=== PATIENT | male | born 1950 | race African-American/Black ===

== ENCOUNTER 2019-09-05 13:30 | Outpatient (RCR) | payer MEDICARE, SELFPAY ==
--- NOTE | 2019-08-09 13:46 | PTOPEVAL ---
Thank you for referring this patient to [facility]. Please review, sign, date and return this plan of care NIA. Pt referred to therapy for evaluation due to recent CVA. He demonstrates muscle weakness, decreased balance and decreased walking speed on objective test. He requires additional skilled therapy to address impairments and achieve therapy goals. Cont PT 2x/wk x 4wk. I agree with and certify that the following plan of care is medically necessary. Referring Physician Date Admitting Provider: Attending Provider: Melinda Gimenez, Referring Provider: Gabi Roger *PT Outpatient Evaluation Start: 08/09/19 12:49 Freq: Status: Active Protocol: Document 08/09/19 12:46 CAP (Rec: 08/09/19 13:36 CAP [id number]) Therapy Assessment Status Assessment Status Assessment Status Evaluation Outpatient Past Medical History Neurological History Hx Cerebrovascular Accident (CVA) Yes Cardiovascular History Hx Coronary Artery Disease Yes Hx Hypertension Yes Respiratory History Hx Chronic Obstructive Pulmonary Disease Yes (COPD) Genitourinary History Hx Genitourinary Disorders No Significant History Musculoskeletal History Hx Musculoskeletal Disorders No Significant History Hematological History Hx Anemia Yes Hx Human Immunodeficiency Virus (HIV) Yes Endocrine History Hx Diabetes Yes HEENT History Hx Other HEENT Disorders Yes: Pt legally blind Integumentary History Hx Skin Disorders No Significant History Reproductive History Hx Reproductive Disorders No Significant History Psychosocial History Hx Depression Yes Pain History History of Any Previous or Ongoing No Significant History Instance of Pain Anesthesia History Hx Anesthesia Reactions No Significant History Other History Hx Cancer Yes: Prostate ca Evaluation Information Problem Diagnosis CVA Onset 06/03/19 Subjective Information Pt was admitted to [facility] Query Text:As Reported By Patient/ Hosptial on 06/03/19 due to Family found on floor. He was sent to [facility] until 06/17/19 and then [facility] from 06/17/19-07/01/19. Pt continues to use a quad cane to assist with mobility. Denies any falls. Reports his left hand and leg are worse since the last stroke. He feels the leg is weak. He reports he does not perform a HEP or regular fitness or walking program. Previous Treatments Previous Treatments For This
--- NOTE | 2019-08-09 14:51 | OTOPEVAL ---
OCCUPATIONAL THERAPY INITIAL EVALUATION REPORT Thank you for referring this patient to [facility]. Patient will benefit from skilled OT 2x/week for 4 weeks for deficits outlined below. Please review, sign, date and return this evaluation report NIA. I agree with and certify that the following plan of care is medically necessary. Referring Physician Date Attending Provider: Melinda Gimenez MD Referring Provider: Gabi Roger NP *OT Outpatient Evaluation Start: 08/09/19 13:37 Therapy Assessment Status Assessment Status Assessment Status Evaluation Outpatient Past Medical History Neurological History Hx Cerebrovascular Accident (CVA) Yes Cardiovascular History Hx Coronary Artery Disease Yes Hx Hypertension Yes Respiratory History Hx Chronic Obstructive Pulmonary Disease Yes (COPD) Genitourinary History Hx Genitourinary Disorders No Significant History Musculoskeletal History Hx Musculoskeletal Disorders No Significant History Hematological History Hx Anemia Yes Hx Human Immunodeficiency Virus (HIV) Yes Endocrine History Hx Diabetes Yes HEENT History Hx Other HEENT Disorders Yes: Pt legally blind Integumentary History Hx Skin Disorders No Significant History Reproductive History Hx Reproductive Disorders No Significant History Psychosocial History Hx Depression Yes Pain History History of Any Previous or Ongoing No Significant History Instance of Pain Anesthesia History Hx Anesthesia Reactions No Significant History Other History Hx Cancer Yes: Prostate ca Evaluation Information Problem Diagnosis CVA Onset Jun 2019 Additional Evaluation Detail -Pt was admitted to [facility] on 06/03/19 due lethargy, encephalopathy, and possible thrombus in R internal carotid artery. He was transferred to [facility] until 06/17/19 with new infarcts noted on MRI as of 06/18/19. He then had inpatient rehab at [facility] from 08/18/18-07/01/19. -The patient also had a CVA in December of 2018. Subjective Information Slade and his daughter Query Text:As Reported By Patient/ report a decline in LUE Family strength since his previous rehab from the CVA in December. His daughter reports that she is unable to motivate him to do anything at home . Prior Level of Function Activity Level (Last 3 Months)
--- NOTE | 2019-09-05 13:29 | PTOPEVAL ---
Addendum entered by Coral Gilman, PT 09/05/19 17:05: Plan to have 1-2 weeks off due to planned surgery for carotid endarterectomy on 09/16/19. Original Note: Thank you for referring this patient to [facility]. Please review, sign, date and return this plan of care NIA. Pt has received 6 physical therapy visits to address functional impairments related to his recent CVA. He demonstrates progress towards his therapy goals with improve balance and walking speed and endurance. Cont PT 1-2x/wk x 4 wk I agree with and certify that the following plan of care is medically necessary. Referring Physician Date Admitting Provider: Attending Provider: Melinda Gimenez, Referring Provider: tolu joaquin *PT Outpatient Re-Evaluation Start: 08/09/19 12:49 Freq: Status: Active Protocol: Document 09/05/19 12:34 CAP (Rec: 09/05/19 13:28 CAP [id number]) Therapy Assessment Status Assessment Status Assessment Status Re-evaluation Evaluation Information Problem Diagnosis CVA Onset Jun 2019 Additional Evaluation Detail -Pt was admitted to [facility] on 06/03/19 due lethargy and encephalopathy and possible thrombus in R internal carotid artery. He was transferred to [facility] until 06/17/19 with new infarcts noted on MRI as of 06/18/19. He then had inpatient rehab at [facility] from 08/18/18-07/01/19. -The patient also had a CVA in December of 2018. Subjective Information Reports he is performing his Query Text:As Reported By Patient/ HEP multiple times a week. He Family states he is walking around the house but does not perform community mobility. He does think his left arm has improved,but his hand remains weak. Denies any changes in his left leg strength. Pain Assessment Timing of Pain Assessment Timing of Pain Assessment Re-assessment Self Report Self Report Pain Level 0 Pain Score Pain Score 0: Self Report Lower Extremity Muscle Strength Testing Hip Strength Right Hip Flexion Strength 4 Good Hip Extension Strength 3- Fair - Hip Abduction Strength 2+ Poor + Hip Adduction Strength 2+ Poor + Hip Strength Comments makes full bridge Left Hip Flexion Strength 3 Fair Hip Extension Strength 3- Fair - Hip Abduction Strength 2 Poor Hip Adduction Strength
--- NOTE | 2019-09-05 14:36 | OTOPEVAL ---
OCCUPATIONAL THERAPY RE-EVALUATION REPORT 09/05/2019 Thank you for referring this patient to [facility]. Patient will benefit from continued skilled OT 2x/week for 4 weeks. Plan to have 1-2 weeks off due to the patient having a carotid endarterectomy 09/16/19. Please review, sign, date and return this plan of care NIA. I agree with and certify that the following plan of care is medically necessary. Referring Physician Date Attending Provider: Melinda Gimenez MD Referring Provider: Gabi Roger NP *OT Outpatient Re-Evaluation Evaluation Information Problem Diagnosis s/p CVA Onset December and Jun 2019 Subjective Information Slade has been participating Query Text:As Reported By Patient/ in outpatient OT since 08/09/19 Family for left sided hemiparesis following CVA (x2). He reports that since SOC his whole arm can move better . He reports less pain and improved comfort in the left shoulder with exercises. He reports compliance with UE HEP (PROM and scapular ROM). Pain Assessment Timing of Pain Assessment Timing of Pain Assessment Re-assessment Self Report Self Report Pain Level 0 Pain Score Pain Score 0: Self Report Upper Extremity Range of Motion Scapular/ Shoulder Range of Motion Left Reason Not Measured WNL/Right Scapular: Retraction Hypomobile Scapular: Protraction Hypomobile Scapular Downward Rotation Hypomobile Scapular Upward Rotation Hypomobile Shoulder Flexion - Active 40 Shoulder Extension - Active 30 Shoulder Abduction - Active 55 Scapular/Shoulder Range of Motion Scapular elevation and Comments retraction is about 50% of (R) scapula. At rest the (L) scapula is in protraction with slight winging. 1 finger width subluxation. He has improved with attending to the (L) UE. Shoulder flexion remained at 50*. Shoulder abduction improved 5*. Shoulder extension improved 5*. Elbow/Forearm Range of Motion Left Elbow Flexion - Active 95 Elbow Flexion - Passive 130 Elbow Extension - Active -15 Elbow Extension - Passive 0 Forearm Supination - Passive 60 Forearm Pronation - Passive 90 Elbow/Forearm Range of Motion Comments Elbow flexion improved 10*.
--- NOTE | 2019-09-15 14:18 | PCPTNOTE ---
Patient called & cancelled scheduled appointment this date due to having procedure on 09/16/19. Pt will return in 2wks.
--- NOTE | 2019-09-15 16:20 | PCOTNOTE ---
Pt's daughter called and cancelled his appt today 2/2 having surgery tomorrow and didn't want to expose him to anyone that was sick.
--- NOTE | 2019-09-27 10:35 | PCPTNOTE ---
Patient called & cancelled all his scheduled appointment until 10/13/19 due to COVID-19. Will reassess pt at his next appt.
--- NOTE | 2019-10-13 13:28 | PCPTNOTE ---
Patient did not show up for scheduled appointment this date. Called pt, spoke with family member, who states she forgot to call and cancel his appt. Pt is receiving home health services. Will DC PT from outpt at this time.
--- NOTE | 2019-10-13 13:33 | PCPTNOTE ---
Admitting Provider: Attending Provider: Melinda Gimenez, Patient:Slade Aguilar Date of :1950 Patient has not returned for any further treatments since 09/05/2019, therefore he will be discharged at this time. Patient?s initial visit was on 08/09/2019 12:30 and he had a total of 6 visits. The goals have been partially met. Thank you for referring this patient to [facility]. Please review, sign, date and return this discharge summary NIA. I have been updated about the patient's current status and I agree with discharge from the above service at this time. Referring Physician Date
--- NOTE | 2019-10-13 14:50 | OTOPEVAL ---
OCCUPATIONAL THERAPY DISCHARGE NOTE 10/13/2019 Slade has not returned for treatment since 09/05/2019, therefore he will be discharged from therapy at this time. The goals have not been met. Thank you for referring Slade Aguilar to [facility]. Please review, sign, date and return this plan of care NIA. I agree with and certify that the following plan of care is medically necessary. Referring Physician Date Attending Provider: Melinda Gimenez MD Referring Provider: Gabi Roger NP
== END 2019-10-14 09:28 | disposition home or self-care (01) ==
LOC: ANHOT 13:30
PROVIDERS: PCP Internal Medicine Geriatric Medicine; Visit Provider Internal Medicine Geriatric Medicine
DX: Z86.73 Personal history of transient ischemic attack (TIA), and cerebral infarction without residual deficits (principal)
CPT/HCPCS: 97014; 97035; 97110; 97116; 97140; 97163; 97165; 97530; G0283

== ENCOUNTER 2019-10-12 17:06 | Inpatient (IN) | payer MEDICARE, SELFPAY ==
--- NOTE | ~2019-10-12 | XR_ITS ---
EXAMINATION: XR chest 1V portable 10/12/2019 18:52 INDICATION: Transient alteration of awareness. Cough. Hypertension. History of asthma. PROCEDURE: AP portable chest COMPARISON: 06/17/2019 FINDINGS: The lungs are clear. The cardiomediastinal silhouette is within normal limits. There are no pleural effusions. There is no pneumothorax suspected. IMPRESSION: 1: NO ACUTE CARDIOPULMONARY DISEASE. Reviewed, dictated and finalized at location A.
[2019-10-12 17:06] VITALS: BP 72/53; PULSE 105; RESP 21; TEMP 37.1; O2SAT 96
--- NOTE | 2019-10-12 17:33 | ED.GENADULT ---
HPI - General Adult General Chief complaint: Unspecified Stated complaint: blood in urine Time Seen by Provider: 10/12/19 17:09 Source: patient and EMS Mode of arrival: EMS History of Present Illness HPI narrative: 69 m generally a difficult hx and a p[oor report re why he has come pt states main issue is a martin was placed this am to get the blood out of my urine and it is burning now also that the indicators aren't always right claims not to have been cathed before that may have been done by home health but no notes in emr incidental note made of low bp pt denies fever, cough, sob, dizziness, gi sx Onset (ago): hour(s) Location: genitals Related Data Allergies Allergy/AdvReac Type Severity Reaction Status Date / Time No Known Allergies Allergy Verified 06/03/19 19:17 Review of Systems Constitutional: Constitutional: Denies chills, Denies fever(s) and Reports weakness ENT: Denies dizziness and Denies nasal congestion Cardiovascular: Cardiovascular: Reports no additional cardiovascular complaints and Denies chest pain Respiratory: Respiratory: Denies cough and Denies dyspnea Gastrointestinal: Gastrointestinal: Denies diarrhea and Denies vomiting Genitourinary: Genitourinary: Reports hematuria and Reports dysuria Neurologic: Reports confusion (maybe), Denies headache(s) and Reports weakness PMFSH Past Medical History Medical History Asthma Diabetes mellitus HIV positive HTN (hypertension) Left hemiparesis Nasal fracture Shingles Stroke Surgical History Surgical History H/O inguinal hernia repair History of tonsillectomy Family History Family History Father Cirrhosis of liver Social History Social History Smoking status: Former smoker Tobacco type: cigarettes Second hand tobacco smoke exposure: Yes Alcohol intake: former Substance use: never Gender identity (if verbalized by the patient): Male Spiritual care concerns: No Agree to blood products: Yes Exam Const: Other: frail, elderly, chronically ill appearing, mildly sleepy/lethargic HENMT: Mouth: No Normal oral and palatal mucosa present and Yes dry mucous membranes Resp: Effort & Inspection: normal respiratory effort Auscultation: clear to auscultation bilaterally Cardio: Rate: regular rate Rhythm: regular rhythm GI: Inspection: non-distended GI Palp: No Tenderness to palpation present (GI) : Other: martin in, dark urine Urinary Catheter: Urinary Catheter: patent and draining Back/Spine/Pelvis: Back: no CVA tenderness Neuro: General: moves all extremities Extrem: General: no pedal edema Psych: Attitude: cooperative Course Course Emergency Course: bp responded nicely to moderate fluids uti on f/u, nl lactic d/w gu in [place], [facility] doc who was unfamiliar Vital Signs Vital signs: Vital Signs Temperature 37.1 C 10/12/19 17:06 Pulse Rate 105 H 10/12/19 17:06 Respiratory Rate 21 H 10/12/19 17:06 Blood Pressure 72/53 L 10/12/19 17:06 Pulse Oximetry 96 10/12/19 17:06 Temperature 37.1 C 10/12/19 17:06 Pulse Rate 105 H 10/12/19 17:06 Respiratory Rate 21 H 10/12/19 17:06 Blood Pressure 72/53 L 10/12/19 17:06 Pulse Oximetry 96 10/12/19 17:06 Medical Decision Making Vital Signs Vital Signs: Vital Signs Temperature 37.1 C 10/12/19 17:06 Pulse Rate 105 H 10/12/19 17:06 Respiratory Rate 21 H 10/12/19 17:06 Blood Pressure 72/53 L 10/12/19 17:06 Pulse Oximetry 96 10/12/19 17:06 Temperature 37.1 C 10/12/19 17:06 Pulse Rate 105 H 10/12/19 17:06 Respiratory Rate 21 H 10/12/19 17:06 Blood Pressure 72/53 L 10/12/19 17:06 Pulse Oximetry 96 10/12/19 17:06 Lab Data Result diagrams: 10/12/19
[2019-10-12 17:44] VITALS: BP 87/53; PULSE 90; RESP 19; O2SAT 95
[2019-10-12 18:12] LABS: Basophils Absolute Auto 0.1 K/mm3 (0.0-0.1); Basophils Percent Auto 0.7 % (0.2-1.2); Eosinophils Absolute Auto 0.2 K/mm3 (0-0.3); Eosinophils Percent Auto 1.3 % (0-4.4); Hematocrit 38.1 % (42.0-52.0); Hemoglobin 12.2 g/dL (14.0-18.0); Immature Granulocyte Absolute 0.03 K/mm3 (0.00-0.031); Immature Granulocyte Percent A 0.3 % (0-0.5); Lymphocytes Absolute Auto 2.41 K/mm3 (0.9-3.2); Lymphocytes Percent Auto 20.7 % (18.3-44.2); Mean Corpuscular Hemoglobin 27.8 pg (26-34); Mean Corpuscular Volume 86.8 fl (80-100); Mean Platelet Volume 10.1 fl (7.4-10.4); Monocytes Percent Auto 8.1 % (2.6-8.5); Neutrophils Percent Auto 68.9 % (45.5-73.1); Platelet Count Result 362 k/mm3 (150-375); Red Blood Count 4.39 M/mm3 (4.6-6.20); Red Cell Distribution Width 12.9 % (11.5-14.5); White Blood Count 11.7 K/mm3 (4.5-10.0)
[2019-10-12 18:23] LABS: Lactic Acid Reflex 2.1 mmol/L (0.7-2.1)
[2019-10-12] MEDS: LACTATED RINGERS 1,000 ML 999 ML IV CONT (18:24)
[2019-10-12 18:53] VITALS: BP 94/69; PULSE 69; RESP 16; O2SAT 99
[2019-10-12 19:20] LABS: Alanine Aminotransferase 14 U/L (4-50); Albumin Level 3.9 g/dL (3.5-5.1); Alkaline Phosphatase 117 U/L (38-126); Aspartate Amino Transferase 20 U/L (17-59); Bilirubin,Total 0.3 mg/dL (0.2-1.3); Blood Urea Nitrogen 29 mg/dL (9-20); Calcium 9.5 mg/dL (8.4-10.2); Carbon Dioxide 29 mmol/L (22-30); Chloride 101 mmol/L (98-107); Estimated CRCL calculation 30 ml/min; Estimated Glomerular Filt Rate 38; Glucose 192 mg/dL (75-110); Lipase 76 U/L (23-300); Potassium 3.8 mmol/L (3.4-5.0); Sodium 138 mmol/L (137-145)
[2019-10-12 19:30] LABS: Add Urine Microscopic? YES; Appearance Urine Turbid (Clear); Bacteria Urine 1+ /hpf; Bilirubin Urine 1+ (Negative); Blood Urine 3+ (Negative); Glucose Urine UA 1+ mg/dL (Negative); Hyaline Casts Urine 50+ /lpf; Ketones Urine Negative (Negative); Leukocyte Esterase Ur 2+ LEU/UL (Negative); Mucus Urine Heavy /lpf; Nitrate Urine Negative (Negative); Protein Urine 2+ mg/dL (Negative); RBC Urine >75 /hpf (0-2); Specific Grav Ur 1.026 (1.001-1.035); WBC Clumps Urine Present /HPF; WBC Urine >75 /hpf
[2019-10-12 19:31] LABS: Color Urine Brown (Yellow)
[2019-10-12 19:45] VITALS: BP 114/88; PULSE 70; RESP 16; O2SAT 100
[2019-10-12 20:30] VITALS: BP 136/77; PULSE 71; RESP 16; O2SAT 99
[2019-10-12 21:10] LABS: Reflex Lactic Acid Yes or No Add Lactic
[2019-10-12 21:40] LABS: Lactic Acid 1.4 mmol/L (0.7-2.1)
--- NOTE | 2019-10-12 23:20 | PC.NURSE ---
This patient, Slade Aguilar, was admitted to Medical Room 245-. Patient/family oriented to hospital policies and general routines including ID bracelet, bed and alarms, visiting hours, pain management, procedures, bathroom and other care routines, personal items, smoking policy, room service/diet, and visiting hours. Valuables list has been completed. Information on how to activate the Rapid Response Team has been discussed. Patient/Family are encouraged to report perceived risks to care and to ask questions if they do not understand what they are told or what they should do.
[2019-10-12 23:36] VITALS: BMI 26.2
[2019-10-12 23:37] VITALS: BP 145/65; PULSE 69; RESP 20; TEMP 36.4; O2SAT 99
[2019-10-12] MEDS: LACTATED RINGERS 1,000 ML 125 ML IV CONT (23:39)
[2019-10-13 00:16] LABS: Glucose Point of Care 86 (65-105)
[2019-10-13 05:16] LABS: Basophils Absolute Auto 0.1 K/mm3 (0.0-0.1); Basophils Percent Auto 1.1 % (0.2-1.2); Eosinophils Absolute Auto 0.3 K/mm3 (0-0.3); Eosinophils Percent Auto 2.9 % (0-4.4); Hematocrit 33.6 % (42.0-52.0); Hemoglobin 10.9 g/dL (14.0-18.0); Immature Granulocyte Absolute 0.04 K/mm3 (0.00-0.031); Immature Granulocyte Percent A 0.4 % (0-0.5); Lymphocytes Absolute Auto 2.66 K/mm3 (0.9-3.2); Lymphocytes Percent Auto 29.4 % (18.3-44.2); Mean Corpuscular HGB Conc 32.4 g/dl (32-36); Mean Corpuscular Hemoglobin 28.3 pg (26-34); Mean Corpuscular Volume 87.3 fl (80-100); Monocytes Absolute Auto 0.8 K/mm3 (0.1-0.6); Monocytes Percent Auto 9.2 % (2.6-8.5); Neutrophils Absolute Auto 5.2 K/mm3 (1.3-6.7); Platelet Count Result 276 k/mm3 (150-375); Red Blood Count 3.85 M/mm3 (4.6-6.20); Red Cell Distribution Width 12.9 % (11.5-14.5); White Blood Count 9.1 K/mm3 (4.5-10.0)
[2019-10-13 05:27] LABS: Blood Urea Nitrogen 25 mg/dL (9-20); Calcium 8.9 mg/dL (8.4-10.2); Carbon Dioxide 30 mmol/L (22-30); Chloride 105 mmol/L (98-107); Estimated CRCL calculation 48 ml/min; Estimated Glomerular Filt Rate > 60; Glucose 110 mg/dL (75-110); Potassium 3.7 mmol/L (3.4-5.0); Sodium 139 mmol/L (137-145)
[2019-10-13 05:51] VITALS: BP 161/84; PULSE 65; RESP 20; TEMP 36.2; O2SAT 99
[2019-10-13 08:00] VITALS: PULSE 65; RESP 20; O2SAT 99
[2019-10-13] MEDS: SODIUM CHLORIDE 0.9% IV 1,000 ML 75 ML IV CONT ×2 (08:41→22:24)
[2019-10-13] MEDS: CITALOPRAM HYDROBROMIDE 10 MG TABLET PO (08:42)
[2019-10-13] MEDS: CEFDINIR 300 MG CAPSULE PO ×2 (08:42→20:27)
[2019-10-13] MEDS: lisinopriL 5 MG TABLET PO (08:43)
[2019-10-13] MEDS: ROSUVASTATIN 10 MG TABLET 40 MG PO (08:43)
[2019-10-13] MEDS: levETIRAcetam 250 MG TABLET PO (08:43)
--- NOTE | 2019-10-13 08:48 | PM.IMHP ---
H&P: HPI History of Present Illness Chief complaint: WINNIE, UTI, Sepsis Narrative: Slade Aguilar is a 69 year old male with known history of CVA with left hemiparesis, HTN, and DM (diet controlled) who presented to the ER on evening of 10/11 from home due to HH finding patient to be hypotensive. Patient is a not the best historian but is able to tell me some detail. Most of history is obtained from EMR and from daughter, Teresa (patient gave permission to talk to). Patient tells me that he was sent to the ER because he was experiencing burning pain from his Martin catheter after it was placed in his urologist, Dr. Palafox, from [place]; he also noted that there was dark, possibly bloody urine and that it may have clotted. He states that his burning has resolved and his urine appears to be improving. After speaking with his daughter, the true reason for presentation was his hypotension found by his HH nurse at home. Patient states that his symptoms have improved. He denies any burning around his martin, his bloody urine has improved, and he denies f/c/sweats. Upon further questioning, he denies myalgias/arthralgias, headaches, dizziness, lightheadedness, changes in v/h, cp/palpitations, sob/cough, n/v/d/c, abd pain, changes in BMs, melena, BRBPR, dysuria, calf pain/swelling. Review of Systems Review of Systems: All systems reviewed & are unremarkable except as noted in HPI and below PMFSH Past Medical History Medical History (Updated 10/13/19 @ 09:29 by Bakari Duggan PA-C) Asthma Diabetes mellitus HIV positive HTN (hypertension) Left hemiparesis Nasal fracture Shingles Stroke Surgical History Surgical History H/O hand surgery Right hand fracture H/O inguinal hernia repair History of tonsillectomy Family History Family History Father Cirrhosis of liver Social History Social History Social History: Patient states he lives at home with his daughter, Teresa, whom he states is his surrogate MDM. He wishes to be listed as a Full Code. His PCP is Dr. Gimenez. He currently has service Smoking packs per day: 0.5 Smoking cigarettes per day: 10.0 Smoking status: Former smoker Tobacco type: cigarettes Second hand tobacco smoke exposure: Yes Alcohol intake: current Drinks per week: 2 Alcohol use details: Occasional drinker Substance use: never Gender identity (if verbalized by the patient): Male Spiritual care concerns: No Agree to blood products: Yes Meds Home Medications and Allergies Home Medications Medication Instructions Recorded Confirmed Type Biktarvy 1 tablet PO DAILY #30 tablet 06/30/19 10/12/19 Rx aspirin 325 mg PO DAILY #30 tablet 06/30/19 10/12/19 Rx citalopram 10 mg PO DAILY #30 tablet 06/30/19 10/12/19 Rx lisinopril 5 mg PO DAILY #30 tablet 06/30/19 10/12/19 Rx montelukast 10 mg PO HS #30 tablet 06/30/19 10/12/19 Rx rosuvastatin 40 mg PO DAILY #30 tablet 06/30/19 10/12/19 Rx acetaminophen [Acetaminophen Extra 1,000 mg PO Q6H PRN 10/12/19 10/12/19 History Strength] ipratropium-albuterol 3 ml INHALATION BID 10/12/19 10/12/19 History levetiracetam 250 mg PO DAILY 10/12/19 10/12/19 History levetiracetam 500 mg PO HS 10/12/19 10/12/19 History Allergies Allergy/AdvReac Type Severity Reaction Status Date / Time No Known Allergies Allergy Verified 06/03/19 19:17 Vital Signs Vital Signs - 24 hr 10/12/19 17:06 10/12/19 17:44 10/12/19 18:53 Temperature 98.8 F Pulse Rate 105 H 90 69 Respiratory Rate 21 H 19 16 Blood Pressure 72/53 L 87/53 L 94/69 L Pulse Oximetry 96 95 99 10/12/19 19:45 10/12/19 20:30 10/12/19 23:37 Temperature 97.5 F L Pulse Rate 70 71 69 Respiratory Rate 16 16 20 Blood Pressure 114/88 136/77 145/65 H Pulse Oximetry 100 99 99 10/13/19 05:51 Temperature 97.1 F L Puls
[2019-10-13 08:53] LABS: Hemoglobin A1C 6.4 % (<5.7)
[2019-10-13] MEDS: ALBUTEROL SULFATE (*SP) AEROSOL 1 PUFF 2 PUFF INHALATION (09:20)
[2019-10-13 11:38] LABS: Glucose Point of Care 125 (65-105)
[2019-10-13 14:00] VITALS: BP 139/60; PULSE 76; RESP 22; TEMP 36.1; O2SAT 100
[2019-10-13 17:26] LABS: Glucose Point of Care 80 (65-105)
[2019-10-13] MEDS: HYOSCYAMINE SULFATE 0.125 MG TABLET PO (17:30)
--- NOTE | 2019-10-13 19:32 | PHAR ---
BIKTARVY 50/200/25MG TABLETS ONE DAILY HOME MED VERIFIED
[2019-10-13] MEDS: levETIRAcetam 500 MG TABLET PO (20:27)
[2019-10-13] MEDS: MONTELUKAST SODIUM 10 MG TABLET PO (20:27)
[2019-10-13 20:47] LABS: Glucose Point of Care 143 (65-105)
[2019-10-13 22:00] VITALS: BP 168/81; PULSE 81; RESP 20; TEMP 36.1; O2SAT 100
[2019-10-14 05:32] LABS: Basophils Absolute Auto 0.1 K/mm3 (0.0-0.1); Eosinophils Absolute Auto 0.4 K/mm3 (0-0.3); Eosinophils Percent Auto 4.7 % (0-4.4); Hematocrit 32.1 % (42.0-52.0); Hemoglobin 10.3 g/dL (14.0-18.0); Immature Granulocyte Absolute 0.03 K/mm3 (0.00-0.031); Immature Granulocyte Percent A 0.4 % (0-0.5); Lymphocytes Absolute Auto 2.33 K/mm3 (0.9-3.2); Lymphocytes Percent Auto 28.7 % (18.3-44.2); Mean Corpuscular HGB Conc 32.1 g/dl (32-36); Mean Corpuscular Hemoglobin 27.4 pg (26-34); Mean Corpuscular Volume 85.4 fl (80-100); Monocytes Absolute Auto 0.6 K/mm3 (0.1-0.6); Monocytes Percent Auto 7.6 % (2.6-8.5); Neutrophils Absolute Auto 4.7 K/mm3 (1.3-6.7); Neutrophils Percent Auto 57.6 % (45.5-73.1); Platelet Count Result 265 k/mm3 (150-375); Red Blood Count 3.76 M/mm3 (4.6-6.20); Red Cell Distribution Width 12.6 % (11.5-14.5); White Blood Count 8.1 K/mm3 (4.5-10.0)
[2019-10-14 05:48] LABS: Blood Urea Nitrogen 16 mg/dL (9-20); Calcium 8.7 mg/dL (8.4-10.2); Carbon Dioxide 30 mmol/L (22-30); Chloride 102 mmol/L (98-107); Estimated CRCL calculation 62 ml/min; Estimated Glomerular Filt Rate > 60; Glucose 94 mg/dL (75-110); Magnesium 1.3 mg/dL (1.6-2.3); Potassium 3.8 mmol/L (3.4-5.0); Sodium 137 mmol/L (137-145)
[2019-10-14 06:00] VITALS: BP 152/81; PULSE 59; RESP 18; TEMP 36.1; O2SAT 95
[2019-10-14 07:46] LABS: Glucose Point of Care 82 (65-105)
[2019-10-14] MEDS: ROSUVASTATIN 10 MG TABLET 40 MG PO (08:08)
[2019-10-14] MEDS: levETIRAcetam 250 MG TABLET PO (08:08)
[2019-10-14] MEDS: lisinopriL 5 MG TABLET PO (08:08)
[2019-10-14] MEDS: MAGNESIUM SULF 2 GM/WATER 50ML 2 GM/50 ML BAG IVPB (08:09)
[2019-10-14] MEDS: CITALOPRAM HYDROBROMIDE 10 MG TABLET PO (08:09)
--- NOTE | 2019-10-14 08:20 | PM.DS ---
DS: Diagnosis Admitting Diagnosis Admitting Diagnosis: Urinary tract infection, site not specified Discharge Diagnosis (1) Bacteriuria with pyuria: Code(s): R82.71 - Bacteriuria; R82.81 - Pyuria Status: Acute Assessment and Plan: Patient having symptoms yesterday with UA showing brown, turbid urine, >75 WBC, 1+ bacteria, 2+ leuk esterase, negative nitrates. WBC mildly elevated at 11.7k on arrival. WBC WNL today. Afebrile, VSS. Asymptomatic today. Urine cultures negative. BC negative to date Patient started on IV ceftriaxone on arrival and had 2 dose of cefdinir yesterday for suspected UTI. Antibiotics will be d/c due to negative urine cultures Follow up with Urology Will hold Aspirin for hematuria. No gross hematuria noted in martin today. Resume aspirin per urology. Discharge home today. (2) Hypotension: Code(s): I95.9 - Hypotension, unspecified Status: Resolved Assessment and Plan: After calculating SIRS/Sepsis score, patient did not meet SIRS criteria; hypotension noted while in the ER which responded well to IVF. Slightly tachycardic at 105 at presentation, but also improved with IVF; likely in response to hypotension which is likely due to acute dehydration. Since does not meet SIRS/Sepsis criteria; sepsis ruled out. No source of infection as well as UTI ruled out with negative UC. BP 150s sys today; much improved. Patient afebrile, VSS. As above WBC WNL. Discharge today (3) Stroke: Code(s): I63.9 - Cerebral infarction, unspecified Status: Acute Assessment and Plan: Known previous stroke with left hemiparesis Will hold home aspirin for now; will have patient follow up with Urology on when to resume F/u per Neurology recommendations Continue PT/OT with HH (4) Diabetes mellitus: Code(s): E11.9 - Type 2 diabetes mellitus without complications Status: Acute Assessment and Plan: No home medications; appears to be diet controlled. A1c 6.4. During stay, achs accuchecks, hypoglycemia protocol, correctional insulin f/u with pcp (5) HTN (hypertension): Code(s): I10 - Essential (primary) hypertension Status: Acute Assessment and Plan: Initially hypotensive, but responded well to IVF. BP 150 sys Will continue home antihypertensives F/u with PCP (6) Hematuria: Code(s): R31.9 - Hematuria, unspecified Status: Acute Assessment and Plan: Patient notes gross hematuria prior to arrival. This appears to have resolved with no gross hematuria today. Noted on UA as well Will hold aspirin for now Will have patient follow up with his urologist to see when to resume Follow up with Urology at scheduled appointment (7) Asthma: Code(s): J45.909 - Unspecified asthma, uncomplicated Status: Acute Assessment and Plan: No acute issues. Lung exam unremarkable Continue home regimen (8) WINNIE (acute kidney injury): Code(s): N17.9 - Acute kidney failure, unspecified Status: Acute Assessment and Plan: Cr 2.10 upon arrival; 1.00 by day of discharge. Improved with IVF resuscitation. Likely due to hypovolemia due to dehydration. F/u with PCP DS: Summary Hospital Course Reason for hospitalization: Hypotension; suspected dehydration, abnormal UA Hospital Course: Patient is a 69 yo M with history of CVA with left hemiparesis, HTN, and DM (diet controlled) who presented to the ER on evening of 10/11 from home due to HH nurse finding patient to be hypotensive while at home earlier that day. Patient also reported blood in Martin catheter that was placed earlier that day. Patient was found to be hypotensive on presentation to ER, but this improve
[2019-10-14 09:25] VITALS: PULSE 88; RESP 20
[2019-10-14] MEDS: IPRATROPIUM BR 0.02% INH SOLN 0.5 MG/2.5 ML VIAL INHALATION (09:27)
[2019-10-14] MEDS: ALBUTEROL SULFATE NEB 2.5 MG/0.5 ML INH INHALATION (09:27)
[2019-10-14 09:35] VITALS: PULSE 85; RESP 20
[2019-10-14 11:52] LABS: Glucose Point of Care 115 (65-105)
[2019-10-14 13:20] VITALS: BP 141/76; PULSE 69; RESP 18; TEMP 36.2; O2SAT 100
== END 2019-10-14 15:20 | disposition home health service (06) | DRG 641 ==
LOC: ANHED 21:14 → ANH2MED 22:17
PROVIDERS: Physician Assistant; Admitting Provider Internal Medicine; Emergency Provider Emergency Medicine; PCP Internal Medicine Geriatric Medicine; Visit Provider Internal Medicine
DX: E86.0 Dehydration (principal); I69.354 Hemiplegia and hemiparesis following cerebral infarction affecting left non-dominant side; I95.9 Hypotension, unspecified; I10 Essential (primary) hypertension; E11.9 Type 2 diabetes mellitus without complications; J45.909 Unspecified asthma, uncomplicated; Z21 Asymptomatic human immunodeficiency virus [HIV] infection status; Z87.891 Personal history of nicotine dependence; R31.0 Gross hematuria; R82.71 Bacteriuria; R82.81 Pyuria
CPT/HCPCS: 36415; 71045; 80048; 80053; 81001; 83036; 83605; 83690; 83735; 85025; 87040; 87086; 94640; 96361; 96365; 97110; 97161; 97165; 99285; A9270; J0696; J3475; J7030; J7120

== ENCOUNTER 2020-01-17 13:15 | Outpatient (RCR) | payer MEDICARE, SELFPAY ==
--- NOTE | 2019-11-23 13:58 | PTOPEVAL ---
Thank you for referring Slade Aguialr to [facility]. Please review, sign, date and return this plan of care NIA. I agree with and certify that the following plan of care is medically necessary. Referring Physician Date Admitting Provider: Attending Provider: Melinda Gimenez, Referring Provider: *PT Outpatient Evaluation Start: 11/23/19 12:39 Freq: Status: Active Protocol: Document 11/23/19 12:45 DIMA (Rec: 11/23/19 13:47 DIMA [id number]) Therapy Assessment Status Assessment Status Assessment Status Evaluation Outpatient Past Medical History Neurological History Hx Cerebrovascular Accident (CVA) Yes: x2 left sided affected Hx Epilepsy Yes Cardiovascular History Hx Coronary Artery Disease Yes: right carotid artery clean out Hx Hypertension Yes Respiratory History Hx Chronic Obstructive Pulmonary Disease Yes (COPD) Genitourinary History Hx Renal Disease Yes Hx Other Genitourinary Disorders Yes: prostate ca/martin Musculoskeletal History Hx Other Musculoskeletal Disorders Yes: lt side affected from stroke hemiplegia Hematological History Hx Anemia Yes Hx Human Immunodeficiency Virus (HIV) Yes Endocrine History Hx Diabetes Yes HEENT History Hx Other HEENT Disorders Yes: Pt legally blind Integumentary History Hx Skin Disorders No Significant History Reproductive History Hx Reproductive Disorders No Significant History Psychosocial History Hx Depression Yes Pain History History of Any Previous or Ongoing No Significant History Instance of Pain Anesthesia History Hx Anesthesia Reactions No Significant History Other History Hx Cancer Yes: Prostate ca Evaluation Information Problem Diagnosis CVA Onset 05/2019 Additional Evaluation Detail --active prostate cancer -scheduled Boomarang surgery (not sure of date) -- Teresa goldberg, is day time caregiver Subjective Information Jermaine is here for continuing CVA in 05/2019. He was in the hospital and then was on TRC at [facility] in June 2019. He then participated in outpatient physical therapy for a few months. He returned to the hospital and had a the right carotid artery cleaned out. He has now returned for outpatient therapy. States he feels weaker over all and like his body is falling apart. reports that he has a history of falling, last fall was a month ago and states that the left knee gave out. states he does not perform any exercises at home right now. Prior Level of Function Home Setting Home Type Single Level Environmental Barriers Railing, Bilateral,Stairs, 2-4 Pain Assessment Timing of Pain Assessment Timing of Pain Assessment Assessment
[2019-11-23 14:24] VITALS: BP_SYST 90
--- NOTE | 2019-11-23 14:38 | OTOPEVAL ---
OCCUPATIONAL THERAPY EVALUATION REPORT 11/23/2019 Thank you for referring Slade Aguilar to [facility] [place]. Skilled OT recommended 2x/week for 4 weeks. Please review, sign, date and return this plan of care NIA. I agree with and certify that the following plan of care is medically necessary. Referring Physician Date Referring Provider: Melinda Gimenez, MD *OT Outpatient Evaluation Therapy Assessment Status Assessment Status Assessment Status Evaluation Outpatient Past Medical History Neurological History Hx Cerebrovascular Accident (CVA) Yes: x2 left sided affected Hx Epilepsy Yes Cardiovascular History Hx Coronary Artery Disease Yes: right carotid artery clean out Hx Hypertension Yes Respiratory History Hx Chronic Obstructive Pulmonary Disease Yes (COPD) Genitourinary History Hx Renal Disease Yes Hx Other Genitourinary Disorders Yes: prostate ca/martin Musculoskeletal History Hx Other Musculoskeletal Disorders Yes: lt side affected from stroke hemiplegia Hematological History Hx Anemia Yes Hx Human Immunodeficiency Virus (HIV) Yes Endocrine History Hx Diabetes Yes HEENT History Hx Other HEENT Disorders Yes: Pt legally blind Integumentary History Hx Skin Disorders No Significant History Reproductive History Hx Reproductive Disorders No Significant History Psychosocial History Hx Depression Yes Pain History History of Any Previous or Ongoing No Significant History Instance of Pain Anesthesia History Hx Anesthesia Reactions No Significant History Other History Hx Cancer Yes: Prostate ca Evaluation Information Problem Diagnosis s/p CVA x2 Onset December and May 2019 Additional Evaluation Detail Left hemiparesis, tightness, and tone. He currently has active prostate cancer - scheduled for Boomarang surgery, unknown date. Subjective Information Jermaine presents today for Query Text:As Reported By Patient/ another round of OT/PT. He has Family had multiple therapy stents since his strokes. He reports being minimally active at home and sometimes performs his exercises. He lives with his daughter who assists him with bathing and dressing. Prior Level of Function Activity Level (Last 3 Months) Hand Dominance Right Activity of Daily Living Ability Needs Some Help Indoor/Home Mobility Independent Community Mobility
--- NOTE | 2019-12-12 13:04 | PCOTNOTE ---
Patient called & cancelled scheduled appointment this week, today and 's, due to not being able to make it .
--- NOTE | 2019-12-12 13:21 | PCPTNOTE ---
Patient's daughter called & cancelled scheduled appointment this date due to not being able to make it.
--- NOTE | 2019-12-16 08:48 | PCOTNOTE ---
Patient's daughter called & cancelled scheduled appointments this week due to not being able to make it .
--- NOTE | 2019-12-19 16:23 | PTOPEVAL ---
PHYSICAL THERAPY PROGRESS REPORT AND PLAN OF CARE UPDATE Thank you for referring Slade Aguilar to [facility]. I recommend Jermaine continue 2x/week for 2 weeks and 1x/week for 2 weeks. Please review, sign, date and return this plan of care NIA. I agree with and certify that the following plan of care is medically necessary. Referring Physician Date Attending Provider: Melinda Gimenez, MD Re-assess Other History Hx Cancer Yes: Prostate ca Evaluation Information Problem Diagnosis s/p CVA x2 Onset December and May 2019 Additional Evaluation Detail Left hemiparesis, tightness, and tone. He currently has active prostate cancer - scheduled for Boomarang surgery, unknown date. Subjective Information Jermaine has participated in Query Text:As Reported By Patient/ physical therapy for the last Family month. He does not report noticing a lot of changes over the last month. He reports having a lot of depression that gets him down; therefore, he does not do alot of exercises at home. He reports that he is exhausted all the time and does not want to get out of bed. Pain Assessment Timing of Pain Assessment Timing of Pain Assessment Assessment Self Report Self Report Pain Level 0 Pain Score Pain Score 0: Self Report Lower Extremity Muscle Strength Testing Hip Strength Left Hip Flexion Strength 3+ Fair + Hip Abduction Strength 3+ Fair + Knee Strength Left Knee Flexion Strength 4- Good - Knee Extension Strength 3+ Fair + Knee Strength Comments severe atrophy of left quadriceps Cunningham Balance Assessment C[place]AM Balance Evaluation Total Score 32/56 Comments 11/23/2019: 26/56 Timed Up and Go Test (TUG) (Seconds) 30 Assistive Devices None Comments 11/23/2019: 29seconds SBA 5 Time Sit to Stand Time in Seconds 37.41 5 Time Sit to Stand Comments 11/23/2019: 36.78 Query Text:Normative Data: If Greater used right UE to assist Than 15 Seconds, 74% Increase Risk for Recurrent Falls Gait Assessment 2 Minute Walk Total Distance Walked (feet) 113 2 Minute Walk Gait Speed Score (feet/ 0.94 second) 2 Minute Walk Test Comments 11/23/2019: 113seconds SBQC PT
[2019-12-22 13:40] VITALS: BP_SYST 90
--- NOTE | 2019-12-22 14:30 | OTOPEVAL ---
OCCUPATIONAL THERAPY DISCHARGE 12/22/2019 Thank you for referring Slade Aguilar to [facility]. At this time Slade demonstrates a progress plateau with therapy. D/C with ROM HEP to promote optimal flexibility for ADLs. Please review, sign, date and return this plan of care NIA. I agree with and certify that the following plan of care is medically necessary. Referring Physician Date Referring Provider: Melinda Gimenez, MD *OT Outpatient Re-Evaluation Evaluation Information Problem Diagnosis s/p CVA x2 Onset December and May 2019 Additional Evaluation Detail Slade has been working with therapy for 4 weeks for LUE weakness, tone, and contractures. Therapy has been focusing on encouraging the patient to be more active in his care, initiating his home program independently, improving flexibility and strength. Subjective Information Patient reports doing his UE Query Text:As Reported By Patient/ HEP once a week , reporting Family too much shoulder pain and having no motivation to get out bed to do anything. He reports feeling depressed and doesn't want to do the exercises because he believes that he won't get any better. Daughter reports that he had prostate surgery last week, which caused him to miss a week of therapy. Pain Assessment Timing of Pain Assessment Timing of Pain Assessment Re-assessment Pain Scale Pain Scale Used Numeric (1 - 10) Self Report Pain Assessment Left Shoulder(s) Reported Pain Level 0 Pain Score Pain Score 0: Self Report Additional Pain Score Comments No pain at rest, increase to 3 /10 with passive abduction stretch to 50* and sharp increase in pain from there. Upper Extremity Range of Motion Scapular/ Shoulder Range of Motion Left Scapular: Retraction Hypomobile Scapular: Protraction Hypomobile Scapular Downward Rotation Hypomobile Scapular Upward Rotation Hypomobile Shoulder Flexion - Active 20 Shoulder Flexion - Passive 90 Shoulder Extension - Active 30 Shoulder Abduction - Active 30 Shoulder Abduction - Passive 90 Shoulder Medial Rotation - Active Minimal IR. Query Text:Reach Behind the Back Shoulder L
--- NOTE | 2020-01-17 14:12 | PTOPEVAL ---
PHYSICAL THERAPY DISCHARGE NOTE Thank you for referring Slade Aguilar to [facility]. Please review, sign, date and return this plan of care NIA. I agree with and certify that the following plan of care is medically necessary. Referring Physician Date Attending Provider: Melinda Gimenez, MD Discharge Yes: Prostate ca Subjective: Jermaine is participating in physical therapy following CVA. He reports no changes at home or with is function. He continues to state he is a crippled old man. Jermaine also reports regularly that he is extremely fatigued constantly. States that a 60minute session of therapy will send him home to a several hour nap. Jermaine also has a wet cough that I have instructed him to have his physician look at. I instructed Jermaine and his daughter to discuss with physician the fatigue level. The amount of fatigue he experiences may be mildly related to the history of stroke; however, this level of fatigue leads me to be concerns for other co-morbidities. Pain Score 0: Self Report Lower Extremity Muscle Strength Testing Hip Strength Left Hip Flexion Strength 3+ Fair + Hip Abduction Strength 3 Fair Knee Strength Left Knee Flexion Strength 4- Good - Knee Extension Strength 3+ Fair + Knee Strength Comments severe atrophy of left quadriceps Balance Assessment Cunningham Balance Assessment Sitting to Standing Independent w/Hands Unsupported Stance Ability Supervision- 2 minutes Sitting Unsupported, Feet on Floor Safely- 2 minutes Standing to Sitting Assist, Control w/Hands Transfer Ability Safely, Hand Use Unsupported Stance- Eyes Closed Safely, 10 seconds Unsupported Stance- Feet Together Supervision to maintain Reaching Forward while Standing Safely, 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 Supervision Look Behind Shoulder - Standing Turns Sideways Only Turning 360 Degrees Requires Assistance Unsupported Stance, Alternating Feet on 2 Steps w/Minimum Assist Stair Unsupported Tandem Stance Small Step- 30 seconds Unilateral Leg Stance Lifts Leg/Unable to Hold [place]AM Balance Evaluation Total Score (/56 35 points) Comments 12/19/2019: 32/56 11/23/2019: 26 Timed Up and Go Test (TUG) (Seconds) 31 Assistive Devices None Comments 12/19/2019: 30 11/23/2019: 29seconds SBA 5 Time Sit to Stand Time in Seconds 33.12 5 Time Sit to Stand Comments 12/19/2019: 37.41 Query Text:Normative Data: If Greater 11/23/2019: 36.78 Than 15 Seconds, 74% Increase Risk for used right UE to assist Recurrent Falls Gait Assessment Total Distance Walked (feet) 108 2 Minute Walk Gait Speed Score (feet/ 0.90 second) 2 Minute Walk Test Comments 12/19/2019: 113ft.
== END 2020-01-19 14:11 | disposition home or self-care (01) ==
LOC: ANHPT 13:15
PROVIDERS: PCP Internal Medicine Geriatric Medicine; Visit Provider Internal Medicine Geriatric Medicine
DX: I63.9 Cerebral infarction, unspecified (principal)
CPT/HCPCS: 97014; 97110; 97112; 97116; 97162; 97165; G0283

== ENCOUNTER 2020-04-17 15:05 | Outpatient (CLI) | payer MEDICARE, SELFPAY ==
--- NOTE | ~2020-04-17 | DEXA_ITS ---
Bone Density Report Name: Slade Aguilar Age: 70 Sex: Male Ethnicity: White Date of : 1950 Indication: cancer; Referring Provider: Ammy, Pee Bruno Study: Bone densitometry was performed. Exam Date: April 17, 2020 Accession number: [id number] Bone Density: Region BMD T-score Z-score Classification AP Spine (L1-L4) 1.085 -0.1 0.9 Normal Femoral Neck (Left) 0.810 -0.9 0.4 Normal Total Hip (Left) 0.974 -0.4 0.3 Normal Total Hip Bilateral Avg 1.159 0.8 1.6 Normal Femoral Neck (Right) 1.099 1.2 2.5 Normal Total Hip (Right) 1.344 2.1 2.8 Normal World Health Organization criteria for BMD impression classify patients as: Normal (T-score at or above -1.0), Osteopenia (T-score between -1.0 and -2.5), or Osteoporosis (T-score at or below -2.5). 10-year Fracture Risk: FRAX not reported because: All T-scores for Spine Total, Hip Total, Femoral Neck at or above -1.0 Clinical Information Provided by Patient: Has the following medical conditions: Cancer Patient maximum height was 70 No regular weight bearing exercise Drinks caffeinated beverages Impression: The patient has normal bone mass. Discussion: BONE DENSITY IS ABOVE THE MINIMUM DESIRABLE LEVEL AT ALL SKELETAL SITES TESTED. This patient?s bone mineral density is above the minimum desirable level (T-score -1.0 or better) at all sites measured. The patient should follow a healthful lifestyle (good nutrition with adequate calcium and vitamin D, and appropriate weight-bearing exercise). Follow-Up: Consider repeating this study in 5 years or sooner if there is some new clinical indication. Reported by: JERAMY on 04/17/2020 3:23:00 PM. Reviewed, dictated and finalized at location [facility]
== END 2020-04-17 15:06 | disposition home or self-care (01) ==
LOC: ANHIMG 15:07
PROVIDERS: PCP Internal Medicine Infectious Disease; Visit Provider Internal Medicine Infectious Disease
DX: M85.861 Other specified disorders of bone density and structure, right lower leg (principal)
CPT/HCPCS: 77080

== ENCOUNTER 2021-02-12 15:34 | Emergency (ER) | payer MEDICARE, SELFPAY ==
[2021-02-12] VITALS (18 sets, daily range): BP systolic 82–104; BP diastolic 54–79; PULSE 54–101; RESP 12–24; TEMP 36.9; O2SAT 97–100
--- NOTE | ~2021-02-12 | XR_ITS ---
EXAMINATION: XR chest 2V DATE: 02/12/2021 17:19 INDICATION: Hypotension. TECHNIQUE: Frontal and lateral views of the chest were obtained. COMPARISON: Chest single view 10/12/2019, 12/08/18, chest CT 12/09/2018 FINDINGS: There is a 2 cm nodule in left lower lobe. No pleural effusion or pneumothorax. The heart s ize is normal. IMPRESSION: 1. 2 cm nodule in left lung lower lobe, stable from 12/08/18. This finding may be granulomatous diseas e or a low-grade neoplasm. Noncontrast chest CT is recommended. Reviewed, dictated and finalized at location A. IMPRESSION: 1. 2 cm nodule in left lung lower lobe, stable from 12/08/18. This finding may b e granulomatous disease or a low-grade neoplasm. Noncontrast chest CT is recomm ended.
--- NOTE | 2021-02-12 17:06 | ECG_ITS ---
Measurements Intervals [place] Rate: 86 P: OK: 0 QRS: -35 QRSD: 111 T: 13 QT: 391 QTc: 470 Interpretive Statements SINUS OR ECTOPIC ATRIAL RHYTHM WITH MARKED FIRST DEGREE AV BLOCK BORDERLINE R WAVE PROGRESSION, ANTERIOR LEADS INFERIOR INFARCT, AGE INDETERMINATE BASELINE WANDER- V1, V4 ABNORMAL ECG Electronically Signed On 02-12-2021 18:49:56 CDT by Eb Vega D.O.
--- NOTE | 2021-02-12 17:11 | PC.NURSE ---
pt off floor to radiology
--- NOTE | 2021-02-12 17:14 | ED.RECABL ---
HPI - Recheck/Abnormal Lab/Rx General Chief Complaint: Recheck/Abnormal Lab/Rx Stated Complaint: low bp from cardio appt Time Seen by Provider: 02/12/21 16:56 Source: patient Mode of arrival: ambulatory Limitations: no limitations History of Present Illness HPI narrative: Patient is a 70-year-old male with a history of previous CVA, left-sided residual deficit, hypertension, type 2 diabetes (diet controlled), HIV who presents to the emergency department for evaluation of hypertension. Patient was seen on a routine cardiology appointment today where his blood pressure was low, reportedly 70s systolic/40s diastolic. Patient was asymptomatic. After the completion of the appointment, the patient was advised to come to the emergency department for evaluation. Patient's daughter at bedside states she has felt like he has been a little more confused than normal the past 2 days. No fever or chills. No cough or shortness of breath. No syncope or lightheadedness. No recent medication changes. Patient states that he feels well. He does report he has had some dysuria intermittently over the past 5 days. He denies any suprapubic pain or back pain. Related Data Home Medications Medication Instructions Recorded Confirmed acetaminophen [Acetaminophen Extra 1,000 mg PO Q6H PRN 10/12/19 10/12/19 Strength] ipratropium-albuterol 3 ml INHALATION BID 10/12/19 10/12/19 levetiracetam 250 mg PO DAILY 10/12/19 10/12/19 levetiracetam 500 mg PO HS 10/12/19 10/12/19 Allergies Allergy/AdvReac Type Severity Reaction Status Date / Time No Known Allergies Allergy Verified 02/12/21 16:37 Review of Systems Review of Systems: CONSTITUTIONAL: Denies fever, chills, or sweats. EYES: Denies visual changes, redness, or discharge. ENT: Denies rhinorrhea, congestion, sore throat, or otalgia. CARDIOVASCULAR: Denies chest pain, palpitations, or edema. RESPIRATORY: Denies cough or dyspnea. GASTROINTESTINAL: Denies abdominal pain, nausea, vomiting, or diarrhea. GENITOURINARY: Denies dysuria or hematuria SKIN: Denies rash or itching. MUSCULOSKELETAL: Denies back pain, joint pain, or myalgia. NEUROLOGIC: Denies headache, numbness, or weakness. PENDING SALE TO [facility] Past Medical History Medical History Asthma Diabetes mellitus HIV positive HTN (hypertension) Left hemiparesis Nasal fracture Shingles Stroke Surgical History Surgical History H/O hand surgery Right hand fracture H/O inguinal hernia repair History of tonsillectomy Family History Family History Father Cirrhosis of liver Social History Social History Social History: Patient states he lives at home with his daughter, Teresa, whom he states is his surrogate MDM. He wishes to be listed as a Full Code. His PCP is Dr. Gimenez. He currently has service Smoking packs per day: 0.5 Smoking cigarettes per day: 10.0 Smoking status: Former smoker Tobacco type: cigarettes Second hand tobacco smoke exposure: Yes Alcohol intake: current Drinks per week: 2 Alcohol use details: Occasional drinker Substance use: never Gender identity (if verbalized by the patient): Male Spiritual care concerns: No Agree to blood products: Yes Exam Narrative: GENERAL: Awake, alert, conversant HEAD: Normocephalic, atraumatic. EYES: PERRLA and EOMI. ENT: Nares clear, no rhinorrhea or epistaxis. Mucous membranes moist. NECK: Supple. CHEST: No respiratory distress, breathing even and non labored HEART: Regular rate, sinus rhythm ABDOMEN:Non distended, non tender, no guarding,no suprapubic tenderness EXTREMITIES: Normal range of motion. No edema. SKIN: Warm, dry, no rash. NEURO: Alert and oriented to person, place, and time. Left upper extremity weakness, left lower extremity w
[2021-02-12 18:01] LABS: Basophils Absolute Auto 0.1 K/mm3 (0.0-0.1); Basophils Percent Auto 0.9 % (0.2-1.2); Eosinophils Absolute Auto 0.4 K/mm3 (0-0.3); Eosinophils Percent Auto 4.7 % (0-4.4); Hematocrit 38.7 % (42.0-52.0); Hemoglobin 12.4 g/dL (14.0-18.0); Immature Granulocyte Absolute 0.05 K/mm3 (0.00-0.031); Immature Granulocyte Percent A 0.6 % (0-0.5); Lymphocytes Absolute Auto 2.41 K/mm3 (0.9-3.2); Lymphocytes Percent Auto 28.5 % (18.3-44.2); Mean Corpuscular Hemoglobin 28.1 pg (26-34); Mean Corpuscular Volume 87.8 fl (80-100); Mean Platelet Volume 10.9 fl (7.4-10.4); Monocytes Absolute Auto 0.7 K/mm3 (0.1-0.6); Monocytes Percent Auto 8.5 % (2.6-8.5); Neutrophils Absolute Auto 4.8 K/mm3 (1.3-6.7); Neutrophils Percent Auto 56.8 % (45.5-73.1); Platelet Count Result 205 k/mm3 (150-375); Red Blood Count 4.41 M/mm3 (4.6-6.20); Red Cell Distribution Width 14.2 % (11.5-14.5); White Blood Count 8.5 K/mm3 (4.5-10.0)
[2021-02-12 18:12] LABS: Lactic Acid Reflex 1.6 mmol/L (0.7-2.1)
[2021-02-12 18:18] LABS: Alanine Aminotransferase 15 U/L (4-50); Albumin Level 4.1 g/dL (3.5-5.1); Alkaline Phosphatase 134 U/L (38-126); Anion Gap 9 mmol/L (8-16); Aspartate Amino Transferase 26 U/L (17-59); Bilirubin,Total 0.5 mg/dL (0.2-1.3); Blood Urea Nitrogen 16 mg/dL (9-20); CRP < 0.5 mg/dL (<1.0); Calcium 9.8 mg/dL (8.4-10.2); Carbon Dioxide 25 mmol/L (22-30); Chloride 105 mmol/L (98-107); Estimated CRCL calculation 48 ml/min; Estimated Glomerular Filt Rate > 60; Glucose 152 mg/dL (65-110); Potassium 3.8 mmol/L (3.4-5.0); Sodium 139 mmol/L (137-145)
[2021-02-12 18:25] LABS: Troponin I < 0.012 ng/mL (0.000-0.034)
[2021-02-12] MEDS: SODIUM CHLORIDE 0.9% IV 1,000 ML 999 ML IV CONT (18:47)
[2021-02-12 19:05] LABS: Add Urine Microscopic? YES; Appearance Urine Turbid (Clear); Bacteria Urine Trace /hpf; Bilirubin Urine 1+ (Negative); Blood Urine 2+ (Negative); Color Urine Amber (Yellow); Glucose Urine UA Negative (Negative); Ketones Urine Negative (Negative); Leukocyte Esterase Ur 2+ LEU/UL (Negative); Mucus Urine Heavy /lpf; Nitrate Urine Negative (Negative); Protein Urine 3+ mg/dL (Negative); RBC Urine 51-75 /hpf (0-2); Specific Grav Ur 1.026 (1.001-1.035); WBC Urine >75 /hpf
[2021-02-12 19:09] LABS: Partial Thromboplastin Time 29.9 SECONDS (22.3-36.8)
== END 2021-02-12 19:48 | disposition home or self-care (01) ==
PROVIDERS: Emergency Provider Emergency Medicine; PCP Internal Medicine Infectious Disease
DX: E86.0 Dehydration (principal); N39.0 Urinary tract infection, site not specified; R03.1 Nonspecific low blood-pressure reading; I10 Essential (primary) hypertension; E11.9 Type 2 diabetes mellitus without complications; B20 Human immunodeficiency virus [HIV] disease; Z86.73 Personal history of transient ischemic attack (TIA), and cerebral infarction without residual deficits; Z87.891 Personal history of nicotine dependence
CPT/HCPCS: 36415; 51701; 71046; 80053; 81001; 83605; 84484; 85025; 85610; 85730; 86140; 87040; 87086; 93005; 96360; 99284; J7030

== ENCOUNTER 2021-07-30 12:26 | Inpatient (IN) | payer MEDICARE, SELFPAY ==
--- NOTE | ~2021-07-30 | CT_ITS ---
EXAMINATION: CT abdomen pelvis wo con DATE: 08/07/2021 09:19 INDICATION: Follow-up of mild left hydronephrosis and hydroureter noted on 08/05/2021 CTA chest abdome n examination; that examination did not include the pelvis. Noncontrast pelvis CT examination was rec ommended. TECHNIQUE: Computed tomography (CT) of the abdomen and pelvis was performed without intravenous contr ast. Automated exposure control and iterative reconstruction technique were employed. Exam dose: 873 .52 mGy-cm total exam DLP. COMPARISON: 08/05/2021 CT chest abdomen FINDINGS: Prominent atelectasis/consolidation with air bronchograms in the left lower lobe. There is patchy infiltrate in the dependent lingula and in the right lower lobe. Heart size is borderline. No pericardial or pleural effusion. The liver, gallbladder and bile ducts are normal in appearance. Normal splenic size. No pancreatic m ass lesion or calcification or ductal dilatation. Normal morphology of the adrenal glands. Approximately 12 x 24 mm lower pole left renal calculus with up to approximately 1160 Hounsfield unit density. There is moderate left hydroureteronephrosis into the left distal ureteral area. There is thickening of the urinary bladder wall in the region of the left bladder trigone; urothelial malignancy of the bladder obstructing the distal left ureter must be considered. Cystoscopy and left retrograde pyelog sabi are recommended. The prostate gland and seminal vesicles are unremarkable. There is atherosclerotic calcification of the abdominal aorta, iliac and femoral arteries; no evidenc e of abdominal aortic aneurysm. No intraperitoneal or retroperitoneal or pelvic mass lesion or adenop athy or ascites. Mild sigmoid diverticulosis; no evidence of diverticulitis. No bowel obstruction or intraperitoneal free air. Ventral abdominal wall mesh repair. 6 cm wide umbilical hernia containing nonobstructed colon. Severe degenerative disc disease and associated mild retrolisthesis at L5-S1. There is Paget's disease of the right ilium, sacrum and right femur. There is ankylosis at the right sacroiliac joint. Bilateral hip osteoarthritis. IMPRESSION: Left moderate hydroureteronephrosis, without evidence of obstructing calculus. There is some thickening of the wall at the urinary bladder trigone raising concern for possible urothelial bl adder carcinoma obstructing the distal left ureter. Cystoscopy and left retrograde pyelography are re commended. Large lower pole left renal calculus Mild sigmoid diverticulosis; no evidence of diverticulitis Ventral abdominal wall mesh repair 6 cm wide umbilical hernia containing nonobstructed colon Paget's disease of right ilium, sacrum, right femur, ankylosis of right SI joint Severe degenerative disc disease at L5-S1 with associated mild retrolisthesis Bilateral hip osteoarthritis Prominent atelectasis/consolidation with air bronchograms, left lower lobe Patchy infiltrate in the lingula and right lower lobe Borderline heart size Reviewed, dictated and finalized at [facility]. Reviewed, dictated and finalized at location B. H HAND IMPRESSION: Left moderate hydroureteronephrosis, without evidence of obstructi ng calculus. There is some thickening of the wall at the urinary bladder trigon e raising concern for possible urothelial bladder carcinoma obstructing the dis yuki left ureter. Cystoscopy and left retrograde pyelography are recommended. Large lower pole left renal calculus Mild sigmoid diverticulosis; no evidence of diverticulitis Ventral abdominal wall mesh repair 6 cm wide umbilical hernia containing nonobstructed colon Paget's disease of right ilium, sacrum, right femur, ankylosis of right SI join t Severe degenerative disc disease
--- NOTE | ~2021-07-30 | XR_ITS ---
EXAMINATION: XR chest 2V 07/30/2021 13:27 INDICATION: Shortness of breath. History of asthma. PROCEDURE: 2 view chest COMPARISON: 02/12/2021 FINDINGS: Left basilar atelectasis. No focal pneumonia, edema or effusion. The cardiomediastinal silh ouette is within normal limits. There are no pleural effusions. There is no pneumothorax suspected. IMPRESSION: 1: Left basilar atelectasis.. Reviewed, dictated and finalized at location B. [employer] [employer]
--- NOTE | ~2021-07-30 | CT_ITS ---
EXAMINATION: CT chest abdomen wo con DATE: 08/05/2021 14:49 INDICATION: Abdominal tenderness. TECHNIQUE: Computed tomography (CT) of the chest and abdomen was performed without intravenous contra st. Automated exposure control and iterative reconstruction technique were employed. The dose-length product was 1080.46 mGy-cm. COMPARISON: Chest CT 12/09/2018 FINDINGS: CHEST CT: There is mild emphysema. There are groundglass opacities in the right lower lobe with volume loss. Th ere are mild groundglass opacities in the paramediastinal upper lobes. There are groundglass and airs pace opacities in left lower lobe with mucus plugging and volume loss. There are groundglass opacitie s in lingula. There is a trace right pleural effusion. The heart size is normal. There are coronary a rtery calcifications. No pericardial effusion. There is mild thoracic spondylosis. ABDOMEN CT: There is a chronic 5.4 cm mass in left hepatic lobe, likely benign. The gallbladder, spleen, pancreas , adrenal glands, and right kidney are normal. There are 16 mm and 5 mm stones in left kidney. There is mild left hydronephrosis and hydroureter. There are changes of ventral hernia repair. There is a s mall sliding hiatal hernia. There are no pathologically enlarged lymph nodes. There is no free intrap eritoneal fluid. There is severe lumbar spondylosis. There is cortical and trabecular thickening in t he sacrum and right ilium, consistent with Paget disease. IMPRESSION: 1. Mild left hydronephrosis and hydroureter. Note that the pelvis was not imaged. Noncontrast pelvis CT is recommended. 2. Nonobstructing left kidney stones. 3. Small sliding hiatal hernia. 4. Multifocal lung disease, worst in left lower lobe, consistent with pneumonia. Reviewed, dictated and finalized at location A. F INVESTMENT OFFICER IMPRESSION: 1. Mild left hydronephrosis and hydroureter. Note that the pelvis was not image d. Noncontrast pelvis CT is recommended. 2. Nonobstructing left kidney stones. 3. Small sliding hiatal hernia. 4. Multifocal lung disease, worst in left lower lobe, consistent with pneumonia .
--- NOTE | ~2021-07-30 | US_ITS ---
EXAMINATION: US renal BI DATE: 08/03/2021 10:36 INDICATION: Acute kidney injury. TECHNIQUE: Multiple ultrasound grayscale images of the kidneys were obtained. COMPARISON: Chest CT 12/09/2018 FINDINGS: The right kidney measures 11.3 x 5.3 x 5.2 cm. The left kidney measures 9.8 x 5.3 x 6.2 cm. The kidne ys demonstrate normal parenchymal echogenicity. The left kidney is not well visualized. There is a cy st at the hilum of left kidney. The bladder is normal. IMPRESSION: 1. Cyst at the hilum of left kidney, which may be a peripelvic cyst or mild hydronephrosis. 2. Normal kidney sizes. Reviewed, dictated and finalized at location A. HET IMPRESSION: 1. Cyst at the hilum of left kidney, which may be a peripelvic cyst or mild hy dronephrosis. 2. Normal kidney sizes.
--- NOTE | ~2021-07-30 | CT_ITS ---
EXAMINATION: CT brain wo con DATE: 07/30/2021 15:35 INDICATION: Altered mental status. TECHNIQUE: Computed tomography (CT) of the head was performed without intravenous contrast. The mA wa s adjusted according to patient size. Iterative reconstruction technique was employed. The dose-lengt h product was 681.00 mGy-cm. COMPARISON: Head CT 06/03/2019 FINDINGS: There are old infarcts in the right frontal and parietal lobes. There are old infarcts in t he bilateral basal ganglia, right thalamus, and left internal capsule. There are scattered areas of l ow attenuation in the cerebral white matter. There is no intracranial hemorrhage, acute infarction, o r abnormal intracranial mass lesion. The ventricles are normal in size. There is mucosal thickening i n the paranasal sinuses. The orbits are normal. The mastoid air cells are normal. IMPRESSION: 1. Multiple old infarcts in the brain. 2. Moderate nonspecific cerebral white matter disease, which likely represents chronic small vessel i schemic disease. Reviewed, dictated and finalized at location A. ICATION TESTER IMPRESSION: 1. Multiple old infarcts in the brain. 2. Moderate nonspecific cerebral white matter disease, which likely represents chronic small vessel ischemic disease.
[2021-07-30 13:04] VITALS: BP 108/68; PULSE 88; RESP 16; TEMP 37.5; O2SAT 100
--- NOTE | 2021-07-30 13:10 | ECG_ITS ---
Measurements Intervals [place] Rate: 81 P: -11 OR: 354 QRS: -35 QRSD: 101 T: -12 QT: 347 QTc: 403 Interpretive Statements SINUS RHYTHM WITH FIRST DEGREE AV BLOCK LEFT AXIS DEVIATION CONSIDER INFERIOR INFARCT, AGE INDETERMINATE BORDERLINE ST-T WAVE ABNORMALITY- ANTEROLAT/HIGH LAT LEADS BASELINE ARTIFACT- I, II, III, AVR, AVF, V1-V6 ABNORMAL ECG Electronically Signed On 07-30-2021 15:10:17 REALTIME CAPTIONER by Eb Vega D.O.
[2021-07-30 14:17] LABS: Add Urine Microscopic? YES; Appearance Urine Turbid (Clear); Bacteria Urine Trace /hpf; Bilirubin Urine Negative (Negative); Blood Urine 3+ (Negative); Color Urine Amber (Yellow); Glucose Urine UA Negative (Negative); Ketones Urine Negative (Negative); Leukocyte Esterase Ur 3+ LEU/UL (Negative); Mucus Urine Rare /lpf; Nitrate Urine Negative (Negative); Protein Urine 2+ mg/dL (Negative); RBC Urine 51-75 /hpf (0-2); Specific Grav Ur 1.019 (1.001-1.035); Urobilinogen Urine Negative mg/dL (<2.0); WBC Clumps Urine Present /HPF; WBC Urine >75 /hpf
[2021-07-30 14:27] LABS: Basophils Absolute Auto 0.1 K/mm3 (0.0-0.1); Basophils Percent Auto 0.7 % (0.2-1.2); Eosinophils Percent Auto 0.3 % (0-4.4); Hematocrit 41.2 % (42.0-52.0); Hemoglobin 13.2 g/dL (14.0-18.0); Immature Granulocyte Absolute 0.04 K/mm3 (0.00-0.031); Immature Granulocyte Percent A 0.5 % (0-0.5); Lymphocytes Absolute Auto 2.21 K/mm3 (0.9-3.2); Lymphocytes Percent Auto 28.7 % (18.3-44.2); Mean Corpuscular Hemoglobin 28.7 pg (26-34); Mean Corpuscular Volume 89.6 fl (80-100); Mean Platelet Volume 9.5 fl (7.4-10.4); Monocytes Absolute Auto 0.9 K/mm3 (0.1-0.6); Monocytes Percent Auto 11.1 % (2.6-8.5); Neutrophils Absolute Auto 4.5 K/mm3 (1.3-6.7); Neutrophils Percent Auto 58.7 % (45.5-73.1); Platelet Count Result 217 k/mm3 (150-375); Red Cell Distribution Width 14.2 % (11.5-14.5); White Blood Count 7.7 K/mm3 (4.5-10.0)
[2021-07-30 14:39] LABS: Alanine Aminotransferase 15 U/L (4-50); Albumin Level 4.5 g/dL (3.5-5.1); Alkaline Phosphatase 151 U/L (38-126); Anion Gap 12 mmol/L (8-16); Aspartate Amino Transferase 27 U/L (17-59); Bilirubin,Total 0.6 mg/dL (0.2-1.3); Blood Urea Nitrogen 21 mg/dL (9-20); Calcium 9.3 mg/dL (8.4-10.2); Carbon Dioxide 28 mmol/L (22-30); Chloride 100 mmol/L (98-107); Estimated CRCL calculation 36 ml/min; Estimated Glomerular Filt Rate 48; Glucose 104 mg/dL (65-110); Potassium 3.8 mmol/L (3.4-5.0); Sodium 140 mmol/L (137-145)
--- NOTE | 2021-07-30 14:44 | PC.NURSE ---
update given to frankie, daughter [phone]
--- NOTE | 2021-07-30 15:38 | ED.GENADULT ---
HPI - General Adult General Chief complaint: Weakness Stated complaint: SOB Time Seen by Provider: 07/30/21 14:35 Source: patient, EMS and RN notes reviewed History of Present Illness HPI narrative: Patient is a 71 y/o male brought in by EMS for increasing weakness for one week. There is no known alleviating or exacerbating factor. Patient is a poor historian and does not known why he is here. He denies pain, SOB, fever or cough. Related Data Home Medications Medication Instructions Recorded Confirmed acetaminophen [Acetaminophen Extra 1,000 mg PO Q6H PRN 10/12/19 07/30/21 Strength] levetiracetam 250 mg PO DAILY 10/12/19 10/12/19 levetiracetam 500 mg PO HS 10/12/19 10/12/19 [id number] INHALATION 07/30/21 [Trelegy Ellipta] mirtazapine 7.5 mg PO DAILY 07/30/21 Allergies Allergy/AdvReac Type Severity Reaction Status Date / Time No Known Allergies Allergy Verified 07/30/21 13:26 Review of Systems Review of Systems: ROS unobtainable: Yes unobtainable due to mental status PMFSH Past Medical History Medical History Asthma Diabetes mellitus HIV positive HTN (hypertension) Left hemiparesis Nasal fracture Shingles Stroke Surgical History Surgical History H/O hand surgery Right hand fracture H/O inguinal hernia repair History of tonsillectomy Family History Family History Father Cirrhosis of liver Social History Social History Social History: Patient states he lives at home with his daughter, Teresa, whom he states is his surrogate MDM. He wishes to be listed as a Full Code. His PCP is Dr. Gimenez. He currently has service Smoking packs per day: 0.5 Smoking cigarettes per day: 10.0 Years smoked: 48 Smoking pack-years: 24.00 Smoking status: Light tobacco smoker Tobacco type: cigarettes Second hand tobacco smoke exposure: No Alcohol intake: current Drinks per week: 12 Alcohol use details: Occasional drinker Substance use: never Substance use type: does not use Gender identity (if verbalized by the patient): Male Spiritual care concerns: No Agree to blood products: Yes Exam Const: General: no acute distress and well developed Orientation/consciousness: oriented to person and confusion HENMT: Head: normocephalic Ears: external ears normal General nose exam: Normal external nose present Eyes: General: appearance normal, both eyes and all related structures Conjunctivae: conjunctivae normal Neck: Neck: normal visual inspection and full ROM Chest: Chest palpation & inspection: normal inspection of the chest and no tenderness Resp: Effort & Inspection: normal respiratory effort Auscultation: clear to auscultation bilaterally Cardio: Rate: regular rate Rhythm: regular rhythm GI: GI Palp: No abdominal tenderness and Yes Soft to palpation Skin: General skin exam: normal color and turgor normal Neuro: General: oriented to person and confusion Cognition (Neuro): abnormal cognition Extrem: General: normal to inspection, full ROM and no pedal edema Psych: Appearance: grossly normal Affect: normal affect Course Consultations Consultation #1: Discussed with CARLOS Bailey, who agrees to admit. Date: 07/30/21 Time: 16:42 Vital Signs Vital signs: Vital Signs Temperature 37.5 C 07/30/21 13:04 Pulse Rate 88 07/30/21 13:04 Respiratory Rate 16 07/30/21 13:04 Blood Pressure 108/68 07/30/21 13:04 Pulse Oximetry 100 07/30/21 13:04 Temperature 36.4 C 08/06/21 03:53 Pulse Rate 59 L 08/06/21 03:53 Respiratory Rate 18 08/06/21 03:53 Blood Pressure 158/63 H 08/06/21 03:53 Pulse Oximetry 98 08/06/21 03:53 Medical Decision Making Vital Signs Vital Signs: Vital Signs Temperature
[2021-07-30] MEDS: SODIUM CHLORIDE 0.9% IV 1,000 ML 999 ML IV CONT (15:57)
[2021-07-30 16:45] LABS: SARS-CoV-2 RNA PCR Positive
[2021-07-30 17:10] VITALS: PULSE 81; RESP 15; O2SAT 100
[2021-07-30] MEDS: SODIUM CHLORIDE 0.9% IV 1,000 ML 125 ML IV CONT (17:55)
[2021-07-30 20:35] VITALS: BMI 26.9
[2021-07-30 21:44] VITALS: BP 173/92; PULSE 80; RESP 20; O2SAT 100
--- NOTE | 2021-07-30 21:50 | PC.NURSE ---
Teresa, daughter called at this time and update given. she is aware that patient is admitted to room
[2021-07-30 22:14] VITALS: BMI 28.3
[2021-07-30 23:25] VITALS: BP 184/79; PULSE 86; RESP 18; TEMP 38.4; O2SAT 99
[2021-07-31] VITALS (7 sets, daily range): BP systolic 102–174; BP diastolic 48–82; PULSE 56–101; RESP 16–20; TEMP 36.8–37.9; O2SAT 94–98
[2021-07-31] MEDS: SODIUM CHLORIDE 0.9% IV 1,000 ML 125 ML IV CONT (01:42)
--- NOTE | 2021-07-31 03:04 | PM.IMHP ---
H&P: HPI History of Present Illness Date/Time: 07/31/21 03:04 Chief Complaint: Weakness Narrative: Patient is a 71 y/o male who was brought in by EMS for increasing weakness for last week. Patient is a poor historian and most of the medical history is taken from the medical records. He Lives at home with his daughter Teresa who is surrogate decision maker. There is no reported history of any shortness of breath fever or cough. But he is noticed to be coughing during my evaluation. ED evaluation with lab work reveal normal WBC count normal hemoglobin and platelet with creatinine was elevated 1.7 urine was positive with urine WBC more than 75. COVID swab was done which is pending. He is admitted for further evaluation and management. Review of Systems Review of Systems: - CONSTITUTIONAL: Denies weight loss, fever and chills. - HEENT: Denies changes in vision and hearing - RESPIRATORY: Denies SOB and cough. - CV: Denies palpitations and CP. - GI: Denies abdominal pain, nausea, vomiting and diarrhea. - : Denies dysuria and urinary frequency. - MSK: Denies myalgia and joint pain. - SKIN: Denies rash and pruritus. - NEUROLOGICAL: Denies headache and syncope. - PSYCHIATRIC: Denies recent changes in mood. Denies anxiety and depression. All systems reviewed & are unremarkable except as noted in HPI and below Constitutional: Constitutional: Reports fatigue and Reports weakness Neurologic: Reports weakness Endocrine: Endocrine: Reports fatigue [facility] Past Medical History Medical History Asthma Diabetes mellitus HIV positive HTN (hypertension) Left hemiparesis Nasal fracture Shingles Stroke Surgical History Surgical History H/O hand surgery Right hand fracture H/O inguinal hernia repair History of tonsillectomy Family History Family History Father Cirrhosis of liver Social History Social History Social History: Patient states he lives at home with his daughter, Teresa, whom he states is his surrogate MDM. He wishes to be listed as a Full Code. His PCP is Dr. Gimenez. He currently has service Smoking packs per day: 0.5 Smoking cigarettes per day: 10.0 Years smoked: 48 Smoking pack-years: 24.00 Smoking status: Light tobacco smoker Tobacco type: cigarettes Second hand tobacco smoke exposure: No Alcohol intake: current Drinks per week: 12 Alcohol use details: Occasional drinker Substance use: never Substance use type: does not use Gender identity (if verbalized by the patient): Male Spiritual care concerns: No Agree to blood products: Yes Meds Home Medications and Allergies Home Medications Medication Instructions Recorded Confirmed Type Biktarvy 1 tablet PO DAILY #30 tablet 06/30/19 07/30/21 Rx aspirin 325 mg PO DAILY #30 tablet 06/30/19 07/30/21 Rx lisinopril 5 mg PO DAILY #30 tablet 06/30/19 10/12/19 Rx montelukast 10 mg PO HS #30 tablet 06/30/19 10/12/19 Rx rosuvastatin 40 mg PO DAILY #30 tablet 06/30/19 10/12/19 Rx acetaminophen [Acetaminophen Extra 1,000 mg PO Q6H PRN 10/12/19 07/30/21 History Strength] levetiracetam 250 mg PO DAILY 10/12/19 10/12/19 History levetiracetam 500 mg PO HS 10/12/19 10/12/19 History [id number] INHALATION 07/30/21 History [Trelegy Ellipta] mirtazapine 7.5 mg PO DAILY 07/30/21 History Allergies Allergy/AdvReac Type Severity Reaction Status Date / Time No Known Allergies Allergy Verified 07/30/21 13:26 Vital Signs Vital Signs - 24 hr 07/30/21 13:04 07/30/21 17:10 07/30/21 21:44 Temperature 99.5 F Pulse Rate 88 81 80 Respiratory Rate 16 15 20 Blood Pressure 108/68 173/92 H Pulse Oximetry 100 100 100 07/30/21 23:25 Temperature 101.2 F H Pulse Rate 86 Respira
[2021-07-31 08:05] LABS: Basophils Absolute Auto 0.1 K/mm3 (0.0-0.1); Basophils Percent Auto 0.7 % (0.2-1.2); Eosinophils Percent Auto 0.2 % (0-4.4); Hematocrit 40.5 % (42.0-52.0); Immature Granulocyte Absolute 0.03 K/mm3 (0.00-0.031); Immature Granulocyte Percent A 0.3 % (0-0.5); Lymphocytes Absolute Auto 1.87 K/mm3 (0.9-3.2); Lymphocytes Percent Auto 20.6 % (18.3-44.2); Mean Corpuscular HGB Conc 32.1 g/dl (32-36); Mean Corpuscular Hemoglobin 29.1 pg (26-34); Mean Corpuscular Volume 90.6 fl (80-100); Mean Platelet Volume 9.7 fl (7.4-10.4); Monocytes Absolute Auto 0.9 K/mm3 (0.1-0.6); Monocytes Percent Auto 10.2 % (2.6-8.5); Neutrophils Absolute Auto 6.2 K/mm3 (1.3-6.7); Platelet Count Result 224 k/mm3 (150-375); Red Blood Count 4.47 M/mm3 (4.6-6.20); Red Cell Distribution Width 13.9 % (11.5-14.5); White Blood Count 9.1 K/mm3 (4.5-10.0)
[2021-07-31 08:21] LABS: Anion Gap 11 mmol/L (8-16); Blood Urea Nitrogen 17 mg/dL (9-20); Calcium 8.8 mg/dL (8.4-10.2); Carbon Dioxide 24 mmol/L (22-30); Chloride 100 mmol/L (98-107); Estimated CRCL calculation 42 ml/min; Estimated Glomerular Filt Rate > 60; Glucose 132 mg/dL (65-110); Potassium 3.5 mmol/L (3.4-5.0); Sodium 135 mmol/L (137-145)
[2021-07-31] MEDS: FLUTICASONE/UMECLIDIN/VILANTER 100-62.5-25 MCG ELLIPTA 2 PUFF INHALATION (08:34)
--- NOTE | 2021-07-31 08:54 | P.PNIM_ITS ---
Progress Note: A&P Assessment and Plan (1) COVID-19: Code(s): U07.1 - COVID-19 Status: Acute Assessment and Plan: Positive COVID test 07/30/2021 * No evidence of pneumonia on CXR * He has no oxygen requirements * Supportive care * Not a candidate for dexamethasone or remdesivir * Continue isolation precautions * Patient completed Moderna vaccination, does not appear to have received booster (2) Acute UTI: Code(s): N39.0 - Urinary tract infection, site not specified Status: Acute Assessment and Plan: UA grossly abnormal on presentation. Patient endorses dysuria for 2 months * Urine culture pending, await results and tailor antibiotics accordingly * Initiate IV Rocephin while awaiting cultures * Patient has mild fever. This may be related to COVID-19, but in light of UTI will also obtain blood cultures. No leukocytosis (3) WINNIE (acute kidney injury): Code(s): N17.9 - Acute kidney failure, unspecified Status: Acute Assessment and Plan: Creatinine was elevated up to 1.7 on presentation * Normalized following IV fluids * Creatinine is 1.3 * Will discontinue IV fluids as patient is tolerating oral intake (4) HTN (hypertension): Code(s): I10 - Essential (primary) hypertension Status: Acute Assessment and Plan: Blood pressure elevated above target in the 170s-180s systolic * Improving. Last BP 139/77 * Resume lisinopril * Discontinue IV fluids as above * Monitor blood pressure trends (5) Asthma: Code(s): J45.909 - Unspecified asthma, uncomplicated Status: Acute Assessment and Plan: Not in acute exacerbation * Continue Trelegy inhaler * Albuterol as needed (6) Diabetes mellitus: Code(s): E11.9 - Type 2 diabetes mellitus without complications Status: Acute Assessment and Plan: A1c is 6.0 * Fasting glucose 132 this am * Initiate Accu-Cheks, low-dose sliding scale insulin, hypoglycemic protocol (7) Left hemiparesis: Code(s): G81.94 - Hemiplegia, unspecified affecting left nondominant side Status: Acute Assessment and Plan: Secondary to CVA * Head CT with no acute findings * Showed multiple old infarcts in the brain * Continue PT/OT during admission * Implement fall precautions (8) HIV positive: Code(s): Z21 - Asymptomatic human immunodeficiency virus [HIV] infection status Status: Acute Assessment and Plan: Home Biktarvy is non formulary * Okay to continue if this can be brought from home Subjective Date/time seen: 07/31/21 08:54 Interval history: Date of service: 07/31/2021 Slade Aguilar is a 71-year-old male with a history of type 2 diabetes mellitus, hypertension, CVA with left-sided hemiparesis, asthma, and HIV who is seen in follow-up for COVID-19 pneumonia and UTI. He is a poor historian. He states he feels very weak today. When I saw the patient he was sitting up in bed working with therapy. He was having a hard time supporting himself just sitting up on side of the bed and was drifting to either side. He denied shortness of breath. He did endorse nonproductive cough. Denied chest pain. No abdominal pain, nausea, or vomiting. He did endorse dysuria which he states has been going on for 2 months. He denied hematuria. Unable to recall if he has had a recent bowel movement. He complained of feeling extremely fatigued. He states he did sleep well last night. Review of Systems
--- NOTE | 2021-07-31 08:54 | PM.IMPN ---
Progress Note: A&P Assessment and Plan (1) COVID-19: Code(s): U07.1 - COVID-19 Status: Acute Assessment and Plan: Positive COVID test 07/30/2021 No evidence of pneumonia on CXR He has no oxygen requirements Supportive care Not a candidate for dexamethasone or remdesivir Continue isolation precautions Patient completed Moderna vaccination, does not appear to have received booster (2) Acute UTI: Code(s): N39.0 - Urinary tract infection, site not specified Status: Acute Assessment and Plan: UA grossly abnormal on presentation. Patient endorses dysuria for 2 months Urine culture pending, await results and tailor antibiotics accordingly Initiate IV Rocephin while awaiting cultures Patient has mild fever. This may be related to COVID-19, but in light of UTI will also obtain blood cultures. No leukocytosis (3) WINNIE (acute kidney injury): Code(s): N17.9 - Acute kidney failure, unspecified Status: Acute Assessment and Plan: Creatinine was elevated up to 1.7 on presentation Normalized following IV fluids Creatinine is 1.3 Will discontinue IV fluids as patient is tolerating oral intake (4) HTN (hypertension): Code(s): I10 - Essential (primary) hypertension Status: Acute Assessment and Plan: Blood pressure elevated above target in the 170s-180s systolic Improving. Last BP 139/77 Resume lisinopril Discontinue IV fluids as above Monitor blood pressure trends (5) Asthma: Code(s): J45.909 - Unspecified asthma, uncomplicated Status: Acute Assessment and Plan: Not in acute exacerbation Continue Trelegy inhaler Albuterol as needed (6) Diabetes mellitus: Code(s): E11.9 - Type 2 diabetes mellitus without complications Status: Acute Assessment and Plan: A1c is 6.0 Fasting glucose 132 this am Initiate Accu-Cheks, low-dose sliding scale insulin, hypoglycemic protocol (7) Left hemiparesis: Code(s): G81.94 - Hemiplegia, unspecified affecting left nondominant side Status: Acute Assessment and Plan: Secondary to CVA Head CT with no acute findings Showed multiple old infarcts in the brain Continue PT/OT during admission Implement fall precautions (8) HIV positive: Code(s): Z21 - Asymptomatic human immunodeficiency virus [HIV] infection status Status: Acute Assessment and Plan: Home Biktarvy is non formulary Okay to continue if this can be brought from home Subjective Date/time seen: 07/31/21 08:54 Interval history: Date of service: 07/31/2021 Slade Aguilar is a 71-year-old male with a history of type 2 diabetes mellitus, hypertension, CVA with left-sided hemiparesis, asthma, and HIV who is seen in follow-up for COVID-19 pneumonia and UTI. He is a poor historian. He states he feels very weak today. When I saw the patient he was sitting up in bed working with therapy. He was having a hard time supporting himself just sitting up on side of the bed and was drifting to either side. He denied shortness of breath. He did endorse nonproductive cough. Denied chest pain. No abdominal pain, nausea, or vomiting. He did endorse dysuria which he states has been going on for 2 months. He denied hematuria. Unable to recall if he has had a recent bowel movement. He complained of feeling extremely fatigued. He states he did sleep well last night. Review of Systems Review of Systems: All systems reviewed & are unremarkable except as noted in HPI and below Exam Narrative: Mr. Aguilar is a thin, frail 71-year-old male who is sitting up in bed. He appears comfortable and is in NARD. Neuro: awake, alert and oriented x3 (cannot state the year or president), speech clear, no focal neuro deficits noted HEENMT: normocephalic, atraumatic, EOMI, sclerae anicteric Respiratory: clear to auscultation bilaterally, nonlabored breathing Card
[2021-07-31] MEDS: ENOXAPARIN 40 MG/0.4 ML SYRINGE SUB-Q (09:18)
[2021-07-31] MEDS: ASPIRIN 325 MG TABLET PO (09:18)
--- NOTE | 2021-07-31 09:46 | PCCCNOTE ---
On 07/31/21, the student, [Alison Saenz ], provided care and completed [facility] documentation on this patient. I have reviewed the student's documentation and agree with the findings.
[2021-07-31] MEDS: lisinopriL 5 MG TABLET PO (10:00)
[2021-07-31 23:51] LABS: Glucose Point of Care 142 mg/dl (65-105)
[2021-08-01] VITALS (9 sets, daily range): BP systolic 90–145; BP diastolic 40–65; PULSE 59–87; RESP 16–18; TEMP 36.1–36.9; O2SAT 91–100
[2021-08-01 08:05] LABS: Glucose Point of Care 132 mg/dl (65-105)
[2021-08-01] MEDS: ENOXAPARIN 40 MG/0.4 ML SYRINGE SUB-Q (09:40)
[2021-08-01] MEDS: ASPIRIN 325 MG TABLET PO (09:41)
[2021-08-01] MEDS: lisinopriL 5 MG TABLET PO (09:41)
[2021-08-01] MEDS: FLUTICASONE/UMECLIDIN/VILANTER 100-62.5-25 MCG ELLIPTA 2 PUFF INHALATION (10:18)
[2021-08-01] MEDS: ACETAMINOPHEN 500 MG TABLET 1000 MG PO (11:26)
[2021-08-01 12:27] LABS: Glucose Point of Care 132 mg/dl (65-105)
[2021-08-01] MEDS: HYDROcodone/acetaminophen (*CRX) 5-325 MG TABLET 1 TAB PO (12:59)
--- NOTE | 2021-08-01 13:58 | P.PNIM_ITS ---
Progress Note: A&P Assessment and Plan (1) COVID-19: Code(s): U07.1 - COVID-19 Status: Acute Assessment and Plan: Positive COVID test 07/30/2021 * No evidence of pneumonia on CXR * He has no oxygen requirements * Supportive care * Not a candidate for dexamethasone or remdesivir given lack of O2 requirement * Continue isolation precautions * Patient completed Moderna vaccination, does not appear to have received samir basia (2) Acute UTI: Code(s): N39.0 - Urinary tract infection, site not specified Status: Acute Assessment and Plan: Ruled out. * Urine culture with no growth * Will discontinue IV Rocephin * Blood cultures pending (3) WINNIE (acute kidney injury): Code(s): N17.9 - Acute kidney failure, unspecified Status: Acute Assessment and Plan: Creatinine was elevated up to 1.7 on presentation * Normalized following IV fluids * IV fluids discontinued as patient is tolerating oral intake (4) HTN (hypertension): Code(s): I10 - Essential (primary) hypertension Status: Acute Assessment and Plan: Blood pressure has been quite fluctuant. * Last BP 100/60 * Blood pressures have been somewhat soft. Will hold lisinopril * Check orthostatics * Monitor blood pressure trends (5) Asthma: Code(s): J45.909 - Unspecified asthma, uncomplicated Status: Acute Assessment and Plan: Not in acute exacerbation * Continue Trelegy inhaler * Albuterol as needed (6) Diabetes mellitus: Code(s): E11.9 - Type 2 diabetes mellitus without complications Status: Acute Assessment and Plan: A1c is 6.0 * Fasting glucose 132 this am * Continue Accu-Cheks, low-dose sliding scale insulin, hypoglycemic protocol (7) Left hemiparesis: Code(s): G81.94 - Hemiplegia, unspecified affecting left nondominant side Status: Acute Assessment and Plan: Secondary to CVA * Head CT with no acute findings * Showed multiple old infarcts in the brain * Continue PT/OT during admission * Fall precautions (8) HIV positive: Code(s): Z21 - Asymptomatic human immunodeficiency virus [HIV] infection status Status: Acute Assessment and Plan: Home Biktarvy is non formulary * Okay to continue if this can be brought from home (9) Generalized weakness: Code(s): R53.1 - Weakness Status: Acute Assessment and Plan: Likely related to physical deconditioning, worsened by acute illness * Appreciate PT/OT * Care coordination following, planning for SNF placement. Subjective Date/time seen: 08/01/21 13:58 Interval history: Date of service: 08/01/2021 Slade Aguilar is a 71-year-old male with a history of type 2 diabetes mellitus, hypertension, CVA with left-sided hemiparesis, asthma, and HIV who is seen in follow-up for COVID-19 pneumonia and UTI. He is complaining of low back pain today that radiates to his buttocks. He is not able to describe this pain in any more details. He denies numbness or tingling of his extremities, no saddle anesthesia, no bowel or bladder dysfunction. He still feels very weak but notes some minor improvement. He denies shortness of breath or cough. No nausea or vomiting. He endorses poor appetite. Review of Systems Review of Systems: All systems reviewed & are unremarkable except as noted in HPI and below Exam Narrative: Mr. Aguilar is a thin, frai
--- NOTE | 2021-08-01 13:58 | PM.IMPN ---
Progress Note: A&P Assessment and Plan (1) COVID-19: Code(s): U07.1 - COVID-19 Status: Acute Assessment and Plan: Positive COVID test 07/30/2021 No evidence of pneumonia on CXR He has no oxygen requirements Supportive care Not a candidate for dexamethasone or remdesivir given lack of O2 requirement Continue isolation precautions Patient completed Moderna vaccination, does not appear to have received booster (2) Acute UTI: Code(s): N39.0 - Urinary tract infection, site not specified Status: Acute Assessment and Plan: Ruled out. Urine culture with no growth Will discontinue IV Rocephin Blood cultures pending (3) WINNIE (acute kidney injury): Code(s): N17.9 - Acute kidney failure, unspecified Status: Acute Assessment and Plan: Creatinine was elevated up to 1.7 on presentation Normalized following IV fluids IV fluids discontinued as patient is tolerating oral intake (4) HTN (hypertension): Code(s): I10 - Essential (primary) hypertension Status: Acute Assessment and Plan: Blood pressure has been quite fluctuant. Last BP 100/60 Blood pressures have been somewhat soft. Will hold lisinopril Check orthostatics Monitor blood pressure trends (5) Asthma: Code(s): J45.909 - Unspecified asthma, uncomplicated Status: Acute Assessment and Plan: Not in acute exacerbation Continue Trelegy inhaler Albuterol as needed (6) Diabetes mellitus: Code(s): E11.9 - Type 2 diabetes mellitus without complications Status: Acute Assessment and Plan: A1c is 6.0 Fasting glucose 132 this am Continue Accu-Cheks, low-dose sliding scale insulin, hypoglycemic protocol (7) Left hemiparesis: Code(s): G81.94 - Hemiplegia, unspecified affecting left nondominant side Status: Acute Assessment and Plan: Secondary to CVA Head CT with no acute findings Showed multiple old infarcts in the brain Continue PT/OT during admission Fall precautions (8) HIV positive: Code(s): Z21 - Asymptomatic human immunodeficiency virus [HIV] infection status Status: Acute Assessment and Plan: Home Biktarvy is non formulary Okay to continue if this can be brought from home (9) Generalized weakness: Code(s): R53.1 - Weakness Status: Acute Assessment and Plan: Likely related to physical deconditioning, worsened by acute illness Appreciate PT/OT Care coordination following, planning for SNF placement. Subjective Date/time seen: 08/01/21 13:58 Interval history: Date of service: 08/01/2021 Slade Aguilar is a 71-year-old male with a history of type 2 diabetes mellitus, hypertension, CVA with left-sided hemiparesis, asthma, and HIV who is seen in follow-up for COVID-19 pneumonia and UTI. He is complaining of low back pain today that radiates to his buttocks. He is not able to describe this pain in any more details. He denies numbness or tingling of his extremities, no saddle anesthesia, no bowel or bladder dysfunction. He still feels very weak but notes some minor improvement. He denies shortness of breath or cough. No nausea or vomiting. He endorses poor appetite. Review of Systems Review of Systems: All systems reviewed & are unremarkable except as noted in HPI and below Exam Narrative: Mr. Aguilar is a thin, frail 71-year-old male who is sitting up in bed. He appears comfortable and is in NARD. Neuro: awake, alert and oriented x3, speech clear, no focal neuro deficits noted HEENMT: normocephalic, atraumatic, EOMI, sclerae anicteric Respiratory: clear to auscultation bilaterally, nonlabored breathing Cardio: regular rate, regular rhythm with S1-S2 Abdomen: nondistended, normoactive bowel sounds, soft, nontender to palpation Extremities: no edema, erythema, or tenderness to palpation Skin: no rashes or lesions, warm and dry Psych: tati
[2021-08-01 16:54] LABS: Glucose Point of Care 94 mg/dl (65-105)
[2021-08-02] VITALS (8 sets, daily range): BP systolic 78–171; BP diastolic 55–89; PULSE 81–102; RESP 16–20; TEMP 36.3–37.5; O2SAT 92–100
[2021-08-02 08:39] LABS: Glucose Point of Care 105 mg/dl (65-105)
[2021-08-02] MEDS: FLUTICASONE/UMECLIDIN/VILANTER 100-62.5-25 MCG ELLIPTA 2 PUFF INHALATION (08:47)
[2021-08-02] MEDS: ASPIRIN 325 MG TABLET PO (10:09)
[2021-08-02] MEDS: ACETAMINOPHEN 500 MG TABLET 1000 MG PO (10:09)
[2021-08-02] MEDS: ENOXAPARIN 40 MG/0.4 ML SYRINGE SUB-Q (10:09)
[2021-08-02 14:09] LABS: Hematocrit 33.1 % (42.0-52.0); Hemoglobin 10.8 g/dL (14.0-18.0); Mean Corpuscular HGB Conc 32.6 g/dl (32-36); Mean Corpuscular Hemoglobin 28.8 pg (26-34); Mean Corpuscular Volume 88.3 fl (80-100); Mean Platelet Volume 9.7 fl (7.4-10.4); Platelet Count Result 189 k/mm3 (150-375); Red Blood Count 3.75 M/mm3 (4.6-6.20); White Blood Count 5.5 K/mm3 (4.5-10.0)
[2021-08-02 14:28] LABS: Anion Gap 9 mmol/L (8-16); Blood Urea Nitrogen 43 mg/dL (9-20); Calcium 8.5 mg/dL (8.4-10.2); Carbon Dioxide 25 mmol/L (22-30); Chloride 102 mmol/L (98-107); Estimated CRCL calculation 20 ml/min; Estimated Glomerular Filt Rate 27; Glucose 145 mg/dL (65-110); Potassium 3.3 mmol/L (3.4-5.0); Sodium 136 mmol/L (137-145)
--- NOTE | 2021-08-02 15:02 | P.PNIM_ITS ---
Progress Note: A&P Assessment and Plan (1) COVID-19: Code(s): U07.1 - COVID-19 Status: Acute Assessment and Plan: Positive COVID test 07/30/2021 * No evidence of pneumonia on CXR * He has no oxygen requirements * Supportive care * Not a candidate for dexamethasone or remdesivir given lack of O2 requirement * Continue isolation precautions * Patient completed Moderna vaccination, does not appear to have received samir basia, needs to get Booster upon recovery, after discharge. (2) Acute UTI: Code(s): N39.0 - Urinary tract infection, site not specified Status: Acute Assessment and Plan: Ruled out. * Urine culture with no growth * Will discontinue IV Rocephin * Blood cultures preliminarily showed no growth * WBC 5.5 today, no fevers (3) WINNIE (acute kidney injury): Code(s): N17.9 - Acute kidney failure, unspecified Status: Acute Assessment and Plan: Creatinine was elevated up to 1.7 on presentation * Normalized following IV fluids * IV fluids discontinued as patient is tolerating oral intake * According to documentation, his total intake yesterday was around 200 mils. Today was not much better around 250 mils. * Ordered a 500 mL fluid bolus at this time. * Concerned about his low p.o. oral intake, checking his orthostatic vital signs today - found to be very low, ordered bolus. * Also they have been unable to draw labs for a couple of days, so will review his labs today. * Continue to hold his lisinopril due to his acute kidney injury. * Lab results finally returned showing: Potassium was low at 3.3 today, given 20 p.o. KCLorally. * Magnesium was 1.8, given 2 g IV. * BNP is elevated at 1950, * Creatinine had increased to 2.8 (BUN 43) from 1.3, just 2 days ago on July 31. * After fluid bolus, oral potassium, and IV Mag, will repeat labs in morning. (4) HTN (hypertension): Code(s): I10 - Essential (primary) hypertension Status: Acute Assessment and Plan: Blood pressure has been quite fluctuant. * Orthostatic vital signs showed lying blood pressure 78/55, sitting blood pressure 92/77, giving a 500 ml fluid bolus * Blood pressures have been somewhat soft since admission and lisinopril was held. * Check orthostatics daily * Monitor blood pressure trends * TEDs ordered. * With the Lisinopril held, his blood pressures are stable with systolics in the 140s and 150s, with a heart rate 70-90. (5) Asthma: Code(s): J45.909 - Unspecified asthma, uncomplicated Status: Acute Assessment and Plan: Not in acute exacerbation * Continue Trelegy inhaler * Albuterol as needed (6) Diabetes mellitus: Code(s): E11.9 - Type 2 diabetes mellitus without complications Status: Acute Assessment and Plan: A1c is 6.0 * Glucose 145 this after lunch this afternoon * Continue Accu-Cheks, low-dose sliding scale insulin, hypoglycemic protocol (7) Left hemiparesis: Code(s): G81.94 - Hemiplegia, unspecified affecting left nondominant side Status: Acute Assessment and Plan: Secondary to CVA * Head CT with no acute findings * Showed multiple old infarcts in the brain * Continue PT/OT during admission * Fall precautions * He still feels very weak and is looking forward to discharge for further rehab with more PT/OT time. (8) HIV positive: Code(s): Z21 - Asymptomatic human immunodeficiency virus [HIV] infection status Status: Acute Asses
--- NOTE | 2021-08-02 15:02 | PM.IMPN ---
Progress Note: A&P Assessment and Plan (1) COVID-19: Code(s): U07.1 - COVID-19 Status: Acute Assessment and Plan: Positive COVID test 07/30/2021 No evidence of pneumonia on CXR He has no oxygen requirements Supportive care Not a candidate for dexamethasone or remdesivir given lack of O2 requirement Continue isolation precautions Patient completed Moderna vaccination, does not appear to have received booster, needs to get Booster upon recovery, after discharge. (2) Acute UTI: Code(s): N39.0 - Urinary tract infection, site not specified Status: Acute Assessment and Plan: Ruled out. Urine culture with no growth Will discontinue IV Rocephin Blood cultures preliminarily showed no growth WBC 5.5 today, no fevers (3) WINNIE (acute kidney injury): Code(s): N17.9 - Acute kidney failure, unspecified Status: Acute Assessment and Plan: Creatinine was elevated up to 1.7 on presentation Normalized following IV fluids IV fluids discontinued as patient is tolerating oral intake According to documentation, his total intake yesterday was around 200 mils. Today was not much better around 250 mils. Ordered a 500 mL fluid bolus at this time. Concerned about his low p.o. oral intake, checking his orthostatic vital signs today - found to be very low, ordered bolus. Also they have been unable to draw labs for a couple of days, so will review his labs today. Continue to hold his lisinopril due to his acute kidney injury. Lab results finally returned showing: Potassium was low at 3.3 today, given 20 p.o. KCLorally. Magnesium was 1.8, given 2 g IV. BNP is elevated at 1950, Creatinine had increased to 2.8 (BUN 43) from 1.3, just 2 days ago on July 31. After fluid bolus, oral potassium, and IV Mag, will repeat labs in morning. (4) HTN (hypertension): Code(s): I10 - Essential (primary) hypertension Status: Acute Assessment and Plan: Blood pressure has been quite fluctuant. Orthostatic vital signs showed lying blood pressure 78/55, sitting blood pressure 92/77, giving a 500 ml fluid bolus Blood pressures have been somewhat soft since admission and lisinopril was held. Check orthostatics daily Monitor blood pressure trends TEDs ordered. With the Lisinopril held, his blood pressures are stable with systolics in the 140s and 150s, with a heart rate 70-90. (5) Asthma: Code(s): J45.909 - Unspecified asthma, uncomplicated Status: Acute Assessment and Plan: Not in acute exacerbation Continue Trelegy inhaler Albuterol as needed (6) Diabetes mellitus: Code(s): E11.9 - Type 2 diabetes mellitus without complications Status: Acute Assessment and Plan: A1c is 6.0 Glucose 145 this after lunch this afternoon Continue Accu-Cheks, low-dose sliding scale insulin, hypoglycemic protocol (7) Left hemiparesis: Code(s): G81.94 - Hemiplegia, unspecified affecting left nondominant side Status: Acute Assessment and Plan: Secondary to CVA Head CT with no acute findings Showed multiple old infarcts in the brain Continue PT/OT during admission Fall precautions He still feels very weak and is looking forward to discharge for further rehab with more PT/OT time. (8) HIV positive: Code(s): Z21 - Asymptomatic human immunodeficiency virus [HIV] infection status Status: Acute Assessment and Plan: Home Biktarvy is non formulary Okay to continue if this can be brought from home Biktarvy given today (9) Generalized weakness: Code(s): R53.1 - Weakness Status: Acute Assessment and Plan: Likely related to physical deconditioning, worsened by acute illness Appreciate PT/OT Care coordination following, planning for SNF placement. He still feels very weak and is looking forward to discharge for further rehab with more PT/OT time.
[2021-08-02 15:14] LABS: Magnesium 1.8 mg/dL (1.6-2.3)
[2021-08-02 15:24] LABS: NT Pro B Type Natriuretic Pept 1950 pg/mL (5-100)
[2021-08-02] MEDS: POTASSIUM CHLORIDE 20 MEQ TABLET PO (17:14)
[2021-08-02] MEDS: SODIUM CHLORIDE 0.9% IV 500 ML 150 ML IV CONT (17:14)
[2021-08-02] MEDS: MAGNESIUM SULF 2 GM/WATER 50ML 2 GM/50 ML BAG IVPB (18:57)
[2021-08-02 19:02] LABS: Glucose Point of Care 137 mg/dl (65-105)
[2021-08-03] VITALS (9 sets, daily range): BP systolic 102–167; BP diastolic 58–80; PULSE 69–96; RESP 16–18; TEMP 36.9–38.8; O2SAT 94–100
[2021-08-03 07:36] LABS: Basophils Percent Auto 0.4 % (0.2-1.2); Eosinophils Percent Auto 0.1 % (0-4.4); Hematocrit 33.7 % (42.0-52.0); Hemoglobin 11.3 g/dL (14.0-18.0); Immature Granulocyte Absolute 0.09 K/mm3 (0.00-0.031); Immature Granulocyte Percent A 1.3 % (0-0.5); Lymphocytes Absolute Auto 1.11 K/mm3 (0.9-3.2); Lymphocytes Percent Auto 15.8 % (18.3-44.2); Mean Corpuscular HGB Conc 33.5 g/dl (32-36); Mean Corpuscular Hemoglobin 28.8 pg (26-34); Mean Corpuscular Volume 85.8 fl (80-100); Mean Platelet Volume 10.5 fl (7.4-10.4); Monocytes Absolute Auto 0.4 K/mm3 (0.1-0.6); Monocytes Percent Auto 6.3 % (2.6-8.5); Neutrophils Absolute Auto 5.4 K/mm3 (1.3-6.7); Neutrophils Percent Auto 76.1 % (45.5-73.1); Platelet Count Result 198 k/mm3 (150-375); Red Blood Count 3.93 M/mm3 (4.6-6.20); Red Cell Distribution Width 14.1 % (11.5-14.5)
[2021-08-03 07:49] LABS: Alanine Aminotransferase 24 U/L (4-50); Albumin Level 3.8 g/dL (3.5-5.1); Alkaline Phosphatase 130 U/L (38-126); Anion Gap 9 mmol/L (8-16); Aspartate Amino Transferase 57 U/L (17-59); Bilirubin,Total 0.5 mg/dL (0.2-1.3); Blood Urea Nitrogen 43 mg/dL (9-20); Calcium 8.9 mg/dL (8.4-10.2); Carbon Dioxide 25 mmol/L (22-30); Chloride 103 mmol/L (98-107); Estimated CRCL calculation 19 ml/min; Estimated Glomerular Filt Rate 25; Glucose 114 mg/dL (65-110); Phosphorus 2.6 mg/dL (2.5-4.5); Potassium 3.3 mmol/L (3.4-5.0); Sodium 137 mmol/L (137-145)
[2021-08-03 07:50] LABS: NT Pro B Type Natriuretic Pept 2080 pg/mL (5-100)
[2021-08-03 08:04] LABS: Glucose Point of Care 94 mg/dl (65-105)
[2021-08-03 08:09] LABS: Ovalocytes 1+ (NORMAL); Platelet Estimate Adequate (Adequate)
[2021-08-03] MEDS: FLUTICASONE/UMECLIDIN/VILANTER 100-62.5-25 MCG ELLIPTA 2 PUFF INHALATION (09:07)
--- NOTE | 2021-08-03 09:44 | PM.IMPN ---
Progress Note: A&P Assessment and Plan (1) COVID-19: Code(s): U07.1 - COVID-19 Status: Acute Assessment and Plan: Positive COVID test 07/30/2021 No evidence of pneumonia on CXR He has no oxygen requirements Supportive care Not a candidate for dexamethasone or remdesivir given lack of O2 requirement Continue isolation precautions Patient completed Moderna vaccination, does not appear to have received booster, needs to get Booster after recovery (2) Acute UTI: Code(s): N39.0 - Urinary tract infection, site not specified Status: Acute Assessment and Plan: URINE NO GROWTH DENIED SYMPTOMS UTI UNLIKELY (3) WINNIE (acute kidney injury): Code(s): N17.9 - Acute kidney failure, unspecified Status: Acute Assessment and Plan: Creatinine was elevated up to 1.7 on presentation 08/02 creatinine 2.8, 08/03 3.0 Renal U/s shows normal size kidneys with cysts at hilum of left kidney 08/03 seems to be eating very well although intake output shows 480 in and 200 out over the past 24 hours Avoid nephrotoxic drugs Fractional excretion of sodium Orthostatic blood pressures (low on 08/02, none charted 08/03) Fluid challenge 08/03 Nephrology consultation if not improving (4) HTN (hypertension): Qualifiers: Hypertension type: unspecified Qualified Code(s): I10 - Essential (primary) hypertension Code(s): I10 - Essential (primary) hypertension Status: Acute Assessment and Plan: Blood pressures reviewed and adequate 08/03 (5) Asthma: Qualifiers: Asthma severity: unspecified severity Asthma persistence: unspecified Asthma complication type: unspecified Qualified Code(s): J45.909 - Unspecified asthma, uncomplicated Code(s): J45.909 - Unspecified asthma, uncomplicated Status: Acute Assessment and Plan: Not in acute exacerbation Continue Trelegy inhaler Albuterol as needed (6) Diabetes mellitus: Qualifiers: Diabetes mellitus type: type 2 Diabetes mellitus 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 insulin use: unspecified skilled nursing insulin use status Diabetes mellitus complication status: with hyperglycemia Qualified Code(s): E11.65 - Type 2 diabetes mellitus with hyperglycemia Code(s): E11.9 - Type 2 diabetes mellitus without complications Status: Acute Assessment and Plan: A1c is 6.0 Blood sugars reviewed at the adequate 08/03 (7) Left hemiparesis: Code(s): G81.94 - Hemiplegia, unspecified affecting left nondominant side Status: Acute Assessment and Plan: Stable (8) HIV positive: Code(s): Z21 - Asymptomatic human immunodeficiency virus [HIV] infection status Status: Acute Assessment and Plan: Stable Continue home medication (9) Generalized weakness: Code(s): R53.1 - Weakness Status: Acute Assessment and Plan: Likely related to his old stroke with deconditioning and superimposed acute febrile illness Subjective Date/time seen: 08/03/21 09:44 Interval history: 08/03: Eating well. Pain on left side. Chronic. Worse being in bed. Denied chest pain or abdominal pain. Denied GI or issues. Review of Systems Review of Systems: ROS unobtainable: Yes unobtainable due to medical condition Exam Narrative: HEENT: sclerae nonicteric, pharyngeal mucosa pink and intact NECK: No JVD, adenopathy, or thyromegaly CHEST: Scattered crackles HEART: NL S1/S2, regular, no murmur ABDOMEN: BS+, soft, nontender, no mass, no bruits EXTREMITIES: No cyanosis, edema, or clubbing NEUROLOGIC: Mild left facial droop MUSCULOSKELETAL: Dense left hemiparesis PSYCH: Alert. Oriented to person, unable to assess place or time. Monosyllabic answers. Objective Data Vital Signs Vital Signs: Vital Signs - 24 hr 08/02/21 12:00 08/02/21 13:23 08/02/21 16:00 Temperature 97.3 F L 98.2 F Pulse Rate 83 83 Respiratory Rate 18 18 Blood Pressure 78/5
[2021-08-03] MEDS: ACETAMINOPHEN 500 MG TABLET 1000 MG PO (12:01)
[2021-08-03] MEDS: POTASSIUM CHLORIDE 20 MEQ TABLET PO (12:01)
[2021-08-03 12:02] LABS: Glucose Point of Care 134 mg/dl (65-105)
[2021-08-03] MEDS: HEPARIN SODIUM 5,000 UNITS/ML VIAL 5000 UNITS SUB-Q ×2 (12:02→20:39)
[2021-08-03] MEDS: ASPIRIN 325 MG TABLET PO (12:02)
[2021-08-03 16:39] LABS: Glucose Point of Care 164 mg/dl (65-105)
[2021-08-03] MEDS: oxyCODONE HCL (*CRX) 2.5 MG TAB IR PO (17:01)
[2021-08-03] MEDS: SODIUM CHLORIDE 0.9% IV 1,000 ML 80 ML IV CONT (18:42)
[2021-08-04] VITALS (9 sets, daily range): BP systolic 95–150; BP diastolic 50–69; PULSE 56–97; RESP 18–20; TEMP 36.1–37.1; O2SAT 90–98
[2021-08-04] MEDS: SODIUM CHLORIDE 0.9% IV 1,000 ML 80 ML IV CONT ×2 (05:50→18:56)
[2021-08-04 08:30] LABS: Basophils Percent Auto 0.6 % (0.2-1.2); Eosinophils Absolute Auto 0.1 K/mm3 (0-0.3); Eosinophils Percent Auto 0.9 % (0-4.4); Hematocrit 34.4 % (42.0-52.0); Immature Granulocyte Absolute 0.11 K/mm3 (0.00-0.031); Immature Granulocyte Percent A 2.1 % (0-0.5); Lymphocytes Absolute Auto 1.14 K/mm3 (0.9-3.2); Lymphocytes Percent Auto 21.6 % (18.3-44.2); Mean Corpuscular Hemoglobin 28.1 pg (26-34); Mean Corpuscular Volume 87.8 fl (80-100); Mean Platelet Volume 10.6 fl (7.4-10.4); Monocytes Absolute Auto 0.4 K/mm3 (0.1-0.6); Monocytes Percent Auto 6.8 % (2.6-8.5); Neutrophils Absolute Auto 3.6 K/mm3 (1.3-6.7); Platelet Count Result 243 k/mm3 (150-375); Red Blood Count 3.92 M/mm3 (4.6-6.20); Red Cell Distribution Width 14.6 % (11.5-14.5); White Blood Count 5.3 K/mm3 (4.5-10.0)
[2021-08-04 08:36] LABS: Glucose Point of Care 83 mg/dl (65-105)
[2021-08-04 08:37] LABS: Albumin Level 3.5 g/dL (3.5-5.1); Anion Gap 6 mmol/L (8-16); Blood Urea Nitrogen 48 mg/dL (9-20); Calcium 8.6 mg/dL (8.4-10.2); Carbon Dioxide 26 mmol/L (22-30); Chloride 106 mmol/L (98-107); Estimated CRCL calculation 16 ml/min; Estimated Glomerular Filt Rate 20; Glucose 105 mg/dL (65-110); Phosphorus 3.1 mg/dL (2.5-4.5); Potassium 3.4 mmol/L (3.4-5.0); Sodium 138 mmol/L (137-145)
[2021-08-04 08:58] LABS: Glucose Point of Care 115 mg/dl (65-105)
[2021-08-04] MEDS: FLUTICASONE/UMECLIDIN/VILANTER 100-62.5-25 MCG ELLIPTA 2 PUFF INHALATION (09:12)
[2021-08-04] MEDS: oxyCODONE HCL (*CRX) 2.5 MG TAB IR PO (10:33)
[2021-08-04] MEDS: ACETAMINOPHEN 500 MG TABLET 1000 MG PO (10:33)
[2021-08-04] MEDS: ASPIRIN 325 MG TABLET PO (10:34)
[2021-08-04] MEDS: HEPARIN SODIUM 5,000 UNITS/ML VIAL 5000 UNITS SUB-Q ×2 (10:34→22:02)
[2021-08-04 11:54] LABS: Glucose Point of Care 108 mg/dl (65-105)
--- NOTE | 2021-08-04 13:08 | PM.IMPN ---
Progress Note: A&P Assessment and Plan (1) COVID-19: Code(s): U07.1 - COVID-19 Status: Acute Assessment and Plan: Positive COVID test 07/30/2021 No evidence of pneumonia on CXR He has no oxygen requirements Supportive care Not a candidate for dexamethasone or remdesivir given lack of O2 requirement Continue isolation precautions Patient completed Moderna vaccination, does not appear to have received booster, needs booster after recovery (2) Acute UTI: Code(s): N39.0 - Urinary tract infection, site not specified Status: Acute Assessment and Plan: URINE NO GROWTH DENIED SYMPTOMS UTI UNLIKELY (3) WINNIE (acute kidney injury): Code(s): N17.9 - Acute kidney failure, unspecified Status: Acute Assessment and Plan: Creatinine was elevated up to 1.7 on presentation 08/02 creatinine 2.8, 08/03 3.0, 08/04 3.6 Renal U/s shows normal size kidneys with cysts at hilum of left kidney Avoid nephrotoxic drugs 08/04 STOP BIKTARVY Orthostatic blood pressures (low on 08/02, none charted 08/03, 08/04) Fluid challenge 08/03-08/04 w/o benefit Urine studies Nephrology consultation (4) HTN (hypertension): Qualifiers: Hypertension type: unspecified Qualified Code(s): I10 - Essential (primary) hypertension Code(s): I10 - Essential (primary) hypertension Status: Acute Assessment and Plan: Blood pressures reviewed and adequate 08/04 (5) Asthma: Qualifiers: Asthma severity: unspecified severity Asthma persistence: unspecified Asthma complication type: unspecified Qualified Code(s): J45.909 - Unspecified asthma, uncomplicated Code(s): J45.909 - Unspecified asthma, uncomplicated Status: Acute Assessment and Plan: Not in acute exacerbation Continue Trelegy inhaler Albuterol as needed (6) Diabetes mellitus: Qualifiers: Diabetes mellitus type: type 2 Diabetes mellitus detention insulin use: unspecified 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 technician insulin use status Diabetes mellitus complication status: with hyperglycemia Qualified Code(s): E11.65 - Type 2 diabetes mellitus with hyperglycemia Code(s): E11.9 - Type 2 diabetes mellitus without complications Status: Acute Assessment and Plan: A1c is 6.0 Blood sugars reviewed at the adequate 08/03 (7) Left hemiparesis: Code(s): G81.94 - Hemiplegia, unspecified affecting left nondominant side Status: Acute Assessment and Plan: Stable (8) HIV positive: Code(s): Z21 - Asymptomatic human immunodeficiency virus [HIV] infection status Status: Acute Assessment and Plan: Stable 08/04 STOP BIKTARVY DUE TO WINNIE (9) Generalized weakness: Code(s): R53.1 - Weakness Status: Acute Assessment and Plan: Likely related to his old stroke with deconditioning and superimposed acute febrile illness Subjective Date/time seen: 08/04/21 13:08 Interval history: 08/04: Eating well. Chronic pain on left side improved with analgesics. Denied chest pain or abdominal pain. Denied GI or issues. Denied bleeding. Review of Systems Review of Systems: All systems reviewed & are unremarkable except as noted in HPI and below Exam Narrative: HEENT: sclerae nonicteric, pharyngeal mucosa pink and intact NECK: No JVD, adenopathy, or thyromegaly CHEST: Scattered crackles HEART: NL S1/S2, regular, no murmur ABDOMEN: BS+, soft, nontender, no mass, no bruits EXTREMITIES: No cyanosis, edema, or clubbing NEUROLOGIC: Mild left facial droop MUSCULOSKELETAL: Dense left hemiparesis PSYCH: Alert. Oriented to person, unable to assess place or time. Monosyllabic answers. Objective Data Vital Signs Vital Signs: Vital Signs - 24 hr 08/03/21 16:00 08/03/21 20:00 08/04/21 00:00 Temperature 98.4 F 99.3 F 97.5 F L Pulse Rate 75 72 76 Respiratory Rate 18 18 18 Blood Pressure 102/58 L 105/62 135/61 Pulse Oximetry 95 94 95
[2021-08-04 16:50] LABS: Glucose Point of Care 103 mg/dl (65-105)
[2021-08-04 17:26] LABS: Anion Gap 4 mmol/L (8-16); Blood Urea Nitrogen 50 mg/dL (9-20); CRP 24.3 mg/dL (<1.0); Calcium 8.6 mg/dL (8.4-10.2); Carbon Dioxide 26 mmol/L (22-30); Chloride 107 mmol/L (98-107); Estimated CRCL calculation 16 ml/min; Estimated Glomerular Filt Rate 21; Glucose 102 mg/dL (65-110); Potassium 3.4 mmol/L (3.4-5.0); Sodium 137 mmol/L (137-145)
[2021-08-04 17:51] LABS: Erythrocyte Sedimentation Rate > 140 mm/hr (0-20)
[2021-08-04 18:00] LABS: Hepatitis B Surface Antigen Negative (Negative)
[2021-08-04 18:17] LABS: Hepatitis C Virus Antibody Negative (Negative)
[2021-08-04 22:14] LABS: Glucose Point of Care 82 mg/dl (65-105)
[2021-08-05] VITALS (9 sets, daily range): BP systolic 111–153; BP diastolic 57–77; PULSE 61–70; RESP 16–20; TEMP 36.2–36.9; O2SAT 95–100
[2021-08-05 06:04] LABS: Creatinine Urine 53.2 mg/dL
[2021-08-05 06:05] LABS: Sodium Urine Random 63 meq/L
[2021-08-05 06:32] LABS: Add Urine Microscopic? YES; Amorphous Sediment Urine Moderate; Appearance Urine Clear (Clear); Bilirubin Urine Negative (Negative); Blood Urine 2+ (Negative); Color Urine Yellow (Yellow); Glucose Urine UA Negative (Negative); Ketones Urine Negative (Negative); Leukocyte Esterase Ur 1+ LEU/UL (Negative); Mucus Urine Rare /lpf; Nitrate Urine Negative (Negative); Protein Urine 1+ mg/dL (Negative); Specific Grav Ur 1.009 (1.001-1.035); Squamous Epithelial Cell Urine Rare /hpf (Few); Urobilinogen Urine Negative mg/dL (<2.0); WBC Urine 21-30 /hpf
--- NOTE | 2021-08-05 07:00 | PM.CNNEP ---
Assessment and Plan Assessment and plan (1) WINNIE (acute kidney injury): Code(s): N17.9 - Acute kidney failure, unspecified Status: Acute Assessment and Plan: Slade has a rising creatinine. Renal ultrasound is unremarkable. Urine electrolytes are non pre renal. Issues that might be related to this include: The patient is positive for COVID-19. This can affect the kidneys but usually only in people that have significant pulmonary disease and cytokine storm. He does not seem to fit into this scenario. The patient had hypotension. His blood pressure is actually been all over the place. It was normal when he was admitted when his creatinine was high, then the blood pressure carri to 160-170s when he was given IV fluids and his creatinine normalized. Since then his blood pressure has been lower and on the it was actually in the 70s for a few hours. I do not know what his blood pressures have run at home but if he had chronic poor control of his blood pressure then bring it down to the 120s might bring about an elevation of creatinine. And a blood pressure in the 70s of course could make any but he is creatinine worse. The patient is on Biktarvy. This contains to enough indinavir which can have affects on the kidneys. However since he has been on this so long with think it would be unlikely to be primarily from this medication. It needs to be held while his kidneys are like this but probably can restart once his kidney function gets back to normal. The patient has pyuria and hematuria as well as proteinuria. It is possible that he might have an HIV related kidney disease. Will check a CD4 count and HIV viral load to see what is going on there because it would be unusual to have an HIV related kidney disease if the HIV is well controlled. Serology has been checked. If the creatinine continues to rise then consider a renal biopsy. At this point will check out the HIV status, I agree with the IV fluids. Will see what the repeat urine culture shows. (2) COVID-19: Code(s): U07.1 - COVID-19 Status: Acute Assessment and Plan: The patient does on respiratory isolation. He is not requiring oxygen. (3) HIV positive: Code(s): Z21 - Asymptomatic human immunodeficiency virus [HIV] infection status Status: Acute Assessment and Plan: The patient was on Biktarvy. This is on hold (4) Hypotension: Code(s): I95.9 - Hypotension, unspecified Status: Resolved Assessment and Plan: Blood pressure was low earlier. It seems to be better now. He is not on any of his antihypertensives. 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 insulin use: unspecified predatory animal exterminator insulin use status Diabetes mellitus complication status: with hyperglycemia Qualified Code(s): E11.65 - Type 2 diabetes mellitus with hyperglycemia Code(s): E11.9 - Type 2 diabetes mellitus without complications Status: Acute Assessment and Plan: On Accu-Cheks and sliding-scale insulin History of Present Illness Reason for Consult Consult date: 08/05/21 Chief Complaint Chief complaint: Weakness, WINNIE History of Present Illness Narrative: Slade is an unfortunate 71-year-old gentleman who has multiple medical problems including HIV, asthma, diabetes, hypertension, stroke status post left hemiparesis, history of shingles, who came into the hospital because of increasing weakness over the last week. He is cared for at home by his daughter Teresa who gives him his medication. The patient says that he has had a cough and weakness. He was seen in the
[2021-08-05 07:50] LABS: Glucose Point of Care 78 mg/dl (65-105)
[2021-08-05 08:01] LABS: Basophils Percent Auto 0.8 % (0.2-1.2); Eosinophils Absolute Auto 0.2 K/mm3 (0-0.3); Eosinophils Percent Auto 3.8 % (0-4.4); Hematocrit 32.8 % (42.0-52.0); Hemoglobin 10.5 g/dL (14.0-18.0); Immature Granulocyte Absolute 0.14 K/mm3 (0.00-0.031); Lymphocytes Percent Auto 25.4 % (18.3-44.2); Mean Corpuscular Hemoglobin 28.1 pg (26-34); Mean Corpuscular Volume 87.7 fl (80-100); Mean Platelet Volume 10.6 fl (7.4-10.4); Monocytes Absolute Auto 0.4 K/mm3 (0.1-0.6); Monocytes Percent Auto 8.7 % (2.6-8.5); Neutrophils Absolute Auto 2.8 K/mm3 (1.3-6.7); Neutrophils Percent Auto 58.3 % (45.5-73.1); Platelet Count Result 237 k/mm3 (150-375); Red Blood Count 3.74 M/mm3 (4.6-6.20); Red Cell Distribution Width 14.6 % (11.5-14.5); White Blood Count 4.7 K/mm3 (4.5-10.0)
[2021-08-05 08:06] LABS: Albumin Level 3.6 g/dL (3.5-5.1); Anion Gap 6 mmol/L (8-16); Blood Urea Nitrogen 45 mg/dL (9-20); Calcium 8.9 mg/dL (8.4-10.2); Carbon Dioxide 23 mmol/L (22-30); Chloride 110 mmol/L (98-107); Estimated CRCL calculation 19 ml/min; Estimated Glomerular Filt Rate 25; Glucose 97 mg/dL (65-110); Phosphorus 3.2 mg/dL (2.5-4.5); Potassium 3.3 mmol/L (3.4-5.0); Sodium 139 mmol/L (137-145)
[2021-08-05 08:26] LABS: Creatine Kinase 238 U/L (55-170)
[2021-08-05] MEDS: FLUTICASONE/UMECLIDIN/VILANTER 100-62.5-25 MCG ELLIPTA 2 PUFF INHALATION (08:36)
[2021-08-05] MEDS: ASPIRIN 325 MG TABLET PO (09:13)
[2021-08-05] MEDS: SODIUM CHLORIDE 0.9% IV 1,000 ML 80 ML IV CONT ×2 (09:13→21:30)
[2021-08-05] MEDS: HEPARIN SODIUM 5,000 UNITS/ML VIAL 5000 UNITS SUB-Q ×2 (09:13→21:31)
[2021-08-05 11:30] LABS: Glucose Point of Care 169 mg/dl (65-105)
[2021-08-05 11:53] LABS: Eosinophil Urine None Seen % (None Seen)
--- NOTE | 2021-08-05 12:00 | PM.IMPN ---
Progress Note: A&P Assessment and Plan (1) COVID-19: Code(s): U07.1 - COVID-19 Status: Acute Assessment and Plan: Positive COVID test 07/30/2021 No evidence of pneumonia on CXR He has no oxygen requirements Supportive care Not a candidate for dexamethasone or remdesivir given lack of O2 requirement Continue isolation precautions Patient completed Moderna vaccination, does not appear to have received booster, needs booster after recovery (2) Acute UTI: Code(s): N39.0 - Urinary tract infection, site not specified Status: Acute Assessment and Plan: -Urine culture negative, no growth -abx were stopped -blood cultures NGTD -repeat urine culture pending (3) WINNIE (acute kidney injury): Code(s): N17.9 - Acute kidney failure, unspecified Status: Acute Assessment and Plan: -Creatinine was elevated up to 1.7 on presentation -08/02 creatinine 2.8, 08/03 3.0, 08/04 3.6 -Renal U/s shows normal size kidneys with cysts at hilum of left kidney -Avoid nephrotoxic drugs -08/04 STOP BIKTARVY -Orthostatic blood pressures (low on 08/02, none charted 08/03, 08/04) -Fluid challenge 08/03-08/04 w/o benefit -Urine studies -Nephrology consultation (4) HTN (hypertension): Qualifiers: Hypertension type: unspecified Qualified Code(s): I10 - Essential (primary) hypertension Code(s): I10 - Essential (primary) hypertension Status: Acute Assessment and Plan: Blood pressures reviewed and adequate (5) Asthma: Qualifiers: Asthma severity: unspecified severity Asthma persistence: unspecified Asthma complication type: unspecified Qualified Code(s): J45.909 - Unspecified asthma, uncomplicated Code(s): J45.909 - Unspecified asthma, uncomplicated Status: Acute Assessment and Plan: Not in acute exacerbation Continue Trelegy inhaler Albuterol as needed (6) Diabetes mellitus: Qualifiers: Diabetes mellitus type: type 2 Diabetes mellitus fci insulin use: unspecified fci insulin use status Diabetes mellitus complication status: with hyperglycemia Qualified Code(s): E11.65 - Type 2 diabetes mellitus with hyperglycemia Code(s): E11.9 - Type 2 diabetes mellitus without complications Status: Acute Assessment and Plan: A1c is 6.0 Blood sugars reviewed at the [facility] (7) Left hemiparesis: Code(s): G81.94 - Hemiplegia, unspecified affecting left nondominant side Status: Acute Assessment and Plan: Stable (8) HIV positive: Code(s): Z21 - Asymptomatic human immunodeficiency virus [HIV] infection status Status: Acute Assessment and Plan: Stable 08/04 STOP BIKTARVY DUE TO WINNIE (9) Generalized weakness: Code(s): R53.1 - Weakness Status: Acute Assessment and Plan: Likely related to his old stroke with deconditioning and superimposed acute febrile illness Subjective Date/time seen: 08/05/21 12:00 Interval history: 71 yo male w/ hx of HTN, DM, CVA w/ left hemiparesis, asthma, HIV positive, admitted for COVID, UTI, WINNIE. Pt is alert to self only. Denies pain but does have signficant abdominal tenderness on exam. Further hx limited secondary to mental status. Review of Systems Review of Systems: ROS unobtainable: Yes unobtainable due to mental status Exam Narrative: General: No acute distress, non toxic appearing Eyes: PERRL, no scleral icterus HEENT: NCAT, external ears normal, MMM Respiratory: No respiratory distress, Lungs CTA bilaterally, no wheezing Cardiovascular: RRR, no murmur Abdominal: Soft, moderate diffuse ttp, non distended, no rebound or guarding Musculoskeletal: No LE edema Neurological: A/Ox1, no facial asymmetry, residual left sided weakness Skin: Warm, dry Psychiatric: Confused Objective Data Vital Signs Vital Signs: Vital Signs -
[2021-08-05 16:01] LABS: Glucose Point of Care 106 mg/dl (65-105)
[2021-08-05 21:40] LABS: Glucose Point of Care 108 mg/dl (65-105)
[2021-08-06] VITALS (8 sets, daily range): BP systolic 140–163; BP diastolic 63–81; PULSE 59–90; RESP 16–18; TEMP 36.4–37.3; O2SAT 98–100
[2021-08-06 07:12] LABS: Basophils Absolute Auto 0.1 K/mm3 (0.0-0.1); Basophils Percent Auto 0.9 % (0.2-1.2); Eosinophils Absolute Auto 0.2 K/mm3 (0-0.3); Eosinophils Percent Auto 3.1 % (0-4.4); Hematocrit 32.7 % (42.0-52.0); Hemoglobin 10.3 g/dL (14.0-18.0); Immature Granulocyte Absolute 0.32 K/mm3 (0.00-0.031); Immature Granulocyte Percent A 5.9 % (0-0.5); Lymphocytes Absolute Auto 1.56 K/mm3 (0.9-3.2); Lymphocytes Percent Auto 28.5 % (18.3-44.2); Mean Corpuscular HGB Conc 31.5 g/dl (32-36); Mean Corpuscular Hemoglobin 28.7 pg (26-34); Mean Corpuscular Volume 91.1 fl (80-100); Mean Platelet Volume 10.2 fl (7.4-10.4); Monocytes Absolute Auto 0.7 K/mm3 (0.1-0.6); Monocytes Percent Auto 12.8 % (2.6-8.5); Neutrophils Absolute Auto 2.7 K/mm3 (1.3-6.7); Neutrophils Percent Auto 48.8 % (45.5-73.1); Platelet Count Result 266 k/mm3 (150-375); Red Blood Count 3.59 M/mm3 (4.6-6.20); Red Cell Distribution Width 14.5 % (11.5-14.5); White Blood Count 5.5 K/mm3 (4.5-10.0)
[2021-08-06 07:28] LABS: Alanine Aminotransferase 60 U/L (4-50); Albumin Level 3.6 g/dL (3.5-5.1); Alkaline Phosphatase 153 U/L (38-126); Anion Gap 8 mmol/L (8-16); Aspartate Amino Transferase 125 U/L (17-59); Bilirubin,Total 0.3 mg/dL (0.2-1.3); Blood Urea Nitrogen 34 mg/dL (9-20); Calcium 9.1 mg/dL (8.4-10.2); Carbon Dioxide 23 mmol/L (22-30); Chloride 112 mmol/L (98-107); Estimated CRCL calculation 26 ml/min; Estimated Glomerular Filt Rate 36; Glucose 107 mg/dL (65-110); Phosphorus 2.9 mg/dL (2.5-4.5); Potassium 3.5 mmol/L (3.4-5.0); Sodium 143 mmol/L (137-145)
[2021-08-06 07:54] LABS: Glucose Point of Care 86 mg/dl (65-105)
[2021-08-06] MEDS: FLUTICASONE/UMECLIDIN/VILANTER 100-62.5-25 MCG ELLIPTA 2 PUFF INHALATION (08:23)
[2021-08-06] MEDS: ASPIRIN 325 MG TABLET PO (09:20)
[2021-08-06] MEDS: SODIUM CHLORIDE 0.9% IV 1,000 ML 80 ML IV CONT ×2 (09:22→21:45)
[2021-08-06] MEDS: HEPARIN SODIUM 5,000 UNITS/ML VIAL 5000 UNITS SUB-Q ×2 (09:23→21:45)
--- NOTE | 2021-08-06 09:38 | PM.PNNEP ---
Progress Note: A&P Assessment and Plan (1) WINNIE (acute kidney injury): Code(s): N17.9 - Acute kidney failure, unspecified Status: Acute Assessment and Plan: Slade has a rising creatinine. Renal ultrasound is unremarkable. Urine electrolytes are non pre renal. his creatinine improved. He did receive some IV fluids. I suspect that dehydration may be playing a role in his acute kidney injury. His Biktarvy is on hold but can resume once his creatinine is better. The patient has COVID-19 but is not on oxygen. He has pyuria. Cultures are all pending. He has no pain with urination. (2) COVID-19: Code(s): U07.1 - COVID-19 Status: Acute Assessment and Plan: The patient does on respiratory isolation. He is not requiring oxygen. (3) HIV positive: Code(s): Z21 - Asymptomatic human immunodeficiency virus [HIV] infection status Status: Acute Assessment and Plan: The patient was on Biktarvy. This is on hold Await CD4 counts. (4) Hypotension: Code(s): I95.9 - Hypotension, unspecified Status: Resolved Assessment and Plan: Blood pressure was low earlier. It seems to be better now. He is not on any of his antihypertensives. (5) HTN (hypertension): Qualifiers: Hypertension type: unspecified Qualified Code(s): I10 - Essential (primary) hypertension Code(s): I10 - Essential (primary) hypertension Status: Acute Assessment and Plan: Blood pressure is well controlled (6) Diabetes mellitus: Qualifiers: Diabetes mellitus type: type 2 Diabetes mellitus usp insulin use: unspecified usp insulin use status Diabetes mellitus complication status: with hyperglycemia Qualified Code(s): E11.65 - Type 2 diabetes mellitus with hyperglycemia Code(s): E11.9 - Type 2 diabetes mellitus without complications Status: Acute Assessment and Plan: On Accu-Cheks and sliding-scale insulin Subjective Date/time seen: 08/06/21 09:38 Interval history: Patient is alert. He does not seem to be very oriented. He has random areas on his body where he is tender. For instance when I check for swelling above his ankle he is very tender there. He also has very tender on his left chest when I auscultated with a stethoscope. Belly was not too tender this morning. He denies shortness of breath. Review of Systems Cardiovascular: Cardiovascular: Reports no additional cardiovascular complaints Respiratory: Respiratory: Reports no additional respiratory complaints Gastrointestinal: Gastrointestinal: Reports no additional gastrointestinal complaints Genitourinary: Genitourinary: Reports no additional male genitourinary complaints Exam Narrative: WDWN in NAD skin no rash head ncat lungs clear cor reg no rub abd BS+ nontender and soft ext Trace edema. Objective Data Vital Signs Vital Signs: Vital Signs - 24 hr 08/05/21 12:00 08/05/21 12:38 08/05/21 16:00 Temperature 36.3 C L 36.3 C L Pulse Rate 70 62 Respiratory Rate 18 18 Blood Pressure 121/57 L 152/57 H 128/66 Pulse Oximetry 95 100 08/05/21 20:00 08/05/21 23:32 08/06/21 03:53 Temperature 36.2 C L 36.8 C 36.4 C Pulse Rate 61 65 59 L Respiratory Rate 18 20 18 Blood Pressure 111/61 151/65 H 158/63 H Pulse Oximetry 99 100 98 08/06/21 08:00 Temperature 36.5 C Pulse Rate 64 Respiratory Rate 18 Blood Pressure 163/71 H Pulse Oximetry 98 Intake/Output Intake/Output: Intake & Output 08/03/21 08/04/21 08/05/21 08/06/21 23:59 23:59 23:59 23:59 Intake Total 1220 2270 2560 1250 Balance 1220 2270 2560 1250 Meds/Results Medications: Active Medications Generic Name Dose Route Start Last Admin Trade Name Freq PRN Reason Stop Dose Admin Acetaminophen 1,000 mg 08/01/21 14:19 08/04/21 10:33 Acetaminophen 500 Mg Tablet PO 1,000 mg Q6H PRN Administration Pain (Scale Score 1-5)
[2021-08-06 12:08] LABS: Glucose Point of Care 159 mg/dl (65-105)
[2021-08-06 16:01] LABS: Creatinine Urine 82.7 mg/dL; Total Protein Urine Random 66 mg/dL
[2021-08-06 17:15] LABS: Glucose Point of Care 108 mg/dl (65-105)
--- NOTE | 2021-08-06 17:17 | P.PNIM_ITS ---
Progress Note: A&P Assessment and Plan (1) COVID-19: Code(s): U07.1 - COVID-19 Status: Acute Assessment and Plan: Positive COVID test 07/30/2021 * No evidence of pneumonia on CXR * He has no oxygen requirements * Supportive care * Not a candidate for dexamethasone or remdesivir given lack of O2 requirement * Continue isolation precautions * Patient completed Moderna vaccination, does not appear to have received samir basia, needs booster after recovery (2) Acute UTI: Code(s): N39.0 - Urinary tract infection, site not specified Status: Acute Assessment and Plan: Ruled out. Urine culture negative, no growth * abx were discontinued. Patient asx * blood cultures negative * repeat urine culture collected 08/05/2020 with mixed genital francisco not indicative of infection (3) WINNIE (acute kidney injury): Code(s): N17.9 - Acute kidney failure, unspecified Status: Acute Assessment and Plan: Creatinine was elevated on presentation then normalized. On 08/02 creatinine increased to 2.8 * Peak creatinine at 3.6 * Renal U/s showed normal size kidneys with cysts at hilum of left kidney * Etiology unclear, likely multifactorial. Differential includes COVID-19, relative hypotension, Biktarvy use, HIV related kidney disease * Seen in consultation by nephrology. Recommendations greatly appreciated * Biktarvy held on 08/04. Resume when creatinine improves * Creatinine has improved with IV fluids down to 2.2 today. Continue maintenance fluids. * Continue to monitor renal function closely. Renally dose medications and av oid nephrotoxins (4) HTN (hypertension): Qualifiers: Hypertension type: unspecified Qualified Code(s): I10 - Essential (primary) hypertension Code(s): I10 - Essential (primary) hypertension Status: Acute Assessment and Plan: Blood pressures reviewed and reasonable, at times mildly elevated * Last BP 142/65 * Lisinopril on hold due to WINNIE (5) Asthma: Qualifiers: Asthma complication type: unspecified Asthma persistence: unspecified Asthma severity: unspecified severity Qualified Code(s): J45.909 - Unspecified asthma, uncomplicated Code(s): J45.909 - Unspecified asthma, uncomplicated Status: Acute Assessment and Plan: Not in acute exacerbation * Continue Trelegy inhaler * Albuterol as needed (6) Diabetes mellitus: Qualifiers: Diabetes mellitus complication status: with hyperglycemia 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 Blood sugars have been well controlled * Continue Accu-Cheks, sliding scale insulin, hypoglycemic protocol (7) Left hemiparesis: Code(s): G81.94 - Hemiplegia, unspecified affecting left nondominant side Status: Acute Assessment and Plan: Secondary to CVA * Chronic and stable * Continue PT/OT (8) HIV positive: Code(s): Z21 - Asymptomatic human immunodeficiency virus [HIV] infection status Status: Acute Assessment and Plan: Maintained on Biktarvy * Biktarvy held due to WINNIE * CD4 count pending * HIV RNA pending (9) Generalized weakness: Code(s): R53.1 - Weakness Status: Acute As
--- NOTE | 2021-08-06 17:17 | PM.IMPN ---
Progress Note: A&P Assessment and Plan (1) COVID-19: Code(s): U07.1 - COVID-19 Status: Acute Assessment and Plan: Positive COVID test 07/30/2021 No evidence of pneumonia on CXR He has no oxygen requirements Supportive care Not a candidate for dexamethasone or remdesivir given lack of O2 requirement Continue isolation precautions Patient completed Moderna vaccination, does not appear to have received booster, needs booster after recovery (2) Acute UTI: Code(s): N39.0 - Urinary tract infection, site not specified Status: Acute Assessment and Plan: Ruled out. Urine culture negative, no growth abx were discontinued. Patient asx blood cultures negative repeat urine culture collected 08/05/2020 with mixed genital francisco not indicative of infection (3) WINNIE (acute kidney injury): Code(s): N17.9 - Acute kidney failure, unspecified Status: Acute Assessment and Plan: Creatinine was elevated on presentation then normalized. On 08/02 creatinine increased to 2.8 Peak creatinine at 3.6 Renal U/s showed normal size kidneys with cysts at hilum of left kidney Etiology unclear, likely multifactorial. Differential includes COVID-19, relative hypotension, Biktarvy use, HIV related kidney disease Seen in consultation by nephrology. Recommendations greatly appreciated Biktarvy held on 08/04. Resume when creatinine improves Creatinine has improved with IV fluids down to 2.2 today. Continue maintenance fluids. Continue to monitor renal function closely. Renally dose medications and avoid nephrotoxins (4) HTN (hypertension): Qualifiers: Hypertension type: unspecified Qualified Code(s): I10 - Essential (primary) hypertension Code(s): I10 - Essential (primary) hypertension Status: Acute Assessment and Plan: Blood pressures reviewed and reasonable, at times mildly elevated Last BP 142/65 Lisinopril on hold due to WINNIE (5) Asthma: Qualifiers: Asthma complication type: unspecified Asthma persistence: unspecified Asthma severity: unspecified severity Qualified Code(s): J45.909 - Unspecified asthma, uncomplicated Code(s): J45.909 - Unspecified asthma, uncomplicated Status: Acute Assessment and Plan: Not in acute exacerbation Continue Trelegy inhaler Albuterol as needed (6) Diabetes mellitus: Qualifiers: Diabetes mellitus complication status: with hyperglycemia Diabetes mellitus intermediate accountant insulin use: unspecified intermediate accountant insulin use status Diabetes mellitus type: type 2 Qualified Code(s): E11.65 - Type 2 diabetes mellitus with hyperglycemia Code(s): E11.9 - Type 2 diabetes mellitus without complications Status: Acute Assessment and Plan: A1c is 6.0. Blood sugars have been well controlled Continue Accu-Cheks, sliding scale insulin, hypoglycemic protocol (7) Left hemiparesis: Code(s): G81.94 - Hemiplegia, unspecified affecting left nondominant side Status: Acute Assessment and Plan: Secondary to CVA Chronic and stable Continue PT/OT (8) HIV positive: Code(s): Z21 - Asymptomatic human immunodeficiency virus [HIV] infection status Status: Acute Assessment and Plan: Maintained on Biktarvy Biktarvy held due to WINNIE CD4 count pending HIV RNA pending (9) Generalized weakness: Code(s): R53.1 - Weakness Status: Acute Assessment and Plan: Likely related to his old stroke with deconditioning and superimposed acute illness Continue PT/OT Planning for SNF on discharge. Awaiting insurance authorization Subjective Date/time seen: 08/06/21 17:17 Interval history: Date of service: 08/06/2021 Slade Aguilar is a 71-year-old male with a history of hypertension, diabetes mellitus, CVA with left-sided hemiparesis, HIV, and asthma who is seen in follow-up for COVID-19 and generalized weak
[2021-08-06] MEDS: oxyCODONE HCL (*CRX) 2.5 MG TAB IR PO (21:45)
[2021-08-06] MEDS: ACETAMINOPHEN 500 MG TABLET 1000 MG PO (21:46)
[2021-08-06 22:06] LABS: Glucose Point of Care 104 mg/dl (65-105)
[2021-08-07] VITALS (8 sets, daily range): BP systolic 142–161; BP diastolic 66–92; PULSE 59–70; RESP 16–20; TEMP 36.1–36.3; O2SAT 95–100
[2021-08-07 07:05] LABS: Hemoglobin 10.3 g/dL (14.0-18.0); Mean Corpuscular HGB Conc 32.2 g/dl (32-36); Mean Corpuscular Hemoglobin 28.6 pg (26-34); Mean Corpuscular Volume 88.9 fl (80-100); Mean Platelet Volume 10.3 fl (7.4-10.4); Platelet Count Result 287 k/mm3 (150-375); Red Cell Distribution Width 14.6 % (11.5-14.5); White Blood Count 5.4 K/mm3 (4.5-10.0)
[2021-08-07 07:30] LABS: Albumin Level 3.6 g/dL (3.5-5.1); Anion Gap 5 mmol/L (8-16); Blood Urea Nitrogen 22 mg/dL (9-20); Calcium 8.9 mg/dL (8.4-10.2); Carbon Dioxide 27 mmol/L (22-30); Chloride 114 mmol/L (98-107); Estimated CRCL calculation 35 ml/min; Estimated Glomerular Filt Rate 52; Glucose 103 mg/dL (65-110); Phosphorus 2.8 mg/dL (2.5-4.5); Potassium 2.9 mmol/L (3.4-5.0); Sodium 146 mmol/L (137-145)
[2021-08-07 08:08] LABS: Glucose Point of Care 74 mg/dl (65-105)
[2021-08-07] MEDS: HEPARIN SODIUM 5,000 UNITS/ML VIAL 5000 UNITS SUB-Q ×2 (08:40→21:00)
[2021-08-07] MEDS: ASPIRIN 325 MG TABLET PO (08:40)
[2021-08-07] MEDS: FLUTICASONE/UMECLIDIN/VILANTER 100-62.5-25 MCG ELLIPTA 2 PUFF INHALATION (08:44)
[2021-08-07] MEDS: POTASSIUM CHLORIDE 20 MEQ TABLET PO (09:41)
[2021-08-07] MEDS: POTASSIUM CHLORIDE INJ 40 MEQ in SODIUM CHLORIDE 0.9% IV 500 ML 130 MEQ IVPB (09:41)
[2021-08-07 11:29] LABS: Glucose Point of Care 127 mg/dl (65-105)
[2021-08-07 12:34] LABS: ANCA Screen Negative (Negative)
[2021-08-07 13:29] LABS: Complement Total CH50 >60 U/mL (31-60)
--- NOTE | 2021-08-07 13:52 | PM.PNNEP ---
Progress Note: A&P Assessment and Plan (1) WINNIE (acute kidney injury): Code(s): N17.9 - Acute kidney failure, unspecified Status: Acute Assessment and Plan: Slade Acute kidney injury. Renal ultrasound is unremarkable. Urine electrolytes are non pre renal. CPK is barely high at 238 his creatinine improved. His creatinine has dropped from 3.6-1.6 over the last 3 days. I suspect that dehydration may be playing a role in his acute kidney injury. He seems to be responding to fluids. His Biktarvy is on hold but can resume once his creatinine is better. The patient has COVID-19 but is not on oxygen. He has pyuria. Urine culture showed mixed francisco. He seems to be improving from acute kidney injury. Continue same therapy. (2) COVID-19: Code(s): U07.1 - COVID-19 Status: Acute Assessment and Plan: The patient does on respiratory isolation. He is not requiring oxygen. (3) HIV positive: Code(s): Z21 - Asymptomatic human immunodeficiency virus [HIV] infection status Status: Acute Assessment and Plan: The patient was on Biktarvy. This is on hold Await CD4 counts. (4) Hypotension: Code(s): I95.9 - Hypotension, unspecified Status: Resolved Assessment and Plan: Blood pressure has risen and is now a little high. He was on lisinopril at home. Because of his renal insufficiency I will not restart this but will start amlodipine for the short-term. (5) HTN (hypertension): Qualifiers: Hypertension type: unspecified Qualified Code(s): I10 - Essential (primary) hypertension Code(s): I10 - Essential (primary) hypertension Status: Acute Assessment and Plan: Blood pressure is Now bit high. See above. (6) Diabetes mellitus: Qualifiers: Diabetes mellitus type: type 2 Diabetes mellitus retirement insulin use: unspecified retirement insulin use status Diabetes mellitus complication status: with hyperglycemia Qualified Code(s): E11.65 - Type 2 diabetes mellitus with hyperglycemia Code(s): E11.9 - Type 2 diabetes mellitus without complications Status: Acute Assessment and Plan: On Accu-Cheks and sliding-scale insulin Subjective Date/time seen: 08/07/21 13:52 Interval history: Patient is alert. somewhat terse. he has some belly discomfort which has been the case off and on. He denies shortness of breath. Exam Narrative: WDWN in NAD skin no rash head ncat lungs clear Bilateral cor reg no rub abd BS+ mildly tender in different spots at different times. ext Trace edema. Objective Data Vital Signs Vital Signs: Vital Signs - 24 hr 08/06/21 16:00 08/06/21 20:00 08/07/21 00:00 Temperature 36.4 C 36.5 C 36.3 C L Pulse Rate 80 62 61 Respiratory Rate 16 18 16 Blood Pressure 142/65 H 149/71 H 160/66 H Pulse Oximetry 100 100 100 08/07/21 04:00 08/07/21 09:08 08/07/21 09:09 Temperature 36.2 C L 36.1 C L Pulse Rate 63 60 Respiratory Rate 18 18 Blood Pressure 157/92 H 160/72 H 158/70 H Pulse Oximetry 99 100 08/07/21 12:36 Temperature 36.2 C L Pulse Rate 59 L Respiratory Rate 20 Blood Pressure 149/76 H Pulse Oximetry 100 Intake/Output Intake/Output: Intake & Output 08/04/21 08/05/21 08/06/21 08/07/21 23:59 23:59 23:59 23:59 Intake Total 2270 2560 2395 220 Output Total 250 Balance 2270 2560 2145 220 Meds/Results Medications: Active Medications Generic Name Dose Route Start Last Admin Trade Name Freq PRN Reason Stop Dose Admin Acetaminophen 1,000 mg 08/01/21 14:19 08/06/21 21:46 Acetaminophen 500 Mg Tablet PO 1,000 mg Q6H PRN Administration Pain (Scale Score 1-5) Albuterol 2 puff 07/31/21 09:04 Albuterol Sulfate (*Sp) Inhaler INHALATION Q6HRT PRN Shortness Of Breath Aspirin 325 mg 07/31/21 09:00 08/07/21 08:40 Aspirin 325 Mg Tablet PO 325 mg DAILY [facility] Administ
--- NOTE | 2021-08-07 16:12 | P.PNIM_ITS ---
Progress Note: A&P Assessment and Plan (1) COVID-19: Code(s): U07.1 - COVID-19 Status: Acute Assessment and Plan: Positive COVID test 07/30/2021 * No evidence of pneumonia on CXR. Follow-up CT scan does show multifocal lung disease consistent with pneumonia * He has no oxygen requirements * Supportive care * Not a candidate for dexamethasone or remdesivir given lack of O2 requirement * Continue isolation precautions * Patient completed Moderna vaccination, does not appear to have received booster, needs booster after recovery (2) Acute UTI: Code(s): N39.0 - Urinary tract infection, site not specified Status: Acute Assessment and Plan: Ruled out. Urine culture negative, no growth * Abx discontinued following negative urine culture. Patient asx * blood cultures negative * repeat urine culture collected 08/05/2020 with mixed genital francisco not indicative of infection (3) WINNIE (acute kidney injury): Code(s): N17.9 - Acute kidney failure, unspecified Status: Acute Assessment and Plan: Creatinine was elevated on presentation then normalized. On 08/02 creatinine increased to 2.8 * Peak creatinine at 3.6 * Renal U/s showed normal size kidneys with cysts at hilum of left kidney * Etiology unclear, likely multifactorial. Differential includes COVID-19, relative hypotension, Biktarvy use, HIV related kidney disease * Seen in consultation by nephrology. Recommendations greatly appreciated * Biktarvy held on 08/04. Resume when creatinine improves * Creatinine has improved with IV fluids down to 1.6 today. Continue maintenance fluids. * Continue to monitor renal function closely. Renally dose medications and avoid nephrotoxins (4) HTN (hypertension): Qualifiers: Hypertension type: unspecified Qualified Code(s): I10 - Essential (primary) hypertension Code(s): I10 - Essential (primary) hypertension Status: Acute Assessment and Plan: Blood pressures reviewed and reasonable, at times mildly elevated. Last BP 149/76 * Lisinopril on hold due to WINNIE * Insert on amlodipine 2.5 mg daily * Monitor BP trends and adjust medications as needed (5) Asthma: Qualifiers: Asthma severity: unspecified severity Asthma persistence: unspecified Asthma complication type: unspecified Qualified Code(s): J45.909 - Unspecified asthma, uncomplicated Code(s): J45.909 - Unspecified asthma, uncomplicated Status: Acute Assessment and Plan: Not in acute exacerbation * Continue Trelegy inhaler * Albuterol as needed (6) Diabetes mellitus: Qualifiers: Diabetes mellitus type: type 2 Diabetes mellitus terminal gauger supervisor insulin use: unspecified terminal gauger supervisor insulin use status Diabetes mellitus complication status: with hyperglycemia Qualified Code(s): E11.65 - Type 2 diabetes mellitus with hyperglycemia Code(s): E11.9 - Type 2 diabetes mellitus without complications Status: Acute Assessment and Plan: A1c is 6.0. Blood sugars have been well controlled * Continue Accu-Cheks, sliding scale insulin, hypoglycemic protocol (7) Left hemiparesis: Code(s): G81.94 - Hemiplegia, unspecified affecting left nondominant side Status: Acute Assessment and Plan: Secondary to CVA * Chronic and stable * Continue PT/OT (8) HIV positive: Code(s): Z21 - Asymptomatic human immunodeficiency virus [HIV] infection status Status: Acute Assessment and Plan: Maintained on Bikt
--- NOTE | 2021-08-07 16:12 | PM.IMPN ---
Progress Note: A&P Assessment and Plan (1) COVID-19: Code(s): U07.1 - COVID-19 Status: Acute Assessment and Plan: Positive COVID test 07/30/2021 No evidence of pneumonia on CXR. Follow-up CT scan does show multifocal lung disease consistent with pneumonia He has no oxygen requirements Supportive care Not a candidate for dexamethasone or remdesivir given lack of O2 requirement Continue isolation precautions Patient completed Moderna vaccination, does not appear to have received booster, needs booster after recovery (2) Acute UTI: Code(s): N39.0 - Urinary tract infection, site not specified Status: Acute Assessment and Plan: Ruled out. Urine culture negative, no growth Abx discontinued following negative urine culture. Patient asx blood cultures negative repeat urine culture collected 08/05/2020 with mixed genital francisco not indicative of infection (3) WINNIE (acute kidney injury): Code(s): N17.9 - Acute kidney failure, unspecified Status: Acute Assessment and Plan: Creatinine was elevated on presentation then normalized. On 08/02 creatinine increased to 2.8 Peak creatinine at 3.6 Renal U/s showed normal size kidneys with cysts at hilum of left kidney Etiology unclear, likely multifactorial. Differential includes COVID-19, relative hypotension, Biktarvy use, HIV related kidney disease Seen in consultation by nephrology. Recommendations greatly appreciated Biktarvy held on 08/04. Resume when creatinine improves Creatinine has improved with IV fluids down to 1.6 today. Continue maintenance fluids. Continue to monitor renal function closely. Renally dose medications and avoid nephrotoxins (4) HTN (hypertension): Qualifiers: Hypertension type: unspecified Qualified Code(s): I10 - Essential (primary) hypertension Code(s): I10 - Essential (primary) hypertension Status: Acute Assessment and Plan: Blood pressures reviewed and reasonable, at times mildly elevated. Last BP 149/76 Lisinopril on hold due to WINNIE Insert on amlodipine 2.5 mg daily Monitor BP trends and adjust medications as needed (5) Asthma: Qualifiers: Asthma severity: unspecified severity Asthma persistence: unspecified Asthma complication type: unspecified Qualified Code(s): J45.909 - Unspecified asthma, uncomplicated Code(s): J45.909 - Unspecified asthma, uncomplicated Status: Acute Assessment and Plan: Not in acute exacerbation Continue Trelegy inhaler Albuterol as needed (6) Diabetes mellitus: Qualifiers: Diabetes mellitus type: type 2 Diabetes mellitus [facility] insulin use: unspecified 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 Blood sugars have been well controlled Continue Accu-Cheks, sliding scale insulin, hypoglycemic protocol (7) Left hemiparesis: Code(s): G81.94 - Hemiplegia, unspecified affecting left nondominant side Status: Acute Assessment and Plan: Secondary to CVA Chronic and stable Continue PT/OT (8) HIV positive: Code(s): Z21 - Asymptomatic human immunodeficiency virus [HIV] infection status Status: Acute Assessment and Plan: Maintained on Biktarvy Biktarvy held due to WINNIE CD4 count pending HIV RNA pending (9) Generalized weakness: Code(s): R53.1 - Weakness Status: Acute Assessment and Plan: Likely related to his old stroke with deconditioning and superimposed acute illness Continue PT/OT Planning for SNF on discharge. Awaiting insurance authorization (10) Abnormal CT scan, pelvis: Code(s): R93.5 - Abnormal findings on diagnostic imaging of
[2021-08-07 16:41] LABS: Glucose Point of Care 128 mg/dl (65-105)
[2021-08-07] MEDS: SODIUM CHLORIDE 0.9% IV 1,000 ML 80 ML IV CONT (17:08)
[2021-08-07 19:46] LABS: Anti Glomerular Basement Memb <1.0 AI (<1.0)
[2021-08-08] VITALS (8 sets, daily range): BP systolic 138–169; BP diastolic 63–85; PULSE 56–64; RESP 16–20; TEMP 36.1–37.3; O2SAT 95–100
[2021-08-08 02:26] LABS: Glucose Point of Care 121 mg/dl (65-105)
[2021-08-08] MEDS: SODIUM CHLORIDE 0.9% IV 1,000 ML 80 ML IV CONT (05:42)
[2021-08-08 07:10] LABS: Hemoglobin 10.2 g/dL (14.0-18.0); Mean Corpuscular HGB Conc 31.9 g/dl (32-36); Mean Corpuscular Hemoglobin 28.2 pg (26-34); Mean Corpuscular Volume 88.4 fl (80-100); Mean Platelet Volume 9.7 fl (7.4-10.4); Platelet Count Result 338 k/mm3 (150-375); Red Blood Count 3.62 M/mm3 (4.6-6.20); Red Cell Distribution Width 14.4 % (11.5-14.5); White Blood Count 6.2 K/mm3 (4.5-10.0)
[2021-08-08 07:29] LABS: Blood Urea Nitrogen 14 mg/dL (9-20)
[2021-08-08 07:32] LABS: Albumin Level 3.5 g/dL (3.5-5.1); Anion Gap 4 mmol/L (8-16); Calcium 8.8 mg/dL (8.4-10.2); Carbon Dioxide 28 mmol/L (22-30); Chloride 111 mmol/L (98-107); Estimated CRCL calculation 42 ml/min; Estimated Glomerular Filt Rate > 60; Glucose 125 mg/dL (65-110); Phosphorus 2.7 mg/dL (2.5-4.5); Potassium 3.4 mmol/L (3.4-5.0); Sodium 143 mmol/L (137-145)
[2021-08-08 08:13] LABS: Glucose Point of Care 101 mg/dl (65-105)
[2021-08-08] MEDS: FLUTICASONE/UMECLIDIN/VILANTER 100-62.5-25 MCG ELLIPTA 2 PUFF INHALATION (08:18)
[2021-08-08] MEDS: amLODIPine BESYLATE 2.5 MG TABLET PO (09:18)
[2021-08-08] MEDS: ASPIRIN 325 MG TABLET PO (09:18)
[2021-08-08] MEDS: HEPARIN SODIUM 5,000 UNITS/ML VIAL 5000 UNITS SUB-Q ×2 (09:19→21:18)
[2021-08-08] MEDS: POTASSIUM CHLORIDE 20 MEQ TABLET.ER PO ×2 (09:27→17:27)
--- NOTE | 2021-08-08 10:32 | PM.PNNEP ---
Progress Note: A&P Assessment and Plan (1) WINNIE (acute kidney injury): Code(s): N17.9 - Acute kidney failure, unspecified Status: Acute Assessment and Plan: Slade has acute kidney injury. Renal ultrasound is unremarkable. Urine electrolytes are non pre renal. CPK is barely high at 238 his creatinine improved. His creatinine has dropped from 3.6-1.3. this was probably due to dehydration. His GFR is up to 60. I think it would be okay to go back on his picked RV. (2) COVID-19: Code(s): U07.1 - COVID-19 Status: Acute Assessment and Plan: The patient does on respiratory isolation. He is not requiring oxygen. (3) HIV positive: Code(s): Z21 - Asymptomatic human immunodeficiency virus [HIV] infection status Status: Acute Assessment and Plan: The patient was on Biktarvy. Okay to resume Await CD4 counts. (4) Hypotension: Code(s): I95.9 - Hypotension, unspecified Status: Resolved Assessment and Plan: resolved (5) HTN (hypertension): Qualifiers: Hypertension type: unspecified Qualified Code(s): I10 - Essential (primary) hypertension Code(s): I10 - Essential (primary) hypertension Status: Acute Assessment and Plan: Blood pressure is in the 140s. On amlodipine. 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 somewhat terse. he has some belly discomfort at times. He denies shortness of breath. Exam Narrative: WDWN in NAD skin no rash head ncat lungs clear Bilateral cor reg no rub abd BS+ mildly tender in different spots. ext Trace edema. various spots on arms and legs also are tender. Objective Data Vital Signs Vital Signs: Vital Signs - 24 hr 08/07/21 12:36 08/07/21 16:49 08/07/21 20:00 Temperature 36.2 C L 36.3 C L 36.1 C L Pulse Rate 59 L 62 70 Respiratory Rate 20 18 16 Blood Pressure 149/76 H 142/70 H 161/66 H Pulse Oximetry 100 100 99 08/07/21 20:19 08/08/21 00:00 08/08/21 04:00 Temperature 36.3 C L 37.3 C Pulse Rate 64 61 Respiratory Rate 18 16 Blood Pressure 162/83 H 169/85 H Pulse Oximetry 95 100 95 08/08/21 08:08 08/08/21 08:18 Temperature 36.1 C L Pulse Rate 62 Respiratory Rate 20 Blood Pressure 149/75 H Pulse Oximetry 99 95 Intake/Output Intake/Output: Intake & Output 08/05/21 08/06/21 08/07/21 08/08/21 23:59 23:59 23:59 23:59 Intake Total 2560 2395 1420 2170 Output Total 250 3 Balance 2560 2145 1417 2170 Meds/Results Medications: Active Medications Generic Name Dose Route Start Last Admin Trade Name Freq PRN Reason Stop Dose Admin Acetaminophen 1,000 mg 08/01/21 14:19 08/06/21 21:46 Acetaminophen 500 Mg Tablet PO 1,000 mg Q6H PRN Administration Pain (Scale Score 1-5) Albuterol 2 puff 07/31/21 09:04 Albuterol Sulfate (*Sp) Inhaler INHALATION Q6HRT PRN Shortness Of Breath Amlodipine Besylate 2.5 mg 08/08/21 09:00 08/08/21 09:18 Amlodipine Besylate 2.5 Mg Tablet PO 2.5 mg QAM STEPHANI Administration Aspirin 325 mg 07/31/21 09:00 08/08/21 09:18 Aspirin 325 Mg Tablet PO 325 mg DAILY STEPHANI Administration Dextrose 12.5 gm 07/31/21 03:12 Dextrose 50% 25 Gm/50 Ml Syringe IV PUSH PRN PRN Hypoglycemia Protocol Fluticasone/Umeclidinium/Vilanterol 2 puff 07/31/21 08:00 08/08/21 08:18 Fluticasone/Umeclidin/Vilanter 100-62.5-25 Mcg Ellipta INHALATION 2 puff
[2021-08-08 11:27] LABS: Prostate Specific Antigen 1.4 ng/mL (< OR = 4.0)
--- NOTE | 2021-08-08 11:35 | PCSTNOTE ---
Please refer to the Bedside Swallow Evaluation in the EMR. Please note, silent aspiration cannot be ruled out at bedside.
--- NOTE | 2021-08-08 11:39 | WPDURCON ---
Assessment and Plan Assessment and plan (1) Hydronephrosis, left: Code(s): N13.30 - Unspecified hydronephrosis Status: Acute Assessment and Plan: Etiology is unclear at this time. Patient is asymptomatic and his creatinine has improved to 1.3. Once patient is improved from COVID may consider repeating CT with contrast and/or proceeding with cystoscopy retrograde pyelogram. There is also some question whether this is the same gentleman that was diagnosed with prostate cancer in 2017 with a PSA of 26. His PSA is now 1.4. The nurse will clarify with the daughter if she has any further information. Urology Consult Note HPI Date Seen: 08/08/21 Requesting Physician: Jia Mirza PA-C Primary Care Provider: Pee Gimenez, Consult Narrative Reason for consult: Left hydroureter Narrative: Slade Aguilar is a 71 year old male with multiple medical issues who was admitted with weakness and found to have COVID. Patient has a history of a CVA and is thus not very communicative. History is unreliable at this point time. Patient had a renal ultrasound performed on July 30 which revealed no hydro but possibly a peripelvic cyst patient had a creatinine level up to 3.6 on August 04 which is now down to 1.3. He underwent another CT scan which now reveals left hydroureter down to the bladder. There was no obstructing stone noted. Patient denies any voiding symptoms or flank pain although again accuracy is question. He is in diapers at this time. According to our office notes this gentleman was diagnosed with prostate cancer in March of 2017 with initial PSA of 26. A stat PSA was obtained and it is now 1.4. Will have to see if this is indeed the same patient or whether he has been treated elsewhere for this. Review of Systems Review of Systems: All systems reviewed & are unremarkable except as noted in HPI and below PMFSH Past Medical History Medical History Asthma Diabetes mellitus HIV positive HTN (hypertension) Left hemiparesis Nasal fracture Shingles Stroke Surgical History Surgical History H/O hand surgery Right hand fracture H/O inguinal hernia repair History of tonsillectomy Family History Family History Father Cirrhosis of liver Social History Social History Social History: Patient states he lives at home with his daughter, Teresa, whom he states is his surrogate MDM. He wishes to be listed as a Full Code. His PCP is Dr. Gimenez. He currently has service Smoking packs per day: 0.5 Smoking cigarettes per day: 10.0 Years smoked: 48 Smoking pack-years: 24.00 Smoking status: Light tobacco smoker Tobacco type: cigarettes Second hand tobacco smoke exposure: No Alcohol intake: current Drinks per week: 12 Alcohol use details: Occasional drinker Substance use: never Substance use type: does not use Gender identity (if verbalized by the patient): Male Spiritual care concerns: No Agree to blood products: Yes Meds Home Medications and Allergies Home Medications Medication Instructions Recorded Confirmed Type Biktarvy 1 tablet PO DAILY #30 tablet 06/30/19 07/30/21 Rx aspirin 325 mg PO DAILY #30 tablet 06/30/19 07/30/21 Rx lisinopril 5 mg PO DAILY #30 tablet 06/30/19 10/12/19 Rx montelukast 10 mg PO HS #30 tablet 06/30/19 10/12/19 Rx rosuvastatin 40 mg PO DAILY #30 tablet 06/30/19 10/12/19 Rx acetaminophen [Acetaminophen Extra 1,000 mg PO Q6H PRN 10/12/19 07/30/21 History Strength] levetiracetam 250 mg PO DAILY 10/12/19 10/12/19 History levetiracetam 500 mg PO HS 10/12/19 10/12/19 History hwfquykvthm-[id number]-nydcosur INHALATION 07/30/21 History [Trelegy Ellipta] mirtazapine 7.5 mg PO DAILY
--- NOTE | 2021-08-08 11:54 | PC.NURSE ---
Returned call from patient's daughter, Teresa to provide with update on patient's status. Per Teresa, patient was treated over a year ago with radiation by Dr. Ehsan Madsen in [place], [place] for prostate cancer. Teresa also reported patient is currently without his dentures and that may be contributing to patient's difficulty with eating. Informed Teresa speech therapist recommended patient consume a pureed diet with mildly thickened liquids at this time.
[2021-08-08 11:59] LABS: Absolute CD4 Count 247 cells/uL (490-1740); Lymphocytes, Absolute 1182 cells/uL (850-3900); Percent CD4 Cells 21 % (30-61)
[2021-08-08 12:11] LABS: Glucose Point of Care 139 mg/dl (65-105)
--- NOTE | 2021-08-08 12:59 | P.PNIM_ITS ---
Progress Note: A&P Assessment and Plan (1) COVID-19: Code(s): U07.1 - COVID-19 Status: Acute Assessment and Plan: Positive COVID test 07/30/2021 * No evidence of pneumonia on CXR. Follow-up CT scan does show multifocal lung disease consistent with pneumonia * He has no oxygen requirements * Supportive care * Not a candidate for dexamethasone or remdesivir given lack of O2 requirement * Continue isolation precautions; date 10 today. Isolation precautions to be discontinued tomorrow * Patient completed Moderna vaccination, does not appear to have received booster, needs booster after recovery (2) Acute UTI: Code(s): N39.0 - Urinary tract infection, site not specified Status: Acute Assessment and Plan: Ruled out. Urine culture negative, no growth * Abx discontinued following negative urine culture. Patient asx * blood cultures negative * repeat urine culture collected 08/05/2020 with mixed genital francisco not indicative of infection (3) WINNIE (acute kidney injury): Code(s): N17.9 - Acute kidney failure, unspecified Status: Acute Assessment and Plan: Creatinine was elevated on presentation then normalized. On 08/02 creatinine increased to 2.8 * Peak creatinine at 3.6 * Renal U/s showed normal size kidneys with cysts at hilum of left kidney * Etiology unclear, likely multifactorial. Differential includes COVID-19, relative hypotension, Biktarvy use, HIV related kidney disease * Seen in consultation by nephrology. Recommendations greatly appreciated * Biktarvy held on 08/04. Per Nephrology, okay to resume today. * Creatinine has normalized with IV fluids. Creatinine 1.3 today. Will discontinue IV fluids, encourage oral intake * Continue to monitor renal function closely. Renally dose medications and avoid nephrotoxins (4) HTN (hypertension): Qualifiers: Hypertension type: unspecified Qualified Code(s): I10 - Essential (primary) hypertension Code(s): I10 - Essential (primary) hypertension Status: Acute Assessment and Plan: Blood pressures reviewed and reasonable, at times mildly elevated. 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 Blood sugars have been well controlled * Continue Accu-Cheks, sliding scale insulin, hypoglycemic protocol (7) Left hemiparesis: Code(s): G81.94 - Hemiplegia, unspecified affecting left nondominant side Status: Acute Assessment and Plan: Secondary to CVA * Chronic and stable * Continue PT/OT (8) HIV positive: Code(s): Z21 - Asymptomatic human immunodeficiency
--- NOTE | 2021-08-08 12:59 | PM.IMPN ---
Progress Note: A&P Assessment and Plan (1) COVID-19: Code(s): U07.1 - COVID-19 Status: Acute Assessment and Plan: Positive COVID test 07/30/2021 No evidence of pneumonia on CXR. Follow-up CT scan does show multifocal lung disease consistent with pneumonia He has no oxygen requirements Supportive care Not a candidate for dexamethasone or remdesivir given lack of O2 requirement Continue isolation precautions; date 10 today. Isolation precautions to be discontinued tomorrow Patient completed Moderna vaccination, does not appear to have received booster, needs booster after recovery (2) Acute UTI: Code(s): N39.0 - Urinary tract infection, site not specified Status: Acute Assessment and Plan: Ruled out. Urine culture negative, no growth Abx discontinued following negative urine culture. Patient asx blood cultures negative repeat urine culture collected 08/05/2020 with mixed genital francisco not indicative of infection (3) WINNIE (acute kidney injury): Code(s): N17.9 - Acute kidney failure, unspecified Status: Acute Assessment and Plan: Creatinine was elevated on presentation then normalized. On 08/02 creatinine increased to 2.8 Peak creatinine at 3.6 Renal U/s showed normal size kidneys with cysts at hilum of left kidney Etiology unclear, likely multifactorial. Differential includes COVID-19, relative hypotension, Biktarvy use, HIV related kidney disease Seen in consultation by nephrology. Recommendations greatly appreciated Biktarvy held on 08/04. Per Nephrology, okay to resume today. Creatinine has normalized with IV fluids. Creatinine 1.3 today. Will discontinue IV fluids, encourage oral intake Continue to monitor renal function closely. Renally dose medications and avoid nephrotoxins (4) HTN (hypertension): Qualifiers: Hypertension type: unspecified Qualified Code(s): I10 - Essential (primary) hypertension Code(s): I10 - Essential (primary) hypertension Status: Acute Assessment and Plan: Blood pressures reviewed and reasonable, at times mildly elevated. 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 Blood sugars have been well controlled Continue Accu-Cheks, sliding scale insulin, hypoglycemic protocol (7) Left hemiparesis: Code(s): G81.94 - Hemiplegia, unspecified affecting left nondominant side Status: Acute Assessment and Plan: Secondary to CVA Chronic and stable Continue PT/OT (8) HIV positive: Code(s): Z21 - Asymptomatic human immunodeficiency virus [HIV] infection status Status: Acute Assessment and Plan: Maintained on Biktarvy Biktarvy held due to WINNIE. Will resume. CD4 count pending HIV RNA pending (9) Generalized weakness: Code(s): R53.1 - Weakness Status: Acute Assessment and Plan: Likely related to his old stroke with deconditioning and superimposed acute illness Continue PT/OT Planning for SNF on discharge. Hopeful discharge to
[2021-08-08 16:54] LABS: Glucose Point of Care 165 mg/dl (65-105)
[2021-08-08 18:14] LABS: HIV 1 RNA PCR <1.30 Log cps/mL; HIV 1 RNA PCR <20 Copies/mL
[2021-08-08] MEDS: oxyCODONE HCL (*CRX) 2.5 MG TAB IR PO (22:12)
[2021-08-09] VITALS: BP 164/77; PULSE 60; RESP 16; TEMP 36.4; O2SAT 100
[2021-08-09 00:12] LABS: Glucose Point of Care 99 mg/dl (65-105)
[2021-08-09 04:00] VITALS: BP 163/71; PULSE 60; RESP 16; TEMP 36.4; O2SAT 99
[2021-08-09 07:30] LABS: Hematocrit 32.7 % (42.0-52.0); Hemoglobin 10.4 g/dL (14.0-18.0)
[2021-08-09 07:44] LABS: Anion Gap 8 mmol/L (8-16); Blood Urea Nitrogen 12 mg/dL (9-20); Calcium 8.5 mg/dL (8.4-10.2); Carbon Dioxide 27 mmol/L (22-30); Chloride 108 mmol/L (98-107); Estimated CRCL calculation 46 ml/min; Estimated Glomerular Filt Rate > 60; Glucose 114 mg/dL (65-110); Potassium 3.3 mmol/L (3.4-5.0); Sodium 143 mmol/L (137-145)
[2021-08-09 08:00] VITALS: BP 156/91; PULSE 67; RESP 16; TEMP 36.9; O2SAT 97
[2021-08-09 08:53] LABS: Glucose Point of Care 97 mg/dl (65-105)
[2021-08-09] MEDS: POTASSIUM CHLORIDE 20 MEQ TABLET PO (09:20)
[2021-08-09] MEDS: ASPIRIN 325 MG TABLET PO (09:20)
[2021-08-09] MEDS: HEPARIN SODIUM 5,000 UNITS/ML VIAL 5000 UNITS SUB-Q (09:20)
[2021-08-09] MEDS: amLODIPine BESYLATE 2.5 MG TABLET PO (09:21)
[2021-08-09] MEDS: POTASSIUM CHLORIDE 20 MEQ TABLET.ER PO ×2 (09:23→19:04)
[2021-08-09 09:45] VITALS: BMI 10.0
--- NOTE | 2021-08-09 11:26 | PM.PNNEP ---
Progress Note: A&P Assessment and Plan (1) WINNIE (acute kidney injury): Code(s): N17.9 - Acute kidney failure, unspecified Status: Acute Assessment and Plan: Slade has acute kidney injury. Renal ultrasound is unremarkable. Urine electrolytes are non pre renal. CPK is barely high at 238 his creatinine improved to normal. Okay to resume his biktarvy. I believe he brings this from home. I put a communication to the nurses to restart this. Renal function is normal so I will sign off. (2) COVID-19: Code(s): U07.1 - COVID-19 Status: Acute Assessment and Plan: The patient does on respiratory isolation. He is not requiring oxygen. (3) HIV positive: Code(s): Z21 - Asymptomatic human immunodeficiency virus [HIV] infection status Status: Acute Assessment and Plan: The patient was on Biktarvy. Okay to resume Await CD4 counts. (4) Hypotension: Code(s): I95.9 - Hypotension, unspecified Status: Resolved Assessment and Plan: resolved (5) HTN (hypertension): Qualifiers: Hypertension type: unspecified Qualified Code(s): I10 - Essential (primary) hypertension Code(s): I10 - Essential (primary) hypertension Status: Acute Assessment and Plan: Blood pressure is in the 140s. On amlodipine. He can switch back to his lisinopril at home on discharge. 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 somewhat terse. He has no complaints today. Exam Narrative: WDWN in NAD skin no rash head ncat lungs clear bilaterally cor reg no rub or gallop abd BS+ soft ext Trace edema. Objective Data Vital Signs Vital Signs: Vital Signs - 24 hr 08/08/21 12:19 08/08/21 16:22 08/08/21 20:00 Temperature 36.1 C L 36.6 C 37.1 C Pulse Rate 56 L 60 60 Respiratory Rate 20 20 16 Blood Pressure 142/63 H 138/69 164/71 H Pulse Oximetry 99 98 100 08/08/21 22:52 08/09/21 00:00 08/09/21 04:00 Temperature 36.4 C 36.4 C L Pulse Rate 60 60 Respiratory Rate 16 16 Blood Pressure 164/77 H 163/71 H Pulse Oximetry 99 100 99 08/09/21 08:00 Temperature 36.9 C Pulse Rate 67 Respiratory Rate 16 Blood Pressure 156/91 H Pulse Oximetry 97 Intake/Output Intake/Output: Intake & Output 08/06/21 08/07/21 08/08/21 08/09/21 23:59 23:59 23:59 23:59 Intake Total 2395 1420 2690 750 Output Total 250 3 Balance 2145 1417 2690 750 Meds/Results Medications: Active Medications Generic Name Dose Route Start Last Admin Trade Name Freq PRN Reason Stop Dose Admin Acetaminophen 1,000 mg 08/01/21 14:19 08/06/21 21:46 Acetaminophen 500 Mg Tablet PO 1,000 mg Q6H PRN Administration Pain (Scale Score 1-5) Albuterol 2 puff 07/31/21 09:04 Albuterol Sulfate (*Sp) Inhaler INHALATION Q6HRT PRN Shortness Of Breath Amlodipine Besylate 2.5 mg 08/08/21 09:00 08/09/21 09:21 Amlodipine Besylate 2.5 Mg Tablet PO 2.5 mg QAM STEPHANI Administration Aspirin 325 mg 07/31/21 09:00 08/09/21 09:20 Aspirin 325 Mg Tablet PO 325 mg DAILY STEPHANI Administration Dextrose 12.5 gm 07/31/21 03:12 Dextrose 50% 25 Gm/50 Ml Syringe IV PUSH PRN PRN Hypoglycemia Protocol Fluticasone/Umeclidinium/Vilanterol 2 puff 07/31/21 08:00 08/09/21 10:32 Fluticasone/Umeclidin/Vilanter 100-62.5-25 Mcg Ellipta INHALATION Not Given DAILYRT STEPHANI Glucagon 1 mg 07/31/21 03:12 Glucagon For
--- NOTE | 2021-08-09 11:48 | PCSTNOTE ---
Patient was brought to Radiology in an attempt to complete the Modified Barium Swallow study. Patient was awake with eyes opened however he made no attempt to open his lips to accept liquid barium, and did not respond reflexively, as well, with lip opening when spoon place on his lips. Attempt was made three times and then attempts were terminated with no results obtained.
[2021-08-09 11:50] LABS: Glucose Point of Care 107 mg/dl (65-105)
[2021-08-09 12:01] VITALS: BMI 28.0
[2021-08-09 14:00] VITALS: BP 135/68; PULSE 78; RESP 16; TEMP 37.4; O2SAT 97
[2021-08-09 17:05] LABS: Glucose Point of Care 108 mg/dl (65-105)
--- NOTE | 2021-08-09 17:28 | P.DS_ITS ---
DS: Admitting Diagnosis Discharge Date 08/09/21 Admitting Diagnosis COVID-19 DS: Discharge Diagnosis Discharge Diagnosis (1) COVID-19: Code(s): U07.1 - COVID-19 Status: Acute Assessment and Plan: Positive COVID test 07/30/2021 * No evidence of pneumonia on CXR. Follow-up CT scan does show multifocal lung disease consistent with pneumonia * He had no oxygen requirements * Supportive care provided * Not a candidate for dexamethasone or remdesivir given lack of O2 requirement * Isolation precautions discontinued on 08/09/2021 following 10 days of isolation * Patient completed Moderna vaccination, does not appear to have received booster, needs booster after recovery (2) Acute UTI: Code(s): N39.0 - Urinary tract infection, site not specified Status: Acute Assessment and Plan: Ruled out. Urine culture negative, no growth * Abx discontinued following negative urine culture. Patient asx * blood cultures negative * repeat urine culture collected 08/05/2020 with mixed genital francisco not indicative of infection (3) WNINIE (acute kidney injury): Code(s): N17.9 - Acute kidney failure, unspecified Status: Acute Assessment and Plan: Creatinine peaked at 3.6 * Renal U/S showed normal size kidneys with cysts at hilum of left kidney * Etiology unclear, likely multifactorial. Differential includes COVID-19, relative hypotension, Biktarvy use, HIV related kidney disease * Seen in consultation by nephrology. Recommendations greatly appreciated * Creatinine normalized with IV fluid rehydration * Biktarvy held on 08/04 due to concerns for WINNIE but was resumed on discharge following improvement * Repeat BMP in week (4) HTN (hypertension): Qualifiers: Hypertension type: unspecified Qualified Code(s): I10 - Essential (primary) hypertension Code(s): I10 - Essential (primary) hypertension Status: Acute Assessment and Plan: Blood pressures reviewed and was reasonably controlled * Lisinopril was held due to WINNIE but resumed on discharge * Started on amlodipine 2.5 mg daily= (5) Asthma: Qualifiers: Asthma severity: unspecified severity Asthma persistence: unspecified Asthma complication type: unspecified Qualified Code(s): J45.909 - Unspecified asthma, uncomplicated Code(s): J45.909 - Unspecified asthma, uncomplicated Status: Acute Assessment and Plan: Not in acute exacerbation * Continue Trelegy inhaler * Albuterol as needed (6) Diabetes mellitus: Qualifiers: Diabetes mellitus type: type 2 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 Blood sugars or well controlled * Managed with Accu-Cheks, sliding scale insulin, hypoglycemic protocol during hospitalization * Continue to monitor at SNF (7) Left hemiparesis: Code(s): G81.94 - Hemiplegia, unspecified affecting left nondominant side Status: Acute Assessment and Plan: Secondary to CVA * Chronic and stable * Continue PT/OT (8) HIV positive: Code(s): Z21 - Asymptomatic human immunodeficiency virus [HIV] infection status Status: Acute Assessment and Plan: Maintained on Bikt
--- NOTE | 2021-08-09 17:28 | PM.DS ---
DS: Admitting Diagnosis Discharge Date 08/09/21 Admitting Diagnosis COVID-19 DS: Discharge Diagnosis Discharge Diagnosis (1) COVID-19: Code(s): U07.1 - COVID-19 Status: Acute Assessment and Plan: Positive COVID test 07/30/2021 No evidence of pneumonia on CXR. Follow-up CT scan does show multifocal lung disease consistent with pneumonia He had no oxygen requirements Supportive care provided Not a candidate for dexamethasone or remdesivir given lack of O2 requirement Isolation precautions discontinued on 08/09/2021 following 10 days of isolation Patient completed Moderna vaccination, does not appear to have received booster, needs booster after recovery (2) Acute UTI: Code(s): N39.0 - Urinary tract infection, site not specified Status: Acute Assessment and Plan: Ruled out. Urine culture negative, no growth Abx discontinued following negative urine culture. Patient asx blood cultures negative repeat urine culture collected 08/05/2020 with mixed genital francisco not indicative of infection (3) WINNIE (acute kidney injury): Code(s): N17.9 - Acute kidney failure, unspecified Status: Acute Assessment and Plan: Creatinine peaked at 3.6 Renal U/S showed normal size kidneys with cysts at hilum of left kidney Etiology unclear, likely multifactorial. Differential includes COVID-19, relative hypotension, Biktarvy use, HIV related kidney disease Seen in consultation by nephrology. Recommendations greatly appreciated Creatinine normalized with IV fluid rehydration Biktarvy held on 08/04 due to concerns for WINNIE but was resumed on discharge following improvement Repeat BMP in week (4) HTN (hypertension): Qualifiers: Hypertension type: unspecified Qualified Code(s): I10 - Essential (primary) hypertension Code(s): I10 - Essential (primary) hypertension Status: Acute Assessment and Plan: Blood pressures reviewed and was reasonably controlled Lisinopril was held due to WINNIE but resumed on discharge Started on amlodipine 2.5 mg daily= (5) Asthma: Qualifiers: Asthma severity: unspecified severity Asthma persistence: unspecified Asthma complication type: unspecified Qualified Code(s): J45.909 - Unspecified asthma, uncomplicated Code(s): J45.909 - Unspecified asthma, uncomplicated Status: Acute Assessment and Plan: Not in acute exacerbation Continue Trelegy inhaler Albuterol as needed (6) Diabetes mellitus: Qualifiers: Diabetes mellitus type: type 2 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 Blood sugars or well controlled Managed with Accu-Cheks, sliding scale insulin, hypoglycemic protocol during hospitalization Continue to monitor at SNF (7) Left hemiparesis: Code(s): G81.94 - Hemiplegia, unspecified affecting left nondominant side Status: Acute Assessment and Plan: Secondary to CVA Chronic and stable Continue PT/OT (8) HIV positive: Code(s): Z21 - Asymptomatic human immunodeficiency virus [HIV] infection status Status: Acute Assessment and Plan: Maintained on Biktarvy Biktarvy held due to WINNIE. But resumed prior to discharge CD4 count 247 HIV RNA low (9) Generalized weakness: Code(s): R53.1 - Weakness Status: Acute Assessment and Plan: Likely related to his old stroke with deconditioning and superimposed acute illness Participated in PT/OT during admission Continue therapy at SNF on discharge (10) Abnormal CT scan, pelvis: Code(s): R93.5 - Abnormal findings on diagnostic imaging of
== END 2021-08-09 15:00 | disposition home or self-care (01) | DRG 682 ==
LOC: ANHED 16:58 → ANH3MEDSUR 19:05
PROVIDERS: Emergency Medicine; Internal Medicine; Internal Medicine Nephrology; Nurse Practitioner; Physician Assistant; Urology; Admitting Provider Internal Medicine; Emergency Provider Emergency Medicine; PCP Internal Medicine Infectious Disease; Visit Provider Physician Assistant
DX: N17.9 Acute kidney failure, unspecified (principal); U07.1 COVID-19; I69.354 Hemiplegia and hemiparesis following cerebral infarction affecting left non-dominant side; E11.65 Type 2 diabetes mellitus with hyperglycemia; Z21 Asymptomatic human immunodeficiency virus [HIV] infection status; R13.10 Dysphagia, unspecified; I10 Essential (primary) hypertension; J45.909 Unspecified asthma, uncomplicated; F17.210 Nicotine dependence, cigarettes, uncomplicated; E78.5 Hyperlipidemia, unspecified; R56.9 Unspecified convulsions; R93.5 Abnormal findings on diagnostic imaging of other abdominal regions, including retroperitoneum
CPT/HCPCS: 36415; 70450; 71046; 71250; 74150; 74176; 76775; 80048; 80053; 80069; 81001; 82550; 82570; 82948; 83036; 83520; 83735; 83880; 84100; 84153; 84156; 84300; 85014; 85018; 85025; 85027; 85652; 85999; 86036; 86038; 86140; 86162; 86361; 86803; 87040; 87086; 87088; 87340; 87536; 92610; 93005; 94640; 96360; 96361; 96365; 96372; 96376; 97110; 97161; 97165; 97530; 97535; 99285; A9270; C9803; G0378; J0696; J1644; J1650; J3475; J3480; J7030; J7040; U0003; U0005

== ENCOUNTER 2023-01-30 16:25 | Inpatient (IN) | payer MEDICARE, SELFPAY ==
--- NOTE | ~2023-01-30 | CT_ITS ---
EXAMINATION: CT BRAIN W/O DATE: 01/30/2023 19:50 INDICATION: Status post fall. Head injury. TECHNIQUE: Computed tomography (CT) of the head was performed without intravenous contrast. The dose- length product was 681.00 mGy-cm. Automated exposure control and iterative reconstruction technique w ere employed. COMPARISON: No prior studies for comparison. FINDINGS: There are chronic right frontal and parietal infarctions with encephalomalacia. There are c hronic bilateral lacunar infarctions. There is intracranial atherosclerosis. No acute intracranial he morrhage, infarction, mass or mass effect. Paranasal sinuses and mastoids are pneumatized. No depress ed skull fractures. No ventriculomegaly or midline shift. Midline sagittal images demonstrate a normal corpus callosum, c raniovertebral junction and sella turcica. Basilar cisterns are patent. IMPRESSION: 1. No acute intracranial abnormality. No significant interval change. Reviewed, dictated and finalized at location A.
--- NOTE | ~2023-01-30 | CT_ITS ---
EXAMINATION: CT cervical spine wo con DATE: 01/30/2023 19:50 INDICATION: Neck pain after fall TECHNIQUE: Computed tomography (CT) of the cervical spine was performed without intravenous contrast. The dose-length product was 482 mGy-cm. Automated exposure control and iterative reconstruction tech nique were employed. COMPARISON: None FINDINGS: No acute fracture or traumatic malalignment. There is degenerative spondylosis at all cervi bam spine levels, moderate. There is disc narrowing, uncinate and facet hypertrophy. Vertebral body h eights are maintained. No evidence for acute fracture or traumatic malalignment. There is degenerativ e anterolisthesis at C7-T1 secondary to facet hypertrophy. No evidence for perched facet. Cranioverte bral junction is normal. Odontoid process is normal. Lung apices are normal. No paraspinal soft tissu e abnormality. There is an ossific density posterior to the C7 spinous process, likely related to rem ote trauma. IMPRESSION: 1. No acute abnormality of the cervical spine. 2: Moderate-severe cervical spondylosis. Reviewed, dictated and finalized at location A.
--- NOTE | ~2023-01-30 | CT_ITS ---
EXAMINATION: CT lumbar spine wo con DATE: 01/30/2023 19:51 INDICATION: Low back pain after fall TECHNIQUE: Computed tomography (CT) of the lumbar spine was performed without intravenous contrast. T he dose-length product was 1185.45 mGy-cm. Automated exposure control and iterative reconstruction te carolinevanessaque were employed. COMPARISON: None FINDINGS: There is mixed sclerosis and osteolysis of the sacrum, ilium bilaterally, right greater scott n left. There is atherosclerosis. There are few sclerotic lesions of T12. Vertebral body heights are maintained. There is disc narrowing at L5-S1. There is large left renal stone. There is atheroscleros is of the aorta. No acute fracture or traumatic malalignment. IMPRESSION: 1. Extensive mixed sclerosis and osteolysis of the sacrum, ilium bilaterally, right greater than left and T12. Differential diagnosis includes metastatic disease and/or Paget's disease. Correlate for hi story of malignancy. 2: No acute fracture. Reviewed, dictated and finalized at location A. IMPRESSION: 1. Extensive mixed sclerosis and osteolysis of the sacrum, ilium bilaterally, r ight greater than left and T12. Differential diagnosis includes metastatic dise ase and/or Paget's disease. Correlate for history of malignancy. 2: No acute fracture.
--- NOTE | ~2023-01-30 | NM_ITS ---
EXAMINATION: NM bone scan whole body DATE: 02/02/2023 13:35 INDICATION: Abnormal CT of the pelvis TECHNIQUE: 27.2 mCi Tc-99m HDP was administered intravenously. Delayed whole-body scintigrams were o btained. COMPARISON: Pelvis radiographs and lumbar spine CT dated 01/[address] abdomen and pelvis dated 022 FINDINGS: There is increased uptake throughout the right hemipelvis and right femur corresponding to extensive pagetoid changes with characteristic expansion of the bones with both cortical and trabecular thicken ing. There is increased uptake associated with ankylosis at the L5-S1 disc space. Additional likely d egenerative joint centered uptake at the bilateral sternoclavicular articulations with associated ost eoarthritis evident on prior CT. No other suspicious foci of abnormal bone uptake to suggest metastat ic disease. IMPRESSION: 1. Increased uptake associated with Paget's disease at the sacrum, right innominate bone and right fe mur. No other lesions suspicious for metastatic disease. Reviewed, dictated and finalized at location B. IMPRESSION: 1. Increased uptake associated with Paget's disease at the sacrum, right innomi anel bone and right femur. No other lesions suspicious for metastatic disease.
--- NOTE | ~2023-01-30 | XR_ITS ---
XR hip LT 2V w AP pelvis 01/30/2023 18:55 Indication: Left hip pain after injury Procedure: AP pelvis and 2 views left hip Comparison: No prior studies for comparison. Findings: Pelvic rings are intact. There is trabecular thickening of the right hemipelvis and right f emur proximally, consistent with Paget's disease. Mild osteoarthritis of the hips. There is a nondisp laced left femoral subcapital fracture. There are changes of ventral hernia repair. Impression: 1: Nondisplaced left femoral subcapital fracture. 2: Paget's disease of the right hemipelvis and femur. Reviewed, dictated and finalized at location A. Impression: 1: Nondisplaced left femoral subcapital fracture. 2: Paget's disease of the right hemipelvis and femur.
--- NOTE | ~2023-01-30 | XR_ITS ---
AP view of the pelvis and AP and lateral views of the left hip Clinical history: Pain Findings: Questionable nondisplaced subcapital fracture of the left femoral neck. There is cortical a nd trabecular thickening of the proximal right femur and right iliac bone, consistent with Paget's di sease. Bilateral hip and SI joint spaces are preserved. Soft tissues are unremarkable. Impression: Questionable nondisplaced subcapital fracture of the left femoral neck. Consider MR to confirm or exc lude, as indicated. Paget's disease of the right femur and right iliac bone. Reviewed, dictated and finalized at location . Impression: Questionable nondisplaced subcapital fracture of the left femoral neck. Conside r MR to confirm or exclude, as indicated. Paget's disease of the right femur and right iliac bone.
--- NOTE | ~2023-01-30 | XR_ITS ---
XR chest 1V 01/30/2023 18:55 Indication: Weakness after fall Procedure: AP portable chest Comparison: 07/30/2021 Findings: New bilateral pulmonary nodules, largest in the left lung base measuringr 2.5 cm, consisten t with metastatic disease. Heart size normal. No pleural effusion, focal pneumonia or pneumothorax. N o acute osseous abnormality. Impression: 1: New bilateral pulmonary nodules, consistent with metastatic disease. Correlate for history of janeth gnancy. Reviewed, dictated and finalized at location A. Impression: 1: New bilateral pulmonary nodules, consistent with metastatic disease. Correla te for history of malignancy.
[2023-01-30 16:24] VITALS: BP 154/83; PULSE 88; RESP 18; TEMP 36.8; O2SAT 98
--- NOTE | 2023-01-30 18:02 | ECG_ITS ---
Measurements Intervals [place] Rate: 79 P: 15 OR: 344 QRS: -38 QRSD: 104 T: -42 QT: 388 QTc: 447 Interpretive Statements SINUS RHYTHM WITH MARKED FIRST DEGREE AV BLOCK INFERIOR INFARCT, AGE INDETERMINATE ST-T WAVE ABNORMALITY IN ANTEROLATERAL LEADS- CONSIDER ISCHEMIA ABNORMAL ECG COMPARED TO ECG 07/30/2021 14:31:06 NO SIGNIFICANT CHANGES Electronically Signed On 01-30-2023 20:22:18 CDT by Eb Vega D.O.
[2023-01-30 18:32] LABS: Basophils Absolute Auto 0.1 K/mm3 (0.0-0.1); Eosinophils Absolute Auto 0.3 K/mm3 (0-0.3); Eosinophils Percent Auto 3.9 % (0-4.4); Hematocrit 41.9 % (42.0-52.0); Hemoglobin 13.3 g/dL (14.0-18.0); Immature Granulocyte Absolute 0.05 K/mm3 (0.00-0.031); Immature Granulocyte Percent A 0.6 % (0-0.5); Lymphocytes Absolute Auto 1.68 K/mm3 (0.9-3.2); Lymphocytes Percent Auto 21.2 % (18.3-44.2); Mean Corpuscular HGB Conc 31.7 g/dl (32-36); Mean Corpuscular Hemoglobin 28.8 pg (26-34); Mean Corpuscular Volume 90.7 fl (80-100); Mean Platelet Volume 9.7 fl (7.4-10.4); Monocytes Absolute Auto 0.8 K/mm3 (0.1-0.6); Monocytes Percent Auto 9.6 % (2.6-8.5); Neutrophils Absolute Auto 5.1 K/mm3 (1.3-6.7); Neutrophils Percent Auto 63.7 % (45.5-73.1); Platelet Count Result 209 k/mm3 (150-375); Red Blood Count 4.62 M/mm3 (4.6-6.20); Red Cell Distribution Width 13.9 % (11.5-14.5); White Blood Count 7.9 K/mm3 (4.5-10.0)
[2023-01-30 18:54] LABS: Alanine Aminotransferase 13 U/L (6-50); Alkaline Phosphatase 111 U/L (38-126); Anion Gap 10 mmol/L (8-16); Aspartate Amino Transferase 18 U/L (17-59); Blood Urea Nitrogen 35 mg/dL (9-20); Calcium 9.4 mg/dL (8.4-10.2); Carbon Dioxide 27 mmol/L (22-30); Chloride 103 mmol/L (98-107); Estimated CRCL calculation 50 ml/min; Estimated Glomerular Filt Rate > 60; Glucose 113 mg/dL (65-110); Potassium 4.1 mmol/L (3.4-5.0); Sodium 140 mmol/L (137-145)
[2023-01-30 19:08] VITALS: BP 139/86; PULSE 76; RESP 15; O2SAT 99
[2023-01-30 19:29] LABS: Appearance Urine Clear (Clear); Bacteria Urine None Seen /hpf; Bilirubin Urine 2+ (Negative); Blood Urine Negative (Negative); Color Urine Dark Yellow (Yellow); Glucose Urine UA Negative (Negative); Hyaline Casts Urine Present /lpf; Ketones Urine 1+ mg/dL (Negative); Leukocyte Esterase Ur 1+ LEU/UL (Negative); Nitrate Urine Negative (Negative); Non Pathogenic Casts 0-2; Protein Urine 2+ mg/dL (Negative); Specific Grav Ur 1.033 (1.001-1.035); Squamous Epithelial Cell Urine None seen /hpf (Few)
[2023-01-30 19:34] LABS: Add Urine Microscopic? YES
--- NOTE | 2023-01-30 19:37 | ED.FALL ---
HPI - Fall General Chief Complaint: Fall Stated Complaint: HIP INJURY AFTER FALL Time Seen by Provider: 01/30/23 18:02 Source: patient and EMS Mode of arrival: EMS Limitations: other (poor historian) History of Present Illness HPI Narrative: This is a 72-year-old male that presents to the emergency department after a fall several days ago with left hip pain. Reports history of CVA for which she has residual left-sided deficits. He has to use a cane due to this. He lost his balance and fell. Since he has had left hip pain that is made him unable to ambulate. His daughter does live with him and helps care for him. He does think he hit his head. He did not lose consciousness. Also reporting some low back pain. Denies fever, chest pain, shortness of breath, vomiting. Related Data Home Medications Medication Instructions Recorded Confirmed acetaminophen 500 mg tablet 1,000 mg PO Q6H PRN Pain (Scale 10/12/19 01/30/23 (Acetaminophen Extra Strength) Score 1-3) fluticasone fur. 100 mcg-umeclid 1 inh inhalation DAILY 01/30/23 01/30/23 62.5 mcg-vilant 25 mcg inhalat.powder (Trelegy Ellipta) Allergies Allergy/AdvReac Type Severity Reaction Status Date / Time No Known Allergies Allergy Verified 07/30/21 13:26 Review of Systems Review of Systems: CONSTITUTIONAL: Denies fever EYES: Denies visual changes CARDIOVASCULAR: Denies chest pain, or edema. RESPIRATORY: Denies dyspnea. GASTROINTESTINAL: Denies vomiting MUSCULOSKELETAL: Reports back pain, joint pain, and myalgia. All systems reviewed & are unremarkable except as noted in HPI and below PMFSH Past Medical History Medical History (Updated 01/31/23 @ 03:19 by Anamaria Orozco MD) Asthma Diabetes mellitus Fracture of femoral neck, left, closed HIV positive HTN (hypertension) Left hemiparesis Nasal fracture Paget's disease of bone Shingles Stroke Surgical History Surgical History H/O hand surgery Right hand fracture H/O inguinal hernia repair History of tonsillectomy Family History Family History Father Cirrhosis of liver Social History Social History Social History: Patient states he lives at home with his daughter, Teresa, whom he states is his surrogate MDM. He wishes to be listed as a Full Code. His PCP is Dr. Gimenez. He currently has service Smoking packs per day: 0.5 Smoking cigarettes per day: 10.0 Years smoked: 48 Smoking pack-years: 24.00 Smoking status: Former smoker Tobacco type: cigarettes Second hand tobacco smoke exposure: No Alcohol intake: current Drinks per week: 2 Alcohol use details: Occasional drinker Substance use: current Substance use type: marijuana Lack of Transportation: No Lack of Food: Never True Current Housing: I Have Housing Concerned About Future Housing: No Difficulty Paying Gas/Electric Bills: No Difficulty Paying for Meds: No Currently Unemployed: No Education: High School Diploma/GED Difficulty w/ Childcare or Family Care: No Gender identity (if verbalized by the patient): Male Spiritual care concerns: No Agree to blood products: Yes Exam Narrative: GENERAL: Elderly, well-nourished, and in no acute distress. HEAD: Normocephalic, atraumatic. EYES: PERRLA and EOMI. ENT: Nares clear, no rhinorrhea or epistaxis. Mucous membranes moist. Oropharynx without tonsillar hypertrophy exudate or other lesions. Bilateral TMs pearly sy non-bulging NECK: Supple. No adenopathy or masses. CHEST: Clear to auscultation. No respiratory distress. No wheezes rales or rhonchi HEART: Regular rate and rhythm. No murmur heard. Normal peripheral pulses. ABDOMEN: Soft, nontender, nondistended, normal active bowel sounds. EXTREMITIES: No edema. Normal DP pulses. Strength 4/5 left upper extremity, 5/5
[2023-01-30 19:55] LABS: Creatine Kinase 33 U/L (55-170)
[2023-01-30] MEDS: SODIUM CHLORIDE 0.9% IV 1,000 ML 999 ML IV CONT (20:14)
[2023-01-30 20:47] VITALS: BP 147/87; PULSE 85; RESP 17; O2SAT 99
[2023-01-30 22:26] VITALS: BP 139/87; PULSE 77; RESP 18; O2SAT 99
[2023-01-30 22:36] VITALS: BP 139/87; PULSE 75; RESP 18; O2SAT 97
[2023-01-30 22:48] VITALS: BMI 23.4
--- NOTE | 2023-01-30 22:57 | ADMGEN ---
This patient, Slade Aguilar, was admitted to [facility] Surg Room 313-01. Patient/family oriented to hospital policies and general routines including ID bracelet, bed and alarms, visiting hours, pain management, procedures, bathroom and other care routines, personal items, smoking policy, room service/diet, and visiting hours. Information on how to activate the Rapid Response Team has been discussed. Patient/Family are encouraged to report perceived risks to care and to ask questions if they do not understand what they are told or what they should do.
--- NOTE | 2023-01-30 22:57 | PM.CNOR ---
Assessment and Plan Assessment and plan (1) Fracture of femoral neck, left, closed: Qualifiers: Encounter type: initial encounter Qualified Code(s): S72.002A - Fracture of unspecified part of neck of left femur, initial encounter for closed fracture Code(s): S72.002A - Fracture of unspecified part of neck of left femur, initial encounter for closed fracture Status: Acute Assessment and Plan: New patient evaluation for chief complaint left hip fracture. History, physical exam and radiographs reviewed with the patient. Left hip femoral neck fracture after fall. Discussed the condition, nature, etiology and course of natural history with the patient. Treatment options including surgical and nonoperative treatment were reviewed. Risks and benefits of each as well as alternatives reviewed. The patient's questions were answered. Conservative treatment ice, pain control. Fracture appears stable on radiographs. We will see how he does mobilizing. Pain control. May consider surgical treatment Due to pain control when medically stable. (2) Paget's disease of bone: Code(s): M88.9 - Osteitis deformans of unspecified bone Status: Acute History of Present Illness HPI Consult date: 01/31/23 Requesting physician: Monica Salguero PA-C Chief complaint: left subcapital femoral neck fracture Narrative: 72 yo male fall on left side couple days ago. Increasing pain left hip and inability to bear weight. Presented to ER with severe left hip pain. Review of Systems Constitutional: Constitutional: Denies fever(s) Eyes: Eyes: Denies blurry vision ENT: Reports Normal hearing present Cardiovascular: Cardiovascular: Denies chest pain and Denies dyspnea Respiratory: Respiratory: Denies dyspnea and Denies wheezing Gastrointestinal: Gastrointestinal: Denies abdominal pain Genitourinary: Genitourinary: Denies urinary urgency Musculoskeletal: Musculoskeletal: Reports as per HPI and Denies numbness Integumentary/Breasts: Skin/Breast: Denies changing lesions and Denies sores Neurologic: Reports Normal hearing present, Denies behavioral changes, Denies confusion, Denies numbness and Denies convulsions Psychiatric: Psychiatric: Denies behavioral changes, Denies confusion and Denies hallucinations Endocrine: Endocrine: Denies heat intolerance Hematologic/Lymphatic: Hematologic/Lymphatic: Denies easy bleeding Allergic/Immunologic: Allergic/Immunologic: Denies wheezing PMFSH Past Medical History Medical History (Updated 01/31/23 @ 03:19 by Anamaria Orozco MD) Asthma Diabetes mellitus Fracture of femoral neck, left, closed HIV positive HTN (hypertension) Left hemiparesis Nasal fracture Paget's disease of bone Shingles Stroke Surgical History Surgical History H/O hand surgery Right hand fracture H/O inguinal hernia repair History of tonsillectomy Family History Family History Father Cirrhosis of liver Social History Social History Social History: Patient states he lives at home with his daughter, Teresa, whom he states is his surrogate MDM. He wishes to be listed as a Full Code. His PCP is Dr. Gimenez. He currently has service Smoking packs per day: 0.5 Smoking cigarettes per day: 10.0 Years smoked: 48 Smoking pack-years: 24.00 Smoking status: Former smoker Tobacco type: cigarettes Second hand tobacco smoke exposure: No Alcohol intake: current Drinks per week: 2 Alcohol use details: Occasional drinker Substance use: current Substance use type: marijuana Lack of Transportation: No Lack of Food: Never True Current Housing: I Have Housing Concerned About Future Housing: No Difficulty Paying Gas/Electric Bills: No Difficulty Paying for Meds: No Currently Unemployed: No
[2023-01-30 23:01] VITALS: BP 143/80; PULSE 75; RESP 14; TEMP 36.5; O2SAT 100; BMI 23.6
--- NOTE | 2023-01-31 03:09 | PM.IMHP ---
H&P: HPI History of Present Illness Date/Time: 01/31/23 03:09 Chief Complaint: Fall Narrative: This is a 72-year-old male with past medical history significant for HIV/aids, COPD/emphysema, hypertension, left hemiparesis, stroke. Most of the history has been obtained from daughter who is at bedside patient had a fall and has been laying in bed for a couple of days prior to presentation to emergency room was brought for evaluation. Patient was found to have a subcapital hip fracture. Patient is been admitted for further evaluation management and treatment. XR hip LT 2V w AP pelvis 01/30/2023 18:55 Indication: Left hip pain after injury Procedure: AP pelvis and 2 views left hip Comparison: No prior studies for comparison. Findings: Pelvic rings are intact. There is trabecular thickening of the right hemipelvis and right femur proximally, consistent with Paget's disease. Mild osteoarthritis of the hips. There is a nondisplaced left femoral subcapital fracture. There are changes of ventral hernia repair. Impression: 1: Nondisplaced left femoral subcapital fracture. 2:? Paget's disease of the right hemipelvis and femur. XR chest 1V 01/30/2023 18:55 Indication: Weakness after fall Procedure: AP portable chest Comparison: 07/30/2021 Findings: New bilateral pulmonary nodules, largest in the left lung base measuringr 2.5 cm, consistent with metastatic disease. Heart size normal. No pleural effusion, focal pneumonia or pneumothorax. No acute osseous abnormality. Impression: 1: New bilateral pulmonary nodules, consistent with metastatic disease. Correlate for history of malignancy. EXAMINATION: CT BRAIN W/O DATE: 01/30/2023 19:50 INDICATION: Status post fall. Head injury. TECHNIQUE: Computed tomography (CT) of the head was performed without intravenous contrast. The dose-length product was 681.00 mGy-cm. Automated exposure control and iterative reconstruction technique were employed. COMPARISON: No prior studies for comparison. FINDINGS: There are chronic right frontal and parietal infarctions with encephalomalacia. There are chronic bilateral lacunar infarctions. There is intracranial atherosclerosis. No acute intracranial hemorrhage, infarction, mass or mass effect. Paranasal sinuses and mastoids are pneumatized. No depressed skull fractures. No ventriculomegaly or midline shift. Midline sagittal images demonstrate a normal corpus callosum, craniovertebral junction and sella turcica. Basilar cisterns are patent. IMPRESSION: 1. No acute intracranial abnormality. No significant interval change. EXAMINATION: CT cervical spine wo con DATE: 01/30/2023 19:50 INDICATION: Neck pain after fall TECHNIQUE: Computed tomography (CT) of the cervical spine was performed without intravenous contrast. The dose-length product was 482 mGy-cm. Automated exposure control and iterative reconstruction technique were employed. COMPARISON: None FINDINGS: No acute fracture or traumatic malalignment. There is degenerative spondylosis at all cervical spine levels, moderate. There is disc narrowing, uncinate and facet hypertrophy. Vertebral body heights are maintained. No evidence for acute fracture or traumatic malalignment. There is degenerative anterolisthesis at C7-T1 secondary to facet hypertrophy. No evidence for perched facet. Craniovertebral junction is normal. Odontoid process is normal. Lung apices are normal. No paraspinal soft tissue abnormality. There is an ossific density posterior to the C7 spinous process, likely related to remote trauma. IMPRESSION: 1. No acute abnormality of the cervical spine. 2: Moderate-severe cervical spondylosis. EXAMINATION: CT lumbar spine wo con DATE: 01/30/2023 19:51 INDICATION: Low back pain after fall TECHNIQUE: Computed tomography (CT) of the lumbar spine was performed without intravenous contrast. The dose-length product was 1185.45 mGy-cm. Automated exposure control and iterative rec
[2023-01-31] MEDS: DEXTROSE 5%/0.45% SOD CHL 1,000 ML 75 ML IV CONT ×2 (03:52→17:41)
[2023-01-31 05:37] VITALS: BP 166/101; PULSE 76; RESP 13; TEMP 36.7; O2SAT 97
[2023-01-31] MEDS: FLUTICASONE/UMECLIDIN/VILANTER 100-62.5-25 MCG ELLIPTA 1 PUFF INHALATION (08:40)
[2023-01-31] MEDS: ASPIRIN 325 MG TABLET PO (08:44)
--- NOTE | 2023-01-31 11:00 | PM.IMPN ---
Progress Note: A&P Assessment and Plan (1) Subcapital fracture of neck of left femur: Qualifiers: Encounter type: initial encounter Fracture type: closed Qualified Code(s): S72.012A - Unspecified intracapsular fracture of left femur, initial encounter for closed fracture Code(s): S72.012A - Unspecified intracapsular fracture of left femur, initial encounter for closed fracture Status: Acute Assessment and Plan: 01/31/23 Clinically at baseline both mentally and physically 01/31/23 Discussed with daughter, Teresa, by phone and discussed risk of hip surgery including bleeding blood clots infections and . Discussed that hip fracture is often a marker for increasing frailty and that because of the hip fracture he has a significant risk of dying over the next 12 months. She indicates understanding and wishes to proceed with repair of the fracture. (2) Paget's disease of bone: Code(s): M88.9 - Osteitis deformans of unspecified bone Status: Acute Assessment and Plan: By imaging (3) HIV (human immunodeficiency virus infection): Qualifiers: HIV symptom status: unspecified Qualified Code(s): B20 - Human immunodeficiency virus [HIV] disease Code(s): B20 - Human immunodeficiency virus [HIV] disease Status: Acute Assessment and Plan: Continue Biktarvy (4) Left hemiparesis: Code(s): G81.94 - Hemiplegia, unspecified affecting left nondominant side Status: Acute Assessment and Plan: Chronic, due to completed stroke Continue ASA, statin (5) Abnormal urinalysis: Code(s): R82.90 - Unspecified abnormal findings in urine Status: Acute Assessment and Plan: Doubt UTI Continue ceftriaxone while awaiting c/s (6) Anemia: Qualifiers: Anemia type: unspecified type Qualified Code(s): D64.9 - Anemia, unspecified Code(s): D64.9 - Anemia, unspecified Status: Acute Assessment and Plan: Chronic, likely due to chronic disease (7) Vascular dementia: Qualifiers: Dementia severity: mild Dementia behavioral or psychological symptom: without behavioral, psychotic, or mood disturbance or anxiety Qualified Code(s): F01.A0 - Vascular dementia, mild, without behavioral disturbance, psychotic disturbance, mood disturbance, and anxiety Code(s): F01.50 - Vascular dementia, unspecified severity, without behavioral disturbance, psychotic disturbance, mood disturbance, and anxiety Status: Acute Assessment and Plan: 01/31/2023 Daughter, chuck Moore patient has intermittent confusion at baseline and sometimes does not know where he is especially when 1st awakening with onset since his strokes. Subjective Date/time seen: 01/31/23 11:00 Interval history: 72-year-old gentleman with a history of HIV and strokes but no history of cardiac or respiratory issues was admitted 01/30/2023 after a fall at home with a left subcapital hip fracture. Today he denies pain while lying in his hospital bed. He denied chest pain or shortness of breath. Complains of some constipation uncertain of last bowel movement. No difficulty with urination. No history of abnormal bleeding. Has chronic left-sided weakness due to stroke. Review of Systems Review of Systems: All systems reviewed & are unremarkable except as noted in HPI and below Exam Narrative: HEENT: PERRL, sclerae nonicteric, pharyngeal mucosa pink and intact NECK: No JVD. CHEST: Clear to auscultation. Normal effort. HEART: NL S1/S2, regular, no murmur ABDOMEN: BS+, soft, nontender, no mass, no bruits EXTREMITIES: No cyanosis, edema, or clubbing NEUROLOGIC: CN intact and symmetric to inspection. Speech slow but clearly intelligible. Left lower extremity dorsiflexion and plantar flexion 3/5, left upper extremity nursing service director 0/5. MUSCULOSKELETAL: Left hand contracture PSYCH: Alert. Oriented to person, not oriented to place, kn
[2023-01-31] MEDS: SENNOSIDES 8.6 MG TABLET PO (12:51)
[2023-01-31] MEDS: polyethylene glycoL 3350 17 GM POWD.PACK PO (12:51)
[2023-01-31 14:00] VITALS: BP 152/80; PULSE 74; RESP 12; TEMP 35.9; O2SAT 100
[2023-01-31 21:37] VITALS: BP 128/71; PULSE 71; RESP 13; TEMP 36.4; O2SAT 100
[2023-01-31] MEDS: MONTELUKAST SODIUM 10 MG TABLET PO (21:38)
[2023-02-01 06:00] VITALS: BP 147/84; PULSE 73; RESP 13; TEMP 36.5; O2SAT 100
[2023-02-01 06:43] LABS: Hematocrit 36.5 % (42.0-52.0); Hemoglobin 11.7 g/dL (14.0-18.0); Mean Corpuscular HGB Conc 32.1 g/dl (32-36); Mean Corpuscular Hemoglobin 28.6 pg (26-34); Mean Corpuscular Volume 89.2 fl (80-100); Platelet Count Result 202 k/mm3 (150-375); Red Blood Count 4.09 M/mm3 (4.6-6.20); Red Cell Distribution Width 13.1 % (11.5-14.5); White Blood Count 7.1 K/mm3 (4.5-10.0)
[2023-02-01 07:17] LABS: Iron 41 ug/dL (49-181)
[2023-02-01 07:26] LABS: Percent Iron Saturation 18 % (20-50)
[2023-02-01 07:35] LABS: Anion Gap 2 mmol/L (8-16); Blood Urea Nitrogen 22 mg/dL (9-20); Carbon Dioxide 29 mmol/L (22-30); Chloride 100 mmol/L (98-107); Estimated CRCL calculation 65 ml/min; Estimated Glomerular Filt Rate > 60; Glucose 118 mg/dL (65-110); Potassium 3.6 mmol/L (3.4-5.0); Sodium 131 mmol/L (137-145)
[2023-02-01] MEDS: FLUTICASONE/UMECLIDIN/VILANTER 100-62.5-25 MCG ELLIPTA 1 PUFF INHALATION (08:01)
[2023-02-01] MEDS: SENNOSIDES 8.6 MG TABLET PO (08:33)
[2023-02-01] MEDS: ASPIRIN 325 MG TABLET PO (08:33)
[2023-02-01] MEDS: polyethylene glycoL 3350 17 GM POWD.PACK PO (08:34)
[2023-02-01] MEDS: ACETAMINOPHEN 500 MG TABLET 1000 MG PO (08:38)
--- NOTE | 2023-02-01 09:28 | PM.PNORT ---
Progress Note: A&P Assessment and Plan (1) Subcapital fracture of neck of left femur: Qualifiers: Encounter type: initial encounter Fracture type: closed Qualified Code(s): S72.012A - Unspecified intracapsular fracture of left femur, initial encounter for closed fracture Code(s): S72.012A - Unspecified intracapsular fracture of left femur, initial encounter for closed fracture Status: Acute Assessment and Plan: Patient with left hip femoral neck fracture, nondisplaced. Unsure of acuity of fracture. Also with lytic lesions in the pelvis and history of Paget's. Patient complains of more low back pain. Discussed with hospitalist. Plan for bone scan to evaluate bone disease. Discussed possible left hip pinning when medically stable and if bone scan reveals need for no further workup. We will await results. Subjective Subjective Date/Time Seen: 02/01/23 09:28 Principal diagnosis: Left hip fracture, Paget's disease Interval history: patient awake and alert this morning. Complains of low back pain. States minimal if any hip pain. Exam Extrem: General: capillary refill normal Right upper extremity: normal to inspection Left upper extremity: normal to inspection Right lower extremity: normal to inspection, hip/thigh Details: normal to inspection and normal ROM; no tenderness and no swelling, knee Details: no tenderness and no swelling, ankle Details: normal ROM (Able to flex and extend the ankle) and foot Details: vascular exam Details: dorsalis pedis pulse present and normal capillary refill, tendon exam (Moves all toes) and motor-sensory exam Details: light-touch normal Location: in all toes Left lower extremity: hip/thigh Details: tenderness Location: of the hip Location: laterally and anteriorly, swelling Location: of the hip and abnormal ROM Details: pain with passive ROM (Full motion deferred secondary to fracture) Details: with flexion, with internal rotation and with external rotation, ankle (no calf tenderness) Details: normal ROM (Able to flex/ extend ankle) and foot Details: toes with normal ROM (Moves all toes), vascular exam Details: dorsalis pedis pulse present and normal capillary refill and motor-sensory exam light-touch normal in all toes; no tenderness Psych: Affect: normal affect Objective Data Vital Signs Vital Signs: Vital Signs - 24 hr 01/31/23 15:42 01/31/23 14:00 01/31/23 15:56 Temperature 96.7 F L Pulse Rate 74 Respiratory Rate 12 Blood Pressure 152/80 H Pulse Oximetry 100 Oxygen Delivery Room Air Room Air 01/31/23 21:37 02/01/23 06:00 Temperature 97.6 F 97.7 F Pulse Rate 71 73 Respiratory Rate 13 13 Blood Pressure 128/71 147/84 H Pulse Oximetry 100 100 Oxygen Delivery Intake/Output Intake/Output: Intake & Output 01/29/23 01/30/23 01/31/23 02/01/23 23:59 23:59 23:59 23:59 Intake Total 1050 1740 500 Output Total 750 500 Balance 1050 990 0 Meds/Results Medications: Active Medications Generic Name Dose Route Start Last Admin Trade Name Freq PRN Reason Stop Dose Admin Acetaminophen 1,000 mg 01/31/23 03:05 02/01/23 08:38 Acetaminophen 500 Mg Tablet PO 1,000 mg Q6H PRN Administration Pain (Scale Score 1-3) Albuterol 2 puff 01/31/23 03:05 Albuterol Sulfate (*Sp) Aerosol 1 Puff INHALATION Q6HRT PRN Shortness Of Breath Aspirin 325 mg 01/31/23 08:00 02/01/23 08:33 Aspirin 325 Mg Tablet PO 325 mg DAILY@0800 [facility] Administration Bisacodyl 10 mg 01/31/23 11:44 Bisacodyl 10 Mg Suppository RECTAL QAM PRN Constipation Fluticasone/Umeclidinium/Vilanterol 1 puff 01/31/23 09:00 02/01/23 08:01 Fluticasone/Umeclidin/Vilanter 100-62.5-25 Mcg Ellipta INHALATION 1 puff DAILY STEPHANI Administration Hydromorphone HCl 0.5 mg 01/31/23 03:06 Hydromorphone Hcl Inj (*Crx) 1 Mg/Ml Syr IV PUSH Q3H PRN Pain Rated 7-10 Dextrose/Sodium Chloride 1,000 mls @ 75 mls/
[2023-02-01 09:30] LABS: Folic Acid 9.1 ng/mL (2.76->20)
[2023-02-01 09:58] LABS: Prostate Specific Antigen 8.5 ng/mL (< OR = 4.0)
[2023-02-01] MEDS: HYDROmorphone HCL INJ (*CRX) 1 MG/ML SYR 0.5 MG IV PUSH ×2 (11:06→16:52)
[2023-02-01 14:00] VITALS: PULSE 62; RESP 20; TEMP 36.6; O2SAT 96
--- NOTE | 2023-02-01 16:22 | PM.IMPN ---
Progress Note: A&P Assessment and Plan (1) Subcapital fracture of neck of left femur: Qualifiers: Encounter type: initial encounter Fracture type: closed Qualified Code(s): S72.012A - Unspecified intracapsular fracture of left femur, initial encounter for closed fracture Code(s): S72.012A - Unspecified intracapsular fracture of left femur, initial encounter for closed fracture Status: Acute Assessment and Plan: 01/31/23 Clinically at baseline both mentally and physically 01/31/23 Discussed with daughter, Teresa, by phone and discussed risk of hip surgery including bleeding blood clots infections and . Discussed that hip fracture is often a marker for increasing frailty and that because of the hip fracture he has a significant risk of dying over the next 12 months. She indicates understanding and wishes to proceed with repair of the fracture. 02/01/[address] Staples and due to abnormalities on pelvic CT will obtain PSA and bone scan prior to planning ORIF (2) Paget's disease of bone: Code(s): M88.9 - Osteitis deformans of unspecified bone Status: Acute Assessment and Plan: By imaging (3) HIV (human immunodeficiency virus infection): Qualifiers: HIV symptom status: unspecified Qualified Code(s): B20 - Human immunodeficiency virus [HIV] disease Code(s): B20 - Human immunodeficiency virus [HIV] disease Status: Acute Assessment and Plan: Continue Biktarvy (4) Left hemiparesis: Code(s): G81.94 - Hemiplegia, unspecified affecting left nondominant side Status: Acute Assessment and Plan: Chronic, due to completed stroke Continue ASA, statin (5) Abnormal urinalysis: Code(s): R82.90 - Unspecified abnormal findings in urine Status: Acute Assessment and Plan: Doubt UTI Continue ceftriaxone while awaiting c/s (6) Anemia: Qualifiers: Anemia type: unspecified type Qualified Code(s): D64.9 - Anemia, unspecified Code(s): D64.9 - Anemia, unspecified Status: Acute Assessment and Plan: Chronic, likely due to chronic disease (7) Vascular dementia: Qualifiers: Dementia severity: mild Dementia behavioral or psychological symptom: without behavioral, psychotic, or mood disturbance or anxiety Qualified Code(s): F01.A0 - Vascular dementia, mild, without behavioral disturbance, psychotic disturbance, mood disturbance, and anxiety Code(s): F01.50 - Vascular dementia, unspecified severity, without behavioral disturbance, psychotic disturbance, mood disturbance, and anxiety Status: Acute Assessment and Plan: 01/31/2023 Daughter, Teresa, chuck patient has intermittent confusion at baseline and sometimes does not know where he is especially when 1st awakening with onset since his strokes. Subjective Date/time seen: 02/01/23 16:22 Interval history: 72-year-old gentleman with a history of HIV and strokes but no history of cardiac or respiratory issues was admitted 01/30/2023 after a fall at home with a left subcapital hip fracture. Today he complains of pain in the left hip and lower back while lying still worse with any movement. He denied chest pain or shortness of breath. Denied abdominal pain or difficulty with urination. No history of abnormal bleeding. Has chronic left-sided weakness due to stroke. Review of Systems Review of Systems: All systems reviewed & are unremarkable except as noted in HPI and below Exam Narrative: HEENT: PERRL, sclerae nonicteric, pharyngeal mucosa pink and intact NECK: No JVD. CHEST: Clear to auscultation. Normal effort. HEART: NL S1/S2, regular, no murmur ABDOMEN: BS+, soft, nontender, no mass, no bruits EXTREMITIES: No cyanosis, edema, or clubbing NEUROLOGIC: CN intact and symmetric to inspection. Speech slow but clearly intelligible. Left lower extremity dorsiflexion and plantar flexion 3/5, l
[2023-02-01] MEDS: DEXTROSE 5%/0.45% SOD CHL 1,000 ML 75 ML IV CONT (16:50)
[2023-02-01] MEDS: CYANOCOBALAMIN INJ 1,000 MCG/ML VIAL 1000 MCG IM (18:38)
[2023-02-01 22:00] VITALS: BP 115/88; PULSE 92; RESP 16; TEMP 36.4; O2SAT 99
[2023-02-01] MEDS: MONTELUKAST SODIUM 10 MG TABLET PO (22:59)
--- NOTE | 2023-02-01 23:30 | PC.NURSE ---
Paper documentation exists on this patient due to [facility] downtime on 02/01/23 from 1930 to 2224 medications given during [place] have been manually entered for time given [] .
[2023-02-02 05:15] VITALS: BP 176/78; PULSE 61; RESP 16; TEMP 36.2; O2SAT 100
[2023-02-02] MEDS: FLUTICASONE/UMECLIDIN/VILANTER 100-62.5-25 MCG ELLIPTA 1 PUFF INHALATION (07:47)
--- NOTE | 2023-02-02 09:54 | PCPTNOTE ---
The patient treatment was not able to be completed at this time due to patient out of room for testing. Will plan to continue treatment per plan of care.
--- NOTE | 2023-02-02 10:30 | PM.IMPN ---
Progress Note: A&P Assessment and Plan (1) Subcapital fracture of neck of left femur: Qualifiers: Encounter type: initial encounter Fracture type: closed Qualified Code(s): S72.012A - Unspecified intracapsular fracture of left femur, initial encounter for closed fracture Code(s): S72.012A - Unspecified intracapsular fracture of left femur, initial encounter for closed fracture Status: Acute Assessment and Plan: 01/31/23 Clinically at baseline both mentally and physically 01/31/23 Discussed with daughter, Teresa, by phone and discussed risk of hip surgery including bleeding blood clots infections and . Discussed that hip fracture is often a marker for increasing frailty and that because of the hip fracture he has a significant risk of dying over the next 12 months. She indicates understanding and wishes to proceed with repair of the fracture. 02/01/[address] Staples and due to abnormalities on pelvic CT will obtain PSA and bone scan prior to planning ORIF 02/02/23 Bone scan did show signs of pigets. Awaiting word about whether or not they will be having surgery (2) Paget's disease of bone: Code(s): M88.9 - Osteitis deformans of unspecified bone Status: Acute Assessment and Plan: By imaging Confirmed with bone scan (3) HIV (human immunodeficiency virus infection): Qualifiers: HIV symptom status: unspecified Qualified Code(s): B20 - Human immunodeficiency virus [HIV] disease Code(s): B20 - Human immunodeficiency virus [HIV] disease Status: Acute Assessment and Plan: Continue Biktarvy (4) Left hemiparesis: Code(s): G81.94 - Hemiplegia, unspecified affecting left nondominant side Status: Acute Assessment and Plan: Chronic, due to completed stroke Continue ASA, statin (5) Abnormal urinalysis: Code(s): R82.90 - Unspecified abnormal findings in urine Status: Acute Assessment and Plan: Doubt UTI Continue ceftriaxone while awaiting c/s Culture shows no growth DC ceftriaxone at this time (6) Anemia: Qualifiers: Anemia type: unspecified type Qualified Code(s): D64.9 - Anemia, unspecified Code(s): D64.9 - Anemia, unspecified Status: Acute Assessment and Plan: Chronic, likely due to chronic disease H/H stable at 9.0/26.9 Continue to trend (7) Vascular dementia: Qualifiers: Dementia severity: mild Dementia behavioral or psychological symptom: without behavioral, psychotic, or mood disturbance or anxiety Qualified Code(s): F01.A0 - Vascular dementia, mild, without behavioral disturbance, psychotic disturbance, mood disturbance, and anxiety Code(s): F01.50 - Vascular dementia, unspecified severity, without behavioral disturbance, psychotic disturbance, mood disturbance, and anxiety Status: Acute Assessment and Plan: 01/31/2023 Daughter, Teresa, chuck patient has intermittent confusion at baseline and sometimes does not know where he is especially when 1st awakening with onset since his strokes. Time Spent With Patient Time: 39 minutes Time with patient: Greater than 35 minutes Subjective Date/time seen: 02/02/23 1030 Interval history: 02/02/23 103 patient was lying in bed. Patient stated that he was feeling manipulated. He denies any chest pain, shortness a breath, nausea, vomiting, diarrhea or constipation. His daughter did state that she feels like he has constipation. He did go for a bone scan today. currently patient is stable. he did complain a little bit about hypertension as blood pressure was 176/78. Currently patient is awaiting communication about surgery. 02/01/23 72-year-old gentleman with a history of HIV and strokes but no history of cardiac or respiratory issues was admitted 01/30/2023 after a fall at home with a left subcapital hip fract
[2023-02-02] MEDS: CYANOCOBALAMIN 1,000 MCG TABLET 1000 MCG PO (10:42)
[2023-02-02] MEDS: ASPIRIN 325 MG TABLET PO (10:42)
[2023-02-02] MEDS: SENNOSIDES 8.6 MG TABLET PO (10:42)
[2023-02-02] MEDS: polyethylene glycoL 3350 17 GM POWD.PACK PO (10:42)
--- NOTE | 2023-02-02 10:56 | PHAR ---
HOME MED: BIKTARVY 50/500/25 MG TABS; TAKE 1 TABLET BY MOUTH DAILY. VERIFIED BY PHARMACY.
--- NOTE | 2023-02-02 12:08 | PCOTNOTE ---
The patient treatment was not able to be completed on 02/02 @ 11:45 due to patient getting IV placement. Will plan to continue treatment per plan of care.
[2023-02-02 14:00] VITALS: BP 113/71; PULSE 97; RESP 16; TEMP 36.6; O2SAT 99
[2023-02-02] MEDS: DEXTROSE 5%/0.45% SOD CHL 1,000 ML 75 ML IV CONT (15:26)
--- NOTE | 2023-02-02 15:28 | PCOTNOTE ---
Attempted to see Patient for afternoon treatment session. Patient very agitated and rude. Patient verbalized, I'm done, I did it already, I'm done with this place this is all stupid . Patient was educated on the importance of participation for increased improvements with functional abilities. Patient not having any of it, refusing all services per RN.
[2023-02-02 20:00] VITALS: PULSE 72; RESP 14; O2SAT 100
[2023-02-02] MEDS: MONTELUKAST SODIUM 10 MG TABLET PO (20:49)
[2023-02-02 21:42] VITALS: BP 119/71; PULSE 72; RESP 14; TEMP 36.9; O2SAT 100
[2023-02-03] VITALS (7 sets, daily range): BP systolic 103–182; BP diastolic 56–70; PULSE 61–74; RESP 12–16; TEMP 36.2–37.1; O2SAT 91–100
[2023-02-03] MEDS: FLUTICASONE/UMECLIDIN/VILANTER 100-62.5-25 MCG ELLIPTA 1 PUFF INHALATION (07:03)
--- NOTE | 2023-02-03 08:48 | PCPTNOTE ---
Patient refused treatment this session stating I am not doing anything. This is all a scam. Educated patient on the importance of exercise and mobility following a hip fracture. Patient voices understanding but continues to refuse.
[2023-02-03] MEDS: CYANOCOBALAMIN 1,000 MCG TABLET 1000 MCG PO (10:28)
[2023-02-03] MEDS: ASPIRIN 325 MG TABLET PO (10:28)
[2023-02-03] MEDS: SENNOSIDES 8.6 MG TABLET PO (10:32)
[2023-02-03] MEDS: polyethylene glycoL 3350 17 GM POWD.PACK PO (10:32)
[2023-02-03] MEDS: ACETAMINOPHEN 500 MG TABLET 1000 MG PO (10:35)
--- NOTE | 2023-02-03 12:44 | PM.PNORT ---
Progress Note: A&P Assessment and Plan (1) Subcapital fracture of neck of left femur: Qualifiers: Encounter type: initial encounter Fracture type: closed Qualified Code(s): S72.012A - Unspecified intracapsular fracture of left femur, initial encounter for closed fracture Code(s): S72.012A - Unspecified intracapsular fracture of left femur, initial encounter for closed fracture Status: Acute Assessment and Plan: (2) Paget's disease of bone: Code(s): M88.9 - Osteitis deformans of unspecified bone Status: Acute Assessment and Plan: Involvement of the posterior pelvis, sacrum right hip and proximal femur. Bone scan shows increased uptake at these areas. No uptake at the left femoral neck area to indicate acute fracture. Recommend progress therapy and weight-bearing as tolerated and continue with pain control for Paget's disease. No operative indication at this time. We will see how he does progressing therapy. Subjective Subjective Date/Time Seen: 02/03/23 12:44 Principal diagnosis: Left hip fracture, Paget's disease Interval history: patient awake and alert. Complains of low back pain. States minimal if any hip pain. Exam Extrem: General: capillary refill normal Right upper extremity: normal to inspection Left upper extremity: normal to inspection Right lower extremity: normal to inspection, hip/thigh Details: normal to inspection and normal ROM; no tenderness and no swelling, knee Details: no tenderness and no swelling, ankle Details: normal ROM (Able to flex and extend the ankle) and foot Details: vascular exam Details: dorsalis pedis pulse present and normal capillary refill, tendon exam (Moves all toes) and motor-sensory exam Details: light-touch normal Location: in all toes Left lower extremity: hip/thigh Details: tenderness Location: of the hip Location: laterally and anteriorly, swelling Location: of the hip and abnormal ROM Details: pain with passive ROM (Full motion deferred secondary to fracture) Details: with flexion, with internal rotation and with external rotation, ankle (no calf tenderness) Details: normal ROM (Able to flex/ extend ankle) and foot Details: toes with normal ROM (Moves all toes), vascular exam Details: dorsalis pedis pulse present and normal capillary refill and motor-sensory exam light-touch normal in all toes; no tenderness Objective Data Vital Signs Vital Signs: Vital Signs - 24 hr 02/02/23 14:00 02/02/23 20:00 02/02/23 21:42 Temperature 97.8 F 98.4 F Pulse Rate 97 72 72 Respiratory Rate 16 14 14 Blood Pressure 113/71 119/71 Pulse Oximetry 99 100 100 Oxygen Delivery Room Air 02/03/23 04:51 02/03/23 05:10 02/03/23 07:15 Temperature 98 F Pulse Rate 61 70 Respiratory Rate 12 16 Blood Pressure 182/70 H 148/62 H Pulse Oximetry 100 97 Oxygen Delivery Room Air 02/03/23 07:15 Temperature Pulse Rate 70 Respiratory Rate 16 Blood Pressure Pulse Oximetry Oxygen Delivery Intake/Output Intake/Output: Intake & Output 01/31/23 02/01/23 02/02/23 02/03/23 23:59 23:59 23:59 23:59 Intake Total 1740 1600 1720 400 Output Total 343 744 0988 500 Balance 990 950 570 -100 Meds/Results Medications: Active Medications Generic Name Dose Route Start Last Admin Trade Name Freq PRN Reason Stop Dose Admin Acetaminophen 1,000 mg 01/31/23 03:05 02/03/23 10:35 Acetaminophen 500 Mg Tablet PO 1,000 mg Q6H PRN Administration Pain (Scale Score 1-3) Albuterol 2 puff 01/31/23 03:05 Albuterol Sulfate (*Sp) Aerosol 1 Puff INHALATION Q6HRT PRN Shortness Of Breath Aspirin 325 mg 01/31/23 08:00 02/03/23 10:28 Aspirin 325 Mg Tablet PO 325 mg DAILY@0800 STEPHANI Administration Bisacodyl 10 mg 01/31/23 11:44 Bisacodyl 10 Mg Suppository RECTAL QAM PRN Constipation Cyanocobalamin 1,000 mcg 02/02/23 09:00 02/03/23 10:28 Cyanocobalamin 1,000 Mcg Tablet PO 1,000 mc
--- NOTE | 2023-02-03 13:39 | PM.IMPN ---
Progress Note: A&P Assessment and Plan (1) Abnormal urinalysis: Code(s): R82.90 - Unspecified abnormal findings in urine Status: Acute (2) HIV (human immunodeficiency virus infection): Qualifiers: HIV symptom status: unspecified Qualified Code(s): B20 - Human immunodeficiency virus [HIV] disease Code(s): B20 - Human immunodeficiency virus [HIV] disease Status: Acute (3) Subcapital fracture of neck of left femur: Qualifiers: Encounter type: initial encounter Fracture type: closed Qualified Code(s): S72.012A - Unspecified intracapsular fracture of left femur, initial encounter for closed fracture Code(s): S72.012A - Unspecified intracapsular fracture of left femur, initial encounter for closed fracture Status: Acute (4) Paget's disease of bone: Code(s): M88.9 - Osteitis deformans of unspecified bone Status: Acute Time Spent With Patient Time: 72-year-old gentleman with a history of HIV and strokes but no history of cardiac or respiratory issues was admitted 01/30/2023 after a fall at home with a left subcapital hip fracture. 1)Left Femur Neck Subcapital Fracture: Appreciate ortho help NO plans for surgical intervention Recommend progress therapy and weight-bearing as tolerated and continue with pain control for Paget's disease.? PT/OT 2)HIV: C/w Biktarvy 3)Chronic Left hemiparesis: C/w ASA, Statin 4)Chronic Anemia: H/H stable Monitor Closely 5)UTI:Ruled out 6)DVT ppx:Hep SQ 7)Code:Full 8)Dispo:pending improvement Time with patient: 25 - 35 minutes Subjective Date/time seen: 02/03/23 13:39 Interval history: no acute events overnight Review of Systems Review of Systems: All systems reviewed & are unremarkable except as noted in HPI and below Exam Narrative: General: well-nourished, well-appearing 72-year-old male, laying in bed, comfortable, NARD Neuro: awake, alert and oriented x2, speech clear, no focal neuro deficits noted HEENMT: normocephalic, atraumatic, EOMI, sclerae anicteric, moist oral mucosa Respiratory: Clear to auscultation bilaterally without crackles, rhonchi or wheezes, nonlabored breathing Cardio: regular rate, regular rhythm with S1-S2 Abdomen: nondistended, normoactive bowel sounds, soft, nontender to palpation Extremities: no edema, erythema, or tenderness to palpation, DP pulses 2+ bilaterally, left leg is externally rotated Skin: no rashes or lesions, warm and dry Psych: appropriate mood and affect, judgment and insight intact Objective Data Vital Signs Vital Signs: Vital Signs - 24 hr 02/02/23 14:00 02/02/23 20:00 02/02/23 21:42 Temperature 97.8 F 98.4 F Pulse Rate 97 72 72 Respiratory Rate 16 14 14 Blood Pressure 113/71 119/71 Pulse Oximetry 99 100 100 Oxygen Delivery Room Air 02/03/23 04:51 02/03/23 05:10 02/03/23 07:15 Temperature 98 F Pulse Rate 61 70 Respiratory Rate 12 16 Blood Pressure 182/70 H 148/62 H Pulse Oximetry 100 97 Oxygen Delivery Room Air 02/03/23 07:15 Temperature Pulse Rate 70 Respiratory Rate 16 Blood Pressure Pulse Oximetry Oxygen Delivery Intake/Output Intake/Output: Intake & Output 01/31/23 02/01/23 02/02/23 02/03/23 23:59 23:59 23:59 23:59 Intake Total 1740 1600 1720 400 Output Total 109 410 8499 500 Balance 990 950 570 -100 Meds/Results Medications: Active Medications Generic Name Dose Route Start Last Admin Trade Name Freq PRN Reason Stop Dose Admin Acetaminophen 1,000 mg 01/31/23 03:05 02/03/23 10:35 Acetaminophen 500 Mg Tablet PO 1,000 mg Q6H PRN Administration Pain (Scale Score 1-3) Albuterol 2 puff 01/31/23 03:05 Albuterol Sulfate (*Sp) Aerosol 1 Puff INHALATION Q6HRT PRN Shortness Of Breath Aspirin 325 mg 01/31/23 08:00 02/03/23 10:28 Aspirin 325 Mg Tablet PO 325 mg DAILY@0800 STEPHANI Administration Bisacodyl 10 mg 01/31/23 11:44 Bisacodyl 10 Mg
[2023-02-03] MEDS: MONTELUKAST SODIUM 10 MG TABLET PO (21:04)
[2023-02-03] MEDS: HEPARIN SODIUM 5,000 UNITS/ML VIAL 5000 UNITS SUB-Q (21:04)
[2023-02-04 05:51] VITALS: BP 121/67; PULSE 64; RESP 14; TEMP 37.1; O2SAT 97
[2023-02-04] MEDS: DEXTROSE 5%/0.45% SOD CHL 1,000 ML 75 ML IV CONT (06:56)
[2023-02-04 07:00] LABS: Basophils Absolute Auto 0.1 K/mm3 (0.0-0.1); Basophils Percent Auto 1.5 % (0.2-1.2); Eosinophils Absolute Auto 0.5 K/mm3 (0-0.3); Eosinophils Percent Auto 5.6 % (0-4.4); Hematocrit 37.4 % (42.0-52.0); Hemoglobin 12.2 g/dL (14.0-18.0); Immature Granulocyte Percent A 1.2 % (0-0.5); Lymphocytes Absolute Auto 1.99 K/mm3 (0.9-3.2); Lymphocytes Percent Auto 24.2 % (18.3-44.2); Mean Corpuscular HGB Conc 32.6 g/dl (32-36); Mean Corpuscular Hemoglobin 28.8 pg (26-34); Mean Corpuscular Volume 88.2 fl (80-100); Mean Platelet Volume 10.8 fl (7.4-10.4); Monocytes Absolute Auto 0.7 K/mm3 (0.1-0.6); Neutrophils Absolute Auto 4.8 K/mm3 (1.3-6.7); Neutrophils Percent Auto 58.5 % (45.5-73.1); Platelet Count Result 203 k/mm3 (150-375); Red Blood Count 4.24 M/mm3 (4.6-6.20); Red Cell Distribution Width 13.3 % (11.5-14.5); White Blood Count 8.2 K/mm3 (4.5-10.0)
[2023-02-04 07:29] LABS: Anion Gap 4 mmol/L (8-16); Blood Urea Nitrogen 14 mg/dL (9-20); Calcium 8.9 mg/dL (8.4-10.2); Carbon Dioxide 28 mmol/L (22-30); Chloride 99 mmol/L (98-107); Estimated CRCL calculation 65 ml/min; Estimated Glomerular Filt Rate > 60; Glucose 90 mg/dL (65-110); Potassium 3.8 mmol/L (3.4-5.0); Sodium 131 mmol/L (137-145)
[2023-02-04 08:22] LABS: Absolute CD4 Count 355 cells/uL (490-1740); Lymphocytes, Absolute 1367 cells/uL (850-3900); Percent CD4 Cells 26 % (30-61)
[2023-02-04] MEDS: FLUTICASONE/UMECLIDIN/VILANTER 100-62.5-25 MCG ELLIPTA 1 PUFF INHALATION (09:06)
[2023-02-04 09:07] VITALS: PULSE 50; RESP 16
[2023-02-04 09:08] VITALS: O2SAT 100
[2023-02-04] MEDS: CYANOCOBALAMIN 1,000 MCG TABLET 1000 MCG PO (09:29)
[2023-02-04] MEDS: HEPARIN SODIUM 5,000 UNITS/ML VIAL 5000 UNITS SUB-Q ×2 (09:29→21:43)
[2023-02-04] MEDS: SENNOSIDES 8.6 MG TABLET PO (09:30)
[2023-02-04] MEDS: ASPIRIN 325 MG TABLET PO (09:30)
[2023-02-04] MEDS: polyethylene glycoL 3350 17 GM POWD.PACK PO (09:30)
--- NOTE | 2023-02-04 10:09 | PCPTNOTE ---
Patient refused treatment this session. Patient states he is not going to do anything until the tubes are out! Educated patient on having a urinary catheter. Patient continued to refuse.
--- NOTE | 2023-02-04 11:57 | PCOTNOTE ---
Patient refused treatment this session. Patient stated I don't know about all this moving around. Patient is aware that his Doctor wants him to participate in therapy. Will attempt to see after lunch. Patient seemed to be in moderate pain with minimal movement and upon leaving patient began to yell out.
--- NOTE | 2023-02-04 12:43 | PM.IMPN ---
Progress Note: A&P Assessment and Plan (1) Abnormal urinalysis: Code(s): R82.90 - Unspecified abnormal findings in urine Status: Acute (2) HIV (human immunodeficiency virus infection): Qualifiers: HIV symptom status: unspecified Qualified Code(s): B20 - Human immunodeficiency virus [HIV] disease Code(s): B20 - Human immunodeficiency virus [HIV] disease Status: Acute (3) Subcapital fracture of neck of left femur: Qualifiers: Encounter type: initial encounter Fracture type: closed Qualified Code(s): S72.012A - Unspecified intracapsular fracture of left femur, initial encounter for closed fracture Code(s): S72.012A - Unspecified intracapsular fracture of left femur, initial encounter for closed fracture Status: Acute (4) Paget's disease of bone: Code(s): M88.9 - Osteitis deformans of unspecified bone Status: Acute Plan 72-year-old gentleman with a history of HIV and strokes but no history of cardiac or respiratory issues was admitted 01/30/2023 after a fall at home with a left subcapital hip fracture. 1)Left Femur Neck Subcapital Fracture: Appreciate ortho help NO plans for surgical intervention Recommend progress therapy and weight-bearing as tolerated and continue with pain control for Paget's disease.? PT/OT Pain Control 2)HIV: C/w Biktarvy 3)Chronic Left hemiparesis: C/w ASA, Statin 4)Chronic Anemia: H/H stable Monitor Closely 5)UTI:Ruled out has chronic martin 6)DVT ppx:Hep SQ 7)Code:Full 8)Dispo:pending improvement/will need placement Time Spent With Patient Time with patient: 25 - 35 minutes Subjective Date/time seen: 02/04/23 12:43 Interval history: no acute events overnight, confused Review of Systems Review of Systems: All systems reviewed & are unremarkable except as noted in HPI and below Exam Narrative: General: well-nourished, well-appearing Neuro: awake, alert and oriented x2, speech clear, no focal neuro deficits noted HEENMT: normocephalic, atraumatic, EOMI, sclerae anicteric, moist oral mucosa Respiratory: Clear to auscultation bilaterally without crackles, rhonchi or wheezes, nonlabored breathing Cardio: regular rate, regular rhythm with S1-S2 Abdomen: nondistended, normoactive bowel sounds, soft, nontender to palpation Extremities: no edema, erythema, or tenderness to palpation, DP pulses 2+ bilaterally, left leg is externally rotated Skin: no rashes or lesions, warm and dry Psych: appropriate mood and affect Objective Data Vital Signs Vital Signs: Vital Signs - 24 hr 02/03/23 14:00 02/03/23 21:32 02/03/23 20:00 Temperature 98.7 F 97.1 F L Pulse Rate 74 68 68 Respiratory Rate 14 14 14 Blood Pressure 138/66 103/56 L Pulse Oximetry 99 99 99 Oxygen Delivery Room Air 02/04/23 05:51 02/04/23 09:07 02/04/23 09:08 Temperature 98.7 F Pulse Rate 64 50 L Respiratory Rate 14 16 Blood Pressure 121/67 Pulse Oximetry 97 100 Oxygen Delivery Room Air Intake/Output Intake/Output: Intake & Output 02/01/23 02/02/23 02/03/23 02/04/23 23:59 23:59 23:59 23:59 Intake Total 1600 1720 1920 200 Output Total 650 1150 1300 700 Balance 950 570 620 -500 Meds/Results Medications: Active Medications Generic Name Dose Route Start Last Admin Trade Name Freq PRN Reason Stop Dose Admin Acetaminophen 1,000 mg 01/31/23 03:05 02/03/23 10:35 Acetaminophen 500 Mg Tablet PO 1,000 mg Q6H PRN Administration Pain (Scale Score 1-3) Albuterol 2 puff 01/31/23 03:05 Albuterol Sulfate (*Sp) Aerosol 1 Puff INHALATION Q6HRT PRN Shortness Of Breath Aspirin 325 mg 01/31/23 08:00 02/04/23 09:30 Aspirin 325 Mg Tablet PO 325 mg DAILY@0800 STEPHANI Administration Bisacodyl 10 mg 01/31/23 11:44 Bisacodyl 10 Mg Suppository RECTAL QAM PRN Constipation Cyanocobalamin 1,000 mcg 02/02/23 09:00 02/04/23 09:29 Cyanocobalamin 1,000 Mcg Ta
[2023-02-04 14:05] VITALS: BP 144/70; PULSE 74; RESP 16; TEMP 37.3; O2SAT 99
[2023-02-04 20:35] VITALS: PULSE 66; RESP 14; O2SAT 100
[2023-02-04] MEDS: MONTELUKAST SODIUM 10 MG TABLET PO (21:43)
[2023-02-04 22:00] VITALS: BP 139/77; PULSE 66; RESP 14; TEMP 36.8; O2SAT 100
[2023-02-05 06:00] VITALS: BP 171/77; PULSE 56; RESP 16; TEMP 36.9; O2SAT 98
[2023-02-05] MEDS: ASPIRIN 325 MG TABLET PO (08:23)
[2023-02-05] MEDS: CYANOCOBALAMIN 1,000 MCG TABLET 1000 MCG PO (08:23)
[2023-02-05] MEDS: HEPARIN SODIUM 5,000 UNITS/ML VIAL 5000 UNITS SUB-Q ×2 (08:23→21:13)
[2023-02-05] MEDS: LIDOCAINE 5% PATCH 1 PATCH TRANSDERM (08:28)
[2023-02-05] MEDS: polyethylene glycoL 3350 17 GM POWD.PACK PO (08:28)
[2023-02-05] MEDS: SENNOSIDES 8.6 MG TABLET PO (08:28)
[2023-02-05 08:36] VITALS: O2SAT 94
[2023-02-05] MEDS: FLUTICASONE/UMECLIDIN/VILANTER 100-62.5-25 MCG ELLIPTA 1 PUFF INHALATION (08:36)
--- NOTE | 2023-02-05 09:41 | PM.IMPN ---
Progress Note: A&P Assessment and Plan (1) Abnormal urinalysis: Code(s): R82.90 - Unspecified abnormal findings in urine Status: Acute (2) HIV (human immunodeficiency virus infection): Qualifiers: HIV symptom status: unspecified Qualified Code(s): B20 - Human immunodeficiency virus [HIV] disease Code(s): B20 - Human immunodeficiency virus [HIV] disease Status: Acute (3) Subcapital fracture of neck of left femur: Qualifiers: Encounter type: initial encounter Fracture type: closed Qualified Code(s): S72.012A - Unspecified intracapsular fracture of left femur, initial encounter for closed fracture Code(s): S72.012A - Unspecified intracapsular fracture of left femur, initial encounter for closed fracture Status: Acute (4) Paget's disease of bone: Code(s): M88.9 - Osteitis deformans of unspecified bone Status: Acute Plan 72-year-old gentleman with a history of HIV and strokes but no history of cardiac or respiratory issues was admitted 01/30/2023 after a fall at home with a left subcapital hip fracture. 1)Left Femur Neck Subcapital Fracture: Appreciate ortho help NO plans for surgical intervention Recommend progress therapy and weight-bearing as tolerated and continue with pain control for Paget's disease.? PT/OT Pain Control 2)HIV: C/w Biktarvy 3)Chronic Left hemiparesis: C/w ASA, Statin 4)Chronic Anemia: H/H stable Monitor Closely 5)UTI:Ruled out has chronic martin 6)DVT ppx:Hep SQ 7)Code:Full 8)Dispo:pending placement [facility] Subjective Date/time seen: 02/05/23 09:41 Interval history: No overnight events noted. No chest pain or shortness of breath. No nausea, vomiting or diarrhea. No fevers or chills. He appears to be in a significant amount of pain. Review of Systems Review of Systems: 12 point review of systems was assessed and was negative except as noted in the HPI Exam Narrative: General: Grimacing, appears to be in pain HEENT: Atraumatic, normocephalic, mucous membranes moist CV: Regular rate and rhythm, S1, S2 Lungs: Clear to auscultation bilaterally, no rales or crackles noted, no wheezes, good air entry Abdomen: Soft, nontender, nondistended Extremities: Normal to inspection, leg slightly externally rotated, very tender to palpation and movement Skin: No rashes noted, no lesions or wounds seen Psych: Unable to assess Objective Data Vital Signs Vital Signs: Vital Signs - 24 hr 02/04/23 14:05 02/04/23 22:00 02/04/23 20:35 Temperature 99.2 F 98.2 F Pulse Rate 74 66 66 Respiratory Rate 16 14 14 Blood Pressure 144/70 H 139/77 Pulse Oximetry 99 100 100 Oxygen Delivery Room Air 02/05/23 06:00 02/05/23 08:36 Temperature 98.4 F Pulse Rate 56 L Respiratory Rate 16 Blood Pressure 171/77 H Pulse Oximetry 98 94 Oxygen Delivery Room Air Intake/Output Intake/Output: Intake & Output 02/02/23 02/03/23 02/04/23 02/05/23 23:59 23:59 23:59 23:59 Intake Total 1720 1920 740 400 Output Total 1150 1300 1550 Balance 570 620 -810 400 Meds/Results Medications: Active Medications Generic Name Dose Route Start Last Admin Trade Name Freq PRN Reason Stop Dose Admin Acetaminophen 1,000 mg 01/31/23 03:05 02/03/23 10:35 Acetaminophen 500 Mg Tablet PO 1,000 mg Q6H PRN Administration Pain (Scale Score 1-3) Albuterol 2 puff 01/31/23 03:05 Albuterol Sulfate (*Sp) Aerosol 1 Puff INHALATION Q6HRT PRN Shortness Of Breath Aspirin 325 mg 01/31/23 08:00 02/05/23 08:23 Aspirin 325 Mg Tablet PO 325 mg DAILY@0800 [facility] Administration Bisacodyl 10 mg 01/31/23 11:44 Bisacodyl 10 Mg Suppository RECTAL QAM PRN Constipation Cyanocobalamin 1,000 mcg 02/02/23 09:00 02/05/23 08:23 Cyanocobalamin 1,000 Mcg Tablet PO 1,000 mcg QAM STEPHANI Administration Cyanocobalamin 1,000 mcg 03/04/23 09:00 Cyanocobalamin Inj 1,000 Mcg
[2023-02-05 15:11] VITALS: BP 129/67; PULSE 71; RESP 16; TEMP 36.2; O2SAT 99
[2023-02-05] MEDS: oxyCODONE/ACETAMINOPHEN (*CRX) 5-325 MG TABLET 1 TABLET PO ×2 (16:10→23:24)
[2023-02-05 20:15] VITALS: PULSE 63; RESP 16; O2SAT 97
[2023-02-05] MEDS: MONTELUKAST SODIUM 10 MG TABLET PO (21:13)
[2023-02-05 22:00] VITALS: BP 132/75; PULSE 63; RESP 16; TEMP 36.8; O2SAT 97
[2023-02-06 06:00] VITALS: BP 140/52; PULSE 108; RESP 18; TEMP 36.4; O2SAT 98
[2023-02-06] MEDS: oxyCODONE/ACETAMINOPHEN (*CRX) 5-325 MG TABLET 1 TABLET PO ×3 (06:19→21:07)
[2023-02-06 08:20] VITALS: O2SAT 96
[2023-02-06] MEDS: FLUTICASONE/UMECLIDIN/VILANTER 100-62.5-25 MCG ELLIPTA 1 PUFF INHALATION (08:20)
[2023-02-06] MEDS: LIDOCAINE 5% PATCH 1 PATCH TRANSDERM (09:06)
[2023-02-06] MEDS: HEPARIN SODIUM 5,000 UNITS/ML VIAL 5000 UNITS SUB-Q ×2 (09:07→21:07)
[2023-02-06] MEDS: polyethylene glycoL 3350 17 GM POWD.PACK PO (09:07)
[2023-02-06] MEDS: CYANOCOBALAMIN 1,000 MCG TABLET 1000 MCG PO (09:07)
[2023-02-06] MEDS: SENNOSIDES 8.6 MG TABLET PO (09:07)
[2023-02-06] MEDS: ASPIRIN 325 MG TABLET PO (09:07)
--- NOTE | 2023-02-06 11:15 | PM.IMPN ---
Progress Note: A&P Assessment and Plan (1) HIV (human immunodeficiency virus infection): Qualifiers: HIV symptom status: unspecified Qualified Code(s): B20 - Human immunodeficiency virus [HIV] disease Code(s): B20 - Human immunodeficiency virus [HIV] disease Status: Acute (2) Subcapital fracture of neck of left femur: Qualifiers: Encounter type: initial encounter Fracture type: closed Qualified Code(s): S72.012A - Unspecified intracapsular fracture of left femur, initial encounter for closed fracture Code(s): S72.012A - Unspecified intracapsular fracture of left femur, initial encounter for closed fracture Status: Acute (3) Paget's disease of bone: Code(s): M88.9 - Osteitis deformans of unspecified bone Status: Acute Plan 72-year-old gentleman with a history of HIV and strokes but no history of cardiac or respiratory issues was admitted 01/30/2023 after a fall at home with a left subcapital hip fracture. 1)Left Femur Neck Subcapital Fracture: Appreciate ortho help NO plans for surgical intervention Recommend progress therapy and weight-bearing as tolerated and continue with pain control for Paget's disease.? PT/OT Pain Control 2)HIV: C/w Biktarvy 3)Chronic Left hemiparesis: C/w ASA, Statin 4)Chronic Anemia: H/H stable Monitor Closely 5)UTI:Ruled out has chronic martin 6)Dispo:pending placement SNF Subjective Date/time seen: 02/06/23 11:15 Interval history: No new issues overnight. Resting Review of Systems Review of Systems: 12 point review of systems was assessed and was negative except as noted in the HPI Exam Narrative: General: No acute distress HEENT: Atraumatic, normocephalic, mucous membranes moist CV: Regular rate and rhythm, S1, S2 Lungs: Clear to auscultation bilaterally, no rales or crackles noted, no wheezes, good air entry Abdomen: Soft, nontender, nondistended Extremities: Normal to inspection, leg slightly externally rotated, very tender to palpation and movement Skin: No rashes noted, no lesions or wounds seen Psych: Unable to assess Objective Data Vital Signs Vital Signs: Vital Signs - 24 hr 02/05/23 15:11 02/05/23 22:00 02/05/23 20:15 Temperature 97.1 F L 98.2 F Pulse Rate 71 63 63 Respiratory Rate 16 16 16 Blood Pressure 129/67 132/75 Pulse Oximetry 99 97 97 Oxygen Delivery Room Air 02/06/23 06:00 02/06/23 08:20 Temperature 97.6 F Pulse Rate 108 H Respiratory Rate 18 Blood Pressure 140/52 L Pulse Oximetry 98 96 Oxygen Delivery Room Air Intake/Output Intake/Output: Intake & Output 02/03/23 02/04/23 02/05/23 02/06/23 23:59 23:59 23:59 23:59 Intake Total 1920 / 1920 740 / 740 1860 / 1860 300 / 300 Output Total 1300 / 1300 1550 / 1550 Balance 620 / 620 -810 / -810 1860 / 1860 300 / 300 Meds/Results Medications: Active Medications Generic Name Dose Route Start Last Admin Trade Name Freq PRN Reason Stop Dose Admin Acetaminophen 1,000 mg 01/31/23 03:05 02/03/23 10:35 Acetaminophen 500 Mg Tablet PO 1,000 mg Q6H PRN Administration Pain (Scale Score 1-3) Albuterol 2 puff 01/31/23 03:05 Albuterol Sulfate (*Sp) Aerosol 1 Puff INHALATION Q6HRT PRN Shortness Of Breath Aspirin 325 mg 01/31/23 08:00 02/06/23 09:07 Aspirin 325 Mg Tablet PO 325 mg DAILY@0800 STEPHANI Administration Bisacodyl 10 mg 01/31/23 11:44 Bisacodyl 10 Mg Suppository RECTAL QAM PRN Constipation Cyanocobalamin 1,000 mcg 02/02/23 09:00 02/06/23 09:07 Cyanocobalamin 1,000 Mcg Tablet PO 1,000 mcg QAM STEPHANI Administration Cyanocobalamin 1,000 mcg 03/04/23 09:00 Cyanocobalamin Inj 1,000 Mcg/Ml Vial IM MONTHLY STEPHANI Fluticasone/Umeclidinium/Vilanterol 1 puff 01/31/23 09:00 02/06/23 08:20 Fluticasone/Umeclidin/Vilanter 100-62.5-25 Mcg Ellipta INHALATION 1 puff DAILY STEPHANI Administration Heparin Sodium ([place]
--- NOTE | 2023-02-06 12:57 | PCNWS ---
Weekly nutritional screen. Patient is tolerating current Heart healthy diet with adequate intake.. 0-100%, 76% average. Did not eat breakfast this morning but is eating lunch. No weight loss reported. No nutritional needs at this time.
[2023-02-06 14:00] VITALS: BP 138/80; PULSE 68; RESP 16; TEMP 36.8; O2SAT 96
--- NOTE | 2023-02-06 17:04 | PCPTNOTE ---
The patient treatment was not able to be completed today. PT attempted to see patient 2 x this afternoon however patient refused due to c/o pain in L hip. RN aware of patient's pain and medication was given between PT attempts to see patient. Following pain meds patient continued to refuse. Will plan to continue treatment per plan of care.
[2023-02-06 20:00] VITALS: PULSE 68; RESP 16; O2SAT 96
[2023-02-06] MEDS: MONTELUKAST SODIUM 10 MG TABLET PO (21:07)
[2023-02-06 22:00] VITALS: BP 172/66; PULSE 52; RESP 14; TEMP 36.1; O2SAT 100
[2023-02-06 23:57] VITALS: BP 170/88; PULSE 63; RESP 16; TEMP 35.8; O2SAT 96
--- NOTE | 2023-02-07 00:18 | PC.NURSE ---
pt pulled out IV and bp is elevated in 170's sbp called MD Jones awaiting call back
--- NOTE | 2023-02-07 00:23 | PC.NURSE ---
spoke with MD Jones continue to monitor at this time, pt has have several elevated bp at noc, does not take any bp meds at home, resting comfortable in bed. No c/o pain or distress.
[2023-02-07 00:25] VITALS: BP 170/88; PULSE 63; RESP 16; TEMP 35.8; O2SAT 96
[2023-02-07] MEDS: oxyCODONE/ACETAMINOPHEN (*CRX) 5-325 MG TABLET 1 TABLET PO ×2 (05:04→21:34)
[2023-02-07 06:00] VITALS: BP 123/79; PULSE 68; RESP 18; TEMP 36.6; O2SAT 95
[2023-02-07] MEDS: HYDROmorphone HCL INJ (*CRX) 1 MG/ML SYR 0.5 MG IV PUSH ×2 (06:48→08:29)
[2023-02-07] MEDS: polyethylene glycoL 3350 17 GM POWD.PACK PO (08:28)
[2023-02-07] MEDS: ASPIRIN 325 MG TABLET PO (08:28)
[2023-02-07] MEDS: SENNOSIDES 8.6 MG TABLET PO (08:28)
[2023-02-07] MEDS: CYANOCOBALAMIN 1,000 MCG TABLET 1000 MCG PO (08:28)
[2023-02-07 08:41] LABS: Basophils Absolute Auto 0.1 K/mm3 (0.0-0.1); Basophils Percent Auto 1.4 % (0.2-1.2); Eosinophils Absolute Auto 0.3 K/mm3 (0-0.3); Eosinophils Percent Auto 4.4 % (0-4.4); Hemoglobin 13.2 g/dL (14.0-18.0); Immature Granulocyte Absolute 0.13 K/mm3 (0.00-0.031); Immature Granulocyte Percent A 1.7 % (0-0.5); Lymphocytes Absolute Auto 2.03 K/mm3 (0.9-3.2); Lymphocytes Percent Auto 26.1 % (18.3-44.2); Mean Corpuscular HGB Conc 32.2 g/dl (32-36); Mean Corpuscular Hemoglobin 28.4 pg (26-34); Mean Corpuscular Volume 88.4 fl (80-100); Mean Platelet Volume 9.2 fl (7.4-10.4); Monocytes Absolute Auto 0.5 K/mm3 (0.1-0.6); Monocytes Percent Auto 6.8 % (2.6-8.5); Neutrophils Absolute Auto 4.7 K/mm3 (1.3-6.7); Neutrophils Percent Auto 59.6 % (45.5-73.1); Platelet Count Result 370 k/mm3 (150-375); Red Blood Count 4.64 M/mm3 (4.6-6.20); Red Cell Distribution Width 13.4 % (11.5-14.5); White Blood Count 7.8 K/mm3 (4.5-10.0)
[2023-02-07 08:51] LABS: Anion Gap 9 mmol/L (8-16); Blood Urea Nitrogen 14 mg/dL (9-20); Calcium 9.8 mg/dL (8.4-10.2); Carbon Dioxide 31 mmol/L (22-30); Chloride 94 mmol/L (98-107); Estimated CRCL calculation 65 ml/min; Estimated Glomerular Filt Rate > 60; Glucose 118 mg/dL (65-110); Potassium 4.3 mmol/L (3.4-5.0); Sodium 134 mmol/L (137-145)
[2023-02-07] MEDS: HEPARIN SODIUM 5,000 UNITS/ML VIAL 5000 UNITS SUB-Q ×2 (08:53→20:19)
[2023-02-07] MEDS: FLUTICASONE/UMECLIDIN/VILANTER 100-62.5-25 MCG ELLIPTA 1 PUFF INHALATION (09:20)
[2023-02-07 09:21] VITALS: O2SAT 96
--- NOTE | 2023-02-07 10:26 | PC.NURSE ---
Pt was repeatedly screaming for what seemed no apparant reason. Upon questioning pt, he stated he was screaming because our machines are squeezing me to . Pt had 1 SCD on so I turned the machine off. Pt continued to scream. I asked him again why he was screaming as nothing was squeezing him. Pt then informed me that we were squeezing his ribs with our machines. I assured him nothing was on him and nothing was squeezing him. At this time the [employer]AT [employer] MACH[employer] OPERATOR entered the room and pt began yelling at her to take our machines off him. The aide informed pt that nothing was on him but pt continued to yell that we were squeezing him on his legs and abdomen. The aide showed the pt that both of his legs had nothing on him nor did his abdomen. Pt stopped yelling for a few minutes but then began yelling again. When asked why he was yelling again, pt stated, because I want to! A one time dose of 0.5mL Dilauded per Dr. Martinez's orders was given.
--- NOTE | 2023-02-07 11:08 | PCPTNOTE ---
Therapist spoke with RN regarding patient. RN requested for patient not to be seen today. Therapy will check back tomorrow.
--- NOTE | 2023-02-07 11:22 | PM.IMPN ---
Progress Note: A&P Assessment and Plan (1) HIV (human immunodeficiency virus infection): Qualifiers: HIV symptom status: unspecified Qualified Code(s): B20 - Human immunodeficiency virus [HIV] disease Code(s): B20 - Human immunodeficiency virus [HIV] disease Status: Acute (2) Subcapital fracture of neck of left femur: Qualifiers: Encounter type: initial encounter Fracture type: closed Qualified Code(s): S72.012A - Unspecified intracapsular fracture of left femur, initial encounter for closed fracture Code(s): S72.012A - Unspecified intracapsular fracture of left femur, initial encounter for closed fracture Status: Acute (3) Paget's disease of bone: Code(s): M88.9 - Osteitis deformans of unspecified bone Status: Acute Plan 72-year-old gentleman with a history of HIV and strokes but no history of cardiac or respiratory issues was admitted 01/30/2023 after a fall at home with a left subcapital hip fracture. 1)Left Femur Neck Subcapital Fracture: Appreciate ortho help NO plans for surgical intervention Recommend progress therapy and weight-bearing as tolerated and continue with pain control for Paget's disease.? PT/OT Pain Control 2)HIV: C/w Biktarvy 3)Chronic Left hemiparesis: C/w ASA, Statin 4)Chronic Anemia: H/H stable Monitor Closely 5)UTI:Ruled out has chronic martin 6)Dispo:pending placement SNF Subjective Date/time seen: 02/07/23 11:22 Interval history: Patient complaining of severe generalized pain this morning. At the time of my examination patient resting comfortably in bed Review of Systems Review of Systems: 12 point review of systems was assessed and was negative except as noted in the HPI Exam Narrative: General: No acute distress HEENT: Atraumatic, normocephalic, mucous membranes moist CV: Regular rate and rhythm, S1, S2 Lungs: Clear to auscultation bilaterally, no rales or crackles noted, no wheezes, good air entry Abdomen: Soft, nontender, nondistended Extremities: Normal to inspection, leg slightly externally rotated, very tender to palpation and movement Skin: No rashes noted, no lesions or wounds seen Psych: Unable to assess Objective Data Vital Signs Vital Signs: Vital Signs - 24 hr 02/06/23 14:00 02/06/23 20:00 02/06/23 22:00 Temperature 98.3 F 96.9 F L Pulse Rate 68 68 52 L Respiratory Rate 16 16 14 Blood Pressure 138/80 172/66 H Pulse Oximetry 96 96 100 Oxygen Delivery Room Air 02/06/23 23:57 02/07/23 00:25 02/07/23 06:00 Temperature 96.4 F L 96.4 F L 97.9 F Pulse Rate 63 63 68 Respiratory Rate 16 16 18 Blood Pressure 170/88 H 170/88 H 123/79 Pulse Oximetry 96 96 95 Oxygen Delivery Room Air 02/07/23 09:21 02/07/23 08:25 Temperature Pulse Rate Respiratory Rate Blood Pressure Pulse Oximetry 96 Oxygen Delivery Room Air Room Air Intake/Output Intake/Output: Intake & Output 02/04/23 02/05/23 02/06/23 02/07/23 23:59 23:59 23:59 23:59 Intake Total 740 / 740 1860 / 1860 780 / 780 680 / 680 Output Total 1550 / 1550 Balance -810 / -810 1860 / 1860 780 / 780 680 / 680 Meds/Results Medications: Active Medications Generic Name Dose Route Start Last Admin Trade Name Freq PRN Reason Stop Dose Admin Acetaminophen 1,000 mg 01/31/23 03:05 02/03/23 10:35 Acetaminophen 500 Mg Tablet PO 1,000 mg Q6H PRN Administration Pain (Scale Score 1-3) Albuterol 2 puff 01/31/23 03:05 Albuterol Sulfate (*Sp) Aerosol 1 Puff INHALATION Q6HRT PRN Shortness Of Breath Aspirin 325 mg 01/31/23 08:00 02/07/23 08:28 Aspirin 325 Mg Tablet PO 325 mg DAILY@0800 [facility] Administration Bisacodyl 10 mg 01/31/23 11:44 Bisacodyl 10 Mg Suppository RECTAL QAM PRN Constipation Cyanocobalamin 1,000 mcg 02/02/23 09:00 02/07/23 08:28 Cyanocobalamin 1,000 Mcg Tablet PO 1,000 mcg QAM STEPHANI Administration Cyanocobalam
--- NOTE | 2023-02-07 13:08 | PCOTNOTE ---
Per RN and DRESSING ROOM ATTENDANT, pt is not appropriate to be seen for Occupational Therapy treatment. Will continue per POC duration/frequency when appropriate.
[2023-02-07 14:00] VITALS: BP 74/40; PULSE 73; RESP 20; TEMP 36.6; O2SAT 94
[2023-02-07] MEDS: SODIUM CHLORIDE 0.9% IV 500 ML IV CONT (14:07)
[2023-02-07 15:23] VITALS: BP 103/54
[2023-02-07] MEDS: ACETAMINOPHEN 500 MG TABLET 1000 MG PO (20:17)
[2023-02-07] MEDS: MONTELUKAST SODIUM 10 MG TABLET PO (20:18)
[2023-02-07 22:00] VITALS: BP 128/63; PULSE 83; RESP 16; TEMP 37.2; O2SAT 98
[2023-02-08] MEDS: oxyCODONE/ACETAMINOPHEN (*CRX) 5-325 MG TABLET 1 TABLET PO ×3 (05:56→21:25)
[2023-02-08 06:00] VITALS: BP 171/73; PULSE 66; RESP 16; TEMP 36.7; O2SAT 97
[2023-02-08] MEDS: HEPARIN SODIUM 5,000 UNITS/ML VIAL 5000 UNITS SUB-Q ×2 (08:18→20:46)
[2023-02-08] MEDS: ASPIRIN 325 MG TABLET PO (08:18)
[2023-02-08] MEDS: polyethylene glycoL 3350 17 GM POWD.PACK PO (08:18)
[2023-02-08] MEDS: CYANOCOBALAMIN 1,000 MCG TABLET 1000 MCG PO (08:18)
[2023-02-08] MEDS: SENNOSIDES 8.6 MG TABLET PO (08:18)
[2023-02-08 09:05] VITALS: BP 154/65
[2023-02-08 09:10] VITALS: O2SAT 97
[2023-02-08] MEDS: FLUTICASONE/UMECLIDIN/VILANTER 100-62.5-25 MCG ELLIPTA 1 PUFF INHALATION (09:10)
[2023-02-08] MEDS: amLODIPine BESYLATE 5 MG TABLET 10 MG PO (09:29)
--- NOTE | 2023-02-08 11:51 | PM.IMPN ---
Progress Note: A&P Assessment and Plan (1) HIV (human immunodeficiency virus infection): Qualifiers: HIV symptom status: unspecified Qualified Code(s): B20 - Human immunodeficiency virus [HIV] disease Code(s): B20 - Human immunodeficiency virus [HIV] disease Status: Acute (2) Subcapital fracture of neck of left femur: Qualifiers: Encounter type: initial encounter Fracture type: closed Qualified Code(s): S72.012A - Unspecified intracapsular fracture of left femur, initial encounter for closed fracture Code(s): S72.012A - Unspecified intracapsular fracture of left femur, initial encounter for closed fracture Status: Acute (3) Paget's disease of bone: Code(s): M88.9 - Osteitis deformans of unspecified bone Status: Acute Plan 72-year-old gentleman with a history of HIV and strokes but no history of cardiac or respiratory issues was admitted 01/30/2023 after a fall at home with a left subcapital hip fracture. 1)Left Femur Neck Subcapital Fracture: Appreciate ortho help NO plans for surgical intervention Recommend progress therapy and weight-bearing as tolerated and continue with pain control for Paget's disease.? PT/OT Pain Control 2)HIV: C/w Biktarvy 3)Chronic Left hemiparesis: C/w ASA, Statin 4)Chronic Anemia: H/H stable Monitor Closely 5) hypertension-blood pressure elevated. Will add Norvasc 6)Dispo:pending placement SNF Subjective Date/time seen: 02/08/23 11:51 Interval history: No new issues overnight Review of Systems Review of Systems: 12 point review of systems was assessed and was negative except as noted in the HPI Exam Narrative: General: No acute distress HEENT: Atraumatic, normocephalic, mucous membranes moist CV: Regular rate and rhythm, S1, S2 Lungs: Clear to auscultation bilaterally, no rales or crackles noted, no wheezes, good air entry Abdomen: Soft, nontender, nondistended Extremities: Normal to inspection, leg slightly externally rotated, very tender to palpation and movement Skin: No rashes noted, no lesions or wounds seen Psych: Unable to assess Objective Data Vital Signs Vital Signs: Vital Signs - 24 hr 02/07/23 14:00 02/07/23 15:23 02/07/23 22:00 Temperature 97.8 F 99 F Pulse Rate 73 83 Respiratory Rate 20 16 Blood Pressure 74/40 L 103/54 L 128/63 Pulse Oximetry 94 98 Oxygen Delivery 02/08/23 06:00 02/08/23 08:15 02/08/23 09:05 Temperature 98.1 F Pulse Rate 66 Respiratory Rate 16 Blood Pressure 171/73 H 154/65 H Pulse Oximetry 97 Oxygen Delivery Room Air 02/08/23 09:10 Temperature Pulse Rate Respiratory Rate Blood Pressure Pulse Oximetry 97 Oxygen Delivery Room Air Intake/Output Intake/Output: Intake & Output 02/05/23 02/06/23 02/07/23 02/08/23 23:59 23:59 23:59 23:59 Intake Total 1860 / 1860 780 / 780 1252 / 1252 350 / 350 Balance 1860 / 1860 780 / 780 1252 / 1252 350 / 350 Meds/Results Medications: Active Medications Generic Name Dose Route Start Last Admin Trade Name Freq PRN Reason Stop Dose Admin Acetaminophen 1,000 mg 01/31/23 03:05 02/07/23 20:17 Acetaminophen 500 Mg Tablet PO 1,000 mg Q6H PRN Administration Pain (Scale Score 1-3) Albuterol 2 puff 01/31/23 03:05 Albuterol Sulfate (*Sp) Aerosol 1 Puff INHALATION Q6HRT PRN Shortness Of Breath Amlodipine Besylate 10 mg 02/08/23 09:00 02/08/23 09:29 Amlodipine Besylate 5 Mg Tablet PO 10 mg QAM STEPHANI Administration Aspirin 81 mg 02/09/23 09:00 Aspirin 81 Mg Enteric Tablet PO QAM STEPH[facility] Bisacodyl 10 mg 01/31/23 11:44 Bisacodyl 10 Mg Suppository RECTAL QAM PRN Constipation Cyanocobalamin 1,000 mcg 02/02/23 09:00 02/08/23 08:18 Cyanocobalamin 1,000 Mcg Tablet PO 1,000 mcg QAM STEPHANI Administration Cyanocobalamin 1,000 mcg 03/04/23 09:00 Cyanocobalamin Inj 1,000 Mcg/Ml Vial IM MONTHLY
[2023-02-08 14:00] VITALS: BP 102/63; PULSE 74; RESP 18; TEMP 36.7; O2SAT 96
[2023-02-08 20:00] VITALS: O2SAT 96
[2023-02-08] MEDS: LORazepam INJ (*CRX) 2 MG/ML VIAL 0.5 MG IV PUSH (20:41)
[2023-02-08] MEDS: MONTELUKAST SODIUM 10 MG TABLET PO (20:46)
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
[2023-02-08 21:40] VITALS: BP 131/82; PULSE 74; RESP 18; TEMP 36.3; O2SAT 98
[2023-02-09] MEDS: oxyCODONE/ACETAMINOPHEN (*CRX) 5-325 MG TABLET 1 TABLET PO ×3 (05:07→21:12)
[2023-02-09 05:54] VITALS: BP 153/77; PULSE 54; RESP 18; TEMP 36.1; O2SAT 99
[2023-02-09] MEDS: ENOXAPARIN 40 MG/0.4 ML SYRINGE SUB-Q (09:08)
[2023-02-09] MEDS: polyethylene glycoL 3350 17 GM POWD.PACK PO (09:08)
[2023-02-09] MEDS: CYANOCOBALAMIN 1,000 MCG TABLET 1000 MCG PO (09:10)
[2023-02-09] MEDS: SENNOSIDES 8.6 MG TABLET PO (09:10)
[2023-02-09] MEDS: ASPIRIN 81 MG ENTERIC TABLET PO (09:10)
[2023-02-09] MEDS: ACETAMINOPHEN 500 MG TABLET 1000 MG PO (09:10)
[2023-02-09] MEDS: amLODIPine BESYLATE 5 MG TABLET 10 MG PO (09:10)
[2023-02-09] MEDS: FLUTICASONE/UMECLIDIN/VILANTER 100-62.5-25 MCG ELLIPTA 1 PUFF INHALATION (09:25)
[2023-02-09 09:27] VITALS: O2SAT 95
--- NOTE | 2023-02-09 10:44 | PM.IMPN ---
Progress Note: A&P Assessment and Plan (1) HIV (human immunodeficiency virus infection): Qualifiers: HIV symptom status: unspecified Qualified Code(s): B20 - Human immunodeficiency virus [HIV] disease Code(s): B20 - Human immunodeficiency virus [HIV] disease Status: Acute (2) Subcapital fracture of neck of left femur: Qualifiers: Encounter type: initial encounter Fracture type: closed Qualified Code(s): S72.012A - Unspecified intracapsular fracture of left femur, initial encounter for closed fracture Code(s): S72.012A - Unspecified intracapsular fracture of left femur, initial encounter for closed fracture Status: Acute (3) Paget's disease of bone: Code(s): M88.9 - Osteitis deformans of unspecified bone Status: Acute Plan 72-year-old gentleman with a history of HIV and strokes but no history of cardiac or respiratory issues was admitted 01/30/2023 after a fall at home with a left subcapital hip fracture. 1)Left Femur Neck Subcapital Fracture: Appreciate ortho help NO plans for surgical intervention Recommend progress therapy and weight-bearing as tolerated and continue with pain control for Paget's disease.? PT/OT Pain Control 2)HIV: C/w Biktarvy 3)Chronic Left hemiparesis: C/w ASA, Statin 4)Chronic Anemia: H/H stable Monitor Closely 5) hypertension-blood pressure elevated but better than before. Continue Norvasc. 6)Dispo:pending placement SNF Subjective Date/time seen: 02/09/23 10:44 Interval history: Patient reports generalized pain Review of Systems Review of Systems: 12 point review of systems was assessed and was negative except as noted in the HPI Exam Narrative: General: No acute distress HEENT: Atraumatic, normocephalic, mucous membranes moist CV: Regular rate and rhythm, S1, S2 Lungs: Clear to auscultation bilaterally, no rales or crackles noted, no wheezes, good air entry Abdomen: Soft, nontender, nondistended Extremities: Normal to inspection, leg slightly externally rotated, very tender to palpation and movement Skin: No rashes noted, no lesions or wounds seen Psych: Unable to assess Objective Data Vital Signs Vital Signs: Vital Signs - 24 hr 02/08/23 14:00 02/08/23 20:00 02/08/23 21:40 Temperature 98.0 F 97.3 F L Pulse Rate 74 74 Respiratory Rate 18 18 Blood Pressure 102/63 131/82 Pulse Oximetry 96 96 98 Oxygen Delivery Room Air 02/09/23 05:54 02/09/23 09:27 02/09/23 09:00 Temperature 97.0 F L Pulse Rate 54 L Respiratory Rate 18 Blood Pressure 153/77 H Pulse Oximetry 99 95 Oxygen Delivery Room Air Room Air Intake/Output Intake/Output: Intake & Output 02/06/23 02/07/23 02/08/23 02/09/23 23:59 23:59 23:59 23:59 Intake Total 780 / 780 1252 / 1252 950 / 950 130 / 130 Output Total 600 / 600 Balance 780 / 780 1252 / 1252 950 / 950 -470 / -470 Meds/Results Medications: Active Medications Generic Name Dose Route Start Last Admin Trade Name Freq PRN Reason Stop Dose Admin Acetaminophen 1,000 mg 01/31/23 03:05 02/09/23 09:10 Acetaminophen 500 Mg Tablet PO 1,000 mg Q6H PRN Administration Pain (Scale Score 1-3) Albuterol 2 puff 01/31/23 03:05 Albuterol Sulfate (*Sp) Aerosol 1 Puff INHALATION Q6HRT PRN Shortness Of Breath Amlodipine Besylate 10 mg 02/08/23 09:00 02/09/23 09:10 Amlodipine Besylate 5 Mg Tablet PO 10 mg QAM [facility] Administration Aspirin 81 mg 02/09/23 09:00 02/09/23 09:10 Aspirin 81 Mg Enteric Tablet PO 81 mg QAM [facility]PH[facility] Administration Bisacodyl 10 mg 01/31/23 11:44 Bisacodyl 10 Mg Suppository RECTAL QAM PRN Constipation Cyanocobalamin 1,000 mcg 02/02/23 09:00 02/09/23 09:10 Cyanocobalamin 1,000 Mcg Tablet PO 1,000 mcg QAM [facility] Administration Cyanocobalamin 1,000 mcg 03/04/23 09:00 Cyanocobalamin Inj 1,000 Mcg/Ml Vial IM MONTHLY [facility] Enoxaparin So
[2023-02-09 14:00] VITALS: BP 122/62; PULSE 76; RESP 16; TEMP 36.1; O2SAT 94
[2023-02-09] MEDS: MONTELUKAST SODIUM 10 MG TABLET PO (21:12)
[2023-02-09 21:42] VITALS: BP 132/57; PULSE 58; RESP 18; TEMP 36.3; O2SAT 100
[2023-02-10 06:00] VITALS: BP 126/60; PULSE 61; RESP 16; TEMP 36.6; O2SAT 100
[2023-02-10] MEDS: oxyCODONE/ACETAMINOPHEN (*CRX) 5-325 MG TABLET 1 TABLET PO ×3 (06:01→21:36)
[2023-02-10 07:26] LABS: Basophils Absolute Auto 0.1 K/mm3 (0.0-0.1); Basophils Percent Auto 0.9 % (0.2-1.2); Eosinophils Absolute Auto 0.3 K/mm3 (0-0.3); Eosinophils Percent Auto 4.1 % (0-4.4); Hematocrit 40.3 % (42.0-52.0); Hemoglobin 12.9 g/dL (14.0-18.0); Immature Granulocyte Absolute 0.14 K/mm3 (0.00-0.031); Immature Granulocyte Percent A 1.8 % (0-0.5); Lymphocytes Absolute Auto 2.25 K/mm3 (0.9-3.2); Lymphocytes Percent Auto 28.7 % (18.3-44.2); Mean Corpuscular Hemoglobin 28.4 pg (26-34); Mean Corpuscular Volume 88.8 fl (80-100); Mean Platelet Volume 9.5 fl (7.4-10.4); Monocytes Absolute Auto 0.6 K/mm3 (0.1-0.6); Neutrophils Absolute Auto 4.5 K/mm3 (1.3-6.7); Neutrophils Percent Auto 57.5 % (45.5-73.1); Platelet Count Result 387 k/mm3 (150-375); Red Blood Count 4.54 M/mm3 (4.6-6.20); Red Cell Distribution Width 13.3 % (11.5-14.5); White Blood Count 7.8 K/mm3 (4.5-10.0)
[2023-02-10 08:06] VITALS: PULSE 58; RESP 18; O2SAT 92
[2023-02-10] MEDS: FLUTICASONE/UMECLIDIN/VILANTER 100-62.5-25 MCG ELLIPTA 1 PUFF INHALATION (08:06)
[2023-02-10] MEDS: amLODIPine BESYLATE 5 MG TABLET 10 MG PO (08:44)
[2023-02-10 08:45] VITALS: PULSE 78; O2SAT 92
[2023-02-10] MEDS: ENOXAPARIN 40 MG/0.4 ML SYRINGE SUB-Q (08:45)
[2023-02-10] MEDS: ASPIRIN 81 MG ENTERIC TABLET PO (08:45)
[2023-02-10] MEDS: polyethylene glycoL 3350 17 GM POWD.PACK PO (08:46)
[2023-02-10] MEDS: LIDOCAINE 5% PATCH 1 PATCH TRANSDERM (08:46)
[2023-02-10] MEDS: SENNOSIDES 8.6 MG TABLET PO (08:46)
[2023-02-10] MEDS: CYANOCOBALAMIN 1,000 MCG TABLET 1000 MCG PO (08:47)
--- NOTE | 2023-02-10 10:18 | PCOTNOTE ---
Patient refused to participate in any activities at this time. Patient stated, I'm done with all of this and leave me alone .
--- NOTE | 2023-02-10 10:53 | PM.IMPN ---
Progress Note: A&P Assessment and Plan (1) HIV (human immunodeficiency virus infection): Qualifiers: HIV symptom status: unspecified Qualified Code(s): B20 - Human immunodeficiency virus [HIV] disease Code(s): B20 - Human immunodeficiency virus [HIV] disease Status: Acute Assessment and Plan: Continue Biktarvy (2) Subcapital fracture of neck of left femur: Qualifiers: Encounter type: initial encounter Fracture type: closed Qualified Code(s): S72.012A - Unspecified intracapsular fracture of left femur, initial encounter for closed fracture Code(s): S72.012A - Unspecified intracapsular fracture of left femur, initial encounter for closed fracture Status: Acute Assessment and Plan: Left Femur Neck Subcapital Fracture: Appreciate ortho help NO plans for surgical intervention Recommend progress therapy and weight-bearing as tolerated and continue with pain control for Paget's disease.? PT/OT Pain Control (3) Left hemiparesis: Code(s): G81.94 - Hemiplegia, unspecified affecting left nondominant side Status: Acute Assessment and Plan: Chronic Left hemiparesis: C/w ASA, Statin (4) HTN (hypertension): Qualifiers: Hypertension type: unspecified Qualified Code(s): I10 - Essential (primary) hypertension Code(s): I10 - Essential (primary) hypertension Status: Acute Assessment and Plan: hypertension-blood pressure elevated but better than before. Continue Norvasc. Plan pending placement SNF Subjective Date/time seen: 02/10/23 10:53 Interval history: No new issues overnight Review of Systems Review of Systems: 12 point review of systems was assessed and was negative except as noted in the HPI Exam Narrative: General: No acute distress HEENT: Atraumatic, normocephalic, mucous membranes moist CV: Regular rate and rhythm, S1, S2 Lungs: Clear to auscultation bilaterally, no rales or crackles noted, no wheezes, good air entry Abdomen: Soft, nontender, nondistended Extremities: Normal to inspection, leg slightly externally rotated, very tender to palpation and movement Skin: No rashes noted, no lesions or wounds seen Psych: Unable to assess Objective Data Vital Signs Vital Signs: Vital Signs - 24 hr 02/09/23 14:00 02/09/23 21:42 02/09/23 20:15 Temperature 96.9 F L 97.3 F L Pulse Rate 76 58 L Respiratory Rate 16 18 Blood Pressure 122/62 132/57 L Pulse Oximetry 94 100 Oxygen Delivery Room Air Fraction of Inspired Oxygen 02/10/23 06:00 02/10/23 08:06 02/10/23 08:06 Temperature 97.9 F Pulse Rate 61 58 L Respiratory Rate 16 18 Blood Pressure 126/60 Pulse Oximetry 100 92 Oxygen Delivery Room Air Fraction of Inspired Oxygen 21 Intake/Output Intake/Output: Intake & Output 02/07/23 02/08/23 02/09/23 02/10/23 23:59 23:59 23:59 23:59 Intake Total 1252 / 1252 950 / 950 610 / 610 120 / 120 Output Total 900 / 900 300 / 300 Balance 1252 / 1252 950 / 950 -290 / -290 -180 / -180 Meds/Results Medications: Active Medications Generic Name Dose Route Start Last Admin Trade Name Freq PRN Reason Stop Dose Admin Acetaminophen 1,000 mg 01/31/23 03:05 02/09/23 09:10 Acetaminophen 500 Mg Tablet PO 1,000 mg Q6H PRN Administration Pain (Scale Score 1-3) Albuterol 2 puff 01/31/23 03:05 Albuterol Sulfate (*Sp) Aerosol 1 Puff INHALATION Q6HRT PRN Shortness Of Breath Amlodipine Besylate 10 mg 02/08/23 09:00 02/10/23 08:44 Amlodipine Besylate 5 Mg Tablet PO 10 mg QAM [facility] Administration Aspirin 81 mg 02/09/23 09:00 02/10/23 08:45 Aspirin 81 Mg Enteric Tablet PO 81 mg QAM [facility] Administration Bisacodyl 10 mg 01/31/23 11:44 Bisacodyl 10 Mg Suppository RECTAL QAM PRN Constipation Cyanocobalamin 1,000 mcg 02/02/23 09:00 02/10/23 08:47 Cyanocobalamin 1,000 Mcg Tablet PO
[2023-02-10 14:00] VITALS: BP 107/68; PULSE 89; RESP 16; TEMP 36.8; O2SAT 100
--- NOTE | 2023-02-10 14:00 | PCOTNOTE ---
Attempted again this afternoon. Patient declined stating, No need, I'm done, just get me out of here . Patient educated on the importance of activity and strengthening.
[2023-02-10] MEDS: MONTELUKAST SODIUM 10 MG TABLET PO (21:36)
[2023-02-10 22:00] VITALS: BP 143/68; PULSE 68; RESP 18; TEMP 36.6; O2SAT 96
[2023-02-11 06:00] VITALS: BP 151/71; PULSE 57; RESP 18; TEMP 36.9; O2SAT 100
[2023-02-11 08:04] VITALS: PULSE 60; RESP 18; O2SAT 96
[2023-02-11] MEDS: FLUTICASONE/UMECLIDIN/VILANTER 100-62.5-25 MCG ELLIPTA 1 PUFF INHALATION (08:04)
[2023-02-11] MEDS: CYANOCOBALAMIN 1,000 MCG TABLET 1000 MCG PO (09:00)
[2023-02-11] MEDS: amLODIPine BESYLATE 5 MG TABLET 10 MG PO (09:00)
[2023-02-11] MEDS: polyethylene glycoL 3350 17 GM POWD.PACK PO (09:01)
[2023-02-11] MEDS: ENOXAPARIN 40 MG/0.4 ML SYRINGE SUB-Q (09:01)
[2023-02-11] MEDS: ASPIRIN 81 MG ENTERIC TABLET PO (09:01)
[2023-02-11] MEDS: SENNOSIDES 8.6 MG TABLET PO (09:01)
[2023-02-11] MEDS: LIDOCAINE 5% PATCH 1 PATCH TRANSDERM (09:02)
--- NOTE | 2023-02-11 11:12 | PM.IMPN ---
Progress Note: A&P Assessment and Plan (1) HIV (human immunodeficiency virus infection): Qualifiers: HIV symptom status: unspecified Qualified Code(s): B20 - Human immunodeficiency virus [HIV] disease Code(s): B20 - Human immunodeficiency virus [HIV] disease Status: Acute Assessment and Plan: Continue Biktarvy (2) Subcapital fracture of neck of left femur: Qualifiers: Encounter type: initial encounter Fracture type: closed Qualified Code(s): S72.012A - Unspecified intracapsular fracture of left femur, initial encounter for closed fracture Code(s): S72.012A - Unspecified intracapsular fracture of left femur, initial encounter for closed fracture Status: Acute Assessment and Plan: Left Femur Neck Subcapital Fracture: Appreciate ortho help NO plans for surgical intervention Recommend progress therapy and weight-bearing as tolerated and continue with pain control for Paget's disease.? PT/OT Pain Control (3) Left hemiparesis: Code(s): G81.94 - Hemiplegia, unspecified affecting left nondominant side Status: Acute Assessment and Plan: Chronic Left hemiparesis: C/w ASA, Statin (4) HTN (hypertension): Qualifiers: Hypertension type: unspecified Qualified Code(s): I10 - Essential (primary) hypertension Code(s): I10 - Essential (primary) hypertension Status: Acute Assessment and Plan: hypertension-blood pressure elevated but better than before. Continue Norvasc. Plan pending placement SNF Subjective Date/time seen: 02/11/23 11:12 Interval history: Nonspecific complaints, generalized pain Review of Systems Review of Systems: ROS unobtainable: Yes unobtainable due to mental status Exam Narrative: General: No acute distress HEENT: Atraumatic, normocephalic, mucous membranes moist CV: Regular rate and rhythm, S1, S2 Lungs: Clear to auscultation bilaterally, no rales or crackles noted, no wheezes, good air entry Abdomen: Soft, nontender, nondistended Extremities: Normal to inspection, leg slightly externally rotated, very tender to palpation and movement Skin: No rashes noted, no lesions or wounds seen Psych: Unable to assess Objective Data Vital Signs Vital Signs: Vital Signs - 24 hr 02/10/23 14:00 02/10/23 22:00 02/10/23 20:10 Temperature 98.2 F 97.8 F Pulse Rate 89 68 Respiratory Rate 16 18 Blood Pressure 107/68 143/68 H Pulse Oximetry 100 96 Oxygen Delivery Room Air Fraction of Inspired Oxygen 02/11/23 06:00 02/11/23 08:04 02/11/23 08:04 Temperature 98.5 F Pulse Rate 57 L 60 Respiratory Rate 18 18 Blood Pressure 151/71 H Pulse Oximetry 100 96 Oxygen Delivery Room Air Fraction of Inspired Oxygen 21 02/11/23 09:05 Temperature Pulse Rate Respiratory Rate Blood Pressure Pulse Oximetry Oxygen Delivery Room Air Fraction of Inspired Oxygen Intake/Output Intake/Output: Intake & Output 02/08/23 02/09/23 02/10/23 02/11/23 23:59 23:59 23:59 23:59 Intake Total 950 / 950 610 / 610 850 / 850 360 / 360 Output Total 900 / 900 600 / 600 900 / 900 Balance 950 / 950 -290 / -290 250 / 250 -540 / -540 Meds/Results Medications: Active Medications Generic Name Dose Route Start Last Admin Trade Name Stalinq PRN Reason Stop Dose Admin Acetaminophen 1,000 mg 01/31/23 03:05 02/09/23 09:10 Acetaminophen 500 Mg Tablet PO 1,000 mg Q6H PRN Administration Pain (Scale Score 1-3) Albuterol 2 puff 01/31/23 03:05 Albuterol Sulfate (*Sp) Aerosol 1 Puff INHALATION Q6HRT PRN Shortness Of Breath Amlodipine Besylate 10 mg 02/08/23 09:00 02/11/23 09:00 Amlodipine Besylate 5 Mg Tablet PO 10 mg QAM [facility] Administration Aspirin 81 mg 02/09/23 09:00 02/11/23 09:01 Aspirin 81 Mg Enteric Tablet PO 81 mg QAM [facility] Administration Bisacodyl 10 mg 01/31/23 11:44 Bisacodyl 10 Mg Suppository
[2023-02-11 14:00] VITALS: BP 98/52; PULSE 87; RESP 18; TEMP 36.6; O2SAT 98
--- NOTE | 2023-02-11 14:00 | PC.NURSE ---
Patient blood pressure of 98/52 (manual). MD notified. No new orders at this time. RN informed MD that a scheduled dose of Percocet due at 1400. MD ordered Percocet dose be held at this time.
--- NOTE | 2023-02-11 14:28 | PM.DS ---
DS: Admitting Diagnosis Discharge Date 02/11/23 Admitting Diagnosis femoral neck fracture HIV DS: Discharge Diagnosis Discharge Diagnosis (1) Paget's disease of bone: Code(s): M88.9 - Osteitis deformans of unspecified bone Status: Acute (2) Fracture of femoral neck, left, closed: Qualifiers: Encounter type: initial encounter Qualified Code(s): S72.002A - Fracture of unspecified part of neck of left femur, initial encounter for closed fracture Code(s): S72.002A - Fracture of unspecified part of neck of left femur, initial encounter for closed fracture Status: Acute (3) HIV (human immunodeficiency virus infection): Qualifiers: HIV symptom status: unspecified Qualified Code(s): B20 - Human immunodeficiency virus [HIV] disease Code(s): B20 - Human immunodeficiency virus [HIV] disease Status: Acute DS: Summary Hospital Course Hospital Course: This is a 72-year-old male with past medical history significant for HIV/aids, COPD/emphysema, hypertension, left hemiparesis, stroke.? Most of the history has been obtained from daughter who is at bedside patient had a fall and has been laying in bed for a couple of days prior to presentation to emergency room was brought for evaluation.? Patient was found to have a subcapital hip fracture.? Patient is been admitted for further evaluation management and treatment. XR hip LT 2V w AP pelvis 01/30/2023 18:55 Indication: Left hip pain after injury Procedure: AP pelvis and 2 views left hip Comparison: No prior studies for comparison. Findings: Pelvic rings are intact. There is trabecular thickening of the right hemipelvis and right femur proximally, consistent with Paget's disease. Mild osteoarthritis of the hips. There is a nondisplaced left femoral subcapital fracture. There are changes of ventral hernia repair. Impression: 1: Nondisplaced left femoral subcapital fracture. 2:? Paget's disease of the right hemipelvis and femur. XR chest 1V 01/30/2023 18:55 Indication: Weakness after fall Procedure: AP portable chest Comparison: 07/30/2021 Findings: New bilateral pulmonary nodules, largest in the left lung base measuringr 2.5 cm, consistent with metastatic disease. Heart size normal. No pleural effusion, focal pneumonia or pneumothorax. No acute osseous abnormality. Impression: 1: New bilateral pulmonary nodules, consistent with metastatic disease. Correlate for history of malignancy. EXAMINATION: CT BRAIN W/O DATE: 01/30/2023 19:50 INDICATION: Status post fall. Head injury. TECHNIQUE: Computed tomography (CT) of the head was performed without intravenous contrast. The dose-length product was 681.00 mGy-cm. Automated exposure control and iterative reconstruction technique were employed. COMPARISON: No prior studies for comparison. FINDINGS: There are chronic right frontal and parietal infarctions with encephalomalacia. There are chronic bilateral lacunar infarctions. There is intracranial atherosclerosis. No acute intracranial hemorrhage, infarction, mass or mass effect. Paranasal sinuses and mastoids are pneumatized. No depressed skull fractures. No ventriculomegaly or midline shift. Midline sagittal images demonstrate a normal corpus callosum, craniovertebral junction and sella turcica. Basilar cisterns are patent. IMPRESSION: 1. No acute intracranial abnormality. No significant interval change. EXAMINATION: CT cervical spine wo con DATE: 01/30/2023 19:50 INDICATION: Neck pain after fall TECHNIQUE: Computed tomography (CT) of the cervical spine was performed without intravenous contrast. The dose-length product was 482 mGy-cm. Automated exposure control and iterative reconstruction technique were employed. COMPARISON: None FINDINGS: No acute fracture or traumatic malalignment. There is degenerative spondylosis at all cervical spine levels, moderate. There is disc narrowing, uncinate and facet hypertrop
== END 2023-02-11 19:25 | disposition home or self-care (01) | DRG 536 ==
LOC: ANHED 18:02 → ANH3MEDSUR 22:22
PROVIDERS: Internal Medicine; Admitting Provider Internal Medicine; Emergency Provider Physician Assistant; PCP Internal Medicine Infectious Disease; Visit Provider Hospitalist
DX: S72.012A Unspecified intracapsular fracture of left femur, initial encounter for closed fracture (principal); B20 Human immunodeficiency virus [HIV] disease; I69.354 Hemiplegia and hemiparesis following cerebral infarction affecting left non-dominant side; M88.9 Osteitis deformans of unspecified bone; E11.9 Type 2 diabetes mellitus without complications; W19.XXXA Unspecified fall, initial encounter; J45.909 Unspecified asthma, uncomplicated; F01.50 Vascular dementia, unspecified severity, without behavioral disturbance, psychotic disturbance, mood disturbance, and anxiety; R91.1 Solitary pulmonary nodule; D63.8 Anemia in other chronic diseases classified elsewhere; I10 Essential (primary) hypertension; J43.9 Emphysema, unspecified; Z87.891 Personal history of nicotine dependence
CPT/HCPCS: 36415; 70450; 71045; 72125; 72131; 73502; 78306; 80048; 80053; 81001; 82550; 82607; 82746; 83540; 83550; 84153; 85025; 85027; 86361; 87040; 87086; 93005; 94640; 96365; 97110; 97161; 97165; 97530; 97535; 99285; A9270; A9503; G0378; J0696; J1170; J1644; J1650; J2060; J3420; J7030; J7040

== ENCOUNTER 2024-05-01 19:30 | Inpatient (IN) | payer MEDICARE, SELFPAY ==
[2024-05-01] VITALS (20 sets, daily range): BP systolic 106–155; BP diastolic 52–77; PULSE 30–92; RESP 10–22; TEMP 36.8; O2SAT 96–100
--- NOTE | ~2024-05-01 | CT_ITS ---
EXAMINATION: CT diagnostic chest wo con DATE: 05/01/2024 20:46 INDICATION: Abnormal chest radiograph findings TECHNIQUE: Computed tomography (CT) of the chest was performed without intravenous contrast. Automate d exposure control and iterative reconstruction technique were employed. Exam dose: 215.94 mGy-cm to yuki exam DLP. COMPARISON: None FINDINGS: Cardiomegaly. Prominent calcification of the left main and left anterior descending coronar y arteries in addition to prominent right coronary artery calcification. Trace pericardial fluid. No pleural effusion. There is thoracic aortic ectasia and calcification. No hilar or mediastinal mass lesion or lymphadenopathy. The thyroid gland appears normal. No hilar or mediastinal mass lesion or lymphadenopathy. 2. 4 cm calcified left lower lobe pulmonary granuloma. There is discoid atelectasis or scarring in the posterior left lung base, left lower lobe, with bronc hiectasis peribronchial soft tissue thickening of the left lower lobe as well. Otherwise no pulmonary infiltrate or consolidation is noted. Normal morphology of the adrenal glands. There is a sclerotic lesion of the posterior lateral right seventh rib. There are multiple sclerotic foci of the left ribs. Sclerotic lesion of the body of the right scapula. There are multiple osteoscl erotic lesions of the thoracic spine including particularly T12 where there is a sclerotic right pedi iqra and several osseous sclerotic lesions of the vertebral body. IMPRESSION: Numerous osteosclerotic lesions, likely due to metastatic prostate cancer Left lower lobe dependent discoid atelectasis or scarring, left lower lobe bronchiectasis and peribro nchial soft tissue thickening 2.4 cm probable left lower lobe calcified pulmonary granuloma Cardiomegaly, aortic atherosclerosis Reviewed, dictated and finalized at [facility]. Reviewed, dictated and finalized at location [facility]. IMPRESSION: Numerous osteosclerotic lesions, likely due to metastatic prostate cancer Left lower lobe dependent discoid atelectasis or scarring, left lower lobe bron chiectasis and peribronchial soft tissue thickening 2.4 cm probable left lower lobe calcified pulmonary granuloma Cardiomegaly, aortic atherosclerosis
--- NOTE | ~2024-05-01 | XR_ITS ---
XR chest 1V portable Ordering provider: lAan Taylor History: 74 years Male with . pacemaker insertion . Comparison: May 01, 2024 FINDINGS: MEDIASTINUM: The cardiac silhouette is not enlarged. Bipolar PACEMAKER on THE RIGHT SIDE. LUNGS: No effusions or pneumothorax. Minimal opacification in the left lung base. Possibility of nodu le cannot be excluded. CT evaluation advised. OTHER: No free air under the diaphragm. IMPRESSION: Minimal opacification in the left lung base which may indicate atelectasis. Nodule in the area is not excluded. CT evaluation advised. Reviewed, dictated and finalized at location [facility]. IMPRESSION: Minimal opacification in the left lung base which may indicate atelectasis. Nod ule in the area is not excluded. CT evaluation advised.
--- NOTE | ~2024-05-01 | XR_ITS ---
EXAMINATION: XR chest 1V portable DATE: 05/05/2024 10:18 INDICATION: Pacer placement. TECHNIQUE: A single frontal view of the chest was obtained. COMPARISON: Chest single view 05/04/2024, chest CT 05/01/2024 FINDINGS: A calcified left lung nodule is consistent with old granulomatous disease. There is mild at electasis in the lower lung zones. No pleural effusion or pneumothorax. The heart size is normal. The re is a right chest wall pacer with leads in the right atrium and right ventricle. There are scattere d sclerotic lesions of bone. IMPRESSION: 1. Mild atelectasis in the lower lung zones. 2. Scattered sclerotic lesions of bone, consistent with metastatic disease. Reviewed, dictated and finalized at location B.
--- NOTE | ~2024-05-01 | XR_ITS ---
XR chest 2V DATE: 05/01/2024 20:08 INDICATION: Syncope TECHNIQUE: AP and lateral views COMPARISON: 01/22/2023 AP chest FINDINGS: Heart size is likely within normal limits considering magnification associated with AP proj ection. There is aortic calcification and unfolding. No hilar or mediastinal enlargement is detected. There is increased retrocardiac density on the left which may be due to hiatal hernia and/or left low er lobe infiltrate and/or atelectasis. There is apparent sclerotic lesion in the posterior lateral aspect of the right seventh rib versus ov erlying the lung opacity. Additional chest radiographs or CT thorax could help differentiate these. IMPRESSION: Left retrocardiac increased density which may be due to hiatal hernia and/or left lower l obe infiltrate or atelectasis Sclerotic lesion of posterior lateral aspect of right seventh rib versus lung opacity; consider addit ional chest radiographs with different projection versus CT thorax Reviewed, dictated and finalized at location A. IMPRESSION: Left retrocardiac increased density which may be due to hiatal arianne ia and/or left lower lobe infiltrate or atelectasis Sclerotic lesion of posterior lateral aspect of right seventh rib versus lung o pacity; consider additional chest radiographs with different projection versus CT thorax
--- NOTE | ~2024-05-01 | CT_ITS ---
EXAMINATION: CT abdomen pelvis w con DATE: 05/01/2024 20:46 INDICATION: Right lower quadrant tenderness TECHNIQUE: Computed tomography (CT) of the abdomen and pelvis was performed with 100 CC Omnipaque 350 intravenous contrast. Automated exposure control and iterative reconstruction technique were employe d. Exam dose: 633.35 mGy-cm total exam DLP. COMPARISON: 08/05/2021 CTA chest abdomen pelvis FINDINGS: Left lower lobe bronchiectasis and peribronchial soft tissue thickening and discoid atelect asis or scarring in the posterior left lung base are again noted, in addition to probable 2.4 standar d calcified pulmonary granuloma. The lung bases are clear of infiltrate or consolidation. 4 x 4.8 cm hemangioma the lateral segment left hepatic lobe, with interrupted peripheral puddling of contrast material. The liver is otherwise unremarkable. The gallbladder appears unremarkable. No bile duct or pancreatic duct dilatation. No pancreatic mass lesion or calcification. Normal splenic size. Normal morphology of the adrenal glands. 1.6 cm hypoenhancing lesion of the posterior lateral aspect of the upper pole of the left kidney, ind eterminate 12 mm cyst of the lateral aspect of the upper pole left kidney is nearby. Additional small probable l eft renal cyst. No right renal mass lesion is noted. Approximately 8.3 x 13.4 mm lower pole left renal calculus with attenuation of 1265 Hounsfield units. A nearby pinpoint calculus is noted. No other urinary tract calculus or hydroureteronephrosis. The urinary bladder is unremarkable. No significant prostate enlargement is noted. The seminal vesicles appear unremarkable. Status post ventral abdominal wall mesh repair, with anterior bulging containing a nonobstructed loop of small bowel in the umbilical area. There is thickening of the rectal wall sigmoid colon wall, the rectal wall thickening up to 4.7 mm di ameter, with pneumatosis of the rectal and sigmoid cheney, prominent rectosigmoid fecal impaction in t he colon the findings are consistent with stercoral colitis. There is a prominent amount of fecal mat erial throughout the remainder of the colon. No bowel obstruction is evident. The appendix is not def initely located; there is no evidence of inflammatory change in the right lower quadrant. There is atherosclerotic calcification but normal caliber of the abdominal aorta. There is calcificat ion of the iliac and femoral arteries. No intraperitoneal or retroperitoneal or pelvic mass lesion or adenopathy or ascites is noted otherwi se. Severe degenerative disc disease at L5-S1. 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 Old fracture deformity of the left subcapital femoral neck. Osteosclerotic lesion of the left inferior pubic ramus small sclerotic lesions of the left pubis and previously mentioned sclerotic lesions of the ribs and spine, most consistent with prostate metastase s IMPRESSION: Raymon proctocolitis fecal impaction of the rectosigmoid area Extensive osteosclerotic lesions, likely due to prostate metastases and metastatic disease of the rig ht hemipelvis and right femur 4 x 4.8 cm hemangioma of the lateral segment left hepatic lobe Indeterminate 1.6 standard hypoenhancing lesion of the posterior lateral aspect of the upper pole lef t kidney; hypernephroma is not excluded. Consider further evaluation with MR examination Left nonobstructive nephrolithiasis Reviewed, dictated and finalized at [facility] Reviewed, dictated and finalized at [facility]. IMPRESSION: Raymon proctocolitis fecal impaction of the rectosigmoid area Extensive osteosclerotic lesions, likely due to prostate metastases and metasta tic disease of the right hemipelvis and right femur 4 x 4.8 cm hemangioma of the lateral segment left hepatic lobe Indeterminate 1.6 standard hypoenhancing lesion of the posterior lateral aspect of the upper pole left kidney; hypernephroma is not excluded. Consider further evaluation with MR examination Left nonobstructive nephrolithiasis
--- NOTE | 2024-05-01 19:39 | ECG_ITS ---
Test Date: 2024-05-01 19:43:52 Measurements Intervals Bruno Rate: 93 P: 0 AR: 0 QRS: -46 QRSD: 105 T: 28 QT: 373 QTc: 465 Interpretive Statements Sinus with prolonged first degree AVB PATTERN CONSISTENT WITH PULMONARY DISEASE INFERIOR MYOCARDIAL INFARCTION , PROBABLY OLD [40+ ms Q WAVE AND/OR ST/T ABNORMALITY IN II/aVF] Ventricular No previous ECG available for comparison Electronically Signed On 05-02-2024 10:57:04 CDT by Caden Price M.D.
--- NOTE | 2024-05-01 19:42 | ED_ITS ---
HPI - Syncope General Chief Complaint: Syncope <Erich Luu PA-C - Last Filed: 05/02/24 02:06> Stated Complaint: possible syncope <VALERIA Golden Last Filed: 05/02/24 02:06> Time Seen by Provider: 05/01/24 19:38 <VALERIA Golden Last Filed: 05/02/24 02:06> Source: patient <VALERIA Golden Last Filed: 05/02/24 02:06> Mode of arrival: EMS <VALERIA Golden Last Filed: 05/02/24 02:06> Limitations: no limitations <VALERIA Golden Last Filed: 05/02/24 02:06> History of Present Illness HPI narrative: This is a 74-year-old male with PMH of HIV, CVA, vascular dementia, diabetes mellitus, HTN, pad disease of bone who presents to the ED via EMS for chief complaint of possible to syncopal episodes at home tonight. Daughter is bedside and helping supplement history. She states that she was helping him changes depends, and when he stood up a seemed like he was passing out. She had to wean him back down into the chair. She states that she had him lay down. She states that when he was sitting he had another similar episode. She states that these episodes lasted no more than a few seconds and then he came back to his normal self. She reports he has left-sided deficit with past strokes Reports that they have been told he has been bradycardic in the past but that was back when he had a stroke, and was sent to cardiology. States that they did not do any procedures for this. <VALERIA Golden Last Filed: 05/02/24 02:06> Related Data Home Medications: Home Medications Medication Instructions Recorded Confirmed acetaminophen 500 mg tablet 1,000 mg PO Q6H PRN Pain (Scale 10/12/19 05/01/24 (Acetaminophen Extra Strength) Score 1-3) fluticasone fur. 100 mcg-umeclid 1 inh inhalation DAILY 01/30/23 05/01/24 62.5 mcg-vilant 25 mcg inhalat.powder (Trelegy Ellipta) <Erich Luu PA-C - Last Filed: 05/02/24 02:06> Allergies/Adverse Reactions: Allergies Allergy/AdvReac Type Severity Reaction Status Date / Time No Known Allergies Allergy Verified 07/30/21 13:26 <Erich Luu PA-C - Last Filed: 05/02/24 02:06> Review of Systems Review of Systems: All systems as dictated in HPI <Erich Luu PA-C - Last Filed: 05/02/24 02:06> [facility] Past Medical History Medical History: Medical History Anemia of chronic disease With most recent anemia labs performed January 2023 Asthma Childhood B12 deficiency January 2023 COPD (chronic obstructive pulmonary disease) Diabetes mellitus Diet-controlled Fracture of femoral neck, left, closed HIV positive With elevated viral load 2021 HTN (hypertension) Left hemiparesis Nasal fracture 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 The patient sees a ur ologist at [facility]. Shingles Stroke 2 x 2019 Vascular dementia <Erich Luu PA-C - Last Filed: 05/02/24 02:06> Surgical History Surgical History: Surgical History H/O hand surgery Right hand fracture History of right-sided carotid endarterectomy (~2018) History of tonsillectomy As a teenager History of umbilical hernia repair <Erich Luu PA-C - Last Filed: 05/02/24 02:06> Family History Family History: Family History Father No problems noted. Mother Diabetes mellitus <Erich Luu PA-C - Last Filed: 05/02/24 02:06> Social History Social History: Social History Social History: The patient lives with his healthcare power of privacy attorney/ daughter Teresa. He is mostly bed-bound since his stroke in 2019. He smoked less than a pack of cigarettes per day for approximately 45 years but quit in 1994. His daughter reports that the patient at least drink a moderate amount of alcohol but quit drinking alcohol many years ago. He denies history of illicit substance use. 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 He has 6 children. Code status: Full code Smoking packs per day: 0.5 Smoking cigarettes per day: 10.0 Years smoked: 48 Smoking pack-years: 24.00 Smoking status: Former smoker Second hand tobacco smoke exposure: No Alcohol intake: former Alcohol use details: Several drinks several times a week but quit many years ago. Substance use: former Substance use type: marijuana Last use: 1969' Do You Feel Safe in your Home?: Yes Lack of Transportation: No Lack of Food: Never True Current Housing: I Have Housing Concerned About Future Housing: No Difficulty Paying Gas/Electric Bills: No Difficulty Paying for Meds: No Currently Unemployed: No Education: High School Diploma/GED Difficulty w/ Childcare or Family Care: No Gender identity (if verbalized by the patient): Male Spiritual care concerns: No Agree to blood products: Yes <Erich Luu PA-C - Last Filed: 05/02/24 02:06> Exam Narrative: GENERAL: Well-appearing, well-nourished, and in no acute distress. HEAD: Normocephalic, atraumatic. EYES: PERRLA and EOMI. ENT: Nares clear, no rhinorrhea or epistaxis. Mucous membranes moist. Oropharynx without tonsillar hypertrophy exudate or other lesions. NECK: Supple. No adenopathy or masses. CHEST: No respiratory distress. Clear to auscultation. No wheezes rales or rhonchi HEART: Bradycardic rate in the upper 30s to low 40s. No murmur heard. Normal peripheral pulses. ABDOMEN: Mild right lower quadrant abdominal tenderness. Soft, otherwise nontender, nondistended, normal active bowel sounds. Negative flank tenderness. MSK: Normal range of motion. No edema. SKIN: Warm, dry, no rash. NEURO: Alert and oriented x4. No focal deficits. PSYCH: Normal mood and affect. <Erich Luu PA-C - Last Filed: 05/02/24 02:06> Course [employer]/PA Physician Supervision I was available for consultation in the ED but did not evaluate this patient and was not involved in their care. <Liana Rust MD - Last Filed: 05/03/24 08:56> Vital Signs Vital signs: Vital Signs Pulse Rate 92 05/01/24 19:33 Respiratory Rate 14 05/01/24 19:33 Pulse Oximetry 96 05/01/24 19:33 Temperature 97.7 F 05/03/24 07:24 Pulse Rate 36 L 05/03/24 07:24 Respiratory Rate 16 05/03/24 07:24 Blood Pressure 137/57 L 05/03/24 07:24 Pulse Oximetry 99 05/03/24 07:24 Oxygen Delivery Room Air 05/02/24 16:00 <Erich Luu PA-C - Last Filed: 05/02/24 02:06> Vital Signs Pulse Rate 92 05/01/24 19:33 Respiratory Rate 14 05/01/24 19:33 Pulse Oximetry 96 05/01/24 19:33 Temperature 97.7 F 05/03/24 07:24 Pulse Rate 36 L 05/03/24 07:24 Respiratory Rate 16 05/03/24 07:24 Blood Pressure 137/57 L 05/03/24 07:24 Pulse Oximetry 99 05/03/24 07:24 Oxygen Delivery Room Air 05/02/24 16:00 <Liana Rust MD - Last Filed: 05/03/24 08:56> MDM - Syncope MDM Narrative Medical decision making narrative: This is a 74 yo male who presents to the ED for chief complaint of 2 near syncopal episodes this evening. Vitals initially are grossly normal. Exam shows mild tenderness to the abdomen. Patient is alert oriented and otherwise well appearing. Lab work shows unremarkable CBC. CMP with a slightly elevated glucose but again otherwise unremarkable. Troponin normal. Initial EKG shows sinus rhythm with rate in the 90s. During the course of the visit, patient's heart rate was noted to be bradycardic in the 30s. EKG was obtained and does show sinus bradycardia with likely 1st degree AV block. It is unclear whether patient's syncopal episodes were due to this symptomatic bradycardia or if it was more of an orthostatic episode given the history. Imaging was obtained. Chest x-ray: IMPRESSION: Left retrocardiac increased density which may be due to hiatal hernia and/or left lower lobe infiltrate or atelectasis Sclerotic lesion of posterior lateral aspect of right seventh rib versus lung opacity; consider additional chest radiographs with different projection versus CT thorax Chest CT: IMPRESSION: Numerous osteosclerotic lesions, likely due to metastatic prostate cancer Left lower lobe dependent discoid atelectasis or scarring, left lower lobe bronchiectasis and peribronchial soft tissue thickening 2.4 cm probable left lower lobe calcified pulmonary granuloma Cardiomegaly, aortic atherosclerosis Abdomen pelvis CT: IMPRESSION: Raymon proctocolitis fecal impaction of the rectosigmoid area Extensive osteosclerotic lesions, likely due to prostate metastases and metastatic disease of the right hemipelvis and right femur 4 x 4.8 cm hemangioma of the lateral segment left hepatic lobe Indeterminate 1.6 standard hypoenhancing lesion of the posterior lateral aspect of the upper pole left kidney; hypernephroma is not excluded. Consider further evaluation with MR examination Left nonobstructive nephrolithiasis I discussed the above findings with family who is bedside. We discussed that these findings are very concerning for cancerous lesions. We also discussed pat stan has a low heart rate in the setting of his goals of care. He has remained hemodynamically stable with good blood pressures throughout the visit, but it is concerning that he has potentially symptomatic bradyarrhythmia. Family does not want to pursue any extensive cancer treatment does want the patient to remain full code. I discussed the case with hospitalist, Dr. Gorman who agrees to admit the patient for observation to the IMU. Patient will be admitted in stable condition <Erich Luu PA-C - Last Filed: 05/02/24 02:06> Lab Data Result diagrams: 05/03/24 05:08 05/03/24 05:08 <Erich Luu PA-C - Last Filed: 05/02/24 02:06> Labs: Lab Results 05/01/24 Range/Units 19:51 WBC 7.0 (4.5-10.0) K/mm3 RBC 4.32 L (4.6-6.20) M/mm3 Hgb 12.9 L (14.0-18.0) g/dL Hct 39.8 L (42.0-52.0) % MCV 92.1 (80-100) fl MCH 29.9 (26-34) pg MCHC 32.4 (32-36) g/dl RDW 13.6 (11.5-14.5) % Plt Count 199 (150-375) k/mm3 MPV 9.9 (7.4-10.4) fl Immature Gran % (Auto) 0.4 (0-0.5) % Neut % (Auto) 45.7 (45.5-73.1) % Lymph % (Auto) 45.7 H (18.3-44.2) % [place] % (Auto) 4.7 (2.6-8.5) % Eos % (Auto) 2.4 (0-4.4) % Baso % (Auto) 1.1 (0.2-1.2) % Lymph # (Auto) 3.21 H (0.9-3.2) K/mm3 [place] # (Auto) 0.3 (0.1-0.6) K/mm3 Eos # (Auto) 0.2 (0-0.3) K/mm3 Baso # (Auto) 0.1 (0.0-0.1) K/mm3 Abs Immat Gran (auto) 0.03 (0.00-0.031) K/mm3 Absolute Neuts (auto) 3.2 (1.3-6.7) K/mm3 Absolute Nucleated RBC 0.000 (0.0-0.012) K/mm3 Nucleated RBC % 0.0 (0.0-0.2) % Sodium 140 (137-145) mmol/L Potassium 4.0 (3.4-5.0) mmol/L Chloride 101 (98-107) mmol/L Carbon Dioxide 27 (22-30) mmol/L Anion Gap 12 (4-12) mmol/L BUN 18 (9-20) mg/dL Creatinine 1.20 (0.7-1.3) mg/dL Estim Creat Clear Calc 53 ml/min Estimated GFR > 60 (59 - ) Glucose 209 H (65-110) mg/dL Hemoglobin A1c 5.9 H (<5.7) % Calcium 9.6 (8.4-10.2) mg/dL Total Bilirubin 0.7 (0.2-1.3) mg/dL AST 17 (17-59) U/L ALT 9 (6-50) U/L Alkaline Phosphatase 125 (38-126) U/L Troponin I < 0.012 (0.000-0.034) ng/mL Total Protein 8.0 (6.3-8.2) g/dL Albumin 4.4 (3.5-5.1) g/dL Lipase 89 (23-300) U/L <Erich Luu PA-C - Last Filed: 05/02/24 02:06> Lab Results 05/01/24 Range/Units 19:51 WBC 7.0 (4.5-10.0) K/mm3 RBC 4.32 L (4.6-6.20) M/mm3 Hgb 12.9 L (14.0-18.0) g/dL Hct 39.8 L (42.0-52.0) % MCV 92.1 (80-100) fl MCH 29.9 (26-34) pg MCHC 32.4 (32-36) g/dl RDW 13.6 (11.5-14.5) % Plt Count 199 (150-375) k/mm3 MPV 9.9 (7.4-10.4) fl Immature Gran % (Auto) 0.4 (0-0.5) % Neut % (Auto) 45.7 (45.5-73.1) % Lymph % (Auto) 45.7 H (18.3-44.2) % [place] % (Auto) 4.7 (2.6-8.5) % Eos % (Auto) 2.4 (0-4.4) % Baso % (Auto) 1.1 (0.2-1.2) % Lymph # (Auto) 3.21 H (0.9-3.2) K/mm3 [place] # (Auto) 0.3 (0.1-0.6) K/mm3 Eos # (Auto) 0.2 (0-0.3) K/mm3 Baso # (Auto) 0.1 (0.0-0.1) K/mm3 Abs Immat Gran (auto) 0.03 (0.00-0.031) K/mm3 Absolute Neuts (auto) 3.2 (1.3-6.7) K/mm3 Absolute Nucleated RBC 0.000 (0.0-0.012) K/mm3 Nucleated RBC % 0.0 (0.0-0.2) % Sodium 140 (137-145) mmol/L Potassium 4.0 (3.4-5.0) mmol/L Chloride 101 (98-107) mmol/L Carbon Dioxide 27 (22-30) mmol/L Anion Gap 12 (4-12) mmol/L BUN 18 (9-20) mg/dL Creatinine 1.20 (0.7-1.3) mg/dL Estim Creat Clear Calc 53 ml/min Estimated GFR > 60 (59 - ) Glucose 209 H (65-110) mg/dL Hemoglobin A1c 5.9 H (<5.7) % Calcium 9.6 (8.4-10.2) mg/dL Total Bilirubin 0.7 (0.2-1.3) mg/dL AST 17 (17-59) U/L ALT 9 (6-50) U/L Alkaline Phosphatase 125 (38-126) U/L Troponin I < 0.012 (0.000-0.034) ng/mL Total Protein 8.0 (6.3-8.2) g/dL Albumin 4.4 (3.5-5.1) g/dL Lipase 89 (23-300) U/L <Liana Rust MD - Last Filed: 05/03/24 08:56> ECG Data EKG #1: ECG completion date: 05/01/24 <Erich Luu PA-C - Last Filed: 05/02/24 02:06> ECG completion time: 19:43 <Erich Luu PA-C - Last Filed: 05/02/24 02:06> Prior ECG tracings: not available for review <Erich Luu PA-C - Last Filed: 05/02/24 02:06> Interpretation: Supraventricular rhythm Rate 93 Scattered PVCs QTC slightly prolonged No acute ischemic findings <Erich Luu PA-C - Last Filed: 05/02/24 02:06> EKG #2: ECG completion date: 05/01/24 <Erich Luu PA-C - Last Filed: 05/02/24 02:06> ECG completion time: 20:56 <VALERIA Golden Filed: 05/02/24 02:06> Prior ECG tracings: available for review <VALERIA Golden Last Filed: 05/02/24 02:06> Interpretation: Sinus bradycardia Rate 38 First-degree AV block QTC has normalized compared to previous Nonspecific T-wave inversion in lead 3 No acute ischemic findings <VALERIA Golden Last Filed: 05/02/24 02:06> Discharge Plan Discharge Clinical Impression: Bradycardia, sinus, Prostate cancer metastatic to bone, AV block <VALERIA Golden Last Filed: 05/02/24 02:06> Patient Disposition: Still a Patient <VALERIA Golden Last Filed: 05/02/24 02:06> Condition: Stable <VALERIA Golden Last Filed: 05/02/24 02:06>
[2024-05-01 20:01] LABS: Basophils Absolute Auto 0.1 K/mm3 (0.0-0.1); Basophils Percent Auto 1.1 % (0.2-1.2); Eosinophils Absolute Auto 0.2 K/mm3 (0-0.3); Eosinophils Percent Auto 2.4 % (0-4.4); Hematocrit 39.8 % (42.0-52.0); Hemoglobin 12.9 g/dL (14.0-18.0); Immature Granulocyte Absolute 0.03 K/mm3 (0.00-0.031); Immature Granulocyte Percent A 0.4 % (0-0.5); Lymphocytes Absolute Auto 3.21 K/mm3 (0.9-3.2); Lymphocytes Percent Auto 45.7 % (18.3-44.2); Mean Corpuscular HGB Conc 32.4 g/dl (32-36); Mean Corpuscular Hemoglobin 29.9 pg (26-34); Mean Corpuscular Volume 92.1 fl (80-100); Mean Platelet Volume 9.9 fl (7.4-10.4); Monocytes Absolute Auto 0.3 K/mm3 (0.1-0.6); Monocytes Percent Auto 4.7 % (2.6-8.5); Neutrophils Absolute Auto 3.2 K/mm3 (1.3-6.7); Neutrophils Percent Auto 45.7 % (45.5-73.1); Platelet Count Result 199 k/mm3 (150-375); Red Blood Count 4.32 M/mm3 (4.6-6.20); Red Cell Distribution Width 13.6 % (11.5-14.5)
[2024-05-01] MEDS: SODIUM CHLORIDE 0.9% IV 1,000 ML 999 ML IV CONT (20:11)
[2024-05-01] MEDS: ONDANSETRON INJ 4 MG/2 ML VIAL IV PUSH (20:11)
[2024-05-01] MEDS: MORPHINE SULFATE (*CRX) 4 MG/ML INJ IV PUSH (20:11)
[2024-05-01 20:12] LABS: Alanine Aminotransferase 9 U/L (6-50); Albumin Level 4.4 g/dL (3.5-5.1); Alkaline Phosphatase 125 U/L (38-126); Anion Gap 12 mmol/L (4-12); Aspartate Amino Transferase 17 U/L (17-59); Bilirubin,Total 0.7 mg/dL (0.2-1.3); Blood Urea Nitrogen 18 mg/dL (9-20); Calcium 9.6 mg/dL (8.4-10.2); Carbon Dioxide 27 mmol/L (22-30); Chloride 101 mmol/L (98-107); Estimated CRCL calculation 53 ml/min; Estimated Glomerular Filt Rate > 60; Glucose 209 mg/dL (65-110); Sodium 140 mmol/L (137-145)
[2024-05-01 20:21] LABS: Lipase 89 U/L (23-300)
[2024-05-01 20:34] LABS: Troponin I < 0.012 ng/mL (0.000-0.034)
--- NOTE | 2024-05-01 20:52 | ECG_ITS ---
Test Date: 2024-05-01 20:56:22 Measurements Intervals [place] Rate: 38 P: 0 NM: 0 QRS: -49 QRSD: 97 T: -3 QT: 366 QTc: 293 Interpretive Statements SINUS RHYTHM WITH HIGH GRADE AV BLOCK LOW QRS VOLTAGE IN PRECORDIAL LEADS [QRS DEFLECTION < 1.0 mV IN CHEST LEADS] ANTERIOR MYOCARDIAL INFARCTION , PROBABLY OLD [40+ ms Q WAVE AND/OR ST/T ABNORMALITY IN V3/V4] INFERIOR MYOCARDIAL INFARCTION , OF INDETERMINATE AGE [40+ ms Q WAVE AND/OR ST/T ABNORMALITY IN II/aVF] Compared to ECG 05/01/2024 19:43:52 Low QRS voltage now present Supraventricular rhythm no longer present Myocardial infarct finding still present Electronically Signed On 05-02-2024 10:57:26 CDT by Caden Price M.D.
--- NOTE | 2024-05-01 22:17 | PM.IMHP ---
H&P: HPI History of Present Illness Date/Time: 05/01/24 22:17 Chief Complaint: Couple of episodes of change in consciousness Narrative: 74-year-old male with past medical history of chronic constipation, HIV, diabetes mellitus, prostate cancer treated with radiation therapy 2019 and multiple CVAs status post right carotid endarterectomy who presented to the ER with 2 or more episodes of rigidity and what sounds like syncopal episode. The patient is alert oriented x3 but relies on his daughter to provide most of the history. The patient is for the most part bed-bound at baseline but will sit up in bed unassisted. He has got chronic hemiplegia due to 2 strokes in 2019. The patient is daughter reports that he is chronically incontinent of both bowel and bladder. She reports that the patient had soiled his shirt so she had him set up to take off fissure. When he sat up he became rigid and slumped forward she had to catch him so that he did not fall. When she sat him up he seemed to stiffen again and his eyes rolled back in his head. She laid him back and he seemed to be choking so she rolled him on his side. When she rolled him on his side his symptoms resolved. The episodes lasted about 30 seconds. Patient does not have a history of seizures. Patient did not have any residual confusion after the episode. Patient's daughter reports that the patient does have chronic constipation his last good bowel movement was yesterday and was mixed hard stool with some looser stool. He had a very small hard bowel movement today. The patient denied having any abdominal pain at the time of my evaluation but had evidently told the ER staff on his arrival that he had some abdominal pain and he received 4 mg of morphine. He denies any chest pain, shortness of breath or palpitations. His daughter reports that the patient had a history of ?arrhythmia? when he had his strokes in 2019. She does not know if he had bradycardia at that time or if he had a tachyarrhythmia. He is not on blood thinners. She reports that he has had dwindling appetite and will go often times for several months with very low appetite then will eat well for a month or 2. His weight is down 5 kg compared to last year at this time. He has been having a loss of weight. She reports that the patient has not physically went into his primary care physician's office in over a year. His last ED visit was lung this month. She reports that she checks is blood pressure and pulse with a home cuff just prior to the visit and his blood pressure was 106 systolic and 40s diastolic and that his heart rate at that time was in the 40s. In the ER the patient was found to have a first-degree AV block. The patient's heart rate ranged anywhere between 28 and 70s. For the most part the patient's heart rate was in the low 30s to low 40s. Patient was asymptomatic at the time of my evaluation. Review of Systems Review of Systems: 12 systems were reviewed with pertinent positives and negatives per HPI. Except as documented in the HPI, all other systems were reviewed and are negative. 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 The patient sees a urologist at [facility]. Shingles Stroke 2 x 2019 Vascular dementia Surgical History Surgical History (Updated 05/02/24 @ 00:20 by Doris Gorman DO) H/O hand surgery Right hand fracture History of right-sided carotid endarterectomy (~2019) History of tonsillectomy As a teenager History of umbilical hernia repair Family History Family History Father No problems noted. Mother Diabetes mellitus Social History Social History (Updated 05/02/24 @ 00:25 by Doris Gorman DO) Social History: The patient lives with his healthcare power of attorney at law/daughter Teresa. He is mostly bed-bound since his stroke in 2019. He smoked less than a pack of cigarettes per day for approximately 45 years but quit in 1994. His daughter reports that the patient at least drink a moderate amount of alcohol but quit drinking alcohol many years ago. He denies history of illicit substance use. 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 He has 6 children. Code status: Full code Smoking packs per day: 0.5 Smoking cigarettes per day: 10.0 Years smoked: 48 Smoking pack-years: 24.00 Smoking status: Former smoker Second hand tobacco smoke exposure: No Alcohol intake: former Alcohol use details: Several drinks several times a week but quit many years ago. Substance use: former Substance use type: marijuana Last use: Do You Feel Safe in your Home?: Yes Lack of Transportation: No Lack of Food: Never True Current Housing: I Have Housing Concerned About Future Housing: No Difficulty Paying Gas/Electric Bills: No Difficulty Paying for Meds: No Currently Unemployed: No Education: High School Diploma/GED Difficulty w/ Childcare or Family Care: No Gender identity (if verbalized by the patient): Male Spiritual care concerns: No Agree to blood products: Yes Meds Home Medications and Allergies Home Medications Medication Instructions Recorded Confirmed Type aspirin 325 mg tablet 325 mg PO DAILY #30 tabs 06/30/19 05/01/24 Rx bictegravir 50 mg-emtricitabine 1 tablet PO DAILY #30 tabs 06/30/19 05/01/24 Rx 200 mg-tenofovir alafenam 25 mg tablet (Biktarvy) montelukast 10 mg tablet 10 mg PO HS #30 tabs 06/30/19 05/01/24 Rx rosuvastatin 40 mg tablet 40 mg PO DAILY #30 tabs 06/30/19 05/01/24 Rx acetaminophen 500 mg tablet 1,000 mg PO Q6H PRN Pain (Scale 10/12/19 05/01/24 History (Acetaminophen Extra Strength) Score 1-3) albuterol sulfate 90 mcg/actuation 2 puff inhalation Q6HRT PRN 08/09/21 05/01/24 Rx aerosol inhaler (Proventil HFA) Shortness Of Breath #6.7 grams fluticasone fur. 100 mcg-umeclid 1 inh inhalation DAILY 01/30/23 05/01/24 History 62.5 mcg-vilant 25 mcg inhalat.powder (Trelegy Ellipta) Allergies Allergy/AdvReac Type Severity Reaction Status Date / Time No Known Allergies Allergy Verified 07/30/21 13:26 Vital Signs Vital Signs - 24 hr 05/01/24 19:33 05/01/24 19:40 05/01/24 19:43 Pulse Rate 92 87 Respiratory Rate 14 22 H Blood Pressure 130/64 Pulse Oximetry 96 100 100 Oxygen Delivery Room Air 05/01/24 20:15 05/01/24 20:46 05/01/24 20:53 Pulse Rate 90 40 L 39 L Respiratory Rate 20 11 L 12 Blood Pressure 122/55 L Pulse Oximetry 100 100 Oxygen Delivery Exam Narrative: Weight 69.1 kg BMI 20.1 Const: Other: Thin body habitus, no acute distress, lying attended the bed at 30? HENMT: Other: Mucous membranes are tacky, no oral pharyngeal erythema, edentulous in upper jaw, few remaining teeth in lower jaw Eyes: Other: Pupils are equal and reactive, no scleral icterus, no conjunctival pallor Neck: Other: No JVD, no lymphadenopathy Resp: Other: Decreased breath sounds bilaterally, no increased work of breathing Cardio: Other: Difficult to auscultate heart sounds and are distant, significant bradycardia, 1+ bilateral radial pedal pulses, no JVD GI: Other: Soft, nontender, nondistended, hypoactive bowel sounds : Other: Incontinent of bowel and bladder Skin: Other: Mild pallor, non jaundice, thick flaking skin from bilateral feet ankles and lower legs Neuro: Other: Patient is alert oriented x3, speech is slow and responsive somewhat delayed, mild facial droop on the left, hemiplegia the left upper and lower extremity he but patient is able to have some minimal movement from the right shoulder Extrem: Other: No clubbing, cyanosis or edema, chronic hemiplegia and hypotonia the left upper and lower extremities Psych: Other: Cooperative, flat affect H&P: Results Labs Labs: Laboratory Tests 05/01/24 19:51 05/01/24 19:51 05/01/24 05/02/24 19:51 00:08 WBC 7.0 RBC 4.32 L Hgb 12.9 L Hct 39.8 L MCV 92.1 MCH 29.9 MCHC 32.4 RDW 13.6 Plt Count 199 MPV 9.9 Immature Gran % (Auto) 0.4 Neut % (Auto) 45.7 Lymph % (Auto) 45.7 H [place] % (Auto) 4.7 Eos % (Auto) 2.4 Baso % (Auto) 1.1 Lymph # (Auto) 3.21 H [place] # (Auto) 0.3 Eos # (Auto) 0.2 Baso # (Auto) 0.1 Abs Immat Gran (auto) 0.03 Absolute Neuts (auto) 3.2 Absolute Nucleated RBC 0.000 Nucleated RBC % 0.0 Sodium 140 Potassium 4.0 Chloride 101 Carbon Dioxide 27 Anion Gap 12 BUN 18 Creatinine 1.20 Estim Creat Clear Calc 53 Estimated GFR > 60 Glucose 209 H Hemoglobin A1c 5.9 H Calcium 9.6 Total Bilirubin 0.7 AST 17 ALT 9 Alkaline Phosphatase 125 Troponin I < 0.012 Total Protein 8.0 Albumin 4.4 Lipase 89 Nasal MRSA (PCR) Pending Impressions Chest X-Ray 05/01/24 20:19 IMPRESSION: Left retrocardiac increased density which may be due to hiatal hernia and/or left lower lobe infiltrate or atelectasis Sclerotic lesion of posterior lateral aspect of right seventh rib versus lung opacity; consider additional chest radiographs with different projection versus CT thorax Chest CT 05/01/24 20:50 IMPRESSION: Numerous osteosclerotic lesions, likely due to metastatic prostate cancer Left lower lobe dependent discoid atelectasis or scarring, left lower lobe bronchiectasis and peribronchial soft tissue thickening 2.4 cm probable left lower lobe calcified pulmonary granuloma Cardiomegaly, aortic atherosclerosis Abdomen/Pelvis CT 05/01/24 21:30 IMPRESSION: Raymon proctocolitis fecal impaction of the rectosigmoid area Extensive osteosclerotic lesions, likely due to prostate metastases and metastatic disease of the right hemipelvis and right femur 4 x 4.8 cm hemangioma of the lateral segment left hepatic lobe Indeterminate 1.6 standard hypoenhancing lesion of the posterior lateral aspect of the upper pole left kidney; hypernephroma is not excluded. Consider further evaluation with MR examination Left nonobstructive nephrolithiasis Multiple EKGs and telemetry strips reviewed: First-degree AV block with marked sinus bradycardia Assessment and Plan Assessment and plan (1) Syncope: Qualifiers: Syncope type: unspecified Qualified Code(s): R55 - Syncope and collapse Code(s): R55 - Syncope and collapse Status: Acute Assessment and Plan: Most likely due to symptomatic bradycardia. Patient's heart rates in the ER ranged between 27 and 70s for the most part his rate was in the 30s to 40s. It sounds as if he does have some baseline bradycardia and has been in the 40s at home recently. But is still daughter does not check his heart rate on any regular basis. There could be some component of concomitant autonomic dysfunction, orthostatic hypotension that is also playing a component in this. The patient is not on any medications that should be associated with bradycardia. Will check echocardiogram to further evaluate cardiac structure and function. Will consult Cardiology in a.m.. (2) Type 2 diabetes mellitus with hyperglycemia: Qualifiers: Diabetes mellitus meterman insulin use: without meterman use Qualified Code(s): E11.65 - Type 2 diabetes mellitus with hyperglycemia Code(s): E11.65 - Type 2 diabetes mellitus with hyperglycemia Status: Acute Assessment and Plan: The patient's daughter reports that the patient had just eaten pancakes prior to his syncopal event and likely resulted in his hyperglycemia. His A1c was obtained and was less than 6. Patient's diabetes is diet controlled at home. Has he will not be eating his usual diet here will monitor Accu-Cheks a.c. HS and provide hypoglycemia protocol as needed given his decreased oral intake we would like to avoid hypoglycemic events. (3) First degree heart block: Code(s): I44.0 - Atrioventricular block, first degree Status: Acute Assessment and Plan: Will monitor in IMU. Please see above plan. (4) Symptomatic bradycardia: Code(s): R00.1 - Bradycardia, unspecified Status: Acute Assessment and Plan: Please see above plan. Avoid rate controlling medications. (5) HIV (human immunodeficiency virus infection): Qualifiers: HIV symptom status: unspecified Qualified Code(s): B20 - Human immunodeficiency virus [HIV] disease Code(s): B20 - Human immunodeficiency virus [HIV] disease Status: Acute Assessment and Plan: Continue home Biktarvy. (6) Fecal impaction of colon: Code(s): K56.41 - Fecal impaction Status: Acute (7) Prostate cancer metastatic to bone: Code(s): C61 - Malignant neoplasm of prostate; C79.51 - Secondary malignant neoplasm of bone Status: Acute Assessment and Plan: Patient has a distant history of prostate cancer treated with radiation therapy. He had a bone scan in January 2023 that suggested Paget's disease of the bone with sclerotic lesions only located in the sacrum, right innominate bone and right femur. However, imaging today as me more worried about potential metastatic disease from his prior prostate cancer given lesions noted in the pelvis as documented before + CT scan of the chest also demonstrating numerous osteosclerotic lesions including of the posterior lateral right 7th rib, multiple foci of the left ribs, sclerotic lesions of the right scapula and lesions of the thoracic spine including T12 pedicle and vertebral body. Of note the patient had a CT scan of the chest and abdomen in 2021 I did show some sclerotic disease of the sacrum and right ileum but no disease within the chest except for his COVID associated pneumonia at the time. The patient follows with urologist at [facility] for his prostate cancer. The daughter states that she would not want any chemotherapy or aggressive intervention if patient did have metastatic prostate cancer. But she is concerned that he will not be evaluated further for the extensive his prostate cancer while he is hospitalized here. Plan Patient has been admitted as observation status. MEDICAL DECISION MAKING NARRATIVE -Spoke with the ED provider in detail regarding patient's evaluation, workup and management -Patient seen and examined at bedside -Collaborated with patient's nurse at the bedside in detail and addressed all concerns -Labs, electrolytes, radiology, investigations and test results reviewed -ED/Consult/Nursing/Ancilliary notes on the chart reviewed and appreciated -Spoke with patient/family at the bedside and answered all the questions. Quality VTE Prophylaxis VTE prophylaxis: pharmacologic ordered (Lovenox 40 mg subQ daily.) Hospitalist [facility] Advance Care Plan I have confirmed that the patient's Advanced Care Plan is present, code status is documented, or surrogate decision maker is listed in patient medical record.: Yes Medication Reconciliation I have utilized all available resources to obtain, update and review the patients current medications (includes all prescriptions, OTC, herbals, cannabis, and nutritional supplements).: Yes
--- NOTE | 2024-05-01 23:01 | PC.NURSE ---
Per Hospitalist, patient bed request changed to IMU. Abel, on ms notified. waiter/waitress bar notified.
--- NOTE | 2024-05-01 23:34 | ADMGEN ---
This patient, Slade Aguilar, was admitted to IMU Room 211-01. Patient/family oriented to hospital policies and general routines including ID bracelet, bed and alarms, visiting hours, pain management, procedures, bathroom and other care routines, personal items, smoking policy, room service/diet, and visiting hours. Information on how to activate the Rapid Response Team has been discussed. Patient/Family are encouraged to report perceived risks to care and to ask questions if they do not understand what they are told or what they should do.
[2024-05-02] VITALS (15 sets, daily range): BP systolic 113–159; BP diastolic 42–77; PULSE 29–55; RESP 14–18; TEMP 36.3–36.6; O2SAT 99–100
--- NOTE | 2024-05-02 | ECHO_ITS ---
Patient Info Name: Slade Aguilar Age: 74 years : 1950 Gender: Male Ht: 73 in Wt: 186 lbs BSA: 2.09 m2 HR: 30 bpm BP: 113 / 42 mmHg Heart Rhythm: Bradycardia Technical Quality: Poor Exam Date: 05/02/2024 11:34 AM Exam Location: Echo Lab Patient Status: Outpatient Admit Date: 05/01/2024 Staff Ordering Physician: Doris Gorman DO Contracts Representative: Maria Elena Valles RDCS Attending Provider: Doris Gorman DO Referring Physician: Vita DOVER; Exam Type: CA echo doppler color flow Study Info Indications - symptomatic bradycardia Complete two-dimensional, color flow and Doppler transthoracic echocardiogram is performed. Reason for Poor Study: poor patient cooperation Summary 1. Complete two-dimensional, color flow and Doppler transthoracic echocardiogram is performed. 2. Technically difficult study with limited views. 3. The left ventricle is normal in size and systolic function. The LV cheney are thickened. 4. The right ventricle is normal in size and systolic function. Left Ventricle The left ventricle is normal in size and systolic function. The LV cheney are thickened. Right Ventricle The right ventricle is normal in size and systolic function. Left Atria The left atrium is normal in size. Right Atria The right atrium is normal in size. Aortic Valve The aortic valve is not well visualized however gradients across the valve suggests normal function valve. There is [id number] amount of aortic regurgitation. Pulmonic Valve The pulmonic valve is not well visualized. There is no pulmonic valve regurgitation by color Doppler. Mitral Valve The mitral valve is normal. There is trace mitral regurgitation. Tricuspid Valve The tricuspid valve is not well visualized. Pericardium/Pleural Pericardium is normal in appearance with no evidence for significant pericardial effusion. Aorta The aortic root measured at the level of the sinus of Valsalva is 4 cm in diameter which is dilated. Left Ventricular Outflow Tract Name Value Normal LVOT 2D LVOT Diameter 2.1 cm LVOT Doppler LVOT Peak Gradient 16 mmHg LVOT Mean Gradient 12 mmHg LVOT VTI 34 cm LVOT VTI/AV VTI Ratio 1.3 LVOT Stroke Volume 122 ml LVOT CO 7.2 l/min LVOT CI 3.5 l/min/m2 Pulmonic Valve Name Value Normal PV Doppler PV Peak Gradient 2 mmHg Tricuspid Valve Name Value Normal TV Regurgitation Doppler TR Peak Velocity 135 cm/s TR Peak Gradient 7 mmHg Estimated PAP/RSVP RA Pressure 10 mmHg <=5 PA Systolic Pressure 17 mmHg <36 RV Systolic Pressure 17 mmHg <36 Aortic Valve Name Value Normal AV Doppler AV Peak Velocity 129 cm/s AV Peak Gradient 7 mmHg AV Mean Gradient 4 mmHg AV VTI 26 cm AV Area (Cont Eq VTI) 4.7 cm2 >=3.0 AV Area (Cont Eq Elijah) 5.6 cm2 AV Regurgitation 2D LVOT Area 3.6 cm2 Ventricles Name Value Normal LV Dimensions 2D/MM IVS Diastolic Thickness (2D) 1.2 cm 0.6-1.0 LVID Diastole (2D) 5.0 cm 4.2-5.8 LVIW Diastolic Thickness (2D) 1.2 cm 0.6-1.0 LVID Systole (2D) 3.8 cm 2.5-4.0 LVOT Diameter 2.1 cm LV Mass (2D Cubed) 221.99 g 88.00-224.00 LV Mass Index (2D Cubed) 106 g/m2 49-115 Relative Wall Thickness (2D) 0.46 LV Fractional Shortening/Ejection Fraction 2D/MM LV Fractional Shortening (2D) 23 % 25-43 LV EF (2D Teicholz) 46 % 52-72 LV Diastolic Volume (4C MOD) 126 ml LV EF (4C MOD) 43 % LV Diastolic Length (4C) 7.4 cm LV Systolic Length (4C) 6.4 cm LV Stroke Volume (4C MOD) 54 ml Atria Name Value Normal LA Dimensions LA Volume (4C A-L) 42 ml RA Dimensions RA Area (4C) 15.4 cm2 <=18.0 Report Signatures
[2024-05-02 00:07] LABS: Hemoglobin A1C 5.9 % (<5.7)
[2024-05-02] MEDS: SODIUM CHLORIDE 0.9% IV 1,000 ML 125 ML IV CONT ×3 (00:11→19:19)
[2024-05-02 01:38] LABS: Troponin I < 0.012 ng/mL (0.000-0.034)
[2024-05-02 01:39] LABS: MRSA (PCR) NOT DETECTED (NOT DETECTE)
[2024-05-02 02:54] LABS: Free T4 Free Thyroxine Reflex 0.85 ng/dL (0.78-2.19)
[2024-05-02 03:36] LABS: Total Triiodothyronine (T3) 1.03 NG/ML (0.97-1.69)
[2024-05-02 05:18] LABS: Estimated CRCL calculation 50 ml/min; Estimated Glomerular Filt Rate > 60
--- NOTE | 2024-05-02 07:39 | PC.NURSE ---
blood glucose 67. 4oz of OJ given. Patient alert and awake. Completed all of the OJ in two drinks.
[2024-05-02 07:47] LABS: Glucose Point of Care 67 mg/dl (65-105)
[2024-05-02 08:16] LABS: Glucose Point of Care 76 mg/dl (65-105)
[2024-05-02] MEDS: PIPERACILLN/TAZ 3.375GM/NS50ML 3.375 GM/50 ML BAG IVPB ×3 (08:43→17:43)
[2024-05-02] MEDS: ENOXAPARIN 40 MG/0.4 ML SYRINGE SUB-Q (08:51)
[2024-05-02] MEDS: DOCUSATE SODIUM 100 MG CAPSULE PO ×2 (08:52→21:10)
[2024-05-02] MEDS: FAMOTIDINE 20 MG TABLET PO ×2 (08:52→21:10)
[2024-05-02] MEDS: BISACODYL 10 MG SUPPOSITORY RECTAL (09:13)
[2024-05-02 09:46] LABS: Basophils Absolute Auto 0.1 K/mm3 (0.0-0.1); Basophils Percent Auto 1.7 % (0.2-1.2); Eosinophils Absolute Auto 0.2 K/mm3 (0-0.3); Eosinophils Percent Auto 2.8 % (0-4.4); Hematocrit 35.1 % (42.0-52.0); Hemoglobin 11.2 g/dL (14.0-18.0); Immature Granulocyte Absolute 0.03 K/mm3 (0.00-0.031); Immature Granulocyte Percent A 0.4 % (0-0.5); Lymphocytes Absolute Auto 1.88 K/mm3 (0.9-3.2); Lymphocytes Percent Auto 26.6 % (18.3-44.2); Mean Corpuscular HGB Conc 31.9 g/dl (32-36); Mean Corpuscular Hemoglobin 30.2 pg (26-34); Mean Corpuscular Volume 94.6 fl (80-100); Mean Platelet Volume 10.1 fl (7.4-10.4); Monocytes Absolute Auto 0.6 K/mm3 (0.1-0.6); Monocytes Percent Auto 7.8 % (2.6-8.5); Neutrophils Absolute Auto 4.3 K/mm3 (1.3-6.7); Neutrophils Percent Auto 60.7 % (45.5-73.1); Platelet Count Result 195 k/mm3 (150-375); Red Blood Count 3.71 M/mm3 (4.6-6.20); Red Cell Distribution Width 13.5 % (11.5-14.5); White Blood Count 7.1 K/mm3 (4.5-10.0)
[2024-05-02 09:55] LABS: Magnesium 1.8 mg/dL (1.6-2.3); Phosphorus 3.9 mg/dL (2.5-4.5)
[2024-05-02 10:05] LABS: Alanine Aminotransferase 7 U/L (6-50); Alkaline Phosphatase 104 U/L (38-126); Anion Gap 10 mmol/L (4-12); Aspartate Amino Transferase 16 U/L (17-59); Bilirubin,Total 0.5 mg/dL (0.2-1.3); Blood Urea Nitrogen 14 mg/dL (9-20); CRP < 0.5 mg/dL (<1.0); Calcium 8.8 mg/dL (8.4-10.2); Carbon Dioxide 26 mmol/L (22-30); Chloride 104 mmol/L (98-107); Estimated CRCL calculation 50 ml/min; Estimated Glomerular Filt Rate > 60; Glucose 104 mg/dL (65-110); Potassium 4.1 mmol/L (3.4-5.0); Sodium 140 mmol/L (137-145)
[2024-05-02 10:08] LABS: Troponin I < 0.012 ng/mL (0.000-0.034)
--- NOTE | 2024-05-02 10:36 | P.CONCA_ITS ---
Assessment and Plan Assessment and plan (1) AV block: Code(s): I44.30 - Unspecified atrioventricular block Status: Acute (2) Syncope: Qualifiers: Syncope type: unspecified Qualified Code(s): R55 - Syncope and collapse Code(s): R55 - Syncope and collapse Status: Acute Plan 74-year-old man with prostate cancer status post radiation therapy and possible metastases, HIV, multiple CVAs status post right carotid endarterectomy, and diabetes mellitus who presents with episodes of syncope Syncope related to arrhythmia -have discussion about risk and benefits of permanent pacemaker implantation -patient currently refuses however there be further discussion with family and patient -continue telemetry monitoring at this time and obtain transthoracic echocardiogram -avoid AV paty blocking agents Second-degree AV block 2:1 -given the patient is symptomatic with episodes of syncope, would recommend permanent pacemaker implantation -should the patient and family agree to permanent pacemaker implantation, which transferred to facility that can accommodate this History of Present Illness History of Present Illness Consult date/time: 05/02/24 10:36 Requesting physician: Doris Gorman DO Consult reason: Other Reason For Visit: Bradycardia,stercocolitis Narrative: 74-year-old man with prostate cancer status post radiation therapy and possible metastases, HIV, multiple CVAs status post right carotid endarterectomy, and diabetes mellitus who presents with episodes of syncope. While the daughter was taking care of the patient she witnessed that he had a vessel of loss of consciousness that lasted for about 30 seconds with no associated seizures. Patient lives with his daughter who takes care of him and most of his needs as the patient is mostly bedbound at baseline. Upon arrival at the hospital, he was found to be bradycardic with ventricular rates of 20-30 beats per minute and ECG shows evidence of high-degree AV block. 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 The patient sees a uro logist at [facility]. Shingles Stroke 2 x 2019 Vascular dementia Surgical History Surgical History (Updated 05/02/24 @ 00:20 by Doris Gorman DO) H/O hand surgery Right hand fracture History of right-sided carotid endarterectomy (~2019) History of tonsillectomy As a teenager History of umbilical hernia repair Family History Family History Father No problems noted. Mother Diabetes mellitus Social History Social History (Updated 05/02/24 @ 00:25 by Doris Gorman DO) Social History: The patient lives with his healthcare power of employee benefits attorney/daughter Teresa. He is mostly bed-bound since his stroke in 2019. He smoked less than a pack of cigarettes per day for approximately 45 years but quit in 1994. His daughter reports that the patient at least drink a moderate amount of alcohol but quit drinking alcohol many years ago. He denies history of illicit substance use. 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 He has 6 children. Code status: Full code Smoking packs per day: 0.5 Smoking cigarettes per day: 10.0 Years smoked: 48 Smoking pack-years: 24.00 Smoking status: Former smoker Second hand tobacco smoke exposure: No Alcohol intake: former Alcohol use details: Several drinks several times a week but quit many years a go. Substance use: former Substance use type: marijuana Last use: Do You Feel Safe in your Home?: Yes Lack of Transportation: No Lack of Food: Never True Current Housing: I Have Housing Concerned About Future Housing: No Difficulty Paying Gas/Electric Bills: No Difficulty Paying for Meds: No Currently Unemployed: No Education: High School Diploma/GED Difficulty w/ Childcare or Family Care: No Gender identity (if verbalized by the patient): Male Spiritual care concerns: No Agree to blood products: Yes Meds Home Medications and Allergies Home Medications Medication Instructions Recorded Confirmed Type aspirin 325 mg tablet 325 mg PO DAILY #30 tabs 06/30/19 05/01/24 Rx bictegravir 50 mg-emtricitabine 1 tablet PO DAILY #30 tabs 06/30/19 05/01/24 Rx 200 mg-tenofovir alafenam 25 mg tablet (Biktarvy) montelukast 10 mg tablet 10 mg PO HS #30 tabs 06/30/19 05/01/24 Rx rosuvastatin 40 mg tablet 40 mg PO DAILY #30 tabs 06/30/19 05/01/24 Rx acetaminophen 500 mg tablet 1,000 mg PO Q6H PRN Pain (Scale 10/12/19 05/01/24 History (Acetaminophen Extra Strength) Score 1-3) albuterol sulfate 90 mcg/actuation 2 puff inhalation Q6HRT PRN 08/09/21 05/01/24 Rx aerosol inhaler (Proventil HFA) Shortness Of Breath #6.7 grams fluticasone fur. 100 mcg-umeclid 1 inh inhalation DAILY 01/30/23 05/01/24 Histo ry 62.5 mcg-vilant 25 mcg inhalat.powder (Trelegy Ellipta) Allergies Allergy/AdvReac Type Severity Reaction Status Date / Time No Known Allergies Allergy Verified 07/30/21 13:26 Vital Signs Vital Signs - 24 hr 05/01/24 19:33 05/01/24 19:40 05/01/24 19:43 Temperature Pulse Rate 92 87 Respiratory Rate 14 22 H Blood Pressure 130/64 Pulse Oximetry 96 100 100 Oxygen Delivery Room Air 05/01/24 20:15 05/01/24 20:46 05/01/24 20:53 Temperature Pulse Rate 90 40 L 39 L Respiratory Rate 20 11 L 12 Blood Pressure 122/55 L Pulse Oximetry 100 100 Oxygen Delivery 05/01/24 22:56 05/01/24 20:54 05/01/24 21:00 Temperature Pulse Rate 33 L 41 L 38 L Respiratory Rate 14 17 Blood Pressure 146/54 H Pulse Oximetry 97 100 100 Oxygen Delivery 05/01/24 21:01 05/01/24 21:15 05/01/24 21:30 Temperature Pulse Rate 40 L 47 L 35 L Respiratory Rate 10 L 15 13 Blood Pressure 138/54 L Pulse Oximetry 100 100 Oxygen Delivery 05/01/24 21:32 05/01/24 21:45 05/01/24 22:00 Temperature Pulse Rate 35 L 34 L 33 L Respiratory Rate 11 L 10 L 12 Blood Pressure 110/56 L Pulse Oximetry 100 100 100 Oxygen Delivery 05/01/24 22:15 05/01/24 22:30 05/01/24 22:33 Temperature Pulse Rate 30 L 38 L 41 L Respiratory Rate 13 14 21 H Blood Pressure 108/61 Pulse Oximetry 100 Oxygen Delivery 05/01/24 23:20 05/01/24 23:35 05/02/24 00:00 Temperature 36.8 C Pulse Rate 47 L 54 L 36 L Respiratory Rate 17 20 Blood Pressure 106/77 155/52 H Pulse Oximetry 97 100 Oxygen Delivery 05/02/24 02:00 05/02/24 04:39 05/02/24 04:00 Temperature 36.4 C L Pulse Rate 31 L 30 L 37 L Respiratory Rate 16 Blood Pressure 113/42 L Pulse Oximetry 100 Oxygen Delivery 05/02/24 04:00 05/02/24 00:00 05/02/24 07:26 Temperature 36.5 C Pulse Rate 30 L 29 L Respiratory Rate 16 14 Blood Pressure 144/45 H Pulse Oximetry 100 100 Oxygen Delivery Room Air Room Air Exam Const: General: comfortable HENMT: Mouth: Yes moist mucous membranes Eyes: EOM: EOMs intact bilaterally Neck: Neck: no JVD Resp: Auscultation: clear to auscultation bilaterally Cardio: Rhythm: regular rhythm GI: GI Palp: Yes Soft to palpation Neuro: Speech: normal speech Results Labs and Meds 05/02/24 09:31 05/02/24 09:31 Lab results: Cardiac Enzymes 05/01/24 05/02/24 05/02/24 Range/Units 19:51 00:55 09:31 AST 17 16 L (17-59) U/L Troponin I < 0.012 < 0.012 < 0.012 (0.000-0.034) ng/mL CBC 05/01/24 05/02/24 Range/Units 19:51 09:31 WBC 7.0 7.1 (4.5-10.0) K/mm3 RBC 4.32 L 3.71 L (4.6-6.20) M/mm3 Hgb 12.9 L 11.2 L (14.0-18.0) g/dL Hct 39.8 L 35.1 L (42.0-52.0) % Plt Count 199 195 (150-375) k/mm3 Lymph # (Auto) 3.21 H 1.88 (0.9-3.2) K/mm3 Humphreys # (Auto) 0.3 0.6 (0.1-0.6) K/mm3 Eos # (Auto) 0.2 0.2 (0-0.3) K/mm3 Baso # (Auto) 0.1 0.1 (0.0-0.1) K/mm3 Comprehensive Metabolic Panel 05/01/24 05/02/24 05/02/24 Range/Units 19:51 00:48 09:31 Sodium 140 140 (137-145) mmol/L Potassium 4.0 4.1 (3.4-5.0) mmol/L Chloride 101 104 (98-107) mmol/L Carbon Dioxide 27 26 (22-30) mmol/L BUN 18 14 (9-20) mg/dL Creatinine 1.20 1.10 1.10 (0.7-1.3) mg/dL Glucose 209 H 104 (65-110) mg/dL Calcium 9.6 8.8 (8.4-10.2) mg/dL AST 17 16 L (17-59) U/L ALT 9 7 (6-50) U/L Alkaline Phosphatase 125 104 (38-126) U/L Total Protein 8.0 8.0 (6.3-8.2) g/dL Albumin 4.4 4.0 (3.5-5.1) g/dL Intake and Output 05/01/24 05/02/24 05/02/24 23:59 07:59 15:59 Intake Total 3804 729 4159 Output Total 400 Balance 1000 -300 1120 Intake: IV 1000 1000 Sodium Chloride 0.9% IV 1,000 1000 1000 ml @ 125 mls/hr IV CONT .Q8H [facility] Rx#:[id number] Oral 100 120 Output: Urine 400 Other: Number of Bowel Movements Today 1 Patient Weight 05/02/24 23:59 Weight 69.1 kg
--- NOTE | 2024-05-02 10:42 | P.CONGS_ITS ---
Assessment and Plan Assessment and plan (1) Fecal impaction of colon: Code(s): K56.41 - Fecal impaction Status: Acute Assessment and Plan: This is the reason for our consultation. CT showed fecal impaction with proctocolitis and a large volume of stool throughout the colon. He is not complaining of any abdominal pain and his abdominal exam is benign. He has had one large bowel movement since admission. Agree with Dulcolax suppository today. Continue with medical management, bowel stimulation, and close monitoring. No indication for surgical intervention at this time. (2) AV block: Code(s): I44.30 - Unspecified atrioventricular block Status: Acute Assessment and Plan: Cardiology following and recommending pacemaker insertion. (3) Bradycardia, sinus: Code(s): R00.1 - Bradycardia, unspecified Status: Acute (4) Prostate cancer metastatic to bone: Code(s): C61 - Malignant neoplasm of prostate; C79.51 - Secondary malignant neoplasm of bone Status: Acute Assessment and Plan: Hospitalist discussed with daughter who does not want any aggressive treatment (5) Type 2 diabetes mellitus with hyperglycemia: Qualifiers: Diabetes mellitus exterminator helper termite insulin use: without exterminator helper termite use Qualified Code(s): E11.65 - Type 2 diabetes mellitus with hyperglycemia Code(s): E11.65 - Type 2 diabetes mellitus with hyperglycemia Status: Acute (6) HIV (human immunodeficiency virus infection): Qualifiers: HIV symptom status: unspecified Qualified Code(s): B20 - Human immunodeficiency virus [HIV] disease Code(s): B20 - Human immunodeficiency virus [HIV] disease Status: Acute (7) Left hemiparesis: Code(s): G81.94 - Hemiplegia, unspecified affecting left nondominant side Status: Acute Plan I have discussed the patient's case and plan of care with Dr. Spencer. History of Present Illness Consult details Consult date: 05/02/24 Reason for consult: other (Proctocolitis) Requesting physician: Ba Delgado MD Narrative: This is a 74 year old man with past medical history of chronic constipation, HIV, diabetes mellitus, prostate cancer treated with radiation therapy in 2019 and multiple CVAs status post right carotid endarterectomy, who presented to the ED yesterday or episodes of rigidity and syncope. The patient is alert and oriented x3 but is unable to provide any detailed history. No family is at the bedside. His history is obtained by review of the electronic medical record. He is primarily bed bound at baseline but will sit up in bed unassisted. He has chronic hemiplegia due to 2 strokes in 2019. In the EMR, it appears he had a bowel movement the day prior to presentation in the ER. While in the ER, the patient was found to be bradycardic with some degree of an AV block. At some point in the ER, he apparently reported abdominal pain to staff. He denies any abdominal pain to me today. He had a CT scan chest, abdomen, and pelvis which showed multiple osteo sclerotic lesions likely due to metastatic prostate cancer, proctocolitis fecal impaction of the rectosigmoid area, hemangioma of the left hepatic lobe, left nonobstructive nephrolithiasis, and indeterminate lesion of the posterior lateral aspect of the upper pole left kidney. He was admitted to the hospitalist and admitted to the IMU. Cardiology has been consulted and is recommending permanent pacemaker implantation. Per nursing, he was given 1 enema since admission and did have a large bowel movement. He denies any abdominal pain, nausea, or vomiting. He cannot recall his last bowel movement or if he is passing flatus. He is tolerating his diet this morning. 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 The patient sees a urologist at [facility]. Shingles Stroke 2 x 2019 Vascular dementia Surgical History Surgical History H/O hand surgery Right hand fracture History of right-sided carotid endarterectomy (~2019) History of tonsillectomy As a teenager History of umbilical hernia repair Family History Family History Father No problems noted. Mother Diabetes mellitus Social History Social History Social History: The patient lives with his healthcare power of real estate associate attorney/daughter Teresa. He is mostly bed-bound since his stroke in 2019. He smoked less than a pack of cigarettes per day for approximately 45 years but quit in 1994. His daughter reports that the patient at least drink a moderate amount of alcohol but quit drinking alcohol many years ago. He denies history of illicit substance use. 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 He has 6 children. Code status: Full code Smoking packs per day: 0.5 Smoking cigarettes per day: 10.0 Years smoked: 48 Smoking pack-years: 24.00 Smoking status: Former smoker Second hand tobacco smoke exposure: No Alcohol intake: former Alcohol use details: Several drinks several times a week but quit many years ago. Substance use: former Substance use type: marijuana Last use: Do You Feel Safe in your Home?: Yes Lack of Transportation: No Lack of Food: Never True Current Housing: I Have Housing Concerned About Future Housing: No Difficulty Paying Gas/Electric Bills: No Difficulty Paying for Meds: No Currently Unemployed: No Education: High School Diploma/GED Difficulty w/ Childcare or Family Care: No Gender identity (if verbalized by the patient): Male Spiritual care concerns: No Agree to blood products: Yes Meds Home Medications and Allergies Home Medications Medication Instructions Recorded Confirmed Type aspirin 325 mg tablet 325 mg PO DAILY #30 tabs 06/30/19 05/01/24 Rx bictegravir 50 mg-emtricitabine 1 tablet PO DAILY #30 tabs 06/30/19 05/01/24 Rx 200 mg-tenofovir alafenam 25 mg tablet (Biktarvy) montelukast 10 mg tablet 10 mg PO HS #30 tabs 06/30/19 05/01/24 Rx rosuvastatin 40 mg tablet 40 mg PO DAILY #30 tabs 06/30/19 05/01/24 Rx acetaminophen 500 mg tablet 1,000 mg PO Q6H PRN Pain (Scale 10/12/19 05/01/24 History (Acetaminophen Extra Strength) Score 1-3) albuterol sulfate 90 mcg/actuation 2 puff inhalation Q6HRT PRN 08/09/21 05/01/24 Rx aerosol inhaler (Proventil HFA) Shortness Of Breath #6.7 grams fluticasone fur. 100 mcg-umeclid 1 inh inhalation DAILY 01/30/23 05/01/24 History 62.5 mcg-vilant 25 mcg inhalat.powder (Trelegy Ellipta) Allergies Allergy/AdvReac Type Severity Reaction Status Date / Time No Known Allergies Allergy Verified 07/30/21 13:26 Vital Signs Vital Signs - 24 hr 05/01/24 19:33 05/01/24 19:40 05/01/24 19:43 Temperature Pulse Rate 92 87 Respiratory Rate 14 22 H Blood Pressure 130/64 Pulse Oximetry 96 100 100 Oxygen Delivery Room Air 05/01/24 20:15 05/01/24 20:46 05/01/24 20:53 Temperature Pulse Rate 90 40 L 39 L Respiratory Rate 20 11 L 12 Blood Pressure 122/55 L Pulse Oximetry 100 100 Oxygen Delivery 05/01/24 22:56 05/01/24 20:54 05/01/24 21:00 Temperature Pulse Rate 33 L 41 L 38 L Respiratory Rate 14 17 Blood Pressure 146/54 H Pulse Oximetry 97 100 100 Oxygen Delivery 05/01/24 21:01 05/01/24 21:15 05/01/24 21:30 Temperature Pulse Rate 40 L 47 L 35 L Respiratory Rate 10 L 15 13 Blood Pressure 138/54 L Pulse Oximetry 100 100 Oxygen Delivery 05/01/24 21:32 05/01/24 21:45 05/01/24 22:00 Temperature Pulse Rate 35 L 34 L 33 L Respiratory Rate 11 L 10 L 12 Blood Pressure 110/56 L Pulse Oximetry 100 100 100 Oxygen Delivery 05/01/24 22:15 05/01/24 22:30 05/01/24 22:33 Temperature Pulse Rate 30 L 38 L 41 L Respiratory Rate 13 14 21 H Blood Pressure 108/61 Pulse Oximetry 100 Oxygen Delivery 05/01/24 23:20 05/01/24 23:35 05/02/24 00:00 Temperature 98.2 F Pulse Rate 47 L 54 L 36 L Respiratory Rate 17 20 Blood Pressure 106/77 155/52 H Pulse Oximetry 97 100 Oxygen Delivery 05/02/24 02:00 05/02/24 04:39 05/02/24 04:00 Temperature 97.5 F L Pulse Rate 31 L 30 L 37 L Respiratory Rate 16 Blood Pressure 113/42 L Pulse Oximetry 100 Oxygen Delivery 05/02/24 04:00 05/02/24 00:00 05/02/24 07:26 Temperature 97.7 F Pulse Rate 30 L 29 L Respiratory Rate 16 14 Blood Pressure 144/45 H Pulse Oximetry 100 100 Oxygen Delivery Room Air Room Air Exam Const: General: comfortable and no acute distress Nutritional Appearance: average body habitus Orientation/consciousness: patient oriented x3 HENMT: Head: normocephalic and atraumatic Ears: hearing grossly normal bilaterally Mouth: Yes moist mucous membranes Eyes: General: appearance normal, both eyes and all related structures Neck: Neck: normal visual inspection and full ROM Resp: Effort & Inspection: no respiratory distress Auscultation: clear to auscultation bilaterally Cardio: Rate: bradycardic Rhythm: abnormal rhythm irregularly irregular GI: Inspection: non-distended and scar (periumbilical scar) GI Palp: Yes Soft to palpation, Yes Tenderness to palpation present (GI) (very mild te nderness in the LLQ), No Guarding due to palpation present (GI), Yes No hepatosplenomegaly present and No Rebound tenderness present Percussion: Yes normal to percussion Auscultation: normal bowel sounds Rectal Exam: visual inspection normal, normal sphincter tone, No Abnormal stool present (stool light brown colored), No mass (no visible or palpable mass on digital rectal exam), No tenderness and other (soft stool palpable on exam, no hard stool that needed disimpaction) Skin: General skin exam: normal color Neuro: General: other (left hemiplegia due to stroke) Speech: normal speech Extrem: General: no edema and other (contracted left arm, minimal movement of left lower extremity) Psych: Mental Status: mental status grossly normal Attitude: cooperative Insight: Good insight present (Psych) Judgement: Good judgement present (Psych) Results Labs 05/02/24 09:31 05/02/24 09:31 Labs: Abnormal lab results 05/01/24 05/02/24 05/02/24 Range/Units 19:51 00:55 09:31 RBC 4.32 L 3.71 L (4.6-6.20) M/mm3 Hgb 12.9 L 11.2 L (14.0-18.0) g/dL Hct 39.8 L 35.1 L (42.0-52.0) % MCHC 31.9 L (32-36) g/dl Lymph % (Auto) 45.7 H (18.3-44.2) % Baso % (Auto) 1.7 H (0.2-1.2) % Lymph # (Auto) 3.21 H (0.9-3.2) K/mm3 Glucose 209 H (65-110) mg/dL Hemoglobin A1c 5.9 H (<5.7) % AST 16 L (17-59) U/L Prostate Specific Ag 50.0 H (< OR = 4.0) ng/mL TSH (Reflex) 6.850 H (0.465-4.68) uIU/mL Diabetes panel 05/01/24 05/02/24 05/02/24 Range/Units 19:51 00:48 09:31 Sodium 140 140 (137-145) mmol/L Potassium 4.0 4.1 (3.4-5.0) mmol/L Chloride 101 104 (98-107) mmol/L Carbon Dioxide 27 26 (22-30) mmol/L BUN 18 14 (9-20) mg/dL Creatinine 1.20 1.10 1.10 (0.7-1.3) mg/dL Glucose 209 H 104 (65-110) mg/dL Hemoglobin A1c 5.9 H (<5.7) % Calcium 9.6 8.8 (8.4-10.2) mg/dL AST 17 16 L (17-59) U/L ALT 9 7 (6-50) U/L Alkaline Phosphatase 125 104 (38-126) U/L Total Protein 8.0 8.0 (6.3-8.2) g/dL Albumin 4.4 4.0 (3.5-5.1) g/dL Calcium panel 05/01/24 05/02/24 Range/Units 19:51 09:31 Calcium 9.6 8.8 (8.4-10.2) mg/dL Phosphorus 3.9 (2.5-4.5) mg/dL Albumin 4.4 4.0 (3.5-5.1) g/dL Pituitary panel 05/01/24 05/02/24 05/02/24 Range/Units 19:51 00:48 00:55 Sodium 140 (137-145) mmol/L Potassium 4.0 (3.4-5.0) mmol/L Chloride 101 (98-107) mmol/L Carbon Dioxide 27 (22-30) mmol/L BUN 18 (9-20) mg/dL Creatinine 1.20 1.10 (0.7-1.3) mg/dL Glucose 209 H (65-110) mg/dL Calcium 9.6 (8.4-10.2) mg/dL Total T3 1.03 (0.97-1.69) NG/ML 05/02/24 Range/Units 09:31 Sodium 140 (137-145) mmol/L Potassium 4.1 (3.4-5.0) mmol/L Chloride 104 (98-107) mmol/L Carbon Dioxide 26 (22-30) mmol/L BUN 14 (9-20) mg/dL Creatinine 1.10 (0.7-1.3) mg/dL Glucose 104 (65-110) mg/dL Calcium 8.8 (8.4-10.2) mg/dL Total T3 (0.97-1.69) NG/ML Adrenal panel 05/01/24 05/02/24 05/02/24 Range/Units 19:51 00:48 09:31 Sodium 140 140 (137-145) mmol/L Potassium 4.0 4.1 (3.4-5.0) mmol/L Chloride 101 104 (98-107) mmol/L Carbon Dioxide 27 26 (22-30) mmol/L BUN 18 14 (9-20) mg/dL Creatinine 1.20 1.10 1.10 (0.7-1.3) mg/dL Glucose 209 H 104 (65-110) mg/dL Calcium 9.6 8.8 (8.4-10.2) mg/dL Total Bilirubin 0.7 0.5 (0.2-1.3) mg/dL AST 17 16 L (17-59) U/L ALT 9 7 (6-50) U/L Alkaline Phosphatase 125 104 (38-126) U/L Total Protein 8.0 8.0 (6.3-8.2) g/dL Albumin 4.4 4.0 (3.5-5.1) g/dL All other labs normal. Imaging Additional studies: ITS Impressions Chest X-Ray 05/01/24 20:19 IMPRESSION: Left retrocardiac increased density which may be due to hiatal hernia and/or left lower lobe infiltrate or atelectasis Sclerotic lesion of posterior lateral aspect of right seventh rib versus lung opacity; consider additional chest radiographs with different projection versus CT thorax Chest CT 05/01/24 20:50 IMPRESSION: Numerous osteosclerotic lesions, likely due to metastatic prostate cancer Left lower lobe dependent discoid atelectasis or scarring, left lower lobe bronchiectasis and peribronchial soft tissue thickening 2.4 cm probable left lower lobe calcified pulmonary granuloma Cardiomegaly, aortic atherosclerosis Abdomen/Pelvis CT 05/01/24 21:30 IMPRESSION: Raymon proctocolitis fecal impaction of the rectosigmoid area Extensive osteosclerotic lesions, likely due to prostate metastases and metastatic disease of the right hemipelvis and right femur 4 x 4.8 cm hemangioma of the lateral segment left hepatic lobe Indeterminate 1.6 standard hypoenhancing lesion of the posterior lateral aspect of the upper pole left kidney; hypernephroma is not excluded. Consider further evaluation with MR examination Left nonobstructive nephrolithiasis
[2024-05-02 10:48] LABS: Procalcitonin 0.1 ng/mL
--- NOTE | 2024-05-02 10:48 | PC.NURSE ---
Alert and awake in room. Denies pain or discomfort. Oriented to self and place, uncertain of time at this time. Answers questions with short yes or No answers, otherwise appears withdrawn to plan of care. Discussed with patient plan of care related to medications. Patient initially stated when discussing medications, specifically a suppository for bowel movement, that he does not want anything that makes me go to the bathroom . However, a provider came in and spoke to him a few minutes later and he agreed at that time to except the suppository. See eMAR for more information. Discussed low blood glucose. Patient did continue to eat all of his breakfast including his oatmeal that was left behind when tray was taken and drink all of his coffee. Complains of pain in the left arm, when moved. Unable to describe the type of pain. States yes , when asked Does your left arm hurt when I move it, because I notice your face is grimacing ? However, when asked can you describe pain ? there is no response to questions. Vital signs otherwise stable. shelter monitor remains on and functioning at this time. Heart rate remains in the 30-40s at this time. No acute distress noted.
[2024-05-02 11:22] LABS: Lactic Acid Reflex 1.3 mmol/L (0.7-2.0)
[2024-05-02 11:28] LABS: Glucose Point of Care 93 mg/dl (65-105)
--- NOTE | 2024-05-02 15:19 | P.PNIM_ITS ---
Progress Note: A&P Assessment and Plan (1) Syncope: Qualifiers: Syncope type: unspecified Qualified Code(s): R55 - Syncope and collapse Code(s): R55 - Syncope and collapse Status: Acute Assessment and Plan: Most likely due to symptomatic bradycardia. Patient's heart rates in the ER ranged between 27 and 70s for the most part his rate was in the 30s to 40s. EKG showing sinus with high grade AV block, low voltage, probably old Anterior and Inferior TX The patient is not on any medications that should be associated with bradycardia. Cardiology consulted and PM recommended since patient is symptomatic. Echo showing normal LV size and fxn with thickened LV cheney. RV is normal size and fxn. Mild-Mod AR and trace MR. Aortic root is dilated at 4cm. Avoid AV paty blocking agents. Plan for PM either here or transfer to another facility (2) Symptomatic bradycardia: Code(s): R00.1 - Bradycardia, unspecified Status: Acute Assessment and Plan: As above. EKG showing high grade AV block. (3) Proctitis: Code(s): K62.89 - Other specified diseases of anus and rectum Status: Acute Assessment and Plan: CT A/P showing thickening of the rectal wall sigmoid colon wall up to 4.7 mm gina meter, with pneumatosis of the rectal and sigmoid cheney. He has prominent rectosigmoid fecal impaction in the colon consistent with stercoral colitis. There is a prominent amount of fecal material throughout the remainder of the colon. He has known severe constipation. WBC normal. PCT 0.1. CRP <0.5. Lacti normal. No significant abd pain and he is having BMs. Started IV abx and GenSurg consulted; appreciated their input. Diet continued. Getting daily suppositories. Miralax added. Follow closely. If no evidence of bowel ischemia, will stop abx in 1-2 days. (4) Fecal impaction of colon: Code(s): K56.41 - Fecal impaction Status: Acute Assessment and Plan: As above (5) Prostate cancer metastatic to bone: Code(s): C61 - Malignant neoplasm of prostate; C79.51 - Secondary malignant neoplasm of bone Status: Acute Assessment and Plan: Patient has a distant history of prostate cancer treated with radiation therapy. He had a bone scan in January 2023 that suggested Paget's disease of the bone with sclerotic lesions only located in the sacrum, right innominate bone and right femur. Imaging here is concerning for metastatic disease possibly from prostate cancer. Please see CT scan of the chest, abdomen and pelvis PSA 50 today (PSA 8.5 in January 2023). He will need to follow up with his oncologist once he is well. 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 The patient's blood glucose was reviewed on 05/02 Glucose remains well controlled. Continue AccuCheks covering with sliding scale. Hypoglycemia protocol available as needed. Continue current medications. (7) HIV (human immunodeficiency virus infection): Qualifiers: HIV symptom status: unspecified Qualified Code(s): B20 - Human immunodeficiency virus [HIV] disease Code(s): B20 - Human immunodeficiency virus [HIV] disease Status: Acute Assessment and Plan: Stable. Continue home Biktarvy. Plan Code status - full DVT prophylaxis - Lovenox Subjective Date/time seen: 05/02/24 15:19 Interval history: 74yo male with chronic constipation, HIV, DM, prostate cancer treated with XRT 2018 and multiple CVAs status post right carotid endarterectomy who presented to the ER with 2 or more episodes of rigidity and what sounds like syncopal episode. Patient feels okay. No CP or abd pain. No back pain. No SOB or cough. No n/v. Eating well. Exam Narrative: AF 97.6 137/77 55 14 99% ra Gen - NARD Chest - distant BS CV - bradycardia, regular. Tele showing bradycardia with variable AV block. Abd - Soft, NT/ND, Positive BS Ext - No pedal edema Neuro - Alert and oriented x4. Nonfocal exam. Psych - Nml mood and affect Skin - Warm and dry Objective Data Vital Signs Vital Signs: Vital Signs - 24 hr 05/01/24 19:33 05/01/24 19:40 05/01/24 19:43 Temperature Pulse Rate 92 87 Respiratory Rate 14 22 H Blood Pressure 130/64 Pulse Oximetry 96 100 100 Oxygen Delivery Room Air 05/01/24 20:15 05/01/24 20:46 05/01/24 20:53 Temperature Pulse Rate 90 40 L 39 L Respiratory Rate 20 11 L 12 Blood Pressure 122/55 L Pulse Oximetry 100 100 Oxygen Delivery 05/01/24 22:56 05/01/24 20:54 05/01/24 21:00 Temperature Pulse Rate 33 L 41 L 38 L Respiratory Rate 14 17 Blood Pressure 146/54 H Pulse Oximetry 97 100 100 Oxygen Delivery 05/01/24 21:01 05/01/24 21:15 05/01/24 21:30 Temperature Pulse Rate 40 L 47 L 35 L Respiratory Rate 10 L 15 13 Blood Pressure 138/54 L Pulse Oximetry 100 100 Oxygen Delivery 05/01/24 21:32 05/01/24 21:45 05/01/24 22:00 Temperature Pulse Rate 35 L 34 L 33 L Respiratory Rate 11 L 10 L 12 Blood Pressure 110/56 L Pulse Oximetry 100 100 100 Oxygen Delivery 05/01/24 22:15 05/01/24 22:30 05/01/24 22:33 Temperature Pulse Rate 30 L 38 L 41 L Respiratory Rate 13 14 21 H Blood Pressure 108/61 Pulse Oximetry 100 Oxygen Delivery 05/01/24 23:20 05/01/24 23:35 05/02/24 00:00 Temperature 98.2 F Pulse Rate 47 L 54 L 36 L Respiratory Rate 17 20 Blood Pressure 106/77 155/52 H Pulse Oximetry 97 100 Oxygen Delivery 05/02/24 02:00 05/02/24 04:39 05/02/24 04:00 Temperature 97.5 F L Pulse Rate 31 L 30 L 37 L Respiratory Rate 16 Blood Pressure 113/42 L Pulse Oximetry 100 Oxygen Delivery 05/02/24 04:00 05/02/24 00:00 05/02/24 07:26 Temperature 97.7 F Pulse Rate 30 L 29 L Respiratory Rate 16 14 Blood Pressure 144/45 H Pulse Oximetry 100 100 Oxygen Delivery Room Air Room Air 05/02/24 08:00 05/02/24 08:00 05/02/24 12:44 Temperature 97.6 F Pulse Rate 41 L 41 L 55 L Respiratory Rate 14 14 Blood Pressure 137/77 Pulse Oximetry 100 99 Oxygen Delivery Room Air 05/02/24 12:00 05/02/24 12:00 Temperature Pulse Rate 43 L 48 L Respiratory Rate 14 Blood Pressure Pulse Oximetry 99 Oxygen Delivery Room Air Intake/Output Intake/Output: Intake & Output 04/29/24 04/30/24 05/01/24 05/02/24 23:59 23:59 23:59 23:59 Intake Total 1000 1270 Output Total 400 Balance 1000 870 Meds/Results Medications: Active Medications Generic Name Dose Route Start Last Admin Trade Name Freq PRN Reason Stop Dose Admin Bisacodyl 10 mg 05/02/24 09:00 05/02/24 09:13 Bisacodyl 10 Mg Suppository RECTAL 10 mg QAM STEPHANI Administration Dextrose 12.5 gm 05/01/24 23:05 Dextrose 50% 25 Gm/50 Ml Syringe IV PUSH PRN PRN Hypoglycemia Protocol Docusate Sodium 100 mg 05/02/24 09:00 05/02/24 08:52 Docusate Sodium 100 Mg Capsule PO 100 mg Q12HR STEPHANI Administration Enoxaparin Sodium 40 mg 05/02/24 09:00 05/02/24 08:51 Enoxaparin 40 Mg/0.4 Ml Syringe SUB-Q 40 mg DAILY STEPHANI Administration Famotidine 20 mg 05/02/24 09:00 05/02/24 08:52 Famotidine 20 Mg Tablet PO 20 mg Q12HR STEPHANI Administration Glucagon 1 mg 05/01/24 23:05 Glucagon For Inj 1 Mg Vial IM PRN PRN Hypoglycemia Protocol Glucose 15 gm 05/01/24 23:05 Glucose Oral Gel 15 Gm Of Glucse In 37.5 Gm Tube PO PRN PRN Hypoglycemia Protocol Hydromorphone HCl 0.5 mg 05/01/24 22:03 Hydromorphone Hcl Inj (*Crx) 1 Mg/Ml Syr IV PUSH Q4H PRN Pain Rated 7-10 Sodium Chloride 1,000 mls @ 125 mls/hr 05/01/24 22:05 05/02/24 08:41 Normal Saline Iv IV CONT 125 mls/hr .Q8H STEPHANI Administration Dextrose 1,000 mls @ 100 mls/hr 05/01/24 23:05 Dextrose 5% 1,000 Ml IVPB PRN PRN Hypoglycemia Protocol Piperacillin/Tazobactam/Dextrose 3.375 gm in 50 mls @ 100 mls/hr 05/02/24 08:00 05/02/24 13:25 Zosyn 3.375 Gm/Ns 50 Ml IVPB 100 mls/hr Q6HR STEPHANI Administration Insulin Aspart 2 - 5 units 05/02/24 08:00 05/02/24 13:19 Insulin Aspart (*Bkc) 100 Units/Ml SUB-Q Not Given TIDWM [facility] Protocol Insulin Aspart 1 - 2 units 05/02/24 21:00 Insulin Aspart (*Bkc) 100 Units/Ml SUB-Q HS [facility] Protocol Ketorolac Tromethamine 15 mg 05/01/24 22:09 Ketorolac 30 Mg/Ml Vial (*Bkc) IV PUSH 05/06/24 22:02 Q6H PRN Pain Rated 4-6 Ondansetron HCl 4 mg 05/01/24 22:03 Ondansetron Inj 4 Mg/2 Ml Vial IV PUSH Q4H PRN Nausea Perflutren Lipid Microsphere 0 ml 05/01/24 23:03 Perflutren Lipid Microspheres 1.5 Ml Vial Diluted To 10 Ml Total Volume IV PUSH 05/04/24 23:03 ONCE PRN adequate visualization Protocol Polyethylene Glycol 17 gm 05/03/24 09:00 Polyethylene Glycol 3350 17 Gm Powd.Pack PO QAM [facility] Radiology Results: ITS Impressions Chest X-Ray 05/01/24 20:19 IMPRESSION: Left retrocardiac increased density which may be due to hiatal hernia and/or left lower lobe infiltrate or atelectasis Sclerotic lesion of posterior lateral aspect of right seventh rib versus lung opacity; consider additional chest radiographs with different projection versus CT thorax Chest CT 05/01/24 20:50 IMPRESSION: Numerous osteosclerotic lesions, likely due to metastatic prostate cancer Left lower lobe dependent discoid atelectasis or scarring, left lower lobe bronchiectasis and peribronchial soft tissue thickening 2.4 cm probable left lower lobe calcified pulmonary granuloma Cardiomegaly, aortic atherosclerosis Abdomen/Pelvis CT 05/01/24 21:30 IMPRESSION: Raymon proctocolitis fecal impaction of the rectosigmoid area Extensive osteosclerotic lesions, likely due to prostate metastases and metastatic disease of the right hemipelvis and right femur 4 x 4.8 cm hemangioma of the lateral segment left hepatic lobe Indeterminate 1.6 standard hypoenhancing lesion of the posterior lateral aspect of the upper pole left kidney; hypernephroma is not excluded. Consider further evaluation with MR examination Left nonobstructive nephrolithiasis Labs Labs: Laboratory Results - last 24 hr 05/01/24 05/02/24 05/02/24 19:51 00:08 00:48 WBC 7.0 RBC 4.32 L Hgb 12.9 L Hct 39.8 L MCV 92.1 MCH 29.9 MCHC 32.4 RDW 13.6 Plt Count 199 MPV 9.9 Immature Gran % (Auto) 0.4 Neut % (Auto) 45.7 Lymph % (Auto) 45.7 H [place] % (Auto) 4.7 Eos % (Auto) 2.4 Baso % (Auto) 1.1 Lymph # (Auto) 3.21 H [place] # (Auto) 0.3 Eos # (Auto) 0.2 Baso # (Auto) 0.1 Abs Immat Gran (auto) 0.03 Absolute Neuts (auto) 3.2 Absolute Nucleated RBC 0.000 Nucleated RBC % 0.0 Sodium 140 Potassium 4.0 Chloride 101 Carbon Dioxide 27 Anion Gap 12 BUN 18 Creatinine 1.20 1.10 Estim Creat Clear Calc 53 50 Estimated GFR > 60 > 60 Glucose 209 H POC Capillary Glucose Hemoglobin A1c 5.9 H Lactic Acid Calcium 9.6 Phosphorus Magnesium Total Bilirubin 0.7 AST 17 ALT 9 Alkaline Phosphatase 125 Troponin I < 0.012 C-Reactive Protein Total Protein 8.0 Albumin 4.4 Lipase 89 Prostate Specific Ag Procalcitonin TSH (Reflex) Free T4 Total T3 Nasal MRSA (PCR) Not detected 05/02/24 05/02/24 05/02/24 00:55 07:32 08:10 WBC RBC Hgb Hct MCV MCH MCHC RDW Plt Count MPV Immature Gran % (Auto) Neut % (Auto) Lymph % (Auto) [place] % (Auto) Eos % (Auto) Baso % (Auto) Lymph # (Auto) [place] # (Auto) Eos # (Auto) Baso # (Auto) Abs Immat Gran (auto) Absolute Neuts (auto) Absolute Nucleated RBC Nucleated RBC % Sodium Potassium Chloride Carbon Dioxide Anion Gap BUN Creatinine Estim Creat Clear Calc Estimated GFR Glucose POC Capillary Glucose 67 76 Hemoglobin A1c Lactic Acid Calcium Phosphorus Magnesium Total Bilirubin AST ALT Alkaline Phosphatase Troponin I < 0.012 C-Reactive Protein Total Protein Albumin Lipase Prostate Specific Ag Procalcitonin TSH (Reflex) 6.850 H Free T4 0.85 Total T3 1.03 Nasal MRSA (PCR) 10/05/02/24 05/02/24 09:31 09:32 11:05 WBC 7.1 RBC 3.71 L Hgb 11.2 L Hct 35.1 L MCV 94.6 MCH 30.2 MCHC 31.9 L RDW 13.5 Plt Count 195 MPV 10.1 Immature Gran % (Auto) 0.4 Neut % (Auto) 60.7 Lymph % (Auto) 26.6 [place] % (Auto) 7.8 Eos % (Auto) 2.8 Baso % (Auto) 1.7 H Lymph # (Auto) 1.88 [place] # (Auto) 0.6 Eos # (Auto) 0.2 Baso # (Auto) 0.1 Abs Immat Gran (auto) 0.03 Absolute Neuts (auto) 4.3 Absolute Nucleated RBC 0.000 Nucleated RBC % 0.0 Sodium 140 Potassium 4.1 Chloride 104 Carbon Dioxide 26 Anion Gap 10 BUN 14 Creatinine 1.10 Estim Creat Clear Calc 50 Estimated GFR > 60 Glucose 104 POC Capillary Glucose Hemoglobin A1c Lactic Acid 1.3 Calcium 8.8 Phosphorus 3.9 Magnesium 1.8 Total Bilirubin 0.5 AST 16 L ALT 7 Alkaline Phosphatase 104 Troponin I < 0.012 C-Reactive Protein < 0.5 Total Protein 8.0 Albumin 4.0 Lipase Prostate Specific Ag 50.0 H Procalcitonin 0.1 TSH (Reflex) Free T4 Total T3 Nasal MRSA (PCR) 05/02/24 11:18 WBC RBC Hgb Hct MCV MCH MCHC RDW Plt Count MPV Immature Gran % (Auto) Neut % (Auto) Lymph % (Auto) [place] % (Auto) Eos % (Auto) Baso % (Auto) Lymph # (Auto) [place] # (Auto) Eos # (Auto) Baso # (Auto) Abs Immat Gran (auto) Absolute Neuts (auto) Absolute Nucleated RBC Nucleated RBC % Sodium Potassium Chloride Carbon Dioxide Anion Gap BUN Creatinine Estim Creat Clear Calc Estimated GFR Glucose POC Capillary Glucose 93 Hemoglobin A1c Lactic Acid Calcium Phosphorus Magnesium Total Bilirubin AST ALT Alkaline Phosphatase Troponin I C-Reactive Protein Total Protein Albumin Lipase Prostate Specific Ag Procalcitonin TSH (Reflex) Free T4 Total T3 Nasal MRSA (PCR)
[2024-05-02 15:24] LABS: Add Urine Microscopic? YES; Appearance Urine Clear (Clear); Bacteria Urine None Seen /hpf; Bilirubin Urine Negative (Negative); Blood Urine Negative (Negative); Color Urine Yellow (Yellow); Glucose Urine UA Negative (Negative); Ketones Urine Negative (Negative); Leukocyte Esterase Ur Trace LEU/UL (Negative); Nitrate Urine Negative (Negative); Non Pathogenic Casts 0-2; Protein Urine 2+ mg/dL (Negative); RBC Urine 0-2 /hpf (0-2); Specific Grav Ur 1.039 (1.001-1.035); Squamous Epithelial Cell Urine None Seen /hpf (Few)
--- NOTE | 2024-05-02 16:02 | P.CONGI_ITS ---
Assessment and Plan Assessment and plan (1) Prostate cancer metastatic to bone: Code(s): C61 - Malignant neoplasm of prostate; C79.51 - Secondary malignant neoplasm of bone Status: Acute (2) Fecal impaction of colon: Code(s): K56.41 - Fecal impaction Status: Acute Assessment and Plan: The patient's constipation is multifactorial, originating from his bedridden state, diabetes, and history of stroke among others. Calcium levels are normal. A more aggressive approach is necessary to manage this condition. A tap water enema will be administered once, followed by polyethylene glycol 17 g every 8 hours. Linzess 145 mcg daily will also be added to the regimen. The patient's bowel movements will continue to be monitored closely. GI Consult Note Consult date/time: 05/02/24 16:02 HPI: Slade Aguilar is a 74 year old male With multiple medical problems, including HIV positivity, metastatic prostate cancer , status post CVA with left hemiparesis. The patient is admitted for arrhythmia, second-degree AV block and a pacemaker is indicated and suggested, however patient is apparently refusing. We are consulted for chronic exacerbated constipation, and a CT scan showing fecal impaction. He is already evaluated by surgery, not thinking that he is a surgical candidate. He is currently receiving rectal suppositories, stool softeners and polyethylene glycol 17 g once a day. Review of Systems Review of Systems: All systems reviewed & are unremarkable except as noted in HPI and below PMFSH Past Medical History Medical History Anemia of chronic disease With most recent anemia labs performed January 2023 Asthma Childhood B12 deficiency January 2023 COPD (chronic obstructive pulmonary disease) Diabetes mellitus Diet-controlled Fracture of femoral neck, left, closed HIV positive With elevated viral load 2021 HTN (hypertension) Left hemiparesis Nasal fracture 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 The patient sees a urologist at [facility]. Shingles Stroke 2 x 2019 Vascular dementia Surgical History Surgical History H/O hand surgery Right hand fracture History of right-sided carotid endarterectomy (~2019) History of tonsillectomy As a teenager History of umbilical hernia repair Family History Family History Father No problems noted. Mother Diabetes mellitus Social History Social History Social History: The patient lives with his healthcare power of attorn richelle/daughter Teresa. He is mostly bed-bound since his stroke in 2019. He smoked less than a pack of cigarettes per day for approximately 45 years but quit in 1994. His daughter reports that the patient at least drink a moderate amount of alcohol but quit drinking alcohol many years ago. He denies history of illicit substance use. 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 He has 6 children. Code status: Full code Smoking packs per day: 0.5 Smoking cigarettes per day: 10.0 Years smoked: 48 Smoking pack-years: 24.00 Smoking status: Former smoker Second hand tobacco smoke exposure: No Alcohol intake: former Alcohol use details: Several drinks several times a week but quit many years ago. Substance use: former Substance use type: marijuana Last use: Do You Feel Safe in your Home?: Yes Lack of Transportation: No Lack of Food: Never True Current Housing: I Have Housing Concerned About Future Housing: No Difficulty Paying Gas/Electric Bills: No Difficulty Paying for Meds: No Currently Unemployed: No Education: High School Diploma/GED Difficulty w/ Childcare or Family Care: No Gender identity (if verbalized by the patient): Male Spiritual care concerns: No Agree to blood products: Yes Meds Home Medications and Allergies Home Medications Medication Instructions Recorded Confirmed Type aspirin 325 mg tablet 325 mg PO DAILY #30 tabs 06/30/19 05/01/24 Rx bictegravir 50 mg-emtricitabine 1 tablet PO DAILY #30 tabs 06/30/19 05/01/24 Rx 200 mg-tenofovir alafenam 25 mg tablet (Biktarvy) montelukast 10 mg tablet 10 mg PO HS #30 tabs 06/30/19 05/01/24 Rx rosuvastatin 40 mg tablet 40 mg PO DAILY #30 tabs 06/30/19 05/01/24 Rx acetaminophen 500 mg tablet 1,000 mg PO Q6H PRN Pain (Scale 10/12/19 05/01/24 History (Acetaminophen Extra Strength) Score 1-3) albuterol sulfate 90 mcg/actuation 2 puff inhalation Q6HRT PRN 08/09/21 05/01/24 Rx aerosol inhaler (Proventil HFA) Shortness Of Breath #6.7 grams fluticasone fur. 100 mcg-umeclid 1 inh inhalation DAILY 01/30/23 05/01/24 History 62.5 mcg-vilant 25 mcg inhalat.powder (Trelegy Ellipta) Allergies Allergy/AdvReac Type Severity Reaction Status Date / Time No Known Allergies Allergy Verified 07/30/21 13:26 Vital Signs Vital Signs - 24 hr 05/01/24 19:33 05/01/24 19:40 05/01/24 19:43 Temperature Pulse Rate 92 87 Respiratory Rate 14 22 H Blood Pressure 130/64 Pulse Oximetry 96 100 100 Oxygen Delivery Room Air 05/01/24 20:15 05/01/24 20:46 05/01/24 20:53 Temperature Pulse Rate 90 40 L 39 L Respiratory Rate 20 11 L 12 Blood Pressure 122/55 L Pulse Oximetry 100 100 Oxygen Delivery 05/01/24 22:56 05/01/24 20:54 05/01/24 21:00 Temperature Pulse Rate 33 L 41 L 38 L Respiratory Rate 14 17 Blood Pressure 146/54 H Pulse Oximetry 97 100 100 Oxygen Delivery 05/01/24 21:01 05/01/24 21:15 05/01/24 21:30 Temperature Pulse Rate 40 L 47 L 35 L Respiratory Rate 10 L 15 13 Blood Pressure 138/54 L Pulse Oximetry 100 100 Oxygen Delivery 05/01/24 21:32 05/01/24 21:45 05/01/24 22:00 Temperature Pulse Rate 35 L 34 L 33 L Respiratory Rate 11 L 10 L 12 Blood Pressure 110/56 L Pulse Oximetry 100 100 100 Oxygen Delivery 05/01/24 22:15 05/01/24 22:30 05/01/24 22:33 Temperature Pulse Rate 30 L 38 L 41 L Respiratory Rate 13 14 21 H Blood Pressure 108/61 Pulse Oximetry 100 Oxygen Delivery 05/01/24 23:20 05/01/24 23:35 05/02/24 00:00 Temperature 98.2 F Pulse Rate 47 L 54 L 36 L Respiratory Rate 17 20 Blood Pressure 106/77 155/52 H Pulse Oximetry 97 100 Oxygen Delivery 05/02/24 02:00 05/02/24 04:39 05/02/24 04:00 Temperature 97.5 F L Pulse Rate 31 L 30 L 37 L Respiratory Rate 16 Blood Pressure 113/42 L Pulse Oximetry 100 Oxygen Delivery 05/02/24 04:00 05/02/24 00:00 05/02/24 07:26 Temperature 97.7 F Pulse Rate 30 L 29 L Respiratory Rate 16 14 Blood Pressure 144/45 H Pulse Oximetry 100 100 Oxygen Delivery Room Air Room Air 05/02/24 08:00 05/02/24 08:00 05/02/24 12:44 Temperature 97.6 F Pulse Rate 41 L 41 L 55 L Respiratory Rate 14 14 Blood Pressure 137/77 Pulse Oximetry 100 99 Oxygen Delivery Room Air 05/02/24 12:00 05/02/24 12:00 Temperature Pulse Rate 43 L 48 L Respiratory Rate 14 Blood Pressure Pulse Oximetry 99 Oxygen Delivery Room Air Exam Const: General: cooperative Resp: Effort & Inspection: normal respiratory effort and able to speak in c omplete sentences Auscultation: clear to auscultation bilaterally GI: Other: infraumbilical post op scar Skin: General skin exam: normal color Psych: Appearance: grossly normal Mental Status: mental status grossly normal Results Labs 05/02/24 09:31 05/02/24 09:31 Labs: Short CBC 05/01/24 05/02/24 Range/Units 19:51 09:31 WBC 7.0 7.1 (4.5-10.0) K/mm3 Hgb 12.9 L 11.2 L (14.0-18.0) g/dL Hct 39.8 L 35.1 L (42.0-52.0) % Plt Count 199 195 (150-375) k/mm3 BMP 05/01/24 05/02/24 05/02/24 19:51 00:48 09:31 Sodium 140 140 Potassium 4.0 4.1 Chloride 101 104 Carbon Dioxide 27 26 BUN 18 14 Creatinine 1.20 1.10 1.10 Glucose 209 H 104 Calcium 9.6 8.8 Cardiac Enzymes 05/01/24 05/02/24 05/02/24 Range/Units 19:51 00:55 09:31 Troponin I < 0.012 < 0.012 < 0.012 (0.000-0.034) ng/mL Liver Function 05/01/24 05/02/24 Range/Units 19:51 09:31 Total Bilirubin 0.7 0.5 (0.2-1.3) mg/dL AST 17 16 L (17-59) U/L ALT 9 7 (6-50) U/L Alkaline Phosphatase 125 104 (38-126) U/L Albumin 4.4 4.0 (3.5-5.1) g/dL Urine 05/02/24 Range/Units 15:11 Urine Color Yellow (Yellow) Urine Appearance Clear (Clear) Urine pH 7.0 (5.0-9.0) Ur Specific [place] 1.039 H (1.001-1.035) Urine Protein 2+ H (Negative) mg/dL Urine Glucose (UA) Negative (Negative) mg/dL
[2024-05-02 16:21] LABS: Glucose Point of Care 120 mg/dl (65-105)
[2024-05-02] MEDS: polyethylene glycoL 3350 17 GM POWD.PACK PO (16:54)
[2024-05-02 23:05] LABS: Glucose Point of Care 94 mg/dl (65-105)
[2024-05-03] VITALS (21 sets, daily range): BP systolic 107–163; BP diastolic 51–79; PULSE 30–96; RESP 14–18; TEMP 36.1–36.7; O2SAT 96–100
[2024-05-03] MEDS: PIPERACILLN/TAZ 3.375GM/NS50ML 3.375 GM/50 ML BAG IVPB ×4 (00:31→17:10)
[2024-05-03] MEDS: SODIUM CHLORIDE 0.9% IV 1,000 ML 125 ML IV CONT (05:12)
[2024-05-03] MEDS: polyethylene glycoL 3350 17 GM POWD.PACK PO ×3 (05:12→17:10)
[2024-05-03] MEDS: LINACLOTIDE 145 MCG CAPSULE PO (05:17)
[2024-05-03 05:31] LABS: Basophils Absolute Auto 0.1 K/mm3 (0.0-0.1); Basophils Percent Auto 1.3 % (0.2-1.2); Eosinophils Absolute Auto 0.3 K/mm3 (0-0.3); Eosinophils Percent Auto 4.5 % (0-4.4); Hematocrit 35.5 % (42.0-52.0); Hemoglobin 11.4 g/dL (14.0-18.0); Immature Granulocyte Absolute 0.01 K/mm3 (0.00-0.031); Immature Granulocyte Percent A 0.2 % (0-0.5); Lymphocytes Percent Auto 24.9 % (18.3-44.2); Mean Corpuscular HGB Conc 32.1 g/dl (32-36); Mean Corpuscular Hemoglobin 29.8 pg (26-34); Mean Corpuscular Volume 92.7 fl (80-100); Mean Platelet Volume 10.4 fl (7.4-10.4); Monocytes Absolute Auto 0.4 K/mm3 (0.1-0.6); Neutrophils Absolute Auto 3.8 K/mm3 (1.3-6.7); Neutrophils Percent Auto 62.1 % (45.5-73.1); Platelet Count Result 146 k/mm3 (150-375); Red Blood Count 3.83 M/mm3 (4.6-6.20); Red Cell Distribution Width 13.5 % (11.5-14.5)
[2024-05-03 05:50] LABS: CRP < 0.5 mg/dL (<1.0)
[2024-05-03 05:53] LABS: Anion Gap 10 mmol/L (4-12); Blood Urea Nitrogen 13 mg/dL (9-20); Calcium 8.9 mg/dL (8.4-10.2); Carbon Dioxide 22 mmol/L (22-30); Chloride 103 mmol/L (98-107); Estimated CRCL calculation 50 ml/min; Estimated Glomerular Filt Rate > 60; Glucose 76 mg/dL (65-110); Potassium 4.1 mmol/L (3.4-5.0); Sodium 135 mmol/L (137-145)
[2024-05-03 07:48] LABS: Glucose Point of Care 77 mg/dl (65-105)
[2024-05-03] MEDS: FAMOTIDINE 20 MG TABLET PO ×2 (08:24→20:08)
[2024-05-03] MEDS: ENOXAPARIN 40 MG/0.4 ML SYRINGE SUB-Q (08:24)
[2024-05-03 11:37] LABS: Glucose Point of Care 111 mg/dl (65-105)
--- NOTE | 2024-05-03 12:20 | P.PNGI_ITS ---
Progress Note: A&P Assessment and Plan (1) Fecal impaction of colon: Code(s): K56.41 - Fecal impaction Status: Acute Assessment and Plan: patient has multifactorial constipation seems to be resolved with the above- mentioned measures. Will continue Linzess 145 mcg, decrease dose of MiraLax to twice a day. Suppository and stool softener will be discontinued. Please feel free to contact us if there is any change in his current status. Subjective Date/time seen: 05/03/24 12:20 Interval history: The patient has been able to defecate after the enema and 3 doses of MiraLax. He received a capsule of Linzess 145 mcg this morning. There is no abdominal pain Objective Data Vital Signs Vital Signs: Vital Signs - 24 hr 05/02/24 12:44 05/02/24 15:36 05/02/24 16:00 Temperature 97.6 F 97.3 F L Pulse Rate 55 L 35 L 36 L Respiratory Rate 14 18 Blood Pressure 137/77 120/49 L Pulse Oximetry 99 100 Oxygen Delivery 05/02/24 16:00 05/02/24 21:37 05/02/24 21:39 Temperature 97.8 F Pulse Rate 35 L 45 L Respiratory Rate 18 18 Blood Pressure 159/61 H 159/61 H Pulse Oximetry 100 100 Oxygen Delivery Room Air 05/02/24 20:00 05/02/24 22:00 05/02/24 23:29 Temperature 97.6 F Pulse Rate 37 L 34 L 35 L Respiratory Rate 18 Blood Pressure 125/74 Pulse Oximetry 100 Oxygen Delivery 05/03/24 00:00 05/03/24 02:00 05/03/24 04:00 Temperature Pulse Rate 32 L 39 L 30 L Respiratory Rate Blood Pressure Pulse Oximetry Oxygen Delivery 05/03/24 05:52 05/03/24 05:55 05/03/24 05:56 Temperature 97.0 F L Pulse Rate 42 L 43 L Respiratory Rate 18 Blood Pressure 125/74 163/79 H Pulse Oximetry 100 Oxygen Delivery 05/03/24 06:06 05/03/24 07:24 05/03/24 08:00 Temperature 97.7 F Pulse Rate 36 L 57 L Respiratory Rate 16 Blood Pressure 151/66 H 137/57 L Pulse Oximetry 99 Oxygen Delivery 05/03/24 08:00 05/03/24 10:00 05/03/24 11:41 Temperature 97.4 F L Pulse Rate 56 L 44 L Respiratory Rate 16 Blood Pressure 150/53 H Pulse Oximetry 100 Oxygen Delivery Room Air Intake/Output Intake/Output: Intake & Output 04/30/24 05/01/24 05/02/24 05/03/24 23:59 23:59 23:59 23:59 Intake Total 1000 2850 1804.5 Output Total 650 600 Balance 1000 2200 1204.5 Meds/Results Medications: Active Medications Generic Name Dose Route Start Last Admin Trade Name Freq PRN Reason Stop Dose Admin Dextrose 12.5 gm 05/01/24 23:05 Dextrose 50% 25 Gm/50 Ml Syringe IV PUSH PRN PRN Hypoglycemia Protocol Enoxaparin Sodium 40 mg 05/02/24 09:00 05/03/24 08:24 Enoxaparin 40 Mg/0.4 Ml Syringe SUB-Q 40 mg DAILY STEPHANI Administration Famotidine 20 mg 05/02/24 09:00 05/03/24 08:24 Famotidine 20 Mg Tablet PO 20 mg Q12HR STEPHANI Administration Glucagon 1 mg 05/01/24 23:05 Glucagon For Inj 1 Mg Vial IM PRN PRN Hypoglycemia Protocol Glucose 15 gm 05/01/24 23:05 Glucose Oral Gel 15 Gm Of Glucse In 37.5 Gm Tube PO PRN PRN Hypoglycemia Protocol Hydromorphone HCl 0.5 mg 05/01/24 22:03 Hydromorphone Hcl Inj (*Crx) 1 Mg/Ml Syr IV PUSH Q4H PRN Pain Rated 7-10 Sodium Chloride 1,000 mls @ 70 mls/hr 05/01/24 22:05 05/03/24 08:30 Normal Saline Iv IV CONT 70 mls/hr .[id number] STEPHANI Infusion Dextrose 1,000 mls @ 100 mls/hr 05/01/24 23:05 Dextrose 5% 1,000 Ml IVPB PRN PRN Hypoglycemia Protocol Piperacillin/Tazobactam/Dextrose 3.375 gm in 50 mls @ 100 mls/hr 05/02/24 08:00 05/03/24 05:12 Zosyn 3.375 Gm/Ns 50 Ml IVPB 100 mls/hr Q6HR STEPHANI Administration Insulin Aspart 2 - 5 units 05/02/24 08:00 05/03/24 08:24 Insulin Aspart (*Bkc) 100 Units/Ml SUB-Q Not Given TIDWM [facility] Protocol Insulin Aspart 1 - 2 units 05/02/24 21:00 05/02/24 21:00 Insulin Aspart (*Bkc) 100 Units/Ml SUB-Q Not Given HS [facility] Protocol Ketorolac Tromethamine 15 mg 05/01/24 22:09 Ketorolac 30 Mg/Ml Vial (*Bkc) IV PUSH 05/06/24 22:02 Q6H PRN Pain Rated 4-6 Linaclotide 145 mcg 05/03/24 06:30 05/03/24 05:17 Linaclotide 145 Mcg Capsule PO 145 mcg DAILY@0630 STEPHANI Administration Ondansetron HCl 4 mg 05/01/24 22:03 Ondansetron Inj 4 Mg/2 Ml Vial IV PUSH Q4H PRN Nausea Perflutren Lipid Microsphere 0 ml 05/01/24 23:03 Perflutren Lipid Microspheres 1.5 Ml Vial Diluted To 10 Ml Total Volume IV PUSH 05/04/24 23:03 ONCE PRN adequate visualization Protocol Polyethylene Glycol 17 gm 05/03/24 09:00 05/03/24 08:25 Polyethylene Glycol 3350 17 Gm Powd.Pack PO 17 gm BID STEPHANI Administration Radiology Results: ITS Impressions Chest X-Ray 05/01/24 20:19 IMPRESSION: Left retrocardiac increased density which may be due to hiatal hernia and/or left lower lobe infiltrate or atelectasis Sclerotic lesion of posterior lateral aspect of right seventh rib versus lung opacity; consider additional chest radiographs with different projection versus CT thorax Chest CT 05/01/24 20:50 IMPRESSION: Numerous osteosclerotic lesions, likely due to metastatic prostate cancer Left lower lobe dependent discoid atelectasis or scarring, left lower lobe bronchiectasis and peribronchial soft tissue thickening 2.4 cm probable left lower lobe calcified pulmonary granuloma Cardiomegaly, aortic atherosclerosis Abdomen/Pelvis CT 05/01/24 21:30 IMPRESSION: Raymon proctocolitis fecal impaction of the rectosigmoid area Extensive osteosclerotic lesions, likely due to prostate metastases and metastatic disease of the right hemipelvis and right femur 4 x 4.8 cm hemangioma of the lateral segment left hepatic lobe Indeterminate 1.6 standard hypoenhancing lesion of the posterior lateral aspect of the upper pole left kidney; hypernephroma is not excluded. Consider further evaluation with MR examination Left nonobstructive nephrolithiasis Labs Labs: Laboratory Results - last 24 hr 05/02/24 05/02/24 05/02/24 15:11 16:07 21:13 WBC RBC Hgb Hct MCV MCH MCHC RDW Plt Count MPV Immature Gran % (Auto) Neut % (Auto) Lymph % (Auto) [place] % (Auto) Eos % (Auto) Baso % (Auto) Lymph # (Auto) [place] # (Auto) Eos # (Auto) Baso # (Auto) Abs Immat Gran (auto) Absolute Neuts (auto) Absolute Nucleated RBC Nucleated RBC % Sodium Potassium Chloride Carbon Dioxide Anion Gap BUN Creatinine Estim Creat Clear Calc Estimated GFR Glucose POC Capillary Glucose 120 H 94 Calcium C-Reactive Protein Urine Color Yellow Urine Appearance Clear Urine pH 7.0 Ur Specific [place] 1.039 H Urine Protein 2+ H Urine Glucose (UA) Negative Urine Ketones Negative Ur Blood (Man) Negative Urine Nitrate Negative Urine Bilirubin Negative Urine Urobilinogen 2.0 H Leukocyte Esterase Rfl Trace H Urine RBC 0-2 Urine WBC 6-10 H Ur Squamous Epith Cells None seen Urine Bacteria None seen Urine Casts 0-2 05/03/24 05/03/24 05/03/24 05:08 07:28 11:32 WBC 6.0 RBC 3.83 L Hgb 11.4 L Hct 35.5 L MCV 92.7 MCH 29.8 MCHC 32.1 RDW 13.5 Plt Count 146 L MPV 10.4 Immature Gran % (Auto) 0.2 Neut % (Auto) 62.1 Lymph % (Auto) 24.9 [place] % (Auto) 7.0 Eos % (Auto) 4.5 H Baso % (Auto) 1.3 H Lymph # (Auto) 1.50 [place] # (Auto) 0.4 Eos # (Auto) 0.3 Baso # (Auto) 0.1 Abs Immat Gran (auto) 0.01 Absolute Neuts (auto) 3.8 Absolute Nucleated RBC 0.000 Nucleated RBC % 0.0 Sodium 135 L Potassium 4.1 Chloride 103 Carbon Dioxide 22 Anion Gap 10 BUN 13 Creatinine 1.10 Estim Creat Clear Calc 50 Estimated GFR > 60 Glucose 76 POC Capillary Glucose 77 111 H Calcium 8.9 C-Reactive Protein < 0.5 Urine Color Urine Appearance Urine pH Ur Specific [place] Urine Protein Urine Glucose (UA) Urine Ketones Ur Blood (Man) Urine Nitrate Urine Bilirubin Urine Urobilinogen Leukocyte Esterase Rfl Urine RBC Urine WBC Ur Squamous Epith Cells Urine Bacteria Urine Casts
--- NOTE | 2024-05-03 15:41 | PM.PNGS ---
Progress Note: A&P Assessment and Plan (1) Fecal impaction of colon: Code(s): K56.41 - Fecal impaction Status: Acute Assessment and Plan: improved with bowel regimen, exam benign and alexandra diet, appreciate GI input, no acute surgical issues at this point, will s/o, call c ?s, issues Subjective Subjective Date/Time Seen: 05/03/24 15:41 Interval history: no acute issues, multiple BMs overnight and today, alexandra diet Review of Systems Review of Systems: All systems reviewed & are unremarkable except as noted in HPI and below Exam Const: General: cooperative, comfortable, no acute distress and ill appearing Resp: Auscultation: clear to auscultation bilaterally Cardio: Rate: regular rate Rhythm: regular rhythm GI: Inspection: normal to inspection and non-distended GI Palp: No abdominal tenderness and Yes Soft to palpation Objective Data Vital Signs Vital Signs: Vital Signs - 24 hr 05/02/24 16:00 05/02/24 16:00 05/02/24 21:37 Temperature 36.6 C Pulse Rate 36 L 35 L 45 L Respiratory Rate 18 18 Blood Pressure 159/61 H Pulse Oximetry 100 100 Oxygen Delivery Room Air 05/02/24 21:39 05/02/24 20:00 05/02/24 22:00 Temperature Pulse Rate 37 L 34 L Respiratory Rate Blood Pressure 159/61 H Pulse Oximetry Oxygen Delivery 05/02/24 23:29 05/03/24 00:00 05/03/24 02:00 Temperature 36.4 C Pulse Rate 35 L 32 L 39 L Respiratory Rate 18 Blood Pressure 125/74 Pulse Oximetry 100 Oxygen Delivery 05/03/24 04:00 05/03/24 05:52 05/03/24 05:55 Temperature 36.1 C L Pulse Rate 30 L 42 L Respiratory Rate 18 Blood Pressure 125/74 163/79 H Pulse Oximetry 100 Oxygen Delivery 05/03/24 05:56 05/03/24 06:06 05/03/24 07:24 Temperature 36.5 C Pulse Rate 43 L 36 L Respiratory Rate 16 Blood Pressure 151/66 H 137/57 L Pulse Oximetry 99 Oxygen Delivery 05/03/24 08:00 05/03/24 08:00 05/03/24 10:00 Temperature Pulse Rate 57 L 56 L Respiratory Rate Blood Pressure Pulse Oximetry Oxygen Delivery Room Air 05/03/24 11:41 05/03/24 12:00 05/03/24 12:00 Temperature 36.3 C L Pulse Rate 44 L 78 Respiratory Rate 16 Blood Pressure 150/53 H Pulse Oximetry 100 Oxygen Delivery Room Air 05/03/24 14:00 Temperature Pulse Rate 56 L Respiratory Rate Blood Pressure Pulse Oximetry Oxygen Delivery Intake/Output Intake/Output: Intake & Output 04/30/24 05/01/24 05/02/24 05/03/24 23:59 23:59 23:59 23:59 Intake Total 1000 2850 2623.0 Output Total 650 600 Balance 1000 2200 2023.0 Meds/Results Medications: Active Medications Generic Name Dose Route Start Last Admin Trade Name Freq PRN Reason Stop Dose Admin Dextrose 12.5 gm 05/01/24 23:05 Dextrose 50% 25 Gm/50 Ml Syringe IV PUSH PRN PRN Hypoglycemia Protocol Enoxaparin Sodium 40 mg 05/02/24 09:00 05/03/24 08:24 Enoxaparin 40 Mg/0.4 Ml Syringe SUB-Q 40 mg DAILY STEPHANI Administration Famotidine 20 mg 05/02/24 09:00 05/03/24 08:24 Famotidine 20 Mg Tablet PO 20 mg Q12HR STEPHANI Administration Glucagon 1 mg 05/01/24 23:05 Glucagon For Inj 1 Mg Vial IM PRN PRN Hypoglycemia Protocol Glucose 15 gm 05/01/24 23:05 Glucose Oral Gel 15 Gm Of Glucse In 37.5 Gm Tube PO PRN PRN Hypoglycemia Protocol Hydromorphone HCl 0.5 mg 05/01/24 22:03 Hydromorphone Hcl Inj (*Crx) 1 Mg/Ml Syr IV PUSH Q4H PRN Pain Rated 7-10 Dextrose 1,000 mls @ 100 mls/hr 05/01/24 23:05 Dextrose 5% 1,000 Ml IVPB PRN PRN Hypoglycemia Protocol Piperacillin/Tazobactam/Dextrose 3.375 gm in 50 mls @ 100 mls/hr 05/02/24 08:00 05/03/24 13:17 Zosyn 3.375 Gm/Ns 50 Ml IVPB Infused Q6HR STEPHANI Infusion Insulin Aspart 2 - 5 units 05/02/24 08:00 05/03/24 12:37 Insulin Aspart (*Bkc) 100 Units/Ml SUB-Q Not Given TIDWM STEPHANI Protocol Insulin Aspart 1 - 2 units 05/02/24 21:00 05/02/24 21:00 Insulin Aspart (*Bkc) 100 Units/Ml SUB-Q Not Given HS [facility] Protocol Ketorolac Tromethamine 15 mg 05/01/24 22:09 Ketorolac 30 Mg/Ml Vial (*Bkc) IV PUSH 05/06/24 22:02 Q6H PRN Pain Rated 4-6 Linaclotide 145 mcg 05/03/24 06:30 05/03/24 05:17 Linaclotide 145 Mcg Capsule PO 145 mcg DAILY@0630 STEPHANI Administration Ondansetron HCl 4 mg 05/01/24 22:03 Ondansetron Inj 4 Mg/2 Ml Vial IV PUSH Q4H PRN Nausea Perflutren Lipid Microsphere 0 ml 05/01/24 23:03 Perflutren Lipid Microspheres 1.5 Ml Vial Diluted To 10 Ml Total Volume IV PUSH 05/04/24 23:03 ONCE PRN adequate visualization Protocol Polyethylene Glycol 17 gm 05/03/24 09:00 05/03/24 08:25 Polyethylene Glycol 3350 17 Gm Powd.Pack PO 17 gm BID STEPHANI Administration Radiology Results: ITS Impressions Chest X-Ray 05/01/24 20:19 IMPRESSION: Left retrocardiac increased density which may be due to hiatal hernia and/or left lower lobe infiltrate or atelectasis Sclerotic lesion of posterior lateral aspect of right seventh rib versus lung opacity; consider additional chest radiographs with different projection versus CT thorax Chest CT 05/01/24 20:50 IMPRESSION: Numerous osteosclerotic lesions, likely due to metastatic prostate cancer Left lower lobe dependent discoid atelectasis or scarring, left lower lobe bronchiectasis and peribronchial soft tissue thickening 2.4 cm probable left lower lobe calcified pulmonary granuloma Cardiomegaly, aortic atherosclerosis Abdomen/Pelvis CT 05/01/24 21:30 IMPRESSION: Raymon proctocolitis fecal impaction of the rectosigmoid area Extensive osteosclerotic lesions, likely due to prostate metastases and metastatic disease of the right hemipelvis and right femur 4 x 4.8 cm hemangioma of the lateral segment left hepatic lobe Indeterminate 1.6 standard hypoenhancing lesion of the posterior lateral aspect of the upper pole left kidney; hypernephroma is not excluded. Consider further evaluation with MR examination Left nonobstructive nephrolithiasis Labs Labs: Laboratory Results - last 24 hr 05/02/24 05/02/24 05/03/24 16:07 21:13 05:08 WBC 6.0 RBC 3.83 L Hgb 11.4 L Hct 35.5 L MCV 92.7 MCH 29.8 MCHC 32.1 RDW 13.5 Plt Count 146 L MPV 10.4 Immature Gran % (Auto) 0.2 Neut % (Auto) 62.1 Lymph % (Auto) 24.9 [place] % (Auto) 7.0 Eos % (Auto) 4.5 H Baso % (Auto) 1.3 H Lymph # (Auto) 1.50 [place] # (Auto) 0.4 Eos # (Auto) 0.3 Baso # (Auto) 0.1 Abs Immat Gran (auto) 0.01 Absolute Neuts (auto) 3.8 Absolute Nucleated RBC 0.000 Nucleated RBC % 0.0 Sodium 135 L Potassium 4.1 Chloride 103 Carbon Dioxide 22 Anion Gap 10 BUN 13 Creatinine 1.10 Estim Creat Clear Calc 50 Estimated GFR > 60 Glucose 76 POC Capillary Glucose 120 H 94 Calcium 8.9 C-Reactive Protein < 0.5 05/03/24 05/03/24 07:28 11:32 WBC RBC Hgb Hct MCV MCH MCHC RDW Plt Count MPV Immature Gran % (Auto) Neut % (Auto) Lymph % (Auto) [place] % (Auto) Eos % (Auto) Baso % (Auto) Lymph # (Auto) [place] # (Auto) Eos # (Auto) Baso # (Auto) Abs Immat Gran (auto) Absolute Neuts (auto) Absolute Nucleated RBC Nucleated RBC % Sodium Potassium Chloride Carbon Dioxide Anion Gap BUN Creatinine Estim Creat Clear Calc Estimated GFR Glucose POC Capillary Glucose 77 111 H Calcium C-Reactive Protein
--- NOTE | 2024-05-03 16:27 | P.SEDATION_ITS ---
Moderate Sedation Note-Pt Data Patient Data Diagnosis: Syncopal episode with AV block including examples of third-degree heart block Present Complaint: no complaint at this time Procedure to be performed/Plan: permanent pacemaker implantation Allergies Allergy/AdvReac Type Severity Reaction Status Date / Time No Known Allergies Allergy Verified 07/30/21 13:26 Home Medications Medication Instructions Recorded Confirmed Type aspirin 325 mg tablet 325 mg PO DAILY #30 tabs 06/30/19 05/01/24 Rx bictegravir 50 mg-emtricitabine 1 tablet PO DAILY #30 tabs 06/30/19 05/01/24 Rx 200 mg-tenofovir alafenam 25 mg tablet (Biktarvy) montelukast 10 mg tablet 10 mg PO HS #30 tabs 06/30/19 05/01/24 Rx rosuvastatin 40 mg tablet 40 mg PO DAILY #30 tabs 06/30/19 05/01/24 Rx acetaminophen 500 mg tablet 1,000 mg PO Q6H PRN Pain (Scale 10/12/19 05/01/24 History (Acetaminophen Extra Strength) Score 1-3) albuterol sulfate 90 mcg/actuation 2 puff inhalation Q6HRT PRN 08/09/21 05/01/24 Rx aerosol inhaler (Proventil HFA) Shortness Of Breath #6.7 grams fluticasone fur. 100 mcg-umeclid 1 inh inhalation DAILY 01/30/23 05/01/24 History 62.5 mcg-vilant 25 mcg inhalat.powder (Trelegy Ellipta) Current Medications: Active Medications Dextrose (Dextrose 50% 25 Gm/50 Ml Syringe) 12.5 gm IV PUSH PRN PRN; Protocol PRN Reason: Hypoglycemia Enoxaparin Sodium (Enoxaparin 40 Mg/0.4 Ml Syringe) 40 mg SUB-Q DAILY [facility] Last Admin: 05/03/24 08:24 Dose: 40 mg Famotidine (Famotidine 20 Mg Tablet) 20 mg PO Q12HR STEPHANI Last Admin: 05/03/24 08:24 Dose: 20 mg Glucagon (Glucagon For Inj 1 Mg Vial) 1 mg IM PRN PRN; Protocol PRN Reason: Hypoglycemia Glucose (Glucose Oral Gel 15 Gm Of Glucse In 37.5 Gm Tube) 15 gm PO PRN PRN; Protocol PRN Reason: Hypoglycemia Hydromorphone HCl (Hydromorphone Hcl Inj (*Crx) 1 Mg/Ml Syr) 0.5 mg IV PUSH Q4H PRN PRN Reason: Pain Rated 7-10 Dextrose (Dextrose 5% 1,000 Ml) 1,000 mls @ 100 mls/hr IVPB PRN PRN; Protocol PRN Reason: Hypoglycemia Piperacillin/Tazobactam/Dextrose (Zosyn 3.375 Gm/Ns 50 Ml) 3.375 gm in 50 mls @ 100 mls/hr IVPB Q6HR STEPHANI Last Infusion: 05/03/24 13:17 Dose: Infused Insulin Aspart (Insulin Aspart (*Bkc) 100 Units/Ml) 2 - 5 units SUB-Q TIDWM STEPHANI; Protocol Last Admin: 05/03/24 12:37 Dose: Not Given Insulin Aspart (Insulin Aspart (*Bkc) 100 Units/Ml) 1 - 2 units SUB-Q HS STEPHANI; Protocol Last Admin: 05/02/24 21:00 Dose: Not Given Ketorolac Tromethamine (Ketorolac 30 Mg/Ml Vial (*Bkc)) 15 mg IV PUSH Q6H PRN PRN Reason: Pain Rated 4-6 Stop: 05/06/24 22:02 Linaclotide (Linaclotide 145 Mcg Capsule) 145 mcg PO DAILY@0630 [facility] Last Admin: 05/03/24 05:17 Dose: 145 mcg Ondansetron HCl (Ondansetron Inj 4 Mg/2 Ml Vial) 4 mg IV PUSH Q4H PRN PRN Reason: Nausea Perflutren Lipid Microsphere (Perflutren Lipid Microspheres 1.5 Ml Vial Diluted To 10 Ml Total Volume) 0 ml IV PUSH ONCE PRN; Protocol PRN Reason: adequate visualization Stop: 05/04/24 23:03 Polyethylene Glycol (Polyethylene Glycol 3350 17 Gm Powd.Pack) 17 gm PO BID [facility] Last Admin: 05/03/24 08:25 Dose: 17 gm Sedation/Anesthesia: No previous sedation/anesthesia problems (including family history). 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 The patient sees a urologist at [facility]. Shingles Stroke 2 x 2019 Vascular dementia Surgical History Surgical History H/O hand surgery Right hand fracture History of right-sided carotid endarterectomy (~2018) History of tonsillectomy As a teenager History of umbilical hernia repair Family History Family History Father No problems noted. Mother Diabetes mellitus Social History Social History Social History: The patient lives with his healthcare power of prosecuting attorney/daughter Teresa. He is mostly bed-bound since his stroke in 2019. He smoked less than a pack of cigarettes per day for approximately 45 years but quit in 1994. His daughter reports that the patient at least drink a moderate amount of alcohol but quit drinking alcohol many years ago. He denies history of illicit substance use. 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 He has 6 children. Code status: Full code Smoking packs per day: 0.5 Smoking cigarettes per day: 10.0 Years smoked: 48 Smoking pack-years: 24.00 Smoking status: Former smoker Second hand tobacco smoke exposure: No Alcohol intake: former Alcohol use details: Several drinks several times a week but quit many years ago. Substance use: former Substance use type: marijuana Last use: Do You Feel Safe in your Home?: Yes Lack of Transportation: No Lack of Food: Never True Current Housing: I Have Housing Concerned About Future Housing: No Difficulty Paying Gas/Electric Bills: No Difficulty Paying for Meds: No Currently Unemployed: No Education: High School Diploma/GED Difficulty w/ Childcare or Family Care: No Gender identity (if verbalized by the patient): Male Spiritual care concerns: No Agree to blood products: Yes Mod Sed Physical Exam Physical Exam Pre Procedural Exam: Normal: Appearance ( comfortable elderly man appearing his stated age no distress), Neck, Throat, Airway, Lungs, Heart Size, Heart Rate, Neuro Exam and Extremities and Variation: Heart Rhythm ( variable AV conduction) Hours since solid foods: 12 Hours since liquid intake: 12 Mallampati Classification: class II Internal Medicine - PN: Obj Da Vital Signs Vital Signs: Vital Signs - 24 hr 05/02/24 21:37 05/02/24 21:39 05/02/24 20:00 Temperature 36.6 C Pulse Rate 45 L 37 L Respiratory Rate 18 Blood Pressure 159/61 H 159/61 H Pulse Oximetry 100 Oxygen Delivery 05/02/24 22:00 05/02/24 23:29 05/03/24 00:00 Temperature 36.4 C Pulse Rate 34 L 35 L 32 L Respiratory Rate 18 Blood Pressure 125/74 Pulse Oximetry 100 Oxygen Delivery 05/03/24 02:00 05/03/24 04:00 05/03/24 05:52 Temperature Pulse Rate 39 L 30 L Respiratory Rate Blood Pressure 125/74 Pulse Oximetry Oxygen Delivery 05/03/24 05:55 05/03/24 05:56 05/03/24 06:06 Temperature 36.1 C L Pulse Rate 42 L 43 L Respiratory Rate 18 Blood Pressure 163/79 H 151/66 H Pulse Oximetry 100 Oxygen Delivery 05/03/24 07:24 05/03/24 08:00 05/03/24 08:00 Temperature 36.5 C Pulse Rate 36 L 57 L Respiratory Rate 16 Blood Pressure 137/57 L Pulse Oximetry 99 Oxygen Delivery Room Air 05/03/24 10:00 05/03/24 11:41 05/03/24 12:00 Temperature 36.3 C L Pulse Rate 56 L 44 L Respiratory Rate 16 Blood Pressure 150/53 H Pulse Oximetry 100 Oxygen Delivery Room Air 05/03/24 12:00 05/03/24 14:00 05/03/24 16:00 Temperature Pulse Rate 78 56 L 58 L Respiratory Rate Blood Pressure Pulse Oximetry Oxygen Delivery 05/03/24 16:00 Temperature Pulse Rate Respiratory Rate Blood Pressure Pulse Oximetry Oxygen Delivery Room Air Intake/Output Intake/Output: Intake & Output 04/30/24 05/01/24 05/02/24 05/03/24 23:59 23:59 23:59 23:59 Intake Total 1000 2850 2623.0 Output Total 650 600 Balance 1000 2200 2023.0 Meds/Results Medications: Active Medications Generic Name Dose Route Start Last Admin Trade Name Freq PRN Reason Stop Dose Admin Dextrose 12.5 gm 05/01/24 23:05 Dextrose 50% 25 Gm/50 Ml Syringe IV PUSH PRN PRN Hypoglycemia Protocol Enoxaparin Sodium 40 mg 05/02/24 09:00 05/03/24 08:24 Enoxaparin 40 Mg/0.4 Ml Syringe SUB-Q 40 mg DAILY STEPHANI Administration Famotidine 20 mg 05/02/24 09:00 05/03/24 08:24 Famotidine 20 Mg Tablet PO 20 mg Q12HR STEPHANI Administration Glucagon 1 mg 05/01/24 23:05 Glucagon For Inj 1 Mg Vial IM PRN PRN Hypoglycemia Protocol Glucose 15 gm 05/01/24 23:05 Glucose Oral Gel 15 Gm Of Glucse In 37.5 Gm Tube PO PRN PRN Hypoglycemia Protocol Hydromorphone HCl 0.5 mg 05/01/24 22:03 Hydromorphone Hcl Inj (*Crx) 1 Mg/Ml Syr IV PUSH Q4H PRN Pain Rated 7-10 Dextrose 1,000 mls @ 100 mls/hr 05/01/24 23:05 Dextrose 5% 1,000 Ml IVPB PRN PRN Hypoglycemia Protocol Piperacillin/Tazobactam/Dextrose 3.375 gm in 50 mls @ 100 mls/hr 05/02/24 08:00 05/03/24 13:17 Zosyn 3.375 Gm/Ns 50 Ml IVPB Infused Q6HR STEPHANI Infusion Insulin Aspart 2 - 5 units 05/02/24 08:00 05/03/24 12:37 Insulin Aspart (*Bkc) 100 Units/Ml SUB-Q Not Given TIDWM [facility] Protocol Insulin Aspart 1 - 2 units 05/02/24 21:00 05/02/24 21:00 Insulin Aspart (*Bkc) 100 Units/Ml SUB-Q Not Given HS [facility] Protocol Ketorolac Tromethamine 15 mg 05/01/24 22:09 Ketorolac 30 Mg/Ml Vial (*Bkc) IV PUSH 05/06/24 22:02 Q6H PRN Pain Rated 4-6 Linaclotide 145 mcg 05/03/24 06:30 05/03/24 05:17 Linaclotide 145 Mcg Capsule PO 145 mcg DAILY@0630 [facility] Administration Ondansetron HCl 4 mg 05/01/24 22:03 Ondansetron Inj 4 Mg/2 Ml Vial IV PUSH Q4H PRN Nausea Perflutren Lipid Microsphere 0 ml 05/01/24 23:03 Perflutren Lipid Microspheres 1.5 Ml Vial Diluted To 10 Ml Total Volume IV PUSH 05/04/24 23:03 ONCE PRN adequate visualization Protocol Polyethylene Glycol 17 gm 05/03/24 09:00 05/03/24 08:25 Polyethylene Glycol 3350 17 Gm Powd.Pack PO 17 gm BID STEPHANI Administration Radiology Results: ITS Impressions Chest X-Ray 05/01/24 20:19 IMPRESSION: Left retrocardiac increased density which may be due to hiatal hernia and/or left lower lobe infiltrate or atelectasis Sclerotic lesion of posterior lateral aspect of right seventh rib versus lung opacity; consider additional chest radiographs with different projection versus CT thorax Chest CT 05/01/24 20:50 IMPRESSION: Numerous osteosclerotic lesions, likely due to metastatic prostate cancer Left lower lobe dependent discoid atelectasis or scarring, left lower lobe bronchiectasis and peribronchial soft tissue thickening 2.4 cm probable left lower lobe calcified pulmonary granuloma Cardiomegaly, aortic atherosclerosis Abdomen/Pelvis CT 05/01/24 21:30 IMPRESSION: Raymon proctocolitis fecal impaction of the rectosigmoid area Extensive osteosclerotic lesions, likely due to prostate metastases and metastatic disease of the right hemipelvis and right femur 4 x 4.8 cm hemangioma of the lateral segment left hepatic lobe Indeterminate 1.6 standard hypoenhancing lesion of the posterior lateral aspect of the upper pole left kidney; hypernephroma is not excluded. Consider further evaluation with MR examination Left nonobstructive nephrolithiasis Labs 05/03/24 05:08 05/03/24 05:08 Labs: Laboratory Results - last 24 hr 05/02/24 05/03/24 05/03/24 21:13 05:08 07:28 WBC 6.0 RBC 3.83 L Hgb 11.4 L Hct 35.5 L MCV 92.7 MCH 29.8 MCHC 32.1 RDW 13.5 Plt Count 146 L MPV 10.4 Immature Gran % (Auto) 0.2 Neut % (Auto) 62.1 Lymph % (Auto) 24.9 Mcdonough % (Auto) 7.0 Eos % (Auto) 4.5 H Baso % (Auto) 1.3 H Lymph # (Auto) 1.50 Mcdonough # (Auto) 0.4 Eos # (Auto) 0.3 Baso # (Auto) 0.1 Abs Immat Gran (auto) 0.01 Absolute Neuts (auto) 3.8 Absolute Nucleated RBC 0.000 Nucleated RBC % 0.0 Sodium 135 L Potassium 4.1 Chloride 103 Carbon Dioxide 22 Anion Gap 10 BUN 13 Creatinine 1.10 Estim Creat Clear Calc 50 Estimated GFR > 60 Glucose 76 POC Capillary Glucose 94 77 Calcium 8.9 C-Reactive Protein < 0.5 05/03/24 11:32 WBC RBC Hgb Hct MCV MCH MCHC RDW Plt Count MPV Immature Gran % (Auto) Neut % (Auto) Lymph % (Auto) Mcdonough % (Auto) Eos % (Auto) Baso % (Auto) Lymph # (Auto) Mcdonough # (Auto) Eos # (Auto) Baso # (Auto) Abs Immat Gran (auto) Absolute Neuts (auto) Absolute Nucleated RBC Nucleated RBC % Sodium Potassium Chloride Carbon Dioxide Anion Gap BUN Creatinine Estim Creat Clear Calc Estimated GFR Glucose POC Capillary Glucose 111 H Calcium C-Reactive Protein ASA Classification/Sedation ASA Classification/Sedation ASA Class: III Emergent: No Risks: Risks, benefits and alternatives explained and patient/family accepted plan for sedation. Patient re-evaluated immediately prior to sedation.
--- NOTE | 2024-05-03 16:28 | PM.PNCARD ---
Progress Note: A&P Assessment and Plan (1) AV block: Code(s): I44.30 - Unspecified atrioventricular block Status: Acute (2) Syncope: Qualifiers: Syncope type: unspecified Qualified Code(s): R55 - Syncope and collapse Code(s): R55 - Syncope and collapse Status: Acute Plan 74-year-old man with syncope and acquired AV block heart rate is variable with variable degrees of AV conduction. Some episodes of third-degree block have been documented on telemetry. Plan for pacemaker implantation tomorrow. Anticipate proceeding with right-sided implant given his fullness/ swelling in the region of his left subclavian fossa noted on examination. Alan Taylor MD [facility] Subjective Date/time seen: date of service:05/03/24 16:28 Interval history: 74-year-old man with: Apparent syncopal episode with episodes of variable AV block including least 1 episode of third-degree AV block since being hospitalized and placed on telemetry. Patient has no complaints this evening. Pacemaker procedure explained in detail to the patient he limited/ poor understanding of the nature of the procedure prior to this visit. Exam Const: General: comfortable and no acute distress Other: Rather frail appearing tall elderly man no distress HENMT: Mouth: Yes moist mucous membranes Eyes: Sclera: sclerae normal Neck: Neck: supple and no JVD Resp: Effort & Inspection: normal respiratory effort Auscultation: clear to auscultation bilaterally Other: palpable fullness in the left subclavian fossa Cardio: Rate: regular rate Rhythm: regular rhythm GI: GI Palp: Yes Soft to palpation Auscultation: normal bowel sounds Skin: General skin exam: normal color Neuro: Other: alert and oriented x3 Extrem: General: normal to inspection Objective Data Vital Signs Vital Signs: Vital Signs - 24 hr 05/02/24 21:37 05/02/24 21:39 05/02/24 20:00 Temperature 36.6 C Pulse Rate 45 L 37 L Respiratory Rate 18 Blood Pressure 159/61 H 159/61 H Pulse Oximetry 100 Oxygen Delivery 05/02/24 22:00 05/02/24 23:29 05/03/24 00:00 Temperature 36.4 C Pulse Rate 34 L 35 L 32 L Respiratory Rate 18 Blood Pressure 125/74 Pulse Oximetry 100 Oxygen Delivery 05/03/24 02:00 05/03/24 04:00 05/03/24 05:52 Temperature Pulse Rate 39 L 30 L Respiratory Rate Blood Pressure 125/74 Pulse Oximetry Oxygen Delivery 05/03/24 05:55 05/03/24 05:56 05/03/24 06:06 Temperature 36.1 C L Pulse Rate 42 L 43 L Respiratory Rate 18 Blood Pressure 163/79 H 151/66 H Pulse Oximetry 100 Oxygen Delivery 05/03/24 07:24 05/03/24 08:00 05/03/24 08:00 Temperature 36.5 C Pulse Rate 36 L 57 L Respiratory Rate 16 Blood Pressure 137/57 L Pulse Oximetry 99 Oxygen Delivery Room Air 05/03/24 10:00 05/03/24 11:41 05/03/24 12:00 Temperature 36.3 C L Pulse Rate 56 L 44 L Respiratory Rate 16 Blood Pressure 150/53 H Pulse Oximetry 100 Oxygen Delivery Room Air 05/03/24 12:00 05/03/24 14:00 05/03/24 16:00 Temperature Pulse Rate 78 56 L 58 L Respiratory Rate Blood Pressure Pulse Oximetry Oxygen Delivery 05/03/24 16:00 Temperature Pulse Rate Respiratory Rate Blood Pressure Pulse Oximetry Oxygen Delivery Room Air Intake/Output Intake/Output: Intake & Output 04/30/24 05/01/24 05/02/24 05/03/24 23:59 23:59 23:59 23:59 Intake Total 1000 2850 2623.0 Output Total 650 600 Balance 1000 2200 2023.0 Meds/Results Medications: Active Medications Generic Name Dose Route Start Last Admin Trade Name Freq PRN Reason Stop Dose Admin Dextrose 12.5 gm 05/01/24 23:05 Dextrose 50% 25 Gm/50 Ml Syringe IV PUSH PRN PRN Hypoglycemia Protocol Enoxaparin Sodium 40 mg 05/02/24 09:00 05/03/24 08:24 Enoxaparin 40 Mg/0.4 Ml Syringe SUB-Q 40 mg DAILY STEPHANI Administration Famotidine 20 mg 05/02/24 09:00 05/03/24 08:24 Famotidine 20 Mg Tablet PO 20 mg Q12HR STEPHANI Administration Glucagon 1 mg 05/01/24 23:05 Glucagon For Inj 1 Mg Vial IM PRN PRN Hypoglycemia Protocol Glucose 15 gm 05/01/24 23:05 Glucose Oral Gel 15 Gm Of Glucse In 37.5 Gm Tube PO PRN PRN Hypoglycemia Protocol Hydromorphone HCl 0.5 mg 05/01/24 22:03 Hydromorphone Hcl Inj (*Crx) 1 Mg/Ml Syr IV PUSH Q4H PRN Pain Rated 7-10 Dextrose 1,000 mls @ 100 mls/hr 05/01/24 23:05 Dextrose 5% 1,000 Ml IVPB PRN PRN Hypoglycemia Protocol Piperacillin/Tazobactam/Dextrose 3.375 gm in 50 mls @ 100 mls/hr 05/02/24 08:00 05/03/24 13:17 Zosyn 3.375 Gm/Ns 50 Ml IVPB Infused Q6HR STEPHANI Infusion Insulin Aspart 2 - 5 units 05/02/24 08:00 05/03/24 12:37 Insulin Aspart (*Bkc) 100 Units/Ml SUB-Q Not Given TIDWM [facility] Protocol Insulin Aspart 1 - 2 units 05/02/24 21:00 05/02/24 21:00 Insulin Aspart (*Bkc) 100 Units/Ml SUB-Q Not Given HS [facility] Protocol Ketorolac Tromethamine 15 mg 05/01/24 22:09 Ketorolac 30 Mg/Ml Vial (*Bkc) IV PUSH 05/06/24 22:02 Q6H PRN Pain Rated 4-6 Linaclotide 145 mcg 05/03/24 06:30 05/03/24 05:17 Linaclotide 145 Mcg Capsule PO 145 mcg DAILY@0630 [facility] Administration Ondansetron HCl 4 mg 05/01/24 22:03 Ondansetron Inj 4 Mg/2 Ml Vial IV PUSH Q4H PRN Nausea Perflutren Lipid Microsphere 0 ml 05/01/24 23:03 Perflutren Lipid Microspheres 1.5 Ml Vial Diluted To 10 Ml Total Volume IV PUSH 05/04/24 23:03 ONCE PRN adequate visualization Protocol Polyethylene Glycol 17 gm 05/03/24 09:00 05/03/24 08:25 Polyethylene Glycol 3350 17 Gm Powd.Pack PO 17 gm BID STEPHANI Administration Radiology Results: ITS Impressions Chest X-Ray 05/01/24 20:19 IMPRESSION: Left retrocardiac increased density which may be due to hiatal hernia and/or left lower lobe infiltrate or atelectasis Sclerotic lesion of posterior lateral aspect of right seventh rib versus lung opacity; consider additional chest radiographs with different projection versus CT thorax Chest CT 05/01/24 20:50 IMPRESSION: Numerous osteosclerotic lesions, likely due to metastatic prostate cancer Left lower lobe dependent discoid atelectasis or scarring, left lower lobe bronchiectasis and peribronchial soft tissue thickening 2.4 cm probable left lower lobe calcified pulmonary granuloma Cardiomegaly, aortic atherosclerosis Abdomen/Pelvis CT 05/01/24 21:30 IMPRESSION: Raymon proctocolitis fecal impaction of the rectosigmoid area Extensive osteosclerotic lesions, likely due to prostate metastases and metastatic disease of the right hemipelvis and right femur 4 x 4.8 cm hemangioma of the lateral segment left hepatic lobe Indeterminate 1.6 standard hypoenhancing lesion of the posterior lateral aspect of the upper pole left kidney; hypernephroma is not excluded. Consider further evaluation with MR examination Left nonobstructive nephrolithiasis Labs Labs: Laboratory Results - last 24 hr 05/02/24 05/03/24 05/03/24 21:13 05:08 07:28 WBC 6.0 RBC 3.83 L Hgb 11.4 L Hct 35.5 L MCV 92.7 MCH 29.8 MCHC 32.1 RDW 13.5 Plt Count 146 L MPV 10.4 Immature Gran % (Auto) 0.2 Neut % (Auto) 62.1 Lymph % (Auto) 24.9 [place] % (Auto) 7.0 Eos % (Auto) 4.5 H Baso % (Auto) 1.3 H Lymph # (Auto) 1.50 [place] # (Auto) 0.4 Eos # (Auto) 0.3 Baso # (Auto) 0.1 Abs Immat Gran (auto) 0.01 Absolute Neuts (auto) 3.8 Absolute Nucleated RBC 0.000 Nucleated RBC % 0.0 Sodium 135 L Potassium 4.1 Chloride 103 Carbon Dioxide 22 Anion Gap 10 BUN 13 Creatinine 1.10 Estim Creat Clear Calc 50 Estimated GFR > 60 Glucose 76 POC Capillary Glucose 94 77 Calcium 8.9 C-Reactive Protein < 0.5 05/03/24 11:32 WBC RBC Hgb Hct MCV MCH MCHC RDW Plt Count MPV Immature Gran % (Auto) Neut % (Auto) Lymph % (Auto) [place] % (Auto) Eos % (Auto) Baso % (Auto) Lymph # (Auto) [place] # (Auto) Eos # (Auto) Baso # (Auto) Abs Immat Gran (auto) Absolute Neuts (auto) Absolute Nucleated RBC Nucleated RBC % Sodium Potassium Chloride Carbon Dioxide Anion Gap BUN Creatinine Estim Creat Clear Calc Estimated GFR Glucose POC Capillary Glucose 111 H Calcium C-Reactive Protein
[2024-05-03 17:39] LABS: Glucose Point of Care 145 mg/dl (65-105)
--- NOTE | 2024-05-03 18:45 | P.PNIM_ITS ---
Progress Note: A&P Assessment and Plan (1) Syncope: Qualifiers: Syncope type: unspecified Qualified Code(s): R55 - Syncope and collapse Code(s): R55 - Syncope and collapse Status: Acute Assessment and Plan: Most likely due to symptomatic bradycardia/heart block. EKG showing sinus with high grade AV block, low voltage, probably old Anterior and Inferior [place] The patient is not on any medications that should be associated with bradycardia. Cardiology consulted and PM recommended since patient is symptomatic. Echo showing normal LV size and fxn with thickened LV cheney. RV is normal size and fxn. Mild-Mod AR and trace MR. Aortic root is dilated at 4cm. Avoid AV paty blocking agents. Plan for PM tomorrow (2) Symptomatic bradycardia: Code(s): R00.1 - Bradycardia, unspecified Status: Acute Assessment and Plan: As above. EKG showing high grade AV block. (3) Proctitis: Code(s): K62.89 - Other specified diseases of anus and rectum Status: Acute Assessment and Plan: CT A/P showing thickening of the rectal wall sigmoid colon wall up to 4.7 mm diameter with pneumatosis of the rectal and sigmoid cheney. He has prominent rectosigmoid fecal impaction in the colon consistent with stercoral colitis. There is a prominent amount of fecal material throughout the remainder of the colon. He has known problems with severe constipation. WBC normal. PCT 0.1. CRP <0.5. Lactic normal. He is having BMs. Started IV abx and GenSurg consulted; appreciated their input. Diet continued. Daily suppositories stopped. Miralax BID and Linzess added Follow closely. (4) Fecal impaction of colon: Code(s): K56.41 - Fecal impaction Status: Acute Assessment and Plan: As above (5) Prostate cancer metastatic to bone: Code(s): C61 - Malignant neoplasm of prostate; C79.51 - Secondary malignant neoplasm of bone Status: Acute Assessment and Plan: Patient has a distant history of prostate cancer treated with radiation therapy. He had a bone scan in January 2023 that suggested Paget's disease of the bone with sclerotic lesions only located in the sacrum, right innominate bone and right femur. Imaging here is concerning for metastatic disease possibly from prostate cancer. Please see CT scan of the chest/abd/pelvis PSA 50 (PSA 8.5 in January 2023). He will need to follow up with his oncologist once he is well. (6) Type 2 diabetes mellitus with hyperglycemia: Qualifiers: Diabetes mellitus terminal worker insulin use: without long-term use Qualified Code(s): E11.65 - Type 2 diabetes mellitus with hyperglycemia Code(s): E11.65 - Type 2 diabetes mellitus with hyperglycemia Status: Acute Assessment and Plan: A1c 5.9%. The patient's blood glucose was reviewed on 05/03 Glucose remains well controlled. Continue AccuCheks covering with sliding scale. Hypoglycemia protocol available as needed. Continue to monitor (7) HIV (human immunodeficiency virus infection): Qualifiers: HIV symptom status: unspecified Qualified Code(s): B20 - Human immunodeficiency virus [HIV] disease Code(s): B20 - Human immunodeficiency virus [HIV] disease Status: Acute Assessment and Plan: Stable. Continue home Biktarvy. Plan Code status - full DVT prophylaxis - Lovenox Subjective Date/time seen: 05/03/24 18:45 Interval history: 74yo male with chronic constipation, HIV, DM, prostate cancer treated with XRT 2018 and multiple CVAs status post right carotid endarterectomy who presented to the ER with 2 or more episodes of rigidity and what sounds like syncopal episode. Patient had BM x1 since admission. Passing flatus. No CP or SOB. No n/v. Not been out of bed. Eating okay. No rectal pain. No abd pain. Exam Narrative: AF 98.1 132/51 82 14 98% ra Gen - NARD Chest - decreased BS in the bases CV - bradycardia, irregular. Tele showing bradycardia with variable AV block. Abd - Soft, ND, mild lower abd tenderness. no guarding Ext - No pedal edema Psych - Nml mood and affect Skin - Warm and dry Objective Data Vital Signs Vital Signs: Vital Signs - 24 hr 05/02/24 21:37 05/02/24 21:39 05/02/24 20:00 Temperature 97.8 F Pulse Rate 45 L 37 L Respiratory Rate 18 Blood Pressure 159/61 H 159/61 H Pulse Oximetry 100 Oxygen Delivery 05/02/24 22:00 05/02/24 23:29 05/03/24 00:00 Temperature 97.6 F Pulse Rate 34 L 35 L 32 L Respiratory Rate 18 Blood Pressure 125/74 Pulse Oximetry 100 Oxygen Delivery 05/03/24 02:00 05/03/24 04:00 05/03/24 05:52 Temperature Pulse Rate 39 L 30 L Respiratory Rate Blood Pressure 125/74 Pulse Oximetry Oxygen Delivery 05/03/24 05:55 05/03/24 05:56 05/03/24 06:06 Temperature 97.0 F L Pulse Rate 42 L 43 L Respiratory Rate 18 Blood Pressure 163/79 H 151/66 H Pulse Oximetry 100 Oxygen Delivery 05/03/24 07:24 05/03/24 08:00 05/03/24 08:00 Temperature 97.7 F Pulse Rate 36 L 57 L Respiratory Rate 16 Blood Pressure 137/57 L Pulse Oximetry 99 Oxygen Delivery Room Air 05/03/24 10:00 05/03/24 11:41 05/03/24 12:00 Temperature 97.4 F L Pulse Rate 56 L 44 L Respiratory Rate 16 Blood Pressure 150/53 H Pulse Oximetry 100 Oxygen Delivery Room Air 05/03/24 12:00 05/03/24 14:00 05/03/24 16:00 Temperature Pulse Rate 78 56 L 58 L Respiratory Rate Blood Pressure Pulse Oximetry Oxygen Delivery 05/03/24 16:00 05/03/24 15:15 05/03/24 18:00 Temperature 98.1 F Pulse Rate 50 L 82 Respiratory Rate 14 Blood Pressure 132/51 L Pulse Oximetry 98 Oxygen Delivery Room Air Intake/Output Intake/Output: Intake & Output 04/30/24 05/01/24 05/02/24 05/03/24 23:59 23:59 23:59 23:59 Intake Total 1000 2850 3553.0 Output Total 650 1400 Balance 1000 2200 2153.0 Meds/Results Medications: Active Medications Generic Name Dose Route Start Last Admin Trade Name Freq PRN Reason Stop Dose Admin Dextrose 12.5 gm 05/01/24 23:05 Dextrose 50% 25 Gm/50 Ml Syringe IV PUSH PRN PRN Hypoglycemia Protocol Enoxaparin Sodium 40 mg 05/02/24 09:00 05/03/24 08:24 Enoxaparin 40 Mg/0.4 Ml Syringe SUB-Q 40 mg DAILY STEPHANI Administration Famotidine 20 mg 05/02/24 09:00 05/03/24 08:24 Famotidine 20 Mg Tablet PO 20 mg Q12HR STEPHANI Administration Glucagon 1 mg 05/01/24 23:05 Glucagon For Inj 1 Mg Vial IM PRN PRN Hypoglycemia Protocol Glucose 15 gm 05/01/24 23:05 Glucose Oral Gel 15 Gm Of Glucse In 37.5 Gm Tube PO PRN PRN Hypoglycemia Protocol Hydromorphone HCl 0.5 mg 05/01/24 22:03 Hydromorphone Hcl Inj (*Crx) 1 Mg/Ml Syr IV PUSH Q4H PRN Pain Rated 7-10 Dextrose 1,000 mls @ 100 mls/hr 05/01/24 23:05 Dextrose 5% 1,000 Ml IVPB PRN PRN Hypoglycemia Protocol Piperacillin/Tazobactam/Dextrose 3.375 gm in 50 mls @ 100 mls/hr 05/02/24 08:00 05/03/24 17:57 Zosyn 3.375 Gm/Ns 50 Ml IVPB Infused Q6HR STEPHANI Infusion Insulin Aspart 2 - 5 units 05/02/24 08:00 05/03/24 16:35 Insulin Aspart (*Bkc) 100 Units/Ml SUB-Q Not Given TIDWM STEPHANI Protocol Insulin Aspart 1 - 2 units 05/02/24 21:00 05/02/24 21:00 Insulin Aspart (*Bkc) 100 Units/Ml SUB-Q Not Given HS [facility] Protocol Ketorolac Tromethamine 15 mg 05/01/24 22:09 Ketorolac 30 Mg/Ml Vial (*Bkc) IV PUSH 05/06/24 22:02 Q6H PRN Pain Rated 4-6 Linaclotide 145 mcg 05/03/24 06:30 05/03/24 05:17 Linaclotide 145 Mcg Capsule PO 145 mcg DAILY@0630 STEPHANI Administration Ondansetron HCl 4 mg 05/01/24 22:03 Ondansetron Inj 4 Mg/2 Ml Vial IV PUSH Q4H PRN Nausea Perflutren Lipid Microsphere 0 ml 05/01/24 23:03 Perflutren Lipid Microspheres 1.5 Ml Vial Diluted To 10 Ml Total Volume IV PUSH 05/04/24 23:03 ONCE PRN adequate visualization Protocol Polyethylene Glycol 17 gm 05/03/24 09:00 05/03/24 17:10 Polyethylene Glycol 3350 17 Gm Powd.Pack PO 17 gm BID STEPHANI Administration Radiology Results: ITS Impressions Chest X-Ray 05/01/24 20:19 IMPRESSION: Left retrocardiac increased density which may be due to hiatal hernia and/or left lower lobe infiltrate or atelectasis Sclerotic lesion of posterior lateral aspect of right seventh rib versus lung opacity; consider additional chest radiographs with different projection versus CT thorax Chest CT 05/01/24 20:50 IMPRESSION: Numerous osteosclerotic lesions, likely due to metastatic prostate cancer Left lower lobe dependent discoid atelectasis or scarring, left lower lobe bronchiectasis and peribronchial soft tissue thickening 2.4 cm probable left lower lobe calcified pulmonary granuloma Cardiomegaly, aortic atherosclerosis Abdomen/Pelvis CT 05/01/24 21:30 IMPRESSION: Raymon proctocolitis fecal impaction of the rectosigmoid area Extensive osteosclerotic lesions, likely due to prostate metastases and metastatic disease of the right hemipelvis and right femur 4 x 4.8 cm hemangioma of the lateral segment left hepatic lobe Indeterminate 1.6 standard hypoenhancing lesion of the posterior lateral aspect of the upper pole left kidney; hypernephroma is not excluded. Consider further evaluation with MR examination Left nonobstructive nephrolithiasis Labs Labs: Laboratory Results - last 24 hr 05/02/24 05/03/24 05/03/24 21:13 05:08 07:28 WBC 6.0 RBC 3.83 L Hgb 11.4 L Hct 35.5 L MCV 92.7 MCH 29.8 MCHC 32.1 RDW 13.5 Plt Count 146 L MPV 10.4 Immature Gran % (Auto) 0.2 Neut % (Auto) 62.1 Lymph % (Auto) 24.9 [place] % (Auto) 7.0 Eos % (Auto) 4.5 H Baso % (Auto) 1.3 H Lymph # (Auto) 1.50 [place] # (Auto) 0.4 Eos # (Auto) 0.3 Baso # (Auto) 0.1 Abs Immat Gran (auto) 0.01 Absolute Neuts (auto) 3.8 Absolute Nucleated RBC 0.000 Nucleated RBC % 0.0 Sodium 135 L Potassium 4.1 Chloride 103 Carbon Dioxide 22 Anion Gap 10 BUN 13 Creatinine 1.10 Estim Creat Clear Calc 50 Estimated GFR > 60 Glucose 76 POC Capillary Glucose 94 77 Calcium 8.9 C-Reactive Protein < 0.5 05/03/24 05/03/24 11:32 16:10 WBC RBC Hgb Hct MCV MCH MCHC RDW Plt Count MPV Immature Gran % (Auto) Neut % (Auto) Lymph % (Auto) [place] % (Auto) Eos % (Auto) Baso % (Auto) Lymph # (Auto) [place] # (Auto) Eos # (Auto) Baso # (Auto) Abs Immat Gran (auto) Absolute Neuts (auto) Absolute Nucleated RBC Nucleated RBC % Sodium Potassium Chloride Carbon Dioxide Anion Gap BUN Creatinine Estim Creat Clear Calc Estimated GFR Glucose POC Capillary Glucose 111 H 145 H Calcium C-Reactive Protein
[2024-05-03 21:09] LABS: Glucose Point of Care 132 mg/dl (65-105)
[2024-05-04] VITALS (24 sets, daily range): BP systolic 122–177; BP diastolic 40–90; PULSE 28–79; RESP 12–20; TEMP 36.4–36.8; O2SAT 94–100
[2024-05-04] MEDS: PIPERACILLN/TAZ 3.375GM/NS50ML 3.375 GM/50 ML BAG IVPB ×3 (05:16→12:27)
[2024-05-04] MEDS: LINACLOTIDE 145 MCG CAPSULE PO (05:16)
[2024-05-04 05:43] LABS: Estimated CRCL calculation 48 ml/min; Estimated Glomerular Filt Rate > 60
[2024-05-04 07:32] LABS: Glucose Point of Care 73 mg/dl (65-105)
--- NOTE | 2024-05-04 07:59 | PC.NURSE ---
Pt to microbiological laboratory technician for pacemaker placement via bed. Daughter at bedside
--- NOTE | 2024-05-04 09:19 | P.PNIM_ITS ---
Progress Note: A&P Assessment and Plan (1) Bradycardia, sinus: Code(s): R00.1 - Bradycardia, unspecified Status: Acute (2) Proctitis: Code(s): K62.89 - Other specified diseases of anus and rectum Status: Acute (3) AV block: Code(s): I44.30 - Unspecified atrioventricular block Status: Acute Plan (1) Syncope: Qualifiers: Syncope type: unspecified Qualified Code(s): R55 - Syncope and collapse Code(s): R55 - Syncope and collapse Status: Acute Assessment and Plan: Most likely due to symptomatic bradycardia/heart block. EKG showing sinus with high grade AV block, low voltage, probably old Anterior and Inferior [place] The patient is not on any medications that should be associated with bradycardia. Cardiology consulted and PM recommended since patient is symptomatic. Echo showing normal LV size and fxn with thickened LV cheney. RV is normal size and fxn. Mild-Mod AR and trace MR. Aortic root is dilated at 4cm. Avoid AV paty blocking agents. Plan for pacemaker placement today. No syncope over the night (2) Symptomatic bradycardia: Code(s): R00.1 - Bradycardia, unspecified Status: Acute Assessment and Plan: As above. EKG showing high grade AV block. (3) Proctitis: Code(s): K62.89 - Other specified diseases of anus and rectum Status: Acute Assessment and Plan: CT A/P showing thickening of the rectal wall sigmoid colon wall up to 4.7 mm diameter with pneumatosis of the rectal and sigmoid cheney. He has prominent rectosigmoid fecal impaction in the colon consistent with stercoral colitis. There is a prominent amount of fecal material throughout the remainder of the colon. He has known problems with severe constipation. WBC normal. PCT 0.1. CRP <0.5. Lactic normal. He is having BMs. Started IV abx and GenSurg consulted; appreciated their input. Diet continued. Daily suppositories stopped. Miralax BID and Linzess added Follow closely. (4) Fecal impaction of colon: Code(s): K56.41 - Fecal impaction Status: Acute Assessment and Plan: As above (5) Prostate cancer metastatic to bone: Code(s): C61 - Malignant neoplasm of prostate; C79.51 - Secondary malignant neoplasm of bone Status: Acute Assessment and Plan: Patient has a distant history of prostate cancer treated with radiation therapy. He had a bone scan in January 2023 that suggested Paget's disease of the bone with sclerotic lesions only located in the sacrum, right innominate bone and right femur. Imaging here is concerning for metastatic disease possibly from prostate cancer. Please see CT scan of the chest/abd/pelvis PSA 50 (PSA 8.5 in January 2023). He will need to follow up with his oncologist once he is well. (6) Type 2 diabetes mellitus with hyperglycemia: Qualifiers: Diabetes mellitus long term acute care registered nurse insulin use: without long term acute care registered nurse use Qualified Code(s): E11.65 - Type 2 diabetes mellitus with hyperglycemia Code(s): E11.65 - Type 2 diabetes mellitus with hyperglycemia Status: Acute Assessment and Plan: A1c 5.9%. The patient's blood glucose was reviewed on 05/03 Glucose remains well controlled. Continue AccuCheks covering with sliding scale. Hypoglycemia protocol available as needed. Continue to monitor (7) HIV (human immunodeficiency virus infection): Qualifiers: HIV symptom status: unspecified Qualified Code(s): B20 - Human immunodeficiency virus [HIV] disease Code(s): B20 - Human immunodeficiency virus [HIV] disease Status: Acute Assessment and Plan: Stable. Continue home Biktarvy. Plan Code status - full DVT prophylaxis - Lovenox Subjective Date/time seen: 05/04/24 09:19 Interval history: I saw examined the patient today, patient feels better, patient denies dizziness, palpitation, chest pain. But patient has general weakness. No new issue events over the night, Exam Narrative: GENERAL: Pleasant, in no acute distress. Well-nourished. - EYES: EOMI. Anicteric. - HENT: Moist mucous membranes. - LUNGS: Distant breath sound bilateral ly, no wheezing, rhonchi, or rales. - CARDIOVASCULAR:, bradycardia, irregula r rhythm, No murmur. No JVD. - ABDOMEN: Soft, non-tender and non-dist ended. No palpable masses. - EXTREMITIES: No edema. Peripheral puls es 2+. Non-tender. - NEUROLOGIC: No focal neurological defi cits. CN II-XII grossly intact. - PSYCHIATRIC: Awake, Alert and oriented x 3. Appropriate mood and affect. - SKIN: No rashes or lesions. Warm. - LYMPH: No cervical lymphadenopathy. Objective Data Vital Signs Vital Signs: Vital Signs - 24 hr 05/03/24 10:00 05/03/24 11:41 05/03/24 12:00 Temperature 97.4 F L Pulse Rate 56 L 44 L Respiratory Rate 16 Blood Pressure 150/53 H Pulse Oximetry 100 Oxygen Delivery Room Air 05/03/24 12:00 05/03/24 14:00 05/03/24 16:00 Temperature Pulse Rate 78 56 L 58 L Respiratory Rate Blood Pressure Pulse Oximetry Oxygen Delivery 05/03/24 16:00 05/03/24 15:15 05/03/24 18:00 Temperature 98.1 F Pulse Rate 50 L 82 Respiratory Rate 14 Blood Pressure 132/51 L Pulse Oximetry 98 Oxygen Delivery Room Air 05/03/24 20:00 05/03/24 20:22 05/03/24 19:30 Temperature 97.7 F Pulse Rate 86 80 Respiratory Rate 14 Blood Pressure 107/71 Pulse Oximetry 98 96 Oxygen Delivery Room Air 05/03/24 22:00 05/03/24 23:57 05/04/24 00:01 Temperature 97.8 F Pulse Rate 96 51 L Respiratory Rate 14 Blood Pressure 154/75 H Pulse Oximetry 98 98 Oxygen Delivery Room Air 05/04/24 00:00 05/04/24 02:00 05/04/24 03:27 Temperature Pulse Rate 48 L 29 L Respiratory Rate Blood Pressure Pulse Oximetry 98 Oxygen Delivery Room Air 05/04/24 04:00 05/04/24 04:10 05/04/24 06:00 Temperature 97.8 F Pulse Rate 28 L 57 L 33 L Respiratory Rate 14 Blood Pressure 141/40 H Pulse Oximetry 99 Oxygen Delivery 05/04/24 07:50 05/04/24 08:00 05/04/24 08:00 Temperature 97.7 F Pulse Rate 53 L 45 L Respiratory Rate 18 Blood Pressure 149/64 H Pulse Oximetry 100 Oxygen Delivery Room Air Intake/Output Intake/Output: Intake & Output 05/01/24 05/02/24 05/03/24 05/04/24 23:59 23:59 23:59 23:59 Intake Total 1000 2850 3553.0 172 Output Total 650 1400 500 Balance 1000 2200 2153.0 -328 Meds/Results Medications: Active Medications Generic Name Dose Route Start Last Admin Trade Name Freq PRN Reason Stop Dose Admin Dextrose 12.5 gm 05/01/24 23:05 Dextrose 50% 25 Gm/50 Ml Syringe IV PUSH PRN PRN Hypoglycemia Protocol Enoxaparin Sodium 40 mg 05/02/24 09:00 05/03/24 08:24 Enoxaparin 40 Mg/0.4 Ml Syringe SUB-Q 40 mg DAILY STEPHANI Administration Famotidine 20 mg 05/02/24 09:00 05/03/24 20:08 Famotidine 20 Mg Tablet PO 20 mg Q12HR STEPHANI Administration Glucagon 1 mg 05/01/24 23:05 Glucagon For Inj 1 Mg Vial IM PRN PRN Hypoglycemia Protocol Glucose 15 gm 05/01/24 23:05 Glucose Oral Gel 15 Gm Of Glucse In 37.5 Gm Tube PO PRN PRN Hypoglycemia Protocol Hydromorphone HCl 0.5 mg 05/01/24 22:03 Hydromorphone Hcl Inj (*Crx) 1 Mg/Ml Syr IV PUSH Q4H PRN Pain Rated 7-10 Dextrose 1,000 mls @ 100 mls/hr 05/01/24 23:05 Dextrose 5% 1,000 Ml IVPB PRN PRN Hypoglycemia Protocol Piperacillin/Tazobactam/Dextrose 3.375 gm in 50 mls @ 100 mls/hr 05/02/24 08:00 05/04/24 05:16 Zosyn 3.375 Gm/Ns 50 Ml IVPB 100 mls/hr Q6HR STEPHANI Administration Insulin Aspart 2 - 5 units 05/02/24 08:00 05/03/24 16:35 Insulin Aspart (*Bkc) 100 Units/Ml SUB-Q Not Given TIDWM COUNTS INCLUDE 234 BEDS AT THE [facility] Protocol Insulin Aspart 1 - 2 units 05/02/24 21:00 05/03/24 21:15 Insulin Aspart (*Bkc) 100 Units/Ml SUB-Q Not Given HS COUNTS INCLUDE 234 BEDS AT THE [facility] Protocol Ketorolac Tromethamine 15 mg 05/01/24 22:09 Ketorolac 30 Mg/Ml Vial (*Bkc) IV PUSH 05/06/24 22:02 Q6H PRN Pain Rated 4-6 Linaclotide 145 mcg 05/03/24 06:30 05/04/24 05:16 Linaclotide 145 Mcg Capsule PO 145 mcg DAILY@0630 STEPHANI Administration Ondansetron HCl 4 mg 05/01/24 22:03 Ondansetron Inj 4 Mg/2 Ml Vial IV PUSH Q4H PRN Nausea Perflutren Lipid Microsphere 0 ml 05/01/24 23:03 Perflutren Lipid Microspheres 1.5 Ml Vial Diluted To 10 Ml Total Volume IV PUSH 05/04/24 23:03 ONCE PRN adequate visualization Protocol Polyethylene Glycol 17 gm 05/03/24 09:00 05/03/24 17:10 Polyethylene Glycol 3350 17 Gm Powd.Pack PO 17 gm BID STEPHANI Administration Radiology Results: ITS Impressions Chest X-Ray 05/01/24 20:19 IMPRESSION: Left retrocardiac increased density which may be due to hiatal hernia and/or left lower lobe infiltrate or atelectasis Sclerotic lesion of posterior lateral aspect of right seventh rib versus lung opacity; consider additional chest radiographs with different projection versus CT thorax Chest CT 05/01/24 20:50 IMPRESSION: Numerous osteosclerotic lesions, likely due to metastatic prostate cancer Left lower lobe dependent discoid atelectasis or scarring, left lower lobe bronchiectasis and peribronchial soft tissue thickening 2.4 cm probable left lower lobe calcified pulmonary granuloma Cardiomegaly, aortic atherosclerosis Abdomen/Pelvis CT 05/01/24 21:30 IMPRESSION: Raymon proctocolitis fecal impaction of the rectosigmoid area Extensive osteosclerotic lesions, likely due to prostate metastases and metastatic disease of the right hemipelvis and right femur 4 x 4.8 cm hemangioma of the lateral segment left hepatic lobe Indeterminate 1.6 standard hypoenhancing lesion of the posterior lateral aspect of the upper pole left kidney; hypernephroma is not excluded. Consider further evaluation with MR examination Left nonobstructive nephrolithiasis Labs Labs: Laboratory Results - last 24 hr 05/03/24 05/03/24 05/03/24 11:32 16:10 21:07 Creatinine Estim Creat Clear Calc Estimated GFR POC Capillary Glucose 111 H 145 H 132 H 05/04/24 05/04/24 05:15 07:26 Creatinine 1.20 Estim Creat Clear Calc 48 Estimated GFR > 60 POC Capillary Glucose 73
--- NOTE | 2024-05-04 09:52 | ECG_ITS ---
Test Date: 2024-05-04 10:13:01 Measurements Intervals [place] Rate: 53 P: 10 NM: 203 QRS: -71 QRSD: 162 T: 81 QT: 490 QTc: 463 Interpretive Statements ELECTRONIC VENTRICULAR PACEMAKER ABNORMAL RHYTHM ECG Compared to ECG 05/01/2024 20:56:22 VENTRICULAR PACED RHYTHM NOW PRESENT Electronically Signed On 05-04-2024 14:48:18 CDT by Betty Fong M.D.
--- NOTE | 2024-05-04 09:56 | P.PCNCC_ITS ---
Cardiac Cath Procedure Note Date of procedure:: 05/04/24 Performing physician:: Alan Taylor MD Indication:: syncope with high-grade AV block Brief clinical history:: this is a 74-year-old man without previous cardiac history of came into the hospital experiencing syncope. He has been found to have AV node dysfunction with variable degrees of AV block including third-degree AV block. Pacemaker implantation has been recommended in this setting. Procedure Procedure performed:: Implantation of permanent dual-chamber Biotronik pacemaker Sedation/Medication given:: fentanyl 25 mg Versed 2 mg case start time 8:45 a.m. case time 39 sedation provided by Rhoda Higgins RN, trained observer Access site:: right subclavian vein Estimated blood loss:: minimal Procedure note:: patient was brought to the woven label designer in the postabsorptive state where the right anterior chest wall was prepped and draped in the usual fashion. Anesthesia was provided with 1% lidocaine infiltrated locally in the subclavian fossa. The incision was then made from the midclavicular line to the deltopectoral groove all 1 in below the clavicle. Using sharp and blunt dissection the subcutaneous tissue was and using electrocautery cutaneous hemostasis was provided. Using blunt dissection a pacemaker pocket was then created inferior to the incision along the prepectoral fascial plane. This pocket was then packed with an antibiotic-soaked 4 x 4. Attention was then turned to venous access. Using 2 puncture kit set 2 6 [place] safe sheaths the subclavian vein was punctured twice in the guidewires were advanced into the venous circulation to the right atrial position under fluoroscopic visualization. Following this the 6 [place]ian safe sheaths were used to place the 2 pacemaker leads detailed below into the venous circulation into the right atrial position. Following this attention was turned to position the ventricular lead. the straight stylet was removed and a 3 cc syringe was used to fashion a J-tip stylet which was then used to steer this lead through the right ventricle out to the pulmonary artery position. Str aight stylet was placed into the lead was withdrawn and placed into the right ventricular apex. Initially very good pacing and sensing performance was demonstrated but as the lead was observed the R-wave sensing was declining to a level that was not indicating good lead position. The fixation screw was then withdrawn and the J tipped stylet was used to place the lead into a mid septal position. The fixation screw was then deployed and the lead was then tested using the analyzer with very good pace pacing and sensing performance being demonstrated. A 10 volts stimulation showed no evidence of extracardiac stimulation. Attention was then turned to positioning the atrial lead. The stylet was withdrawn and a preformed atrial J curve was placed into the lead this was then maneuvered into the right atrial appendage. The fixation screw was then deployed and following this the lead was then tested with good sensing and pacing performed being demonstrated once again a 10 volt stimulation showed no evidence of extracardiac stimulation. The leads were then secured to the base of the pocket using the suture sleeves and 2-0 silk ties. The retained sponge was removed from the pocket and the pacemaker device detail low was connected to the leads using the torque wrench. The entire assembly was placed into the newly created pocket which was then closed in layers using 3-0 Vicryl in an interrupted fashion the subcutaneous tissue and 4-0 Vicryl in a running subcuticular fashion for the skin. The wound was dressed with Aquacel dressing the right arm placed in an immobilizer. Patient was taken to the holding area for post implant recovery procedure was well tolerated and there were no apparent complications. Findings:: The patient received a Biotronik dual-chamber pacemaker model Amvia Edge [id number]. serial number [id number]. The device is programmed in the DDD mode lower rate limit of 50 upper rate 130. The ventricular lead is a Biotronik screw-in bipolar lead model Solia S [id number]. serial number [id number]. the R-waves are sensed at 6.4 mV threshold 0.6 volts at 0.4 milliseconds impedance 723 Ohms. Atrial lead is a Biotronik screw-in bipolar lead model Solia S 45 [id number]. serial number [id number]. the P-waves are sensed at 5.3 mV threshold 0.8 volts at 0.4 milliseconds impedance 449 Ohms. Conclusion:: 1. Successful uncomplicated implantation of permanent Biotronik dual-chamber pacemaker treatment of symptomatic bradycardia with high-grade AV block including heart block in this 74-year-old patient presenting with syncope. Alan Taylor MD [facility]
--- NOTE | 2024-05-04 11:20 | PC.NURSE ---
Pt returned from [facility] post pacemaker insertion. No issues noted. Family at bedside
[2024-05-04] MEDS: FAMOTIDINE 20 MG TABLET PO ×2 (11:31→20:20)
[2024-05-04] MEDS: polyethylene glycoL 3350 17 GM POWD.PACK PO ×2 (11:31→16:39)
[2024-05-04 11:33] LABS: Glucose Point of Care 76 mg/dl (65-105)
[2024-05-04] MEDS: SODIUM CHLORIDE 0.9% IV 1,000 ML 50 ML IV CONT (11:51)
[2024-05-04] MEDS: ceFAZolin 1 GM/NS 50 ML 1 GM/50 ML BAG IVPB (15:30)
[2024-05-04 16:18] LABS: Glucose Point of Care 130 mg/dl (65-105)
[2024-05-04] MEDS: KETOROLAC 30 MG/ML VIAL (*BKC) 15 MG IV PUSH (20:21)
[2024-05-05] VITALS (12 sets, daily range): BP systolic 96–147; BP diastolic 62–67; PULSE 49–82; RESP 14–18; TEMP 36.7–37; O2SAT 96–100
[2024-05-05] MEDS: ceFAZolin 1 GM/NS 50 ML 1 GM/50 ML BAG IVPB (01:21)
[2024-05-05] MEDS: KETOROLAC 30 MG/ML VIAL (*BKC) 15 MG IV PUSH (01:22)
[2024-05-05] MEDS: LINACLOTIDE 145 MCG CAPSULE PO (05:32)
[2024-05-05 08:42] LABS: Glucose Point of Care 89 mg/dl (65-105)
[2024-05-05] MEDS: FAMOTIDINE 20 MG TABLET PO (10:18)
[2024-05-05 11:44] LABS: Glucose Point of Care 110 mg/dl (65-105)
--- NOTE | 2024-05-05 11:50 | P.PNCA_ITS ---
Progress Note: A&P Assessment and Plan (1) AV block: Code(s): I44.30 - Unspecified atrioventricular block Status: Acute Assessment and Plan: Now s/p Biotronik dual chamber PPM (2) Syncope: Qualifiers: Syncope type: unspecified Qualified Code(s): R55 - Syncope and collapse Code(s): R55 - Syncope and collapse Status: Acute Assessment and Plan: Secondary to high degree AVB. Now s/p permanent pacemaker implantation (3) Pacemaker: Code(s): Z95.0 - Presence of cardiac pacemaker Status: Acute Assessment and Plan: Uncomplicated dual chamber pacemaker implantation yesterday. Pacemaker functioning appropriately. CXR with no pneumothorax. Reviewed pacemaker precautions with patient. He is ok for discharge today from a cardiac standpoint. Subjective Date/time seen: 05/05/24 11:50 Interval history: 74-year-old man with: Apparent syncopal episode with episodes of variable AV block including least 1 episode of third-degree AV block since being hospitalized and placed on telemetry. Patient has no complaints this evening. Pacemaker procedure explained in detail to the patient he limited/ poor understanding of the nature of the procedure prior to this visit. Date of service 05/05/2024: Feels good today. Denies any chest pain or shortness of breath. No tenderness at the pacer insertion site. Review of Systems Constitutional: Constitutional: Reports as per HPI Exam Const: General: comfortable and no acute distress Other: Rather frail appearing tall elderly man no distress HENMT: Mouth: Yes moist mucous membranes Eyes: Sclera: sclerae normal EOM: EOMs intact bilaterally Neck: Neck: supple and no JVD Chest: Other: Right upper pectoral incision covered with sterile dressing. No drainage, bleeding, or hematoma. Resp: Effort & Inspection: normal respiratory effort Auscultation: clear to auscultation bilaterally Other: Cardio: Rate: regular rate Rhythm: regular rhythm GI: Auscultation: normal bowel sounds Skin: General skin exam: normal color Neuro: Speech: normal speech Other: alert and oriented x3 Extrem: General: normal to inspection Psych: Affect: Indifferent affect present Objective Data Vital Signs Vital Signs: Vital Signs - 24 hr 05/04/24 12:00 05/04/24 12:00 05/04/24 12:00 Temperature 36.7 C Pulse Rate 68 77 Respiratory Rate 20 Blood Pressure 122/79 Pulse Oximetry 99 Oxygen Delivery Room Air 05/04/24 12:15 05/04/24 12:30 05/04/24 13:00 Temperature 36.5 C 36.8 C 36.6 C Pulse Rate 57 L 77 79 Respiratory Rate 16 16 18 Blood Pressure 151/81 H 177/72 H 140/59 L Pulse Oximetry 99 100 94 Oxygen Delivery 05/04/24 14:00 05/04/24 14:00 05/04/24 16:00 Temperature 36.7 C Pulse Rate 66 72 Respiratory Rate 18 Blood Pressure 135/63 Pulse Oximetry 99 Oxygen Delivery Room Air 05/04/24 16:00 05/04/24 15:37 05/04/24 16:00 Temperature 36.6 C 36.6 C Pulse Rate 67 65 72 Respiratory Rate 16 18 Blood Pressure 139/90 153/63 H Pulse Oximetry 99 97 Oxygen Delivery 05/04/24 18:00 05/04/24 18:00 05/04/24 19:57 Temperature 36.7 C 36.7 C Pulse Rate 71 69 71 Respiratory Rate 18 18 Blood Pressure 168/76 H 137/73 Pulse Oximetry 100 99 Oxygen Delivery 05/04/24 20:00 05/04/24 20:00 05/04/24 22:00 Temperature Pulse Rate 79 75 Respiratory Rate Blood Pressure Pulse Oximetry Oxygen Delivery Room Air 05/05/24 01:32 05/05/24 00:00 05/05/24 00:00 Temperature 37.0 C Pulse Rate 82 82 Respiratory Rate 18 Blood Pressure 96/64 L Pulse Oximetry 96 Oxygen Delivery Room Air 05/05/24 02:00 05/05/24 04:00 05/05/24 04:00 Temperature Pulse Rate 75 75 77 Respiratory Rate 18 Blood Pressure Pulse Oximetry 96 Oxygen Delivery Room Air 05/05/24 04:00 05/05/24 05:44 05/05/24 08:00 Temperature 36.9 C Pulse Rate 61 61 58 L Respiratory Rate 17 17 Blood Pressure 100/64 Pulse Oximetry 98 98 Oxygen Delivery Room Air 05/05/24 08:00 05/05/24 08:00 05/05/24 10:00 Temperature 36.7 C Pulse Rate 68 57 L 60 Respiratory Rate 16 Blood Pressure 133/67 Pulse Oximetry 100 Oxygen Delivery 05/05/24 11:06 Temperature 36.7 C Pulse Rate 57 L Respiratory Rate 14 Blood Pressure 147/62 H Pulse Oximetry 98 Oxygen Delivery Intake/Output Intake/Output: Intake & Output 05/02/24 05/03/24 05/04/24 05/05/24 23:59 23:59 23:59 23:59 Intake Total 2850 3553.0 1072 300 Output Total 650 1400 500 Balance 2200 2153.0 572 300 Meds/Results Medications: Active Medications Generic Name Dose Route Start Last Admin Trade Name Freq PRN Reason Stop Dose Admin Dextrose 12.5 gm 05/01/24 23:05 Dextrose 50% 25 Gm/50 Ml Syringe IV PUSH PRN PRN Hypoglycemia Protocol Enoxaparin Sodium 40 mg 05/02/24 09:00 05/03/24 08:24 Enoxaparin 40 Mg/0.4 Ml Syringe SUB-Q 40 mg DAILY STEPHANI Administration Famotidine 20 mg 05/02/24 09:00 05/05/24 10:18 Famotidine 20 Mg Tablet PO 20 mg Q12HR STEPHANI Administration Glucagon 1 mg 05/01/24 23:05 Glucagon For Inj 1 Mg Vial IM PRN PRN Hypoglycemia Protocol Glucose 15 gm 05/01/24 23:05 Glucose Oral Gel 15 Gm Of Glucse In 37.5 Gm Tube PO PRN PRN Hypoglycemia Protocol Hydromorphone HCl 0.5 mg 05/01/24 22:03 Hydromorphone Hcl Inj (*Crx) 1 Mg/Ml Syr IV PUSH Q4H PRN Pain Rated 7-10 Dextrose 1,000 mls @ 100 mls/hr 05/01/24 23:05 Dextrose 5% 1,000 Ml IVPB PRN PRN Hypoglycemia Protocol Insulin Aspart 2 - 5 units 05/02/24 08:00 05/05/24 09:00 Insulin Aspart (*Bkc) 100 Units/Ml SUB-Q Not Given TIDWM [facility] Protocol Insulin Aspart 1 - 2 units 05/02/24 21:00 05/04/24 20:24 Insulin Aspart (*Bkc) 100 Units/Ml SUB-Q Not Given HS [facility] Protocol Ketorolac Tromethamine 15 mg 05/01/24 22:09 05/05/24 01:22 Ketorolac 30 Mg/Ml Vial (*Bkc) IV PUSH 05/06/24 22:02 15 mg Q6H PRN Administration Pain Rated 4-6 Linaclotide 145 mcg 05/03/24 06:30 05/05/24 05:32 Linaclotide 145 Mcg Capsule PO 145 mcg DAILY@0630 STEPHANI Administration Ondansetron HCl 4 mg 05/01/24 22:03 Ondansetron Inj 4 Mg/2 Ml Vial IV PUSH Q4H PRN Nausea Polyethylene Glycol 17 gm 05/03/24 09:00 05/05/24 10:15 Polyethylene Glycol 3350 17 Gm Powd.Pack PO Not Given BID [facility] Radiology Results: ITS Impressions Chest CT 05/01/24 20:50 IMPRESSION: Numerous osteosclerotic lesions, likely due to metastatic prostate cancer Left lower lobe dependent discoid atelectasis or scarring, left lower lobe bronchiectasis and peribronchial soft tissue thickening 2.4 cm probable left lower lobe calcified pulmonary granuloma Cardiomegaly, aortic atherosclerosis Abdomen/Pelvis CT 05/01/24 21:30 IMPRESSION: Raymon proctocolitis fecal impaction of the rectosigmoid area Extensive osteosclerotic lesions, likely due to prostate metastases and metastatic disease of the right hemipelvis and right femur 4 x 4.8 cm hemangioma of the lateral segment left hepatic lobe Indeterminate 1.6 standard hypoenhancing lesion of the posterior lateral aspect of the upper pole left kidney; hypernephroma is not excluded. Consider further evaluation with MR examination Left nonobstructive nephrolithiasis Chest X-Ray 05/05/24 10:51 IMPRESSION: 1. Mild atelectasis in the lower lung zones. 2. Scattered sclerotic lesions of bone, consistent with metastatic disease. Labs Labs: Laboratory Results - last 24 hr 05/04/24 05/05/24 05/05/24 16:00 08:31 11:22 POC Capillary Glucose 130 H 89 110 H
--- NOTE | 2024-05-05 14:58 | PM.DS ---
DS: Admitting Diagnosis Discharge Date 05/05/2024 Admitting Diagnosis syncope DS: Discharge Diagnosis Discharge Diagnosis (1) Bradycardia, sinus: Code(s): R00.1 - Bradycardia, unspecified Status: Acute (2) Proctitis: Code(s): K62.89 - Other specified diseases of anus and rectum Status: Acute (3) AV block: Code(s): I44.30 - Unspecified atrioventricular block Status: Acute DS: Summary Hospital Course Hospital Course: # Syncope: Most likely due to symptomatic bradycardia/heart block. EKG showing sinus with high grade AV block, low voltage, probably old Anterior and Inferior NH The patient is not on any medications that should be associated with bradycardia. Cardiology consulted and PM recommended since patient is symptomatic. Echo showing normal LV size and fxn with thickened LV cheney. RV is normal size and fxn. Mild-Mod AR and trace MR. Aortic root is dilated at 4cm. Avoid AV paty blocking agents. status post pacemaker placement 05/04/2024. okay for discharge per Cardiology # Symptomatic bradycardia: As above. EKG showing high grade AV block. # Proctitis: CT A/P showing thickening of the rectal wall sigmoid colon wall up to 4.7 mm diameter with pneumatosis of the rectal and sigmoid cheney. He has prominent rectosigmoid fecal impaction in the colon consistent with stercoral colitis. There is a prominent amount of fecal material throughout the remainder of the colon. He has known problems with severe constipation. WBC normal. PCT 0.1. CRP <0.5. Lactic normal. He is having BMs. Started IV abx and GenSurg consulted; appreciated their input. Diet continued. Daily suppositories stopped. Miralax BID and Linzess added Follow closely. # Fecal impaction of colon: As above # Prostate cancer metastatic to bone: Patient has a distant history of prostate cancer treated with radiation therapy. He had a bone scan in January 2023 that suggested Paget's disease of the bone with sclerotic lesions only located in the sacrum, right innominate bone and right femur. Imaging here is concerning for metastatic disease possibly from prostate cancer. Please see CT scan of the chest/abd/pelvis PSA 50 (PSA 8.5 in January 2023). He will need to follow up with his oncologist once he is well. # Type 2 diabetes mellitus with hyperglycemia: A1c 5.9%. The patient's blood glucose was reviewed on 05/03 Glucose remains well controlled. Continue AccuCheks covering with sliding scale. Hypoglycemia protocol available as needed. Continue to monitor # HIV (human immunodeficiency virus infection): Stable. Continue home Biktarvy. # Code status - full # DVT prophylaxis - Lovenox Time Spent with Patient Time attestation: Total time spent providing and/or coordinating discharge services: 35 minutes Exam Narrative: GENERAL: Pleasant, in no acute distress. Well-nourished. - EYES: EOMI. Anicteric. - HENT: Moist mucous membranes. - LUNGS: Distant breath sound bilaterally, no wheezing, rhonchi, or rales. - CARDIOVASCULAR:, paced rhythm, No murmur. No JVD. - ABDOMEN: Soft, non-tender and non-distended. No palpable masses. - EXTREMITIES: No edema. Peripheral pulses 2+. Non-tender. - NEUROLOGIC: No focal neurological deficits. CN II-XII grossly intact. - PSYCHIATRIC: Awake, Alert and oriented x 3. Appropriate mood and affect. - SKIN: No rashes or lesions. Warm. - LYMPH: No cervical lymphadenopathy. DS: Data Data Completed and Pending Completed studies during hospitalization: Exam Type: CA echo doppler color flow Study Info Indications - symptomatic bradycardia Complete two-dimensional, color flow and Doppler transthoracic echocardiogram is performed. Reason for Poor Study: poor patient cooperation Summary 1. Complete two-dimensional, color flow and Doppler transthoracic echocardiogram is performed. 2. Technically difficult study with limited views. 3. The left ventricle is normal in size and systolic function. The LV cheney are thickened. 4. The right ventricle is normal in size and systolic function. Left Ventricle The left ventricle is normal in size and systolic function. The LV cheney are thickened. Right Ventricle The right ventricle is normal in size and systolic function. Left Atria The left atrium is normal in size. Right Atria The right atrium is normal in size. Aortic Valve The aortic valve is not well visualized however gradients across the valve suggests normal function valve. There is [id number] amount of aortic regurgitation. Pulmonic Valve The pulmonic valve is not well visualized. There is no pulmonic valve regurgitation by color Doppler. Mitral Valve The mitral valve is normal. There is trace mitral regurgitation. Tricuspid Valve The tricuspid valve is not well visualized. Pericardium/Pleural Pericardium is normal in appearance with no evidence for significant pericardial effusion. Aorta The aortic root measured at the level of the sinus of Valsalva is 4 cm in diameter which is dilated. Labs on day of discharge: Labs from last 24 hours 05/05/24 05/05/24 05/04/24 11:22 08:31 16:00 POC Capillary Glucose 110 H 89 130 H Preliminary micro results at discharge 05/02/24 11:06 Blood Culture - Preliminary Blood 05/02/24 09:31 Blood Culture - Preliminary Blood Procedures/Treatments: Cardiac Cath Procedure Note Date of procedure:: 05/04/24 Performing physician:: Alan Taylor MD Indication:: syncope with high-grade AV block Brief clinical history:: this is a 74-year-old man without previous cardiac history of came into the hospital experiencing syncope. He has been found to have AV node dysfunction with variable degrees of AV block including third-degree AV block. Pacemaker implantation has been recommended in this setting. Procedure Procedure performed:: Implantation of permanent dual-chamber Biotronik pacemaker Sedation/Medication given:: fentanyl 25 mg Versed 2 mg case start time 8:45 a.m. case time 39 sedation provided by Rhoda Higgins RN, trained observer Access site:: right subclavian vein Estimated blood loss:: minimal Procedure note:: patient was brought to the laboratory apparatus glass grinder in the postabsorptive state where the right anterior chest wall was prepped and draped in the usual fashion. Anesthesia was provided with 1% lidocaine infiltrated locally in the subclavian fossa. The incision was then made from the midclavicular line to the deltopectoral groove all 1 in below the clavicle. Using sharp and blunt dissection the subcutaneous tissue was and using electrocautery cutaneous hemostasis was provided. Using blunt dissection a pacemaker pocket was then created inferior to the incision along the prepectoral fascial plane. This pocket was then packed with an antibiotic-soaked 4 x 4. Attention was then turned to venous access. Using 2 puncture kit set 2 6 [place]an safe sheaths the subclavian vein was punctured twice in the guidewires were advanced into the venous circulation to the right atrial position under fluoroscopic visualization. Following this the 6 [place]an safe sheaths were used to place the 2 pacemaker leads detailed below into the venous circulation into the right atrial position. Following this attention was turned to position the ventricular lead. the straight stylet was removed and a 3 cc syringe was used to fashion a J-tip stylet which was then used to steer this lead through the right ventricle out to the pulmonary artery position. Straight stylet was placed into the lead was withdrawn and placed into the right ventricular apex. Initially very good pacing and sensing performance was demonstrated but as the lead was observed the R-wave sensing was declining to a level that was not indicating good lead position. The fixation screw was then withdrawn and the J tipped stylet was used to place the lead into a mid septal position. The fixation screw was then deployed and the lead was then tested using the analyzer with very good pace pacing and sensing performance being demonstrated. A 10 volts stimulation showed no evidence of extracardiac stimulation. Attention was then turned to positioning the atrial lead. The stylet was withdrawn and a preformed atrial J curve was placed into the lead this was then maneuvered into the right atrial appendage. The fixation screw was then deployed and following this the lead was then tested with good sensing and pacing performed being demonstrated once again a 10 volt stimulation showed no evidence of extracardiac stimulation. The leads were then secured to the base of the pocket using the suture sleeves and 2-0 silk ties. The retained sponge was removed from the pocket and the pacemaker device detail low was connected to the leads using the torque wrench. The entire assembly was placed into the newly created pocket which was then closed in layers using 3-0 Vicryl in an interrupted fashion the subcutaneous tissue and 4-0 Vicryl in a running subcuticular fashion for the skin. The wound was dressed with Aquacel dressing the right arm placed in an immobilizer. Patient was taken to the holding area for post implant recovery procedure was well tolerated and there were no apparent complications. Findings:: The patient received a BiotroniEachpal dual-chamber pacemaker model Amvia Edge [id number]. serial number [id number]. The device is programmed in the DDD mode lower rate limit of 50 upper rate 130. The ventricular lead is a Biotronik screw-in bipolar lead model Solia S [id number]. serial number [id number]. the R-waves are sensed at 6.4 mV threshold 0.6 volts at 0.4 milliseconds impedance 723 Ohms. Atrial lead is a Biotronik screw-in bipolar lead model Solia S [id number]. serial number [id number]. the P-waves are sensed at 5.3 mV threshold 0.8 volts at 0.4 milliseconds impedance 449 Ohms. Conclusion:: 1. Successful uncomplicated implantation of permanent Biotronik dual-chamber pacemaker treatment of symptomatic bradycardia with high-grade AV block including heart block in this 74-year-old patient presenting with syncope. Alan Taylor MD [facility] Imaging Radiologist's impression: ITS Impressions Chest X-Ray 05/01/24 20:19 IMPRESSION: Left retrocardiac increased density which may be due to hiatal hernia and/or left lower lobe infiltrate or atelectasis Sclerotic lesion of posterior lateral aspect of right seventh rib versus lung opacity; consider additional chest radiographs with different projection versus CT thorax Chest CT 05/01/24 20:50 IMPRESSION: Numerous osteosclerotic lesions, likely due to metastatic prostate cancer Left lower lobe dependent discoid atelectasis or scarring, left lower lobe bronchiectasis and peribronchial soft tissue thickening 2.4 cm probable left lower lobe calcified pulmonary granuloma Cardiomegaly, aortic atherosclerosis Abdomen/Pelvis CT 05/01/24 21:30 IMPRESSION: Raymon proctocolitis fecal impaction of the rectosigmoid area Extensive osteosclerotic lesions, likely due to prostate metastases and metastatic disease of the right hemipelvis and right femur 4 x 4.8 cm hemangioma of the lateral segment left hepatic lobe Indeterminate 1.6 standard hypoenhancing lesion of the posterior lateral aspect of the upper pole left kidney; hypernephroma is not excluded. Consider further evaluation with MR examination Left nonobstructive nephrolithiasis Chest X-Ray 05/04/24 10:39 IMPRESSION: Minimal opacification in the left lung base which may indicate atelectasis. Nodule in the area is not excluded. CT evaluation advised. Chest X-Ray 05/05/24 10:51 IMPRESSION: 1. Mild atelectasis in the lower lung zones. 2. Scattered sclerotic lesions of bone, consistent with metastatic disease. Discharge Plan Discharge Attending physician on discharge: Jass James Consulting providers: Jaqui Sheehan; Shelby Spencer Discharging Clinician: Jass James Anticipated Discharge Date/Time: 05/05/24 15:03 Patient Disposition: Home, Self-Care Activity: as tolerated Diet: diabetic Discharge Instructions: [facility] [address] [place] [address] DISCHARGE INSTRUCTIONS - POST PACEMAKER Activity 1. No driving until you are seen in the office for your incision check. 2. No lifting, pushing or pulling more than 5 pounds with affected arm for 1 MONTH 3. No lifting affected arm above shoulder height for 1 MONTH 4. Wear immobilizer/sling only if you are unable to remember the above activity restrictions. Recommend that it be worn at night. 5. You may shower AFTER you are seen for incision check but no tub baths, swimming pool or hot tub for 1MONTH Wound Care 1. Do not attempt to remove the Aquacel dressing. Leave dressing undisturbed until incision check at the office visit. Keep dressing dry. 2. When you are able to shower AFTER you are seen for your incision check in the office do not rub or scrub the incision. Pat dry after shower. NO lotions, powders, creams or ointments are to be applied to the incision 3. A small amount of tenderness, puffiness and bruising around the site is normal. Call if any significant pain, drainage, swelling, or redness around the site. *For any other questions please call the office at [phone]. Office hours are 8AM 4:30PM Thursday through Thursday. Patient Instructions: Antibiotic Form, Pain Management (DC), Heart Block (DC), Bradycardia (DC), Pacemaker (DC) Stand Alone Forms: General Discharge Information Follow-up/Referrals: Caden Price MD [Physician] - (05/11/24 at 8:30. Arrive at 8:15.) Ammy,Pee Bruno MD [Primary Care Provider] - 1 Week Discharge Medications: New polyethylene glycol 3350 [Miralax] 17 gram Powder In Packet 17 g PO BID Qty: 30 0RF Linzess 145 mcg Capsule 145 mcg PO DAILY@0630 Qty: 30 0RF Continued aspirin 325 mg Tablet 325 mg PO DAILY Qty: 30 0RF Hold Instructions: Hold until recommended by your Urologist montelukast 10 mg tablet 10 mg PO HS Qty: 30 0RF rosuvastatin 40 mg tablet 40 mg PO DAILY Qty: 30 0RF Biktarvy 50-200-25 mg Tablet 1 tablet PO DAILY Qty: 30 0RF Trelegy Ellipta 100-62.5-25 mcg blister with device 1 inh INHALATION DAILY acetaminophen [Acetaminophen Extra Strength] 500 mg Tablet 1,000 mg PO Q6H PRN (Reason: Pain (Scale Score 1-3)) albuterol sulfate [Proventil HFA] 90 mcg/actuation Hfa Aerosol Inhaler 2 puff inhalation Q6HRT PRN (Reason: Shortness Of Breath) Qty: 6.7 0RF Date of admission: 05/04/24 09:18 Primary Care Provider: Ammy,Pee Bruno Admitting Provider: Doris Gorman Attending physician on admission: Doris Gorman Condition: Stable
[2024-05-05 16:03] LABS: Glucose Point of Care 119 mg/dl (65-105)
== END 2024-05-05 16:26 | disposition home or self-care (01) | DRG 243 ==
LOC: ANHED 20:59 → ANH3MEDSUR 22:39 → ANHIMU 23:52
PROVIDERS: Internal Medicine; Specialist; Admitting Provider Internal Medicine; Emergency Provider Physician Assistant; PCP Internal Medicine Infectious Disease; Visit Provider Internal Medicine
PROC: 0JH606Z Insertion of Pacemaker, Dual Chamber into Chest Subcutaneous Tissue and Fascia, Open Approach (ICD-10-PCS; CPT 33208; principal; 2024-05-04 08:00)
DX: I44.2 Atrioventricular block, complete (principal); B20 Human immunodeficiency virus [HIV] disease; C79.51 Secondary malignant neoplasm of bone; I69.354 Hemiplegia and hemiparesis following cerebral infarction affecting left non-dominant side; R00.1 Bradycardia, unspecified; K62.89 Other specified diseases of anus and rectum; E11.65 Type 2 diabetes mellitus with hyperglycemia; K56.41 Fecal impaction; I10 Essential (primary) hypertension; E11.42 Type 2 diabetes mellitus with diabetic polyneuropathy; I73.9 Peripheral vascular disease, unspecified; R32 Unspecified urinary incontinence; R15.9 Full incontinence of feces; J44.9 Chronic obstructive pulmonary disease, unspecified; M88.9 Osteitis deformans of unspecified bone; F01.50 Vascular dementia, unspecified severity, without behavioral disturbance, psychotic disturbance, mood disturbance, and anxiety; D63.8 Anemia in other chronic diseases classified elsewhere; Z85.46 Personal history of malignant neoplasm of prostate; Z87.891 Personal history of nicotine dependence; Z74.01 Bed confinement status; Z79.82 Long term (current) use of aspirin
CPT/HCPCS: 33208; 36415; 71045; 71046; 71250; 74177; 80048; 80053; 81001; 82565; 82948; 83036; 83605; 83690; 83735; 84100; 84145; 84153; 84439; 84443; 84480; 84484; 85025; 86140; 87040; 87086; 87641; 93005; 93306; 96361; 96374; 96375; 99285; A9270; C1779; C1785; G0378; J0690; J1650; J1885; J2003; J2250; J2270; J2405; J2543; J3010; J7030; J7040; Q9967

== ENCOUNTER 2024-08-30 11:36 | Outpatient (CLI) | payer MEDICARE, SELFPAY ==
--- NOTE | ~2024-08-30 | PE_ITS ---
EXAMINATION: PET_PETPSMAST_PT DATE: 08/30/2024 13:41 INDICATION: Prostate cancer TECHNIQUE: 4.988 mCi of Illucix Ga-68([id number]) was administered i.v. Low dose computed meghan graphy (CT) images were acquired from the base of the brain to the base of the brain to the proximal thighs for attenuation correction and anatomic localization. Positron emission tomography (PET) image s were acquired in the same distribution beginning 85 minutes after injection. Images including fused PET/CT images were reconstructed in axial, coronal, and sagittal planes. Automated exposure control technique was employed. The dose-length product was 771.72mGy-cm. COMPARISON: None FINDINGS: Head/neck: Typical pattern of symmetric physiologic increased activity in the lacrimal, parotid and submandibula r glands as well as along the mucosa of the nasal and oral cavities, pharynx and hypopharynx. Moderat e-sized region of encephalomalacia in the right frontal lobe consistent with sequela of old infarct. No pathologically enlarged cervical lymphadenopathy or suspicious foci of increased uptake in the vis ualized head or neck. Chest: Mild peripheral atelectasis/scarring in the left lower lobe with associated volume loss. Large calcif ied granuloma at the left lower lobe consistent with old granulomatous disease. No other suspicious p ulmonary nodules, pneumonia, pulmonary edema or pleural effusion. Heart size is normal. Atherosclerot ic coronary artery calcific lesions. Dual-lead cardiac pacemaker with lead tips at the right atrial a ppendage and at the apex of the right ventricle. Aortic valve calcifications. No pericardial effusion . Thoracic aorta is normal in caliber. No pathologically enlarged or PSMA avid thoracic lymphadenopat hy. Abdomen/pelvis/proximal thighs: Physiologic renal accumulation and excretion of activity in the kidneys, bladder and along portions o f ureters. Small focus of mild uptake at the right side of the prostate with maximal SUV of 3.4 and l ikely representing the site of primary prostate cancer. Normal degree and slightly heterogenous patte rn of increased uptake throughout the liver and spleen without radiologic correlate or dominant PSMA avid lesion. The gallbladder, pancreas and bilateral adrenal glands are normal. Moderate uptake scatt ered throughout the bowels with typical duodenal and proximal jejunal predominance and without radiol ogic correlate, also likely physiologic. Postoperative change of prior ventral hernia mesh repair. No other abnormal foci of increased uptake or pathologically enlarged lymphadenopathy in the abdomen, p jacob or proximal thighs. Musculoskeletal: Old healed fracture of the left femoral neck. There are extensive pagetoid changes involving the visu alized proximal right femur, the right pelvis and extending into the sacrum. There are multiple scatt ered sclerotic bone lesions with increased PSV may activity in the axial and appendicular skeleton co nsistent with metastatic disease. For reference there is a 1.3 cm lesion at the right glenoid with ma ximal SUV of 8.6, a conglomeration of sclerotic lesions at the T12 vertebral body the central to 0.5 cm diameter lesion with maximal SUV of 19.1 and finally a 3.2 cm sclerotic lesion at the posterior as pect of the left lesser trochanter with maximal SUV of 9.4. Additional lesions are seen in the spine, few of the bilateral ribs and in the pelvis including within the region of pagetoid changes in the r ight pelvis. IMPRESSION: 1. Multiple sclerotic PSMA avid bone lesions consistent with metastatic disease. 2. Small focus of mild uptake at the right side of the prostate which likely represents the site of t he primary malignancy. Reviewed, dictated and finalized at location B. MATIC TESTER IMPRESSION: 1. Multiple sclerotic PSMA avid bone lesions consistent with metastatic disease . 2. Small focus of mild uptake at the right side of the prostate which likely re presents the site of the primary malignancy.
--- OUTSIDE RECORDS SUMMARY | 2024-08-30 13:44 | XMS_ITS ---
Author Organization [facility] [address] Address [address] [place] [address] Phone Care Team Providers Care [employer] Administrator Name Role Phone Melinda Gimenez MD Primary Care Provider + [phone] Pee Gimenez MD Unavailable [phone] Alan Donnelly MD Unavailable [phone] Jamison Malave MD Unavailable Dileep Connolly MD Unavailable [phone] Ian POLANCO MD, Ehsan Murray Unavailable + Popeye Dukes MD Unavailable [phone] Randy Morris MD Unavailable Active Problems Problem Noted Date Diagnosed Date Prostate cancer metastatic to bone 06/08/2024 Heart block AV complete (CMS/HCC) 06/08/2024 Elevated blood pressure reading 05/25/2024 Assessment & Plan (05/25/2024 4:32 PM CARE PROGRAM DIRECTOR): New finding, uncertain cause or significance at this time. Systolic blood pressure is mildly elevated. He does not take anything for blood pressure. I recommended that his daughter check blood pressure readings periodically over the next week or so to see if there is a need for treatment. Visit for wound check 05/16/2024 Pacemaker 05/04/2024 Overview (05/04/2024): Biotronik Amvia Edge Dual PM. Hx. 1st and 2nd degree HB. DOI 05/04/24 - Claudia Biotron[employer] remote home monitoring. Assessment & Plan (05/31/2024 9:43 AM CARE PROGRAM DIRECTOR): New finding as of May 04, improved. He was seen at [facility] and had second-degree heart block. A pacemaker was placed. He tolerated the procedure well. He will keep his follow ups with Cardiology. Dysphagia, unspecified 07/06/2021 Overview (05/17/2023): Home Health entry, likely due to stroke. Neurogenic bladder 04/26/2021 Recurrent UTI 04/26/2021 Overview (10/28/2021): ELVIN Deleon (+) 05/[address] for bladder tumor possibly causing left ureteral or obstruction, ELVIN Deleon, office cystoscopy confirm there was no bladder tumor , he had possible scarring from radiation of the prostate cancer Cystoscopy (-) May 2021 confirm there was no bladder tumor:Dysuria, cause not clear. Could be related to radiation. FU PRN. To follow up with his radiation oncologist Tried pyridium before, no benefit. Stage 3a chronic kidney disease (CKD) 01/03/2021 Assessment & Plan (05/31/2024 9:44 AM CARE PROGRAM DIRECTOR): Chronic, present for several years, stable. Creatinine fluctuates within a certain range over the past couple of years. We will continue to monitor with periodic labs. Multiple-type hyperlipidemia 10/24/2020 Assessment & Plan (05/18/2023 5:21 PM CARE PROGRAM DIRECTOR): He takes generic Crestor, tolerating well. Recent liver enzymes were normal and cholesterol profile looks pretty favorable. S/P TURP (status post transurethral resection of prostate) 05/02/2020 Nocturnal hypoxemia 02/22/2020 Overview (02/22/2020): 02/22/20--Overnight Pulse Oximetry Report dated 02/03/20 shows 22 minutes spent with oxygen under 88%. 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 Patient and daughter would like removed. Discussed in office excision and wound care, patient agrees. Spastic hemiparesis affecting nondominant side ( CMS/HCC) 01/12/2019 Overview (2019): Stroke treated at [facility] 12/08/2018 Assessment & Plan (11/18/2023 4:27 PM CDT): Chronic, controlled. He takes a full dose aspirin. Physical ability is quite limited. He is mostly confined to bed in his cared for by his daughter. Assessment & Plan (03/24/2020 12:11 PM CDT): This is due to a stroke suffered in December of last year. He has been through rehab. Exam is stable with a more spastic than flaccid hemiparesis of the left side. He says he does get up with a walker and gets around. He denies having any pressure ulcers. He takes an aspirin every day. Cerebrovascular accident (CV A) with involvement of left side of body 12/08/2018 Overview (12/14/2018): Right frontal lobe, see [facility] records. Assessment & Plan (05/18/2023 5:19 PM CARE PROGRAM DIRECTOR): He has left-sided weakness. He had a fall at home recently and hurt his left hip. He went to [facility] where x-rays were negative for fracture. He then went to rehab for a total duration of about 30 days. He is now at home. His daughter, Teresa Aguilar, is taking care of him. Things are challenging as he still can not walk due to pain in the left hip. Assessment & Plan (03/17/2022 3:24 PM CDT): Presents with daughter requesting at home physical therapy for weakness. Visit was conducted using video technology. Weakness against gravity noted. Residual L arm weakness from past stroke demonstrated. Will refer to [facility] for in home PT. Keep scheduled follow up with dr gimenez next month, sooner if needed. Assessment & Plan (11/22/2019 12:27 PM CDT): He has a spastic left hemiparesis following a right hemispheric stroke. Speech seems unaffected. He says he is able to walk with a walker, but he is currently in a wheelchair for the office visit. He lives with his daughter now. He will keep followups with primary care and appropriate specialists. Assessment & Plan (07/27/2019 5:05 PM CARE PROGRAM DIRECTOR): Admitted to [place] with multifocal punctate ischemic stroke--see note from hospital admission. Lung nodule 12/08/2018 Overview (04/26/2021): Chest x-ray February 22 212 cm left lower lobe nodule, unable to transport for chest CT LLL 2.1 cm lung nodule suspicious for primary or metastatic malignancy per [facility] radiology reports, but also reported as early as 2017 as 2.0 cm pleural based nodule. 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 Assessment & Plan (11/18/2023 4:26 PM CDT): Chronic, controlled. He has not currently taking a medication for his mood. Based on the limited evaluation in this video visit, he does not exhibit severe depressive symptoms or behavior. He has a supportive family. Assessment & Plan (07/23/2022 2:02 PM CARE PROGRAM DIRECTOR): He is somewhat noncommittal about his mood. He does take mirtazapine to hopefully help boost his mood a little bit and help him sleep. Assessment & Plan (11/22/2019 12:29 PM CDT): He says his mood is good. He continues on citalopram. Keppra is being discontinued due to possible exacerbation of mood problems. He is transitioning from Keppra to lamotrigine. He will be on lamotrigine only as of this Thursday. Keppra will be stopped on Thursday. 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 Prostate cancer 07/09/2016 Overview (05/20/2020): Francheska 4 + 3 on prostate biopsies during TURP November 2019 involving 10% of the prostate on that biopsy Referring to radiation therapy with Dr. Sosa Difficulty contact the patient through the cancer navigator at [facility], this is the answer he gave when we tried to find continuity of care Hussein barkleyarian from Dr. Frey's office called back and said that she spoke with Radha who is an Accounting Machine Operator and Radha told Mariana that she spoke with Slade. Per Radha, Slade is non-compliant and he does not want to follow up with anyone for this Slade said that he is already seeing someone else for this and they are following his cancer but Mariana does not know who that is or who he is talking about. Prostate cancer POSSIBLY metastatic to bone following with Dr. FREY and Dr. Levy at [facility] Bone scan consistent with Paget's disease 06/09/2018, felt to not be metastatic prostate cancer MRI consistent with possible metastatic disease to liver and bone 06/09/[address] Geronimo Martinez Prostate biopsy (+)Francheska 4 + 3 Bone scan positive right hemipelvis IMPRESSION: 1. INTENSE ACCRETION OF THE RADIOTRACER IN THE RIGHT HEMIPELVIS DISCUSSED. DIFFERENTIAL DIAGNOSIS INCLUDES PAGET'S DISEASE AND METASTASIS. THERE IS ALSO UPTAKE IN THE RIGHT FEMUR, MOST PROMINENT GREATER TROCHANTER, DESCRIBED ABOVE. 2. DEGENERATIVE CHANGES. Electronically signed by: Dale Conti M.D chest x-ray (+) 2 cm lesion left lower lobe EXAM: Chest; PA and lateralCOMPARISON: None FINDINGS: 2.1 cm nodular density is noted in the left lower lobe. no pneumothorax or pleural effusion is seen. The heart is normal in size. The osseous structures are appropriate for the patient's age. MPRESSION:Nodular left lower lobe density. Consider further evaluation with contrast-enhanced chest CT.Electronically signed by: Darrius Shah M.D. CT chest abdomen (+) in bone IMPRESSION: 1. Cortical trabecular thickening of the right iliac bone and proximal femur. Differential includes Paget's disease and metastasis. 2. No obvious prostatic lesions. 3. Noncalcified nodule in the left lower lobe. Further evaluation with PET/CT is recommended as malignancy cannot be excluded. 3. Left nephroliths. 4. Peripherally enhancing left hepatic lobe structure which is incompletely evaluated on a single phase exam. Further evaluation with liver protocol CT or MRI is recommended. Electronically signed by: Darrius Shah M.D. Interpreting Physician: DARRIUS SHAH M.D. Read on: Apr 01 2017 11:57A High risk group by NCCN criteria prostate cancer, clinical stage IIIA ([id number], PSA 58 and Grade Group 3), diagnosed by transrectal ultrasound the prostate with sextant x2 biopsies 03/16/2017. PSA prior to biopsies was not available/known. Initially there was question of osseous metastases but the radiographic and nuclear medicine findings appear to have been stable over time and are now felt to be more consistent with Paget's disease. To date he has not received any active treatment for his prostate cancer as his carotid artery disease was more pressing. Assessment & Plan (05/18/2023 5:24 PM CARE PROGRAM DIRECTOR): There apparently was evidence of progressive prostate cancer during his recent hospitalization at [facility] for a fall and left hip pain. This is being managed by primary care. We will review the record. Assessment & Plan (07/23/2022 2:03 PM CARE PROGRAM DIRECTOR): Lab Results Component Value Date PSA 4.5 (H) 04/24/2022 PSA 5.0 (H) 10/18/2020 PSA 26.9 (H) 01/14/2016 No new urinary symptoms reported. He will keep followups with primary care. Assessment & Plan (03/21/2020 4:54 PM CDT): He had prostate surgery on December 12 of this year, a TURP. Ever since then, he has had some burning with urination and urinary incontinence. This could be an expected side effect of the procedure, or could be due to infection. He had a [id number] follow-up with Dr. Frey about one month after the surgery, and was voiding well at the time but did complain of dysuria. He was treated with Cipro. Postvoid residual was 138 mL. We will request a follow-up urinalysis with microscopic and culture. Consider additional workup as needed depending on results and efficacy of any treatment. Assessment & Plan (11/22/2019 12:35 PM CDT): He has high risk prostate cancer which is being monitored clinically and with periodic PSA tests. The most recent PSA test was actually slightly lower than the previous one. He saw Dr. Sosa not too long ago who recommended continued observation. Last month, he also had a cystoscopy due to voiding difficulties and hematuria. A Mckeon was placed for one week. The patient denies having any voiding difficulties at this time other than urgency to urinate, but when he goes to the restroom, he has a bowel movement instead of urinating. He denies having any dysuria or hematuria. His urologist, Dr. Frey, is considering a TURP to help with his voiding difficulties. He will keep his follow ups with Urology and radiation oncology. Assessment & Plan (05/10/2019 1:57 PM CARE PROGRAM DIRECTOR): He denies any current urinary symptoms of concern. Prostate cancer is not being actively treated at this time. He will keep his follow ups with primary care and Urology, although he has apparently canceled multiple recent Urology appointments. Type 2 diabetes mellitus wit h kidney complication, without long-term current use of insulin 06/24/2016 Overview (10/08/2016): Diabetes mellitus Assessment & Plan (11/18/2023 4:33 PM CDT): Chronic, diet controlled. Diabetes is monitored in the primary care setting. Assessment & Plan (05/18/2023 5:25 PM CARE PROGRAM DIRECTOR): Diabetes is managed with diet. Hemoglobin A1c on labs from about two weeks ago was 6.3% indicating good control. Assessment & Plan (08/04/2022 7:55 PM CARE PROGRAM DIRECTOR): He controls this with diet. He will keep his follow ups with primary care. Lab Results Component Value Date HGBA1C 5.9 (H) 04/24/2022 HGBA1C 6.7 (H) 04/17/2021 HGBA1C 6.5 (H) 10/18/2020 Lab Results Component Value Date MICROALBUR 43.0 04/20/2020 LDLCALC 88 06/04/2019 CREATININE 1.36 (H) 07/04/2022 Assessment & Plan (09/19/2020 3:31 PM CDT): He is not checking blood sugars at home. His diabetes traditionally has been diet controlled. He will keep his follow ups with primary care. Lab Results Component Value Date HGBA1C 6.7 (H) 04/20/2020 Assessment & Plan (03/21/2020 4:43 PM CDT): This is currently being controlled with diet. We will have him get the follow-up HIV and routine labs previously ordered. Assessment & Plan (11/22/2019 12:38 PM CDT): He is not checking blood sugars at home. He is not currently requiring any medication for diabetes. His most recent hemoglobin A1c was in a reasonable range on diet alone. We will continue to monitor periodically. Lab Results Component Value Date HGBA1C 7.0 (H) 06/04/2019 Assessment & Plan (05/10/2019 1:59 PM CARE PROGRAM DIRECTOR): His current list does not include any medications for diabetes. A recent hemoglobin A1c seems to indicate good control. We will review this with his PCP office and get him in early for an appointment if needed to reassess the situation. Lab Results Component Value Date HGBA1C 6.5 (H) 03/18/2019 Assessment & Plan (06/08/2018 11:35 AM CARE PROGRAM DIRECTOR): He is on glimepiride, monitored and managed by primary care. Continue same. Assessment & Plan (06/23/2017 12:05 PM CARE PROGRAM DIRECTOR): Blood sugars are only fairly well controlled at this time with a hemoglobin A1c of about 7.5. He says that he can't eat the tree bark and grass diet that they need or want him to eat to control his diabetes although he tries to stick as much as possible to the diet. He stays away from sweets. Continue efforts. Keep follow- up with primary care. COPD with asthma 06/24/2016 Overview (10/09/2016): Asthma Assessment & Plan (09/19/2020 3:32 PM CDT): Lungs are clear. Breath sounds are somewhat diminished in the left lung base. He has a nebulizer at home which he says does not help. He will follow-up with primary care for these issues. Assessment & Plan (03/21/2020 4:41 PM CDT): He has a nebulizer for use at home as needed. He also takes Singulair. Continue same. Assessment & Plan (11/22/2019 12:38 PM CDT): He remains on nebulizers and Singulair. We discussed the recent FDA warning regarding mood disorder due to Singulair. However, the patient denies feeling depressed or suicidal and does not want to stop taking the singular. Assessment & Plan (07/29/2019 5:18 PM CARE PROGRAM DIRECTOR): Pt requesting new nebulizer machine and new tubing for neb machine. Will arrange for this today. Assessment & Plan (05/10/2019 1:48 PM CARE PROGRAM DIRECTOR): He seems uncertain about his medications. On his list, there is a nebulizer and montelukast. Lungs are clear except for slightly diminished left sided breath sounds. We left things as they are, and will check with his PCP office about making sure he is taking medications as prescribed. Assessment & Plan (06/08/2018 11:34 AM CARE PROGRAM DIRECTOR): He has a nebulizer and a canister inhaler for use as needed. He also takes Singulair. Lungs are clear and oxygen saturation is satisfactory. Continue same. Assessment & Plan (06/23/2017 12:06 PM CARE PROGRAM DIRECTOR): Lungs are clear to auscultation at this time. Continue current therapy. Human immunodeficiency virus (HIV) infection Overview (10/09/2016): HIV disease Assessment & Plan (05/25/2024 4:33 PM CARE PROGRAM DIRECTOR): Chronic, present for about 10 years, currently controlled on Biktarvy taken daily. Viral load is undetected. CD4 count is over 500. Continue current therapy and follow-up in six months with labs. Assessment & Plan (11/18/2023 4:25 PM CDT): Chronic, controlled. Last labs from July show undetected viral load and preserved CD4 count. We previously ordered labs to be done at home, as he is quite debilitated from stroke and other pathology in can not get out of the house. He continues on Biktarvy and seems to be tolerating it well. Other labs are monitored in the PCP setting. Assessment & Plan (05/18/2023 5:21 PM CARE PROGRAM DIRECTOR): As of his last set of HIV labs in June 2022, the HIV infection was well controlled with a viral load undetected and CD4 count >600. Labs were obtained a couple of weeks ago but unfortunately CD4 count and viral load results do not appear on the copy we received. It looks like they were not drawn. We called the lab to get results without success. His daughter is trying to get these labs re-drawn, as they are required for him to continue receiving Danyel White benefits on his medication. We will check back in with her by the end of the month. Assessment & Plan (07/23/2022 2:01 PM CARE PROGRAM DIRECTOR): CD4 count is over 600 and viral load is less than 20. He is tolerating Biktarvy. Continue same and follow-up in six months. Assessment & Plan (09/19/2020 3:31 PM CDT): His last HIV labs were about five months ago and showed good control with viral load less than 20 (detected) and CD4 count around 500. We will check another set now and before his next visit in six months. In the meantime, continue Biktarvy. Assessment & Plan (03/21/2020 4:46 PM CDT): He switched from Atripla to Biktarvy, and is doing well with an undetectable viral load and a preserved CD4 count. He asked about side effects of his former regimen, Atripla. Kidney function has been normal. We ordered a bone density nearly a year ago but as far as I can tell it has not been done. We will look through all his reports and reorder it if necessary. Otherwise I do not see any major side effects from being on Atripla. Assessment & Plan (11/22/2019 12:31 PM CDT): He is now taking Biktarvy, seems to be tolerating it well. HIV labs are due, so he will get them drawn today. Follow-up in three months. Assessment & Plan (05/10/2019 1:50 PM CARE PROGRAM DIRECTOR): He has been on Atripla with good control of HIV disease. He asked about the recent discussions about toxicities of Atripla. Right now, he does not exhibit any renal insufficiency which would be one of our main concerns. Bone calcium loss may also be an issue, so it would be reasonable to perform a DEXA scan. Recent viral load remains less than 20 (detected) and CD4 count is in a good range. After discussing the risks and benefits of alternatives, he decided to stay on Atripla for now. We will see him back in six months with some follow-up labs. We will arrange for a DEXA scan in the near future. Assessment & Plan (06/08/2018 11:34 AM CARE PROGRAM DIRECTOR): He is compliant with Atripla. He reports no new side effects that he recognizes. Viral load is suppressed at less than 20, and CD4 count is preserved at over 500. Continue same and follow-up in six months. Assessment & Plan (06/23/2017 12:05 PM CARE PROGRAM DIRECTOR): He is doing well with respect to the HIV infection. Viral load is less than 20 and CD4 count is well preserved. He is tolerating Atripla. Continue same. He can follow up in six months. Chronic rhinitis 06/19/2015 Overview (10/09/2016): Chronic rhinitis Current Treatment and Therapy Plans No current plan information found. Past Treatment and Therapy Plans No past plan information found. Lifetime Dose Tracking * Chemical Lifetime Dose Automatic Entry Manual Entr y DLP 3,998 mGycm 3,998 mGycm 0 mGycm Resolved Problems Problem Noted Date Diagnosed Date Resolved Date Bradycardia 07/29/2022 10/27/2022 Assessment & Plan (07/29/2022 4:02 PM CARE PROGRAM DIRECTOR): likely erroneous reading on oximeter. EKG in office today shows NSR at 93, no acute changes. Sating 99% on RA in office today. No acute findings on exam. Continue current medication regimen. Stay hydrated. Call with any changes or concerns. Altered gait 03/17/2022 10/27/2022 Assessment & Plan (03/17/2022 3:26 PM CDT): Patient unable to get out of bed due to leg weakness, video visit conducted to order in home PT. Residual L arm weakness from prior stroke noted. Patient can barely resist gravity with legs. [facility], keep follow up with Dr. gimenez next month, sooner if needed. Bladder tumor 10/28/2021 10/27/2022 Overview (10/28/2021): (+) 05/[address] for bladder tumor possibly causing left ureteral or obstruction, ELVIN Deleon, office cystoscopy confirm there was no bladder tumor , he had possible scarring from radiation of the prostate cancer Acute kidney injury 08/02/2021 10/28/19 Overview (09/01/2021): [facility]. Saw Dr. Popeye Dukes. Assessment & Plan (09/01/2021 1:38 PM CARE PROGRAM DIRECTOR): Scanned nephrology consult note dated 08/02/2021, Dr. Dukes, [facility]. Loss of appetite 10/24/2020 10/27/2022 History of therapeutic radiation 05/11/2020 10/27/2022 Overview (03/26/2021): Formatting of this [facility] note might be different from the original. Prostate radiotherapy, 70 Gy in 28 fractions, from 04/02/2020 thru 05/11/2020. Lymphedema 12/02/2019 01/31/2020 Right-sided carotid artery disease 11/11/2019 01/31/2020 Overview (11/22/2019): Had right-sided carotid endarterectomy 09/16/2019 at [facility]. Seizure disorder (CMS/HCC) 09/30/2019 0 01/31/2020 Assessment & Plan (11/28/2019 11:25 AM CDT): As noted elsewhere, his antiepileptic drugs are being transitioned from leviteracetam two lamotrigine due to a suspicion that the former was exacerbating his mood problems. The transition should be complete this according to the patient's daughter who brought his medication list with him. The currently listedt dose of lamotrigine reflects the planned final dose of 150 mg daily, and not the actual dose currently of 75 mg daily. The leviteracetam will be discontinued this Thursday when he reaches the planned dose of lamotrigine. AV block, [place] 1 09/06/2019 3 More than 50 percent stenosi s of right internal carotid artery 08/30/2019 09/28/2019 Overview (09/28/2019): Short segment severe stenosis of the right internal carotid artery just distal to the bifurcation with early reconstitution. Right carotid endarterectomy 09/16/[address] melany francisco monitoring 07/29/2019 01/31/2020 Assessment & Plan (07/29/2019 5:14 PM CARE PROGRAM DIRECTOR): Keppra level is low--per Dr. Glasgow--dose adjustment: Increase Keppra to three times daily and do a repeat lab next week. Skin nodule 01/19/2019 2019 History of lateralizing deo r deficit following cerebrovascular accident (CVA) 12/04/2018 11/22/2019 Overview (11/22/2019): Admitted to [facility] 06/04/2019 upon transfer via ambulance from [facility] with altered mental status changes and finding of right internal carotid artery occlusion. Hyperlipidemia associated wi th type 2 diabetes mellitus 06/24/2016 10/27/2022 Overview (10/09/2016): Combined hyperlipidemia Assessment & Plan (07/23/2022 2:01 PM CARE PROGRAM DIRECTOR): He is on generic Crestor, tolerating well. Check follow-up labs before his next visit in six months. Assessment & Plan (09/19/2020 3:31 PM CDT): He is on generic Crestor, continue same. Assessment & Plan (11/22/2019 12:31 PM CDT): He continues on generic Crestor, seems to be tolerating it well. Continue same and keep followups with primary care. Assessment & Plan (06/08/2018 11:35 AM CARE PROGRAM DIRECTOR): He continues on generic Crestor, seems to be tolerating it well. Continue same. Hypertension complicating diabetes 06/24/2016 01/31/2020 Overview (10/10/2016): Benign essential HTN Assessment & Plan (11/22/2019 12:32 PM CDT): Systolic blood pressure is somewhat borderline on lisinopril 5 mg daily. He may need a higher dose or combined therapy. We will discuss with primary care. Assessment & Plan (07/27/2019 5:32 PM CARE PROGRAM DIRECTOR): Pt was placed on lisinopril 5mg during his hospital stay and was discharged on this medication. I have asked that they monitor his BP at home bc it is on the lower side today--he may need to come off this medication. Will have home health to call us with some of his readings next week. Assessment & Plan (05/10/2019 1:52 PM CARE PROGRAM DIRECTOR): Blood pressure is in a low normal range. He is not currently on any blood pressure medications according to the most recent information in his chart. He did not bring in a list of medications from home. We will have the PCP staff check on all of this. Otherwise follow up here in six months. Assessment & Plan (06/08/2018 11:33 AM CARE PROGRAM DIRECTOR): Blood pressure is in a good range on current therapy. Labs are Continue same. Assessment & Plan (06/23/2017 12:06 PM CARE PROGRAM DIRECTOR): Blood pressure is in a good range. Continue current therapy. Osteoarthritis 06/27/2014 01/31/2020 Overview (10/10/2016): Osteoarthritis Diabetic neuropathy 04/05/2014 04/08/20 19 Overview (10/10/2016): Diabetic neuropathy Left shoulder pain 07/21/2013 9 Overview (10/10/2016): Shoulder pain
--- OUTSIDE RECORDS SUMMARY | 2024-08-30 13:44 | XMS_ITS | Clinical Summary ---
Author Organization [facility] [address] Address [address] [place] [address] Phone Care Team Providers Care Quiller Runner Name Role Phone Melinda Gimenez MD Primary Care Provider [phone] Pee Gimenez MD Unavailable [phone] Alan Donnelly MD Unavailable [phone] Jamison Malave MD Unavailable Dileep Connolly MD Unavailable [phone] Ian POLANCO MD, Ehsan Murray Unavailable + Popeye Dukes MD Unavailable [phone] Randy Morris MD Unavailable Allergies Active Allergy Reactions Criticality Noted Date Comments Mirtazapine Other (See comments) Low 10/27/2022 Excessively tired on 7.5 mg staying in bed all day Medications docusate sodium (DOK) 100 mg tabletIndications: constipation Take 1 tablet (100 mg total) by mouth 2 (two) times a day as needed for constipation 024 Active fluocinonide (LIDEX) 0.05 % ointmentIndication s:Rash and nonspecific skin eruption Apply topically 2 (two) times a day 90 g 1 024 Active fluticasone-umecli din-vilanter (Trelegy Ellipta) 100-62.5-25 mcg inhalerIndications :COPD with asthma ([facility]) Inhale 1 puff daily 1 each 5 Active montelukast (SINGULAIR) 10 mg tabletIndications: Maintenance Therapy for Asthma Take 1 tablet (10 mg total) by mouth nightly 90 tablet 2 Active rosuvastatin (CRESTOR) 40 mg tabletIndications: Spastic hemiparesis affecting nondominant side (CMS/HCC) ([facility]),Personal history of cerebrovascular accident with current residual effects,Type 2 diabetes mellitus with stage 2 chronic kidney disease, without long-term current use of insulin (CMS/HCC) ([facility]),Multiple-typ e hyperlipidemia Take 1 tablet (40 mg total) by mouth nightly 90 tablet 1 Active aspirin 325 mg tabletIndications: cerebral ischemia,Cerebral Ischemia Take 1 tablet (325 mg total) by mouth daily 90 tablet 2 Active Biktarvy 50-200-25 mg tabletIndications: Asymptomatic HIV infection, with no history of HIV-related illness ([facility]) TAKE 1 TABLET BY MOUTH DAILY 30 tablet 5 025 Active Biktarvy 50-200-25 mg tabletIndications: Asymptomatic HIV infection, with no history of HIV-related illness ([facility]) TAKE 1 TABLET BY MOUTH DAILY 30 tablet 5 024 2024 Discontinued Active Problems Problem Noted Date Diagnosed Date Prostate cancer metastatic to bone 06/08/2024 Heart block AV complete (CMS/HCC) 06/08/2024 Elevated blood pressure reading 05/25/2024 Assessment & Plan (05/25/2024 4:32 PM AUTOMATIC DRILLER AND REAMER): New finding, uncertain cause or significance at this time. Systolic blood pressure is mildly elevated. He does not take anything for blood pressure. I recommended that his daughter check blood pressure readings periodically over the next week or so to see if there is a need for treatment. Visit for wound check 05/16/2024 Pacemaker 05/04/2024 Overview (05/04/2024): Biotronitiara Beyer Dual PM. Hx. 1st and 2nd degree HB. DOI 05/04/24 - [facility] [employer] remote home monitoring. Assessment & Plan (05/31/2024 9:43 AM AUTOMATIC DRILLER AND REAMER): New finding as of May 04, improved. He was seen at [facility] and had second-degree heart block. A pacemaker [...] 01/03/2021 Assessment & Plan (05/31/2024 9:44 AM AUTOMATIC DRILLER AND REAMER): Chronic, present for several years, stable. Creatinine fluctuates within a certain range over the past couple of years. We will continue to monitor with periodic labs. Multiple-type hyperlipidemia 10/24/2020 Assessment & Plan (05/18/2023 5:21 PM AUTOMATIC DRILLER AND REAMER): He takes generic Crestor, tolerating well. Recent liver enzymes were normal and cholesterol profile looks pretty favorable. S/P TURP (status post transurethral resection of prostate) 05/02/2020 Nocturnal hypoxemia 02/22/2020 Overview (02/22/2020): 02/22/20--Overnight Pulse Oximetry Report dated 02/03/20 shows 22 minutes spent with oxygen under 88%. 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 Patient and daughter would like removed. Discussed in office excision and wound care, patient agrees. Spastic hemiparesis affecting nondominant side ( CMS/HCC) 01/12/2019 Overview (2019): Stroke treated at [facility] 12/08/2018 Assessment & Plan (11/18/2023 4:27 PM [...] 12/08/2018 Overview (12/14/2018): Right frontal lobe, see [facility] records. Assessment & Plan (05/18/2023 5:19 PM AUTOMATIC DRILLER AND REAMER): He has left-sided weakness. He had a fall at home recently and hurt his left hip. He went to [facility] where x-rays were negative for fracture. He [...] specialists. Assessment & Plan (07/27/2019 5:05 PM AUTOMATIC DRILLER AND REAMER): Admitted to [facility] with multifocal punctate ischemic stroke--see note from hospital admission. Lung nodule 12/08/2018 Overview (04/26/2021): Chest x-ray February 22 212 cm left lower lobe nodule, unable to transport for chest CT LLL 2.1 cm lung nodule suspicious for primary or metastatic malignancy per [facility] radiology reports, but also reported as early as 2016 as 2.0 cm pleural based nodule. Mood [...] family. Assessment & Plan (07/23/2022 2:02 PM AUTOMATIC DRILLER AND REAMER): He is somewhat noncommittal about his mood. [...] tried to find continuity of care Hussein weiner from Dr. Frey's office called back and said that she spoke with Radha who is an Mattress Stuffer and Radha told Mariana that she spoke with Mateus. Per Radha, Mateus is non-compliant and he does not want to follow up with anyone for this Mateus said that he is already seeing someone [...] Referred to Dr. Geronimo Martinez Prostate biopsy (+)[place] 4 + 3 Bone scan positive right [...] NCCN criteria prostate cancer, clinical stage IIIA ([id number], PSA 58 and Grade Group 3), diagnosed [...] pressing. Assessment & Plan (05/18/2023 5:24 PM AUTOMATIC DRILLER AND REAMER): There apparently was evidence of progressive prostate cancer during his recent hospitalization at [facility] for a fall and left hip pain. This is being managed by primary care. We will review the record. Assessment & Plan (07/23/2022 2:03 PM AUTOMATIC DRILLER AND REAMER): Lab Results Component Value Date PSA 4.5 [...] be due to infection. He had a [id number] follow-up with Dr. Frey about one month [...] oncology. Assessment & Plan (05/10/2019 1:57 PM AUTOMATIC DRILLER AND REAMER): He denies any current urinary symptoms of [...] setting. Assessment & Plan (05/18/2023 5:25 PM AUTOMATIC DRILLER AND REAMER): Diabetes is managed with diet. Hemoglobin A1c on labs from about two weeks ago was 6.3% indicating good control. Assessment & Plan (08/04/2022 7:55 PM AUTOMATIC DRILLER AND REAMER): He controls this with diet. He will [...] 06/04/2019 Assessment & Plan (05/10/2019 1:59 PM AUTOMATIC DRILLER AND REAMER): His current list does not include any medications for diabetes. A recent hemoglobin A1c seems to indicate good control. We will review this with his PCP office and get him in early for an appointment if needed to reassess the situation. Lab Results Component Value Date HGBA1C 6.5 (H) 03/18/2019 Assessment & Plan (06/08/2018 11:35 AM AUTOMATIC DRILLER AND REAMER): He is on glimepiride, monitored and managed by primary care. Continue same. Assessment & Plan (06/23/2017 12:05 PM AUTOMATIC DRILLER AND REAMER): Blood sugars are only fairly well controlled [...] singular. Assessment & Plan (07/29/2019 5:18 PM AUTOMATIC DRILLER AND REAMER): Pt requesting new nebulizer machine and new tubing for neb machine. Will arrange for this today. Assessment & Plan (05/10/2019 1:48 PM AUTOMATIC DRILLER AND REAMER): He seems uncertain about his medications. On his list, there is a nebulizer and montelukast. Lungs are clear except for slightly diminished left sided breath sounds. We left things as they are, and will check with his PCP office about making sure he is taking medications as prescribed. Assessment & Plan (06/08/2018 11:34 AM AUTOMATIC DRILLER AND REAMER): He has a nebulizer and a canister inhaler for use as needed. He also takes Singulair. Lungs are clear and oxygen saturation is satisfactory. Continue same. Assessment & Plan (06/23/2017 12:06 PM AUTOMATIC DRILLER AND REAMER): Lungs are clear to auscultation at this time. Continue current therapy. Human immunodeficiency virus (HIV) infection Overview (10/09/2016): HIV disease Assessment & Plan (05/25/2024 4:33 PM AUTOMATIC DRILLER AND REAMER): Chronic, present for about 10 years, currently [...] setting. Assessment & Plan (05/18/2023 5:21 PM AUTOMATIC DRILLER AND REAMER): As of his last set of HIV [...] month. Assessment & Plan (07/23/2022 2:01 PM AUTOMATIC DRILLER AND REAMER): CD4 count is over 600 and viral [...] months. Assessment & Plan (05/10/2019 1:50 PM AUTOMATIC DRILLER AND REAMER): He has been on Atripla with good [...] future. Assessment & Plan (06/08/2018 11:34 AM AUTOMATIC DRILLER AND REAMER): He is compliant with Atripla. He reports no new side effects that he recognizes. Viral load is suppressed at less than 20, and CD4 count is preserved at over 500. Continue same and follow-up in six months. Assessment & Plan (06/23/2017 12:05 PM AUTOMATIC DRILLER AND REAMER): He is doing well with respect to the HIV infection. Viral load is less than 20 and CD4 count is well preserved. He is tolerating Atripla. Continue same. He can follow up in six months. Chronic rhinitis 06/19/2015 Overview (10/09/2016): Chronic rhinitis Resolved Problems Problem Noted Date Diagnosed Date Resolved Date Bradycardia 07/29/2022 10/27/2022 Assessment & Plan (07/29/2022 4:02 PM AUTOMATIC DRILLER AND REAMER): likely erroneous reading on oximeter. EKG in [...] resist gravity with legs. [facility] keep follow up with Dr. gimenez next month, sooner if needed. Bladder tumor 10/28/2021 10/27/2022 Overview (10/28/2021): (+) 05/[address] for bladder tumor possibly causing left ureteral or obstruction, ELVIN Deleon, office cystoscopy confirm there was no bladder tumor , he had possible scarring from radiation of the prostate cancer Acute kidney injury 08/02/2021 10/28/19 Overview (09/01/2021): [facility]. Saw Dr. Popeye Dukes. Assessment & Plan (09/01/2021 1:38 PM AUTOMATIC DRILLER AND REAMER): Scanned nephrology consult note dated 08/02/2021, Dr. Dukes, [facility]. Loss of appetite 10/24/2020 10/27/2022 History of therapeutic radiation 05/11/2020 10/27/2022 Overview (03/26/2021): Formatting of this [facility] note might be different from the original. Prostate radiotherapy, 70 Gy in 28 fractions, from 04/02/2020 thru 05/11/2020. Lymphedema 12/02/2019 01/31/2020 Right-sided carotid artery disease 11/11/2019 01/31/2020 Overview (11/22/2019): Had right-sided carotid endarterectomy 09/16/2019 at [facility]. Seizure disorder (CMS/HCC) 09/30/2019 0 01/31/2020 Assessment & Plan (11/28/2019 11:25 AM CDT): As noted elsewhere, his antiepileptic drugs are being transitioned from leviteracetam two lamotrigine due to a suspicion that the former was exacerbating his mood problems. The transition should be complete this weekend according to the patient's daughter who brought [...] carotid endarterectomy 09/16/[address] ug level monitoring 07/29/2019 01/31/2020 Assessment & Plan (07/29/2019 5:14 PM AUTOMATIC DRILLER AND REAMER): Keppra level is low--per Dr. Glasgow--dose adjustment: Increase Keppra to three times daily and do a repeat lab next week. Skin nodule 01/19/2019 2019 History of lateralizing deo r deficit following cerebrovascular accident (CVA) 12/04/2018 11/22/2019 Overview (11/22/2019): Admitted to [facility] 06/04/2019 upon transfer via ambulance from [facility] with altered mental status changes and finding of right internal carotid artery occlusion. Hyperlipidemia associated wi th type 2 diabetes mellitus 06/24/2016 10/27/2022 Overview (10/09/2016): Combined hyperlipidemia Assessment & Plan (07/23/2022 2:01 PM AUTOMATIC DRILLER AND REAMER): He is on generic Crestor, tolerating well. Check follow-up labs before his next visit in six months. Assessment & Plan (09/19/2020 3:31 PM CDT): He is on generic Crestor, continue same. Assessment & Plan (11/22/2019 12:31 PM CDT): He continues on generic Crestor, seems to be tolerating it well. Continue same and keep followups with primary care. Assessment & Plan (06/08/2018 11:35 AM AUTOMATIC DRILLER AND REAMER): He continues on generic Crestor, seems to be tolerating it well. Continue same. Hypertension complicating diabetes 06/24/2016 01/31/2020 Overview (10/10/2016): Benign essential HTN Assessment & Plan (11/22/2019 12:32 PM CDT): Systolic blood pressure is somewhat borderline on lisinopril 5 mg daily. He may need a higher dose or combined therapy. We will discuss with primary care. Assessment & Plan (07/27/2019 5:32 PM AUTOMATIC DRILLER AND REAMER): Pt was placed on lisinopril 5mg during his hospital stay and was discharged on this medication. I have asked that they monitor his BP at home bc it is on the lower side today--he may need to come off this medication. Will have home health to call us with some of his readings next week. Assessment & Plan (05/10/2019 1:52 PM AUTOMATIC DRILLER AND REAMER): Blood pressure is in a low normal range. He is not currently on any blood pressure medications according to the most recent information in his chart. He did not bring in a list of medications from home. We will have the PCP staff check on all of this. Otherwise follow up here in six months. Assessment & Plan (06/08/2018 11:33 AM AUTOMATIC DRILLER AND REAMER): Blood pressure is in a good range on current therapy. Labs are Continue same. Assessment & Plan (06/23/2017 12:06 PM AUTOMATIC DRILLER AND REAMER): Blood pressure is in a good range. Continue current therapy. Osteoarthritis 06/27/2014 01/31/2020 Overview (10/10/2016): Osteoarthritis Diabetic neuropathy 04/05/2014 04/08/20 19 Overview (10/10/2016): Diabetic neuropathy Left shoulder pain 07/21/2013 9 Overview (10/10/2016): Shoulder pain Encounters Date Type Department Care Team Description 08/23/2024 9:00 AM AUTOMATIC DRILLER AND REAMER Ancillary Procedure [facility] [address] [place] [phone] Pacemaker [Z95.0] (Primary Dx); Atrial fibrillation, unspecified type (HCC); Heart block AV complete (CMS/HCC) (HCC) [I44.2] 08/23/2024 Telephone [facility] [address] [place] [phone] Judi Knox RN 08/23/2024 Orders Only [facility] [address] [place] [phone] Alan Taylor MD Pacemaker (Primary Dx); Heart block AV second degree 08/08/2024 ACO Quality [facility] Accountable Care Organization [address] [place] [phone] Flory Perez 07/04/2024 Telephone [facility] [address] [place] [address] Melinda Gimenez MD PET/CT 06/21/2024 Telephone [facility] [address] [place] [phone] Alan Taylor MD 06/10/2024 12:25 PM AUTOMATIC DRILLER AND REAMER Telemedicine [facility] [address] [place] [phone] Melinda Gimenez MD Goals of care, counseling/discuss ion (Primary Dx); Prostate cancer (HCC); Prostate cancer metastatic to bone (HCC); Spastic hemiparesis affecting nondominant side (CMS/HCC) (HCC); Frailty syndrome in geriatric patient 06/09/2024 Telephone [facility] [address] [place] [phone] Melinda Gimenez MD [facility]CO [employer] - Assistance Request 06/08/2024 3:45 PM AUTOMATIC DRILLER AND REAMER Telemedicine [facility] [address] [place] [phone] Melinda Gimenez MD Prostate cancer metastatic to bone (HCC) (Primary Dx); 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, right; Cerebrovascular accident (CVA) with involvement of left side of body (HCC); Spastic hemiparesis affecting nondominant side (CMS/HCC) (HCC); Heart block AV complete (CMS/HCC) (HCC); Pacemaker 06/05/2024 Telephone [facility] [address] [place] [phone] Melinda Gimenez MD 05/31/2024 Telephone [facility] [address] [place] [phone] Pee Gimenez MD from Last 3 Months Immunizations Immunization Administration Dates Next Due Influenza, Quadrivalent, Hig h Dose, Preservative Free, Intrr 04/28/2022,04/26/2021 Influenza, Quadrivalent, Spl it, Intramuscular 07/16/2016 Influenza, Quadrivalent, Spl it, Preservative Free, Intramuscular 06/25/2023,05/02/2020,05/10/2019 Influenza, Split 07/21/2013 Influenza, Trivalent, High D ose, Split, Preservative Free, Intramuscular 06/11/2019,03/31/2018 Influenza, Trivalent, IM (MDV) 06/19/2015,2013,07/21/2013 Pfizer SARS-CoV-2 Monovalent Vaccination (12+ Yrs) PURPLE 07/10/2022 Pneumococcal Conjugate PCV 13 09/12/2014 Pneumococcal Polysaccharide PPV23 09/05/2013 RSV Vaccine, Pref, Recombina nt, Subunit, Adjuvanted, PF, IM (Arexvy) 06/25/2023 TD Preservative Free 10/03/1999 Tdap 06/19/2015 Surgical History Surgery Date Site/Laterality Comments UMBILICAL HERNIA REPAIR 07/06/1998 - 07/05/1999 UMBILICAL HERNIA REPAIR 05/2003 FRACTURE SURGERY 07/06/1989 - 07/05/1990 Right right hand plate COLONOSCOPY 07/06/2003 - 07/05/2004 SKIN BIOPSY 01/18/2019 Left upper back lesion, acute inflammation and necrosis, no malignancy, surgery office, PENDING SALE TO [facility]. CYSTOURETHROSCOPY 10/12/2019 Dr. Frey, [facility], see report in CareEverywhere. Mckeon placed for 1 week for obstructive symptoms. TRANSURETHRAL RESECTION OF PROSTATE 12/13/2019 DEXA SCAN 04/17/2020 Performed at [facility]. Normal. CAROTID ENDARTERECTOMY 09/16/2019 [facility] for right hemisphere stroke CYSTOSCOPY 05/06/2021 - 06/04/2021 (-) Dr. TA, [place]VIN, CT (+) bladder tumor + left ureteral obstruction, neither found CARDIAC PACEMAKER PLACEMENT 05/09/2024 N/A Dr. Alan Taylor, [facility]. Medical History Medical History Date Comments Positive laboratory testing for human immunodeficiency virus (CMS/HCC) (HCC) 1999 HIV Diabetes mellitus (HCC) Diabetes Asthma Asthma Hypertension Hypertension Hyperlipidemia Hyperlipidemia Rhinitis Hernia, ventral COPD (chronic obstructive pu lmonary disease) ([facility]) Stroke ([facility]) 12/08/2018 Right frontal lo be, see [facility] records. Stroke (HCC) 05/2019 Type 2 diabetes mellitus (HCC) Cancer (CMS/HCC) (HCC) History of lateralizing deo r deficit following cerebrovascular accident (CVA) 12/04/2018 Admitted to [facility] 06/04/2019 upon transfer via ambulance from [facility] with altered mental status changes and finding of right internal carotid artery occlusion. Bladder tumor 10/28/2021 (+) 05/[address] for bladder tumor possibly causing left ureteral or obstruction, ELVIN Deleon, office cystoscopy confirm there was no bladder tumor , he had possible scarring from radiation of the prostate cancer AV block, [place] 1 09/06/2019 History of therapeutic radiation 05/11/2020 Formatting of this [facility] note might be different from the original. Prostate radiotherapy, 70 Gy in 28 fractions, from 04/02/2020 thru 05/11/2020. Family History Medical History Relation Name Comments Cancer Father Cirrhosis Father Diabetes Mother Anesthesia problems Neg Hx Relation Name Status Comments Father Mother Social History Tobacco Use Types Packs/Day Years Used Date Smoking Tobacco: Former Cigarettes 0.5 29 1 966 - 1994 Smokeless Tobacco: Never Tobacco Cessation:Counseling Given: Not Answered Alcohol Use Standard Drinks/Week Comments Yes 1 (1 standard drink = 0.6 oz pur e alcohol) occassionally PHQ-2 Answer Date Recorded PHQ-2 Total Score (If total score is 3 or more points, staff should administer the PHQ-9) 6 10/27/2022 Sex and Gender Information Value Date Recorded Sex Assigned at Not on file Legal Sex Male 2:19 PM [employer]ER Gender Identity Male 10/26/2019 9:50 AM CDT Sexual Orientation Not on file Occupation Industry Job Start Date Job End Date retired Not on file Not on file Not on file Obstetrics History Last Filed Vital Signs Vital Sign Reading Time Taken Comments Blood Pressure 134/64 06/10/2024 1:28 PM [employer]AMER Pulse 50 06/10/2024 1:28 PM [employer]ER Temperature 36.6 C (97.9 F) 05/12/2023 4:05 PM [employer]AMER Respiratory Rate 18 05/12/2023 4:05 PM [employer]AMER Oxygen Saturation 98% 05/12/2023 4:0 5 PM [employer] REAMER Inhaled Oxygen Concentration - - Weight 72.6 kg (160 lb) 04/21/2024 4:07 PM CDT patient is physically unable to stand on scale at home Height 177.8 cm (5' 10 ) 05/06/2021 11: 54 AM CDT Body Mass Index 22.96 05/06/2021 11:54 AM CDT Plan of Treatment Health Maintenance Due Date Last Done Comments T Spot (quantiferon gold) 1948 Dilated Eye Exam 1948 Foot Exam 1948 HIV+ Chlamydia and Gonorrhea Screening (Rectal) 1959 HIV + Chlamydia and Gonorrhe a Screening (Urine) 1961 HIV+ Chlamydia and Gonorrhea Screening (Throat) 1961 G6PD 1966 Hepatitis A Screening 1966 Hepatitis B Screening 1966 Hepatitis A Vaccines (1 of 2 - Risk 2-dose series) 1967 Zoster Vaccine (1 of 2) 1967 Hepatitis B Vaccines (1 of 3 - Risk 3-dose series) 2008 Hepatitis C Screening 04/06/2019 04/06/2018 , 12/05/2015, 07/15/2013 Albumin Creatinine Ratio, Urine 04/20/2021 04/20/2020, 09/04/2017, 08/04/2017, Additional history exists Proteinuria screening Urinalysis (UA) 05/03/2021 05/03/2020, 09/07/2019, 09/07/2019, Additional history exists Osteoporosis Screening-Bone Density Scan 04/17/2023 04/17/2020, 04/17/2020 Depression Screening 10/28/2023 10/27/2022, 10/27/2022, 04/26/2021, Additional history exists Fall Risk Assessment 10/28/2023 10/27/2022, 04/26/2021, 09/17/2019, Additional history exists Well Visit 65+ 10/28/2023 10/27/2022, 04/06, 2019, Additional history exists Covid-19 Vaccine (2023-08 5 season) 2024 06/25/2023, 07/10/2022, 07/10/2022, Additional history exists Influenza Vaccine (#1) 2024 , 04/28/2022, 04/26/2021, Additional history exists Hemoglobin A1C 04/26/2025 04/26/2024, 04/06, 04/17/2021, Additional history exists Lipid Panel 04/26/2025 04/26/2024, 10/04, 06/04/2019, Additional history exists RPR Screening 04/26/2025 04/26/2024, 10/04, 10/22/2021 eGFR 04/26/2025 04/26/2024, 06/07, 04/24/2022, Additional history exists DTaP/Tdap/Td Vaccine (2 - Td or Tdap) 06/19/2025 06/19/2015, 10/03/1999 Pneumococcal vaccine 65+ Completed 09/12/2014, 09/2013 Abdominal Aortic Aneurysm (A AA) Screen Completed 08/07/2021, 05/20/2021, 07/26/2019, Additional history exists HLA B 5701 Typing Completed 10/22/2021 Prostate Cancer Screening-PSA Discontinued , 04/24/2022, 10/18/2020, Additional history exists Medical Devices Implanted Type Area Manager Mall Device Identifier Shelf Expiration Date Model / Serial / Lot Pin Right: Hand Explanted Type Area Manager Mall Device Identifier Shelf Expiration Date Model / Serial / Lot [employer] [id number] Yasargil 5mm Straight Permanent Cerebral Mini 4mm Opening Clip Latex Free - [id number] - [id number] Explanted:Qty: 1 on 09/16/2019 by Dileep Connolly MD at [facility] Right: Carotid [employer] 05/24/2029 [id number] / [id number] / [employer] [id number] Yasargil 6.4mm Curved Permanent Cerebral Standard 6.1mm Opening Latex Free - [id number] - [id number] Explanted:Qty: 1 on 09/16/2019 by Dileep Connolly MD at [facility]: Carotid [employer] 01/19/2029 [id number] / [id number] / [employer] [id number] Yargil 10.3mm Permanent Mri Safe Nonferromagnetic Spring Latex Free - [id number] - [id number] Explanted:Qty: 1 on 09/16/2019 by Dileep Connolly MD at [facility]: [employer] 01/17/2029 [id number] / [id number] / Procedures Procedure Name Priority Date/Time Associated Diagnosis Comments COMPREHENSIVE METABOLIC PANEL Routine 04/26/2024 11:43 AM CDT Asymptomatic HIV infection, with no history of HIV-related illness (HCC) LIPID PANEL Routine 04/26/2024 11:43 AM CDT Asymptomatic HIV infection, with no history of HIV-related illness (HCC) RPR Routine 04/26/2024 11:43 AM CDT Asymptomatic HIV infection, with no history of HIV-related illness (HCC) HEMOGLOBIN A1C Routine 04/26/2024 11:41 AM CDT Type 2 diabetes mellitus with stage 2 chronic kidney disease, without long-term current use of insulin (CMS/HCC) (HCC) PSA, TOTAL AND FREE Routine 04/26/2024 1 1:41 AM CDT Prostate cancer (HCC) HLA-B*5701 TYPING Routine 10/22/2021 4:0 2 PM CDT Multiple-type hyperlipidemia HIV infection, unspecified symptom status (HCC) Recurrent UTI CT ABDOMEN PELVIS WO CONTRAST Schedule Routine, Read Routine (OP Routine) 08/07/2021 URINALYSIS AND REFLEX TO MICROSCOPIC AND CULTURE Routine 05/03/2020 3:48 PM CDT Dysuria Urinary incontinence, unspecified type ALBUMIN CREATININE RATIO, URINE Routine 04/20/2020 10:32 AM CDT Type 2 diabetes mellitus with stage 2 chronic kidney disease, without long-term current use of insulin (CMS/HCC) DEXA AXIAL SKELETON BONE DENSITY 1 OR MORE SITES Schedule Routine, Read Routine (OP Routine) 04/17/2020 HEPATITIS C ANTIBODY Routine 04/06/2018 2:42 PM CDT from Last 3 Months or Most Recently Relevant to Health Maintenance Results * RPR Blood (04/26/2024 11:43 AM CDT) RPR NON-REACTIV E NON-REACTI VE [employer] Blood 04/26/2024 11:4 3 AM CDT 04/26/2024 11:45 AM CDT Narrative [facility] - 04/27/2024 8:21 PM CDT FASTING:YES PATIENT UNABLE TO VOID; ADVISED TO RETURN FOR COLLECTION. FASTING: YES Pee Gimenez MD LAB MICROBIOLOGY - GENERAL OR DERABLES Final Result Performing Organization Address City/State/[facility] Co de Phone Number CAROLIN [facility] [address] [place] [address] * (ABNORMAL) Lipid panel (04/26/2024 11:43 AM CDT) Pathologist [facility] Cholesterol 187 <200 mg/dL [facility] HDL 50 > OR = 40 mg/dL [facility] Triglycerides 87 <150 mg/dL [facility] LDL 118(H) mg/dL (calc) [facility] Comment: Reference range: <100 Desirable range <100 mg/dL for primary prevention; <70 mg/dL for patients with CHD or diabetic patients with > or = 2 CHD risk factors. LDL-C is now calculated using the Sruthi calculation, which is a validated novel method providing better accuracy than the Friedewald equation in the estimation of LDL-C. Ludin COLLINS et al. JEREMIAS. 2013;310(19): 3624-8282 (http://education.Vingle/faq/YZC060) Chol/HDL ratio 3.7 <5.0 (calc) [facility] Non-HDL, (LDL+VLDL) 137(H) <130 mg/dL (calc) [facility] Comment: For patients with diabetes plus 1 major ASCVD risk factor, treating to a non-HDL-C goal of <100 mg/dL (LDL-C of <70 mg/dL) is considered a therapeutic option. Blood 04/26/2024 11:4 3 AM CDT 04/26/2024 11:45 AM CDT Narrative [facility] - 04/27/2024 8:21 PM CDT FASTING:YES PATIENT UNABLE TO VOID; ADVISED TO RETURN FOR COLLECTION. FASTING: YES us Pee Gimenez MD LAB BLOOD ORDERABLES Final Re sult CAROLIN Carolin [facility] [address] [place] [address] * (ABNORMAL) Comprehensive metabolic panel (04/26/2024 11:43 AM CDT) Glucose 86 65 - 99 mg/dL [facility] Comment: Fasting reference interval BUN 16 7 - 25 mg/dL [facility] Creatinine 1.36(H) 0.70 - 1.28 mg/dL [facility] eGFR 54(L) > OR = 60 mL/min/1.7 3m2 [facility] BUN/creat ratio 12 6 - 22 (calc) [facility] Sodium 138 135 - 146 mmol/L [facility] Potassium, pl 4.3 3.5 - 5.3 mmol/L [facility] Chloride 101 98 - 110 mmol/L [facility] CO2 29 20 - 32 mmol/L [facility] Calcium 9.6 8.6 - 10.3 mg/dL [facility] Protein, sr 7.5 6.1 - 8.1 g/dL [facility] Albumin 4.2 3.6 - 5.1 g/dL [facility] GLOBULIN 3.3 1.9 - 3.7 g/dL (calc) [facility] Alb/glob ratio 1.3 1.0 - 2.5 (calc) [facility] Bilirubin, total 0.5 0.2 - 1.2 mg/dL [facility] Alk phos 110 35 - 144 U/L [facility] AST 11 10 - 35 U/L [facility] ALT (SGPT) 4(L) 9 - 46 U/L [facility] Blood 04/26/2024 11:4 3 AM CDT 04/26/2024 11:45 AM CDT Narrative [facility] - 04/27/2024 8:21 PM CDT FASTING:YES PATIENT UNABLE TO VOID; ADVISED TO RETURN FOR COLLECTION. FASTING: YES us Pee Gimenez MD LAB BLOOD ORDERABLES Final Re sult CAROLIN Coe [facility] [address] [place] [address] * (ABNORMAL) PSA, total and free (04/26/2024 11:41 AM CDT) PSA 59.6(H) < OR = 4.0 ng/mL [employer] PSA, free 4.0 ng/mL [employer] PSA, free NOT CALCULATED >25 % (calc) [employer] Comment: PSA(ng/mL) Free PSA(%) Estimated(x) Probability of Cancer(as%) 0-2.5 (*) Approx. 1 2.6-4.0(1) 0-27(2) 24(3) 4.1-10(4) 0-10 56 11-15 28 16-20 20 21-25 16 >or =26 8 >10(+) N/A >50 References:(1)Tiffany et al.:Urology 60: 469-474 (2002) (2)Nahomiona et al.:J.Urol 168: 922-925 (2001) Free PSA(%) Sensitivity(%) Specificity(%) < or = 25 85 19 < or = 30 93 9 (3)Nahomiona et al.:JEREMIAS 277: 2890-4439 (1996) (4)Catalona et al.:JEREMIAS 279: 2124-7409 (1997) (x)These estimates vary with age, ethnicity, family history and SHARIFA results. (*)The diagnostic usefulness of % Free PSA has not been established in patients with total PSA below 2.6 ng/mL (+)In men with PSA above 10 ng/mL, prostate cancer risk is determined by total PSA alone. The Total PSA value from this assay system is standardized against the equimolar PSA standard. The test result will be approximately 20% higher when compared to the WHO-standardized Total PSA (Siemens assay). Comparison of serial PSA results should be interpreted with this fact in mind. PSA was performed using the Naeem Genet Immunoassay method. Values obtained from different assay methods cannot be used interchangeably. PSA levels, regardless of value, should not be interpreted as absolute evidence of the presence or absence of disease. Blood 04/26/2024 11:4 1 AM CDT 04/26/2024 11:42 AM CDT [employer] - 04/30/2024 4:42 AM CDT FASTING:YES PATIENT UNABLE TO VOID; ADVISED TO RETURN FOR COLLECTION. FASTING: YES Melinda Gimenez MD LAB BLOOD ORDERABLES Final Result [facility] [address] [place] [address] * (ABNORMAL) Hemoglobin A1c (04/26/2024 11:41 AM CDT) Hgb A1C 6.0(H) <5.7 % of total Hgb [facility]is [facility] Comment: For someone without known diabetes, a hemoglobin A1c value between 5.7% and 6.4% is consistent with prediabetes and should be confirmed with a follow-up test. For someone with known diabetes, a value <7% indicates that their diabetes is well controlled. A1c targets should be individualized based on duration of diabetes, age, comorbid conditions, and other considerations. This assay result is consistent with an increased risk of diabetes. Currently, no consensus exists regarding use of hemoglobin A1c for diagnosis of diabetes for children. Blood 04/26/2024 11:4 1 AM CDT 04/26/2024 11:42 AM CDT Narrative [facility] - 04/30/2024 4:42 AM CDT FASTING:YES PATIENT UNABLE TO VOID; ADVISED TO RETURN FOR COLLECTION. FASTING: YES Melinda Gimenez MD LAB BLOOD ORDERABLES Final Result [facility] [address] [place] [address] * HLA-B*5701 TYPING (10/22/2021 4:02 PM CDT) HLA B*5701 TYPING Negative [employer]/ [employer] [facility] Comment: The allele HLA-B*5701 is associated with Abacavir hypersensitivity reaction (HSR). A negative result for HLA-B*5701 does not rule out the possibility of Abacavir HSR. Genetic counseling as needed. RESULTS REVIEWED BY: Mely Hebert M.D. # Ph.D., [facility] Sheet Metal Worker Apprentice, Cytogenetics and Genomics References: Sharonda Michelle, et al. Lancet. 2002 2:359(1927): 727-32 Sharonda Michelle et al. N Engl J Med. 2008 358(6): 568-79 Typing performed by using -PCR with reflex to the FDA-cleared LABType(R) SSO Kit. The -PCR portion of this test was developed and its analytical performance characteristics have been determined by [facility] [place], [place]. It has not been cleared or approved by the U.S. Food and Drug Administration. This assay has been validated pursuant to the CLIA regulations and is used for clinical purposes. Blood specimen (specimen) 10/22/2021 4:02 PM CDT 10/22/2021 4:03 PM CDT Narrative [facility] - 10/29/2021 7:30 AM CDT VARIFIED ALL INFO FASTING:YES PATIENT UNABLE TO VOID; ADVISED TO RETURN FOR CO FASTING: YES Pee Gimenez MD LAB BLOOD ORDERABLES Final Re sult [employer] [facility] [address] [place] [address] * CT Abdomen Pelvis WO Contrast (08/07/2021) Anatomical Region Laterality Modality Body N/A Computed Tomogra phy Impressions 08/07/2021 CT ABDOMEN PELVIS W/O CONTRAST IMPRESSION: 1.) Left moderate hydroureteronephrosis, without evidence of obstructing calculus. There is some thickening of the wall the urinary bladder trigone raising concern for possible urothelial bladder carcinoma obstructing the distal left ureter. Cystoscopy and left retrograde pyelography are recommended. 2.) Larger lower pole left renal calculus 3.) Mild sigmoid diverticulosis, no evidence of diverticulitis. 4.) Ventral abdominal wall mesh repair. 5.) 6 cm wide umbilical hernia containing non-obstructed colon 6.) Paget's disease of right ilium, sacrum, right femur, ankylosis of right SI joint. 7.) Severe degenerative disc disease at L5-S1 with associated mild retrolisthesis. 8.) Bilateral hip osteoarthritis 9.) Prominent atelectasis/consolidation with air bronchograms, left lower lobe. 10.) Patchy infiltrate in the lingual and right lower lobe 11.) Borderline hear size Narrative 08/07/2021 [facility] (see scanned report) us Historical Provider MD GOYAL CT PROCEDURES Final R esult * (ABNORMAL) Urinalysis reflex to microscopic and culture Urine, clean voided (05/03/2020 3:48 PM CDT) Color, ur YELLOW YELLOW [facility] Appearance, ur CLOUDY(A) CLEAR [facility] Specific gravity 1.014 1.001 - 1.035 [facility] pH, ur 7.0 5.0 - 8.0 [facility] Glucose, ur NEGATIVE NEGATIVE [facility] Bilirubin, ur NEGATIVE NEGATIVE [facility] Ketones, ur NEGATIVE NEGATIVE [facility] Blood, ur 3+(A) NEGATIVE [facility] Protein, ur, quant 2+(A) NEGATIVE [facility] Nitrites, ur POSITIVE(A) NEGATIVE [facility] Leukocyte esterase, ur 2+(A) NEGATIVE [facility] WBC, ur 20-40(A) < OR = 5 /HPF [facility] RBC, ur 40-60(A) < OR = 2 /HPF [facility] Epithelial cells, squamous, ur 0-5 < OR = 5 /HPF [facility] Bacteria, ur, quant FEW(A) NONE SEEN /HPF [facility] Amorphous crystals, ur FEW NONE OR FEW /HPF [facility] Hyaline cast NONE SEEN NONE SEEN /LPF [facility] Comments FEW MUCOUS THREADS [facility] Urine culture [facility] Comment:CULTURE INDICATED - RESULTS TO FOLLOW Urine culture [facility] Comment: CULTURE, URINE, ROUTINE Micro Number: [id number] Test Status: Final Specimen Source: URINE Specimen Quality: Adequate Result: Growth of mixed francisco was isolated, suggesting probable contamination. No further testing will be performed. If clinically indicated, recollection using a method to minimize contamination, with prompt transfer to Urine Culture Transport Tube, is recommended. Urine, clean voided 05/03/2020 3:48 PM CDT 05/03/2020 3:49 PM CDT Narrative [facility] - 05/05/2020 7:32 AM CDT SPLIT 04/17/2020 FROM [id number] FASTING:NO FASTING: NO us Pee Gimenez MD LAB MICROBIOLOGY - GENERAL OR DERABLES Final Result [facility] [address] [place] [address] * (ABNORMAL) Albumin Creatinine Ratio, Urine (04/20/2020 10:32 AM CDT) Creatinine, ur 148 20 - 320 mg/dL [facility] Microalbumin, ur 43.0 See Note: mg/dL [facility] Comment: Reference Range: Reference Range Not established Verified by repeat analysis. Microalbumin/creat ratio 291(H) <30 mcg/mg creat [facility] Comment: The ADA defines abnormalities in albumin excretion as follows: Category Result (mcg/mg creatinine) Normal <30 Microalbuminuria 30-299 Clinical albuminuria > OR = 300 The ADA recommends that at least two of three specimens collected within a 3-6 month period be abnormal before considering a patient to be within a diagnostic category. Urine 04/20/2020 10:3 2 AM CDT 04/20/2020 10:33 AM CDT Narrative [facility] - 04/22/2020 11:06 PM CDT PT HAD INS MAGED PHONE FASTING:YES FASTING: YES Melinda Gimenez MD LAB URINE ORDERABLES Final Result Performing Organization Address [facility] Co de Phone Number CAROLIN [facility] [address] [address] * Dexa Axial Skeleton Bone Density 1 or 2 Site (04/17/2020) SCRIBED DXA T-SCORE -0.1 >=-1.0 Comment:AP Spine SCRIBED DXA Z-SCORE 0.9 Comment:AP spine SCRIBED DXA BMD 1.085 Comment:AP spine Anatomical Region Laterality Modality Body N/A Radiographic Paz ging Impressions 04/17/2020 Normal BMD. Narrative 04/17/2020 Dexa scan dated , [facility], see scanned report. Historical Provider IMG DXA PROCEDURES Final Result * Hepatitis C antibody (04/06/2018 2:42 PM CDT) Hep C Ab NON-REACTI VE NON-REACTI VE [facility] [place] SIGNAL TO CUT-OFF 0.24 <1.00 [facility] [place] 04/06/2018 2:42 PM CDT 04/06/2018 2:43 PM CDT Narrative [facility] - 04/09/2018 2:02 PM CDT FASTING:YES FASTING: YES Resulting Agency Comment Performing Organization Information: Site ID: [id number] Name: Carolin Hardin Address: [address] [place] [address] Director: Jossue Kuo D.O., MPH Pee Gimenez MD LAB MICROBIOLOGY - GENERAL OR DERABLES Final Result Performing Organization Address [facility]/ZIP Co de Phone Number CAROLIN [facility] [place] Arechiga from Last 3 Months or Most Recently Relevant to Health Maintenance Insurance [facility] MEDIC[facility] Address: [address] [place] [address] [place] [address] MEDICARE SOLUTIONS [facility] MEDICARE Address: [address] [address] [place] [address] [address] MDCR HMO REF [facility] MEDICARE Address: [address] [address] [place] [address] MEDICARE SOLUTIONS MEDICARE SOLUTIONS Advance Directives For more information, please contact: [phone] Documents on File Type Date 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 ADVANCE DIRECTIVE 2019 LIVING SHANT L ADVANCE DIRECTIVE 2019 DNR ADVANCE DIRECTIVE 09/05/2013 POWER OF A [employer]NEY[employer] * Full Code (Latest Code Status on File) Date Activated Date Inactivated Comments 09/17/2019 6:16 AM 09/17/2019 11:14 PM * Full Code Date Activated Date Inactivated Comments 06/04/2019 7:08 AM 06/17/2019 8:49 PM Care Teams Quiller Runner Relationship Specialty Start Date End Date Melinda Gimenez MD PCP - General 09/05/13 Pee Gimenez MD [address] [place], [facility] Consulting Physician Infectious Diseases 01/14/17 Alan Donnelly MD [address] [place] [address] Referring Physician Ophthalmology 03/31/18 Jamison Malave MD [address] [address] Referring Physician Neurology 07/27/19 Dileep Connolly MD [address] [address] Referring Physician Neurosurgery 08/30/19 Ehsan Sosa III, MD [address] [address] Consulting Physician Radiation Oncology 10/24/19 Popeye Dukes MD [address] [address] Consulting Physician Nephrology 08/02/21 Randy Morris MD [address] [address] Consulting Physician Urology 04/28/22
--- OUTSIDE RECORDS SUMMARY | 2024-08-30 13:45 | XMS_ITS | Encounter Summary ---
Author Organization [facility] Address [address] [place] [address] Phone Care Team Providers Care Mustanger Name Role Phone Melinda Gimenez MD Primary Care Provider + [phone] Pee Gimenez MD Unavailable +[phone] Danie Wiggins MD Unavailable [phone] Lul Palafox MD Unavailable [phone] Alan Donnelly MD Unavailable [phone] Jamison Malave MD Unavailable Dileep Connolly MD Unavailable [phone] Ian POLANCO MD, James Vernon Unavailable + Popeye Dukes MD Unavailable [phone] Sanjay Devine MD Unavailable [phone] Randy Morris MD Unavailable Encounter Details Date Type Department Care Team (Late st Contact Info) Description 04/17/2020 Orders Only [facility] [address] [place] [address] Scanning, Provider Social History Tobacco Use Types Packs/Day Years Used Date Smoking Tobacco: Former Cigarettes 0.5 29 1 966 - 1994 Smokeless Tobacco: Never Alcohol Use Standard Drinks/Week Comments Yes 1 (1 standard drink = 0.6 oz pur e alcohol) occassionally PHQ-2 Answer Date Recorded PHQ-2 Score 0 2019 Sex and Gender Information Value Date Recorded Sex Assigned at Not on file 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 Gender Identity Male 10/26/2019 9:50 AM CDT Sexual Orientation Not on file Occupation Industry Job Start Date Job End Date retired Not on file Not on file Not on file documented as of this encounter Plan of Treatment Not on file documented as of this encounter Procedures Procedure Name Priority Date/Time Associated Diagnosis Comments SCAN - RADIOLOGY/IMAGING 04/17/2020 documented in this encounter Results * SCAN - RADIOLOGY/IMAGING (04/17/2020) Anatomical Region Laterality Modality Other us Provider Scanning Final Result documented in this encounter Visit Diagnoses Not on filedocumented in this encounter Care Teams Mustanger Relationship Specialty Start Date End Date Melinda Gimenez MD PCP - General 09/05/13 Pee Gimenez MD [address] [place] [address] Consulting Physician Infectious Diseases 01/14/17 Danie Wiggins MD [address] [place] [address] Orthopedic Surgery 01/14/17 05/12/23 Lul Palafox MD [address] [place] [address] Referring Physician Urology 11/13/17 04/27/22 Alan Donnelly MD [address] [place] [address] Referring Physician Ophthalmology 03/31/18 Jamison Malave MD [address] [place] [address] Referring Physician Neurology 07/27/19 Dileep Connolly MD [address] [place] [address] Referring Physician Neurosurgery 08/30/19 Ehsan Sosa III, MD [address] [place] [address] Consulting Physician Radiation Oncology 10/24/19 Popeye Dukes MD [address] [place] [address] Consulting Physician Nephrology 08/02/21 Sanjay Devine MD [address] [place] [address] Consulting Physician Urology 10/28/21 04/27/22 Randy Morris MD [address] [place] [address] Consulting Physician Urology 04/28/22 documented as of this encounter
--- OUTSIDE RECORDS SUMMARY | 2024-08-30 13:45 | XMS_ITS | Patient Health Summary ---
Author Organization [facility] Address [address] [place] [address] Care Team Providers Care Cuff Presser Name Role Phone Unavailable Primary Care Provider Unavailabl e Note from [facility],non-owned Affiliates and Associated Physician Practices is amultiple site organization consisting of ambulatory clinics and hospital sitesin [place], [place], [place] and [place]. This disclosure is being madepursuant to the Care Everywhere program and may not contain all information available regarding this patient. Last updated 18.[facility] Social History Tobacco Use Types Packs/Day Years Used Date Smoking Tobacco: Never Assessed Sex and Gender Information Value Date Recorded Sex Assigned at Not on file Gender Identity Not on file Sexual Orientation Not on file Procedures * SARS-COV-2 (COVID-19) IN HOUSE(Performed 12/10/2019) Performed for Cough Results * SARS-COV-2 (COVID-19) IN HOUSE (12/10/2019 2:00 PM CDT) COVID-19 PCR Not detected Not detected, Invalid 12/11/2019 2:14 PM CDT [facility] MICRO[facility]OLOG[facility] Microbiology SPECIMEN FROM NASOPHARYNGEAL STRUCTURE / Unknown Collection / Unknown 12/10/2019 2:00 PM CDT 12/10/2019 8:05 PM CDT Narrative [facility]CRO[facility] - 12/11/2019 2:14 PM CDT This Real Time RT-PCR assay was developed and its performance characteristics determined by [facility]. This test has been authorized by the Food and Drug administration (FDA)under an Emergency Use Authorization (EUA). This test has been validated in accordance with the FDA's guidance document Policy for Diagnostic Testing in Laboratories Certified to perform High Complexity Testing under CLIA prior to Emergency Use Authorization for Coronavirus Disease-2019 during the Public Health Emergency issued on September 03, 2019. FDA independent review of this validation is pending. This test is only authorized for the duration of time the declaration that circumstances exist justifying the authorization of emergency use of in vitro diagnostic tests for detection of SARS-CoV-2 virus and/or diagnosis of COVID-19 infection under section 564(b)(1) of the Act, 21 U.S.C 360bbb-3 (b)(1), unless the authorization is terminated or revoked sooner. Morgan Cochran MD LAB - MICROBIOLOGY ORDERABLES [facility] [address] [place] [address], [facility] [phone]
--- OUTSIDE RECORDS SUMMARY | 2024-08-30 13:45 | XMS_ITS | Encounter Summary ---
Author Organization [facility] Healthcare Address [address] [place] [address] Care Team Providers Care Casting Machine Operator Automatic Name Role Phone Melinda Gimenez MD Primary Care Provider + [phone] Pee Gimenez MD Unavailable [phone] Alan Donnelly MD Unavailable [phone] Jamison Malave MD Unavailable Dileep Connolly MD Unavailable [phone] Ian POLANCO MD, Ehsan Murray Unavailable + Popeye Dukes MD Unavailable [phone] Randy Morris MD Unavailable Reason for Referral * MRI/CAT/PET Scan (Routine) - Pending Review Specialty Diagnoses / Procedures Referred By Contac t Referred To Contact Diagnoses Prostate cancer metastatic to bone (HCC) Prostate cancer (HCC) Procedures PET/CT Prostate Cancer PSMA Skull to Thigh Melinda Gimenez MD [address] [place] [address] Phone: tel: fax: External Order Referral ID Status Reason Start Date Expiration Date V isits Requested Visits Authorized [id number] Pending Review 08/29/2024 09/28/2025 2 2 ERIES DIVER Reason for Visit * Reason Onset Date Comments PET/CT 07/04/2024 Encounter Details Date Type Department Care Team (Late st Contact Info) Description 07/04/2024 Telephone [facility] [address] [place] [id number] Melinda Gimenez MD [address] [place] [address] PET/CT Social History Tobacco Use Types Packs/Day Years [...] on file 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 program lead ZACHARY et also AD reentered info to [facility]-already approved. CPT code is the same. Nothing further needed. Larisa at [facility] aware that pt should be good to have testing tomorrow. She voices understanding. ERIES DIVER * Addendum Note - Piero Armenta - 08/29/2024 3:43 PM CSTAddended by: PIERO ARMENTA on: 08/29/2024 03:43 PM Modules accepted: Orders ERIES DIVER * Telephone Encounter - Judi Knox RN - 08/29/2024 3:16 PM CST Received call from Larisa at [facility] at [facility]. Pt scheduled for PET CT tomorrow, due to Dx of Metastatic Prostate CA, Larisa states that CT needs paulina changed to a PSMA PET scan instead. Per Larisa, CPT code is the same. Spoke with Dr Ian agarwal et they confirmed that he would want a PSMA PET. Spoke with Factory Expert who will contact insurance company to be sure that authorization is good. Need to call Larisa back [phone] to let her know. ERIES DIVER * Telephone Encounter - Cathy Hebert - 08/09/2024 3:49 PM CST Pt scheduled for a PET/CT scan at [facility] on 08-30-24. Forwarding to Triage Nurses to watch out for PET/CT results for Dr. LIGHT. ERIES DIVER ERIES DIVER * Telephone Encounter - Cathy Hebert - 07/26/2024 10:38 AM CST Followed up with pt.'s Dtr.-Teresa (on pt hipaa) to see if she scheduled pt.'s PET/CT scan at [facility] yet. She states she is waiting on the weather & has to have family help. She will let me know once PET/CT is scheduled at [facility]. Routing to Triage Nurses & Quality Nurse-Lo as a FYI. ERIES DIVER ERIES DIVER ERIES DIVER * Telephone Encounter - Cathy Hebert - 07/20/2024 11:54 AM CST Haven't heard back from pt.'s Dtr.-Teresa (on pt hipaa). Called [facility] Scheduling & per Lamar pt is not scheduled yet for his PET/CT scan. ERIES DIVER * Telephone Encounter - Cathy Hebert - 07/15/2024 8:55 AM CST PET/CT Scan has been Approved,but is not a guarantee of payment. PET/CT Scan order with precert info was faxed to [facility] . Spoke with pt.'s Dtr.-Teresa (on pt hipaa) & she is aware of this. She knows per, [facility] Scheduling they don't call the pt.'s to schedule because they haveto many order's. She knows I can call them to get this scheduled or she can call,but we just need to know when pt is scheduled for PET/CT scan so Dr. LIGHT & Dr. Sosa can get the report. We didput cc: to Dr. LIGHT & Dr. Sosa on PET/CT scan order. She voiced understanding & states she would like to call to get this scheduled for pt & [employer] provided them transportation resources. She was given [facility] Scheduling . She states she will call me back to let me know when PET/CT scan is scheduled. ERIES DIVER ERIES DIVER ERIES DIVER * Telephone Encounter - Cathy Hebert - 07/12/2024 1:28 PM CST PET/CT scan is pending with insurance. Can take up to 24-72hrs.. ERIES DIVER * Telephone Encounter - Cathy Hebert - 07/12/2024 11:15 AM CST Terrie from Dr. Sosa's office is aware of this pt.. She states Dr. Sosa is okay with pt going to [facility] for PET/CT. She states transportation is a huge issue for this pt.. Informed her we have requested [facility] to be involved in addressing transportation needs. She states pt doesn't have any appointments with Dr. Sosa scheduled,but back in Dr. Sosa noted hospice for pt.. She knows pt doesn't have any upcoming appointments/video appointments scheduled with Dr. Melinda Gimenez. She voiced understanding & would like us to let her know if PET/CT scan gets done. Order placed with CC: Dr. Melinda Gimenez & Radiation Oncology- Dr. Sosa. Will work on precert,fax order/precert info to [facility] & check with [facility] regarding transportation for pt to [facility] to get his PET/CT scan done. Dr. Sosa's Office-Terrie #[phone] ERIES DIVER ERIES DIVER * Telephone Encounter - Cathy Hebert - 07/12/2024 11:13 AM CST Images from the original note were not included. July 08, 2024 Me to Slade Michelle Jeff HAIR 07/08/24 1:58 PM Followed up on this with Quality Nurse-Lo. Today I left a detail message with Dr. Sosa's office to return my call regarding this patient. This MyChart message has not been read. ERIES DIVER * Telephone Encounter - Lo Burr RN - 07/07/2024 12:31 PM FISHERIES DIVER Letter was able to be successfully faxed to Dr. Sosa today, 07/07/24. ERIES DIVER * Telephone Encounter - Lo Burr RN - 07/05/2024 11:02 AM FISHERIES DIVER Faxing was unsuccessful after multiple attempts. Dr. Sosa's office was contacted and I was advised to email our letter as his office staff had no awareness of when their fax machine would be back up/running. Letter was successfully emailed to secure email address provided. ERIES DIVER * Telephone Encounter - Lo Burr RN - 07/04/2024 11:09 AM FISHERIES DIVER Letter created and is being faxed today to Dr. Sosa's office for his review. ERIES DIVER ERIES DIVER * Telephone Encounter - Fanny Jasso RN - 07/04/2024 8:15 AM CST Images from the original note were not included. Melinda Gimenez MD P [facility]/ Staff Pool; Lo Burr RN Dr. Piephoff needs to be involved in his information transfer. Because he was with [facility] I can not get in touch with he was radiation oncologist Dr. Sosa at [facility] == >>HELLO a huge problem for our patients that is still isn't solve== please help us fix EPIC for the safety of our patients ==>....I do not know if he can review a PET-CT scans that are done at [facility] --can you please call his office and find out... The facility where the test is done she will be the facility that has access to visualizing the scanned by all providers involved in his care... If he has transportation it does not matter what facility in the local area accommodates as needs Chris is closest to his home Please contact Dr. Sosa and involve him and me in any of the decisions that are made so that the patient's best interests are managed correctly. As you see from my previous notes I have requested [facility] to be involved in addressing transportation needs. 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 Let me know what you can do for us here Lo or [facility] or [facility] nurses ERIES DIVER documented in this encounter Plan of Treatment Scheduled Orders Name Type Priority Associated Diagnoses Orde r Schedule PET/CT Prostate Cancer PSMA Skull to Thigh Imaging Schedule Routine, Read Routine (OP Routine) Prostate cancer metastatic to bone (HCC) Prostate cancer (HCC) Expected: 08/29/2024, Expires: 08/29/2025 documented as of this encounter Visit Diagnoses Diagnosis Prostate cancer metastatic to bone (HCC)- Primary Prostate cancer (HCC) Malignant neoplasm of prostate documented in this encounter Care Teams Casting Machine Operator Automatic Relationship Specialty Start Date End Date Melinda Gimenez MD PCP - General 09/05/13 Pee Gimenez MD [address] [place] [address] Consulting Physician Infectious Diseases 01/14/17 Alan Donnelly MD [address] [place] [address] Referring Physician Ophthalmology 03/31/18 Jamison Malave MD [address] [address] Referring Physician Neurology 07/27/19 Dileep Connolly MD [address] [address] Referring Physician Neurosurgery 08/30/19 Ehsan Sosa III, MD [address] [place] [address] Consulting Physician Radiation Oncology 10/24/19 Popeye Dukes MD [address] [place] [address] Consulting Physician Nephrology 08/02/21 Randy Morris MD [address] [place] [address] Consulting Physician Urology 04/28/22 documented as of this encounter
--- OUTSIDE RECORDS SUMMARY | 2024-08-30 13:45 | XMS_ITS | Encounter Summary ---
Author Organization [facility] Address [address] [place] [address] Phone Care Team Providers Care Sneller Hand Name Role Phone Melinda Gimenez MD Primary Care Provider [phone] Pee Gimenez MD Unavailable [phone] Danie Wiggins MD Unavailable [phone] Lul Palafox MD Unavailable [phone] Alan Donnelly MD Unavailable [phone] Jamison Malave MD Unavailable Dileep Connolly MD Unavailable [phone] Ian POLANCO MD, James [place] Unavailable + Popeye Dukes MD Unavailable [phone] Sanjay Devine MD Unavailable [phone] Randy Morris MD Unavailable Encounter Details Date Type Department Care Team (Latest Contact Info) Description 05/02/2020 Orders Only [facility] Scanning, Provider Social History Tobacco Use Types [...] on file 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 Gender Identity Male 10/26/2019 9:50 AM CDT Sexual Orientation Not on file Occupation Industry Job Start Date Job End Date retired Not on file Not on file Not on file documented as of this encounter Plan of Treatment Not on file documented as of this encounter Procedures Procedure Name Priority Date/Time Associated Diagnosis Comments CARDIOLOGY DOCUMENT SCAN 05/02/2020 documented in this encounter Results * SCAN - CARDIOLOGY (05/02/2020) Anatomical Region Laterality Modality Other us Provider Scanning CV CARDIAC SERVICES PROCEDURES Final Result documented in this encounter Visit Diagnoses Not on filedocumented in this encounter Care Teams Sneller Hand Relationship Specialty Start Date End Date Melinda Gimenez MD PCP - General 09/05/13 Pee Gimenez MD [address] [place] [address] Consulting Physician Infectious Diseases 01/14/17 Danie Wiggins MD [address] [place] [address] Orthopedic Surgery 01/14/17 05/12/23 Lul Palafox MD [address] [place] [address] Referring Physician Urology 11/13/17 04/27/22 Alan Donnelly MD [address] [place] [address] Referring Physician Ophthalmology 03/31/18 Jamison Malave MD [address] [address] Referring Physician Neurology 07/27/19 Dileep Connolly MD [address] [address] Referring Physician Neurosurgery 08/30/19 Ehsan Sosa III, MD [address] [address] Consulting Physician Radiation Oncology 10/24/19 Popeye Dukes MD [address] [address] Consulting Physician Nephrology 08/02/21 Sanjay Devine MD [address] [address] Consulting Physician Urology 10/28/21 04/27/22 Randy Morris MD [address] [address] Consulting Physician Urology 04/28/22 documented as of this encounter
--- OUTSIDE RECORDS SUMMARY | 2024-08-30 13:45 | XMS_ITS | Encounter Summary ---
Author Organization [facility] Address [address] [place] [address] Phone Care Team Providers Care Research Biostatistician Name Role Phone Melinda Gimenez MD Primary Care Provider + [phone] Pee Gimenez MD Unavailable [phone] Danie Wiggins MD Unavailable [phone] Lul Palafox MD Unavailable [phone] Alan Donnelly MD Unavailable [phone] Jamison Malave MD Unavailable Dileep Connolly MD Unavailable [phone] Ian POLANCO MD, James [place] Unavailable + Popeye Dukes MD Unavailable [phone] Sanjay Devine MD Unavailable [phone] Randy Morris MD Unavailable Encounter Details Date Type Department Care Team (Late st Contact Info) Description 08/02/2021 Orders Only [facility] [address] [place] [address] Pee Gimenez MD [address] [place] [address] Social History Tobacco Use Types Packs/Day Years Used Date Smoking Tobacco: Former Cigarettes 0.5 29 1 966 - 1994 Smokeless Tobacco: Never Alcohol Use Standard Drinks/Week Comments Yes 1 (1 standard drink = 0.6 oz pur e alcohol) occassionally PHQ-2 Answer Date Recorded PHQ-2 Total Score (If total score is 3 or more points, staff should administer the PHQ-9) 0 04/26/2021 Sex and Gender Information Value Date Recorded Sex Assigned at Not on file Legal Sex Male 2:19 PM IP COUNSEL Gender Identity Male 10/26/2019 9:50 AM CDT Sexual Orientation Not on file Occupation Industry Job Start Date Job End Date retired Not on file Not on file Not on file documented as of this encounter Plan of Treatment Not on file documented as of this encounter Procedures Procedure Name Priority Date/Time Associated Diagnosis Comments SCAN - RADIOLOGY/IMAGING 08/02/2021 documented in this encounter Results * SCAN - RADIOLOGY/IMAGING (08/02/2021) Anatomical Region Laterality Modality Other Pee Gimenez MD Edited Result - Final documented in this encounter Visit Diagnoses Not on filedocumented in this encounter Care Teams Research Biostatistician Relationship Specialty Start Date End Date Melinda Gimenez MD PCP - General 09/05/13 Pee Gimenez MD [address] [place] [address] Consulting Physician Infectious Diseases 01/14/17 Danie Wiggins MD [address] [place] [address] Orthopedic Surgery 01/14/17 05/12/23 Lul Palafox MD [address] [place] [address] Referring Physician Urology 11/13/17 04/27/22 Alan Donnelly MD [address] [place] [address] Referring Physician Ophthalmology 03/31/18 Jamison Malave MD [address] [place] [address] Referring Physician Neurology 07/27/19 Dileep Connolly MD [address] [place] [address] Referring Physician Neurosurgery 08/30/19 Ehsan Sosa III, MD [address] [place] [address] Consulting Physician Radiation Oncology 10/24/19 Popeye Dukes MD [address] [address] Consulting Physician Nephrology 08/02/21 Sanjay Devine MD [address] [address] Consulting Physician Urology 10/28/21 04/27/22 Randy Morris MD [address] [place] [address] Consulting Physician Urology 04/28/22 documented as of this encounter
--- OUTSIDE RECORDS SUMMARY | 2024-08-30 13:45 | XMS_ITS | Encounter Summary ---
Author Organization [facility] Address [address] [place], [place] [address] [address] Care Team Providers Care Rattling Machine Tender Name Role Phone Unavailable Primary Care Provider Unavailabl e Encounter Details Date Type Department Care Team (Late st Contact Info) Description 12/10/2019 Lab Requisition [facility] MICROBIOLOGY [address] [place] [address] Morgan Cochran MD Cough Social History Tobacco Use Types Packs/Day Years Used Date Smoking Tobacco: Never Assessed Sex and Gender Information Value Date Recorded Sex Assigned at Not on file Gender Identity Not on file Sexual Orientation Not on file documented as of this encounter Plan of Treatment Not on file documented as of this encounter Procedures Procedure Name Priority Date/Time Associated Diagnosis Comments SARS-COV-2 (COVID-19) IN HOUSE Routine 12/10/2019 2:00 PM CDT Cough documented in this encounter Results * SARS-COV-2 (COVID-19) IN HOUSE (12/10/2019 2:00 PM CDT) COVID-19 PCR Not detected Not detected, Invalid 12/11/2019 2:14 PM CDT [facility]CRO[facility] Microbiology SPECIMEN FROM NASOPHARYNGEAL STRUCTURE / Unknown Collection / Unknown 12/10/2019 2:00 PM CDT 12/10/2019 8:05 PM CDT Narrative [facility] - 12/11/2019 2:14 PM CDT This Real Time RT-PCR assay was developed and its performance characteristics determined by [facility]. This test has been authorized [...] Morgan Cochran MD LAB - MICROBIOLOGY ORDERABLES [facility] MICROBIOLOG[facility] [address] [place] [address], [facility] [phone] documented in this encounter Visit Diagnoses Diagnosis Cough documented in this encounter Additional Health Concerns Infection Onset Date Last Indicated Resolved Time COVID-19 Under Investigation 12/10/2019 12/10/2019 12/11/2019 2:14 PM CDT documented as of this encounter
--- OUTSIDE RECORDS SUMMARY | 2024-08-30 13:45 | XMS_ITS | Clinical Summary ---
Author Organization [facility] Address [address] [place] [address] Care Team Providers Care Director Social Name Role Phone Unavailable Primary Care Provider Unavailabl e Source Comments [facility],non-owned Affiliates and Associated Physician Practices is amultiple site organization consisting of ambulatory clinics and hospital sitesin [place], [place], [place] and [place]. This disclosure is being madepursuant to the Care Everywhere program and may not contain all information available regarding this patient. Last updated 18.[facility] [employer] Social History Tobacco Use Types Packs/Day Years Used Date Smoking Tobacco: Never Assessed Sex and Gender Information Value Date Recorded Sex Assigned at Not on file Gender Identity Not on file Sexual Orientation Not on file Plan of Treatment Health Maintenance Due Date Last Done Comments HEPATITIS C SCREENING 04/04/1966 DTAP/TDAP/TD VACCINES (1 - Tdap) 1967 PNEUMOCOCCAL VACCINE 50+ (1 of 1 - PCV) 1998 ZOSTER VACCINE (1 of 2) 1998 Respiratory Syncytial Virus (RSV) Vaccine Pt: or over 60 yrs (1 - 1-dose 75+ series) 2023 COVID-19 VACCINE ( - 2023-2 5 season) 2024 INFLUENZA VACCINE (#1) 2024 DEPRESSION SCREENING 07/06/2024 MEDICARE AWV CALENDAR YEAR 2024 HEPATITIS B VACCINE Aged Out No longe r eligible based on patient's age to complete this topic HIB VACCINE Aged Out No longer eligi ble based on patient's age to complete this topic HPV VACCINE Aged Out No longer eligi ble based on patient's age to complete this topic MENINGOCOCCAL (Group B) VACCINE Aged Out No longer eligible based on patient's age to complete this topic MENINGOCOCCAL VACCINE Aged Out No ethan sanchez eligible based on patient's age to complete this topic
--- OUTSIDE RECORDS SUMMARY | 2024-08-30 13:45 | XMS_ITS | Referral Summary ---
Author Organization [facility] Address [address] [place] [address] Care Team Providers Care Hearing Specialist Name Role Phone Unavailable Primary Care Provider Unavailabl e Source Comments [facility],non-owned Affiliates and Associated Physician Practices is amultiple site organization consisting of ambulatory clinics and hospital sitesin [place], [place], [place] and [place]. This disclosure is being madepursuant to the Care Everywhere program and may not contain all information available regarding this patient. Last updated 18.[facility] [employer] Social History Tobacco Use Types Packs/Day Years Used Date Smoking Tobacco: Never Assessed Sex and Gender Information Value Date Recorded Sex Assigned at Not on file Gender Identity Not on file Sexual Orientation Not on file Plan of Treatment Not on file
--- OUTSIDE RECORDS SUMMARY | 2024-08-30 13:45 | XMS_ITS | Referral Summary ---
Author Organization [facility] [address] Address [address] [place] [address] Phone Care Team Providers Care Turbine Room Attendant Name Role Phone Melinda Gimenez MD Primary Care Provider + [phone] Pee Gimenez MD Unavailable [phone] Alan Donnelly MD Unavailable [phone] Jamison Malave MD Unavailable Dileep Connolly MD Unavailable Ian POLANCO MD, James Vernon Unavailable + Popeye Dukes MD Unavailable [phone] Randy Morris MD Unavailable Encounters Date Type Department Care Team Description 08/23/2024 Telephone [facility] [address] [place] [address] Judi Knox RN 08/23/2024 Orders Only [facility] [address] [facility] [address] [place] [phone] Alan Taylor MD Pacemaker (Primary Dx); Heart block AV second degree 08/23/2024 9:00 AM FALSEWORK BUILDER Ancillary Procedure [facility] [address] [place] [phone] Pacemaker [Z95.0] (Primary Dx); Atrial fibrillation, unspecified type (HCC); Heart block AV complete (CMS/HCC) (HCC) [I44.2] 08/08/2024 [facility] Accountable Care Organization [address] [place] [phone] Chris Flory 07/04/2024 Telephone [facility] [address] [place] [phone] Melinda Gimenez MD PET/CT 06/21/2024 Telephone [facility] [address] [facility] [address] [place] [phone] Alan Taylor MD 06/10/2024 12:25 PM FALSEWORK BUILDER Telemedicine [facility] [address] [place] [phone] Melinda Gimenez MD Goals of care, counseling/discuss ion (Primary Dx); Prostate cancer (HCC); Prostate cancer metastatic to bone (HCC); Spastic hemiparesis affecting nondominant side (CMS/HCC) (HCC); Frailty syndrome in geriatric patient 06/09/2024 Telephone [facility] [address] [place] [phone] Melinda Gimenez MD [facility] Cordwood Cutter Helper - Assistance Request 06/08/2024 3:45 PM FALSEWORK BUILDER Telemedicine [facility] [address] [place] [address] Melinda Gimenez MD Prostate cancer metastatic to bone (HCC) (Primary Dx); 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, right; Cerebrovascular accident (CVA) with involvement of left side of body (HCC); Spastic hemiparesis affecting nondominant side (CMS/HCC) (HCC); Heart block AV complete (CMS/HCC) (HCC); Pacemaker 06/05/2024 Telephone [facility] [address] [place] [address] Melinda Gimenez MD 05/31/2024 Telephone [facility] [address] [place] [address] Pee Gimenez MD from Last 3 Months Allergies Active Allergy Reactions Criticality Noted Date Comments Mirtazapine Other (See comments) Low 10/27/2022 Excessively tired on 7.5 mg staying in bed all day Medications docusate sodium (DOK) 100 mg tabletIndications: constipation Take 1 tablet (100 mg total) by mouth 2 (two) times a day as needed for constipation Active fluocinonide (LIDEX) 0.05 % ointmentIndication s:Rash and nonspecific skin eruption Apply topically 2 (two) times a day 90 g 1 Active fluticasone-umecli din-vilanter (Trelegy Ellipta) 100-62.5-25 mcg inhalerIndications :COPD with asthma ([facility]) Inhale 1 puff daily 1 each 5 Active montelukast (SINGULAIR) 10 mg tabletIndications: Maintenance Therapy for Asthma Take 1 tablet (10 mg total) by mouth nightly 90 tablet 2 024 Active rosuvastatin (CRESTOR) 40 mg tabletIndications: Spastic hemiparesis affecting nondominant side (CMS/HCC) ([facility]),Personal history of cerebrovascular accident with current residual effects,Type 2 diabetes mellitus with stage 2 chronic kidney disease, without long-term current use of insulin (CMS/HCC) ([facility]),Multiple-typ e hyperlipidemia Take 1 tablet (40 mg total) by mouth nightly 90 tablet 1 024 Active aspirin 325 mg tabletIndications: cerebral ischemia,Cerebral Ischemia Take 1 tablet (325 mg total) by mouth daily 90 tablet 2 024 Active Biktarvy 50-200-25 mg tabletIndications: Asymptomatic HIV infection, with no history of HIV-related illness ([facility]) TAKE 1 TABLET BY MOUTH DAILY 30 tablet 5 025 Active Biktarvy 50-200-25 mg tabletIndications: Asymptomatic HIV infection, with no history of HIV-related illness (HCC) TAKE 1 TABLET BY MOUTH DAILY 30 tablet 5 024 2024 Discontinued Active Problems Problem Noted Date Diagnosed Date Prostate cancer metastatic to bone 06/08/2024 Heart block AV complete (CMS/HCC) 06/08/2024 Elevated blood pressure reading 05/25/2024 Assessment & Plan (05/25/2024 4:32 PM FALSEWORK BUILDER): New finding, uncertain cause or significance at this time. Systolic blood pressure is mildly elevated. He does not take anything for blood pressure. I recommended that his daughter check blood pressure readings periodically over the next week or so to see if there is a need for treatment. Visit for wound check 05/16/2024 Pacemaker 05/04/2024 Overview (05/04/2024): [employer] Am[employer] Edge Dual PM. Hx. 1st and 2nd degree HB. DOI 05/04/24 - Claudia [employer] remote home monitoring. Assessment & Plan (05/31/2024 9:43 AM FALSEWORK BUILDER): New finding as of May 04, improved. He was seen at [facility] and had second-degree heart block. A pacemaker [...] 01/03/2021 Assessment & Plan (05/31/2024 9:44 AM FALSEWORK BUILDER): Chronic, present for several years, stable. Creatinine fluctuates within a certain range over the past couple of years. We will continue to monitor with periodic labs. Multiple-type hyperlipidemia 10/24/2020 Assessment & Plan (05/18/2023 5:21 PM FALSEWORK BUILDER): He takes generic Crestor, tolerating well. Recent liver enzymes were normal and cholesterol profile looks pretty favorable. S/P TURP (status post transurethral resection of prostate) 05/02/2020 Nocturnal hypoxemia 02/22/2020 Overview (02/22/2020): 02/22/20--Overnight Pulse Oximetry Report dated 02/03/20 shows 22 minutes spent with oxygen under 88%. Pt referred to Dr Stafford for sleep consult.endy,checker in Rash and nonspecific skin eruption 01/19/2019 Assessment & Plan (01/19/2019 8:32 AM CDT): Ulcerated skin tag. Patient and daughter would like removed. Discussed in office excision and wound care, patient agrees. Spastic hemiparesis affecting nondominant side ( [facility]/HCC) 01/12/2019 Overview (2019): Stroke treated at [facility] 12/08/2018 Assessment & Plan (11/18/2023 4:27 PM [...] 12/08/2018 Overview (12/14/2018): Right frontal lobe, see [facility] records. Assessment & Plan (05/18/2023 5:19 PM FALSEWORK BUILDER): He has left-sided weakness. He had a fall at home recently and hurt his left hip. He went to [facility] where x-rays were negative for fracture. He [...] from past stroke demonstrated. Will refer to [facility] for in home PT. Keep scheduled follow [...] specialists. Assessment & Plan (07/27/2019 5:05 PM FALSEWORK BUILDER): Admitted to [place] with multifocal punctate ischemic stroke--see note from hospital admission. Lung nodule 12/08/2018 Overview (04/26/2021): Chest x-ray February 22 212 cm left lower lobe nodule, unable to transport for chest CT LLL 2.1 cm lung nodule suspicious for primary or metastatic malignancy per [facility] radiology reports, but also reported as early [...] family. Assessment & Plan (07/23/2022 2:02 PM FALSEWORK BUILDER): He is somewhat noncommittal about his mood. [...] the patient through the cancer navigator at [facility], this is the answer he gave when we tried to find continuity of care Hussein weiner from Dr. Frey's office called back and said that she spoke with Radha who is an [employer] and Radha told Mariana that she [...] Referred to Dr. Geronimo Martinez Prostate biopsy (+)[place] 4 + 3 Bone scan positive right [...] NCCN criteria prostate cancer, clinical stage IIIA ([id number], PSA 58 and Grade Group 3), diagnosed [...] pressing. Assessment & Plan (05/18/2023 5:24 PM FALSEWORK BUILDER): There apparently was evidence of progressive prostate cancer during his recent hospitalization at [place] for a fall and left hip pain. This is being managed by primary care. We will review the record. Assessment & Plan (07/23/2022 2:03 PM FALSEWORK BUILDER): Lab Results Component Value Date PSA 4.5 [...] be due to infection. He had a [id number] follow-up with Dr. Frey about one month [...] oncology. Assessment & Plan (05/10/2019 1:57 PM FALSEWORK BUILDER): He denies any current urinary symptoms of [...] setting. Assessment & Plan (05/18/2023 5:25 PM FALSEWORK BUILDER): Diabetes is managed with diet. Hemoglobin A1c on labs from about two weeks ago was 6.3% indicating good control. Assessment & Plan (08/04/2022 7:55 PM FALSEWORK BUILDER): He controls this with diet. He will [...] 06/04/2019 Assessment & Plan (05/10/2019 1:59 PM FALSEWORK BUILDER): His current list does not include any medications for diabetes. A recent hemoglobin A1c seems to indicate good control. We will review this with his PCP office and get him in early for an appointment if needed to reassess the situation. Lab Results Component Value Date HGBA1C 6.5 (H) 03/18/2019 Assessment & Plan (06/08/2018 11:35 AM FALSEWORK BUILDER): He is on glimepiride, monitored and managed by primary care. Continue same. Assessment & Plan (06/23/2017 12:05 PM FALSEWORK BUILDER): Blood sugars are only fairly well controlled [...] singular. Assessment & Plan (07/29/2019 5:18 PM FALSEWORK BUILDER): Pt requesting new nebulizer machine and new tubing for neb machine. Will arrange for this today. Assessment & Plan (05/10/2019 1:48 PM FALSEWORK BUILDER): He seems uncertain about his medications. On his list, there is a nebulizer and montelukast. Lungs are clear except for slightly diminished left sided breath sounds. We left things as they are, and will check with his PCP office about making sure he is taking medications as prescribed. Assessment & Plan (06/08/2018 11:34 AM FALSEWORK BUILDER): He has a nebulizer and a canister inhaler for use as needed. He also takes Singulair. Lungs are clear and oxygen saturation is satisfactory. Continue same. Assessment & Plan (06/23/2017 12:06 PM FALSEWORK BUILDER): Lungs are clear to auscultation at this time. Continue current therapy. Human immunodeficiency virus (HIV) infection Overview (10/09/2016): HIV disease Assessment & Plan (05/25/2024 4:33 PM FALSEWORK BUILDER): Chronic, present for about 10 years, currently [...] setting. Assessment & Plan (05/18/2023 5:21 PM FALSEWORK BUILDER): As of his last set of HIV [...] month. Assessment & Plan (07/23/2022 2:01 PM FALSEWORK BUILDER): CD4 count is over 600 and viral [...] months. Assessment & Plan (05/10/2019 1:50 PM FALSEWORK BUILDER): He has been on Atripla with good [...] future. Assessment & Plan (06/08/2018 11:34 AM FALSEWORK BUILDER): He is compliant with Atripla. He reports no new side effects that he recognizes. Viral load is suppressed at less than 20, and CD4 count is preserved at over 500. Continue same and follow-up in six months. Assessment & Plan (06/23/2017 12:05 PM FALSEWORK BUILDER): He is doing well with respect to the HIV infection. Viral load is less than 20 and CD4 count is well preserved. He is tolerating Atripla. Continue same. He can follow up in six months. Chronic rhinitis 06/19/2015 Overview (10/09/2016): Chronic rhinitis Resolved Problems Problem Noted Date Diagnosed Date Resolved Date Bradycardia 07/29/2022 10/27/2022 Assessment & Plan (07/29/2022 4:02 PM FALSEWORK BUILDER): likely erroneous reading on oximeter. EKG in [...] resist gravity with legs. Will refer to [facility] for PT, keep follow up with Dr. gimenez next month, sooner if needed. Bladder tumor 10/28/2021 10/27/2022 Overview (10/28/2021): (+) 05/[address] for bladder tumor possibly causing left ureteral or obstruction, ELVIN Deleon, office cystoscopy confirm there was no bladder tumor , he had possible scarring from radiation of the prostate cancer Acute kidney injury 08/02/2021 10/28/19 23 Overview (09/01/2021): [facility]. Saw Dr. Popeye Dukes. Assessment & Plan (09/01/2021 1:38 PM FALSEWORK BUILDER): Scanned nephrology consult note dated 08/02/2021, Dr. Dukes, [facility]. Loss of appetite 10/24/2020 10/27/2022 History of therapeutic radiation 05/11/2020 10/27/2022 Overview (03/26/2021): Formatting of this [facility] note might be different from the original. Prostate radiotherapy, 70 Gy in 28 fractions, from 04/02/2020 thru 05/11/2020. Lymphedema 12/02/2019 01/31/2020 Right-sided carotid artery disease 11/11/2019 01/31/2020 Overview (11/22/2019): Had right-sided carotid endarterectomy 09/16/2019 at [facility]. Seizure disorder (CMS/HCC) 09/30/2019 0 01/31/2020 Assessment [...] 01/31/2020 Assessment & Plan (07/29/2019 5:14 PM FALSEWORK BUILDER): Keppra level is low--per Dr. Glasgow--dose adjustment: Increase Keppra to three times daily and do a repeat lab next week. Skin nodule 01/19/2019 2019 History of lateralizing deo r deficit following cerebrovascular accident (CVA) 12/04/2018 11/22/2019 Overview (11/22/2019): Admitted to [facility] 06/04/2019 upon transfer via ambulance from [facility] with altered mental status changes and finding of right internal carotid artery occlusion. Hyperlipidemia associated wi th type 2 diabetes mellitus 06/24/2016 10/27/2022 Overview (10/09/2016): Combined hyperlipidemia Assessment & Plan (07/23/2022 2:01 PM FALSEWORK BUILDER): He is on generic Crestor, tolerating well. Check follow-up labs before his next visit in six months. Assessment & Plan (09/19/2020 3:31 PM CDT): He is on generic Crestor, continue same. Assessment & Plan (11/22/2019 12:31 PM CDT): He continues on generic Crestor, seems to be tolerating it well. Continue same and keep followups with primary care. Assessment & Plan (06/08/2018 11:35 AM FALSEWORK BUILDER): He continues on generic Crestor, seems to be tolerating it well. Continue same. Hypertension complicating diabetes 06/24/2016 01/31/2020 Overview (10/10/2016): Benign essential HTN Assessment & Plan (11/22/2019 12:32 PM CDT): Systolic blood pressure is somewhat borderline on lisinopril 5 mg daily. He may need a higher dose or combined therapy. We will discuss with primary care. Assessment & Plan (07/27/2019 5:32 PM FALSEWORK BUILDER): Pt was placed on lisinopril 5mg during his hospital stay and was discharged on this medication. I have asked that they monitor his BP at home bc it is on the lower side today--he may need to come off this medication. Will have home health to call us with some of his readings next week. Assessment & Plan (05/10/2019 1:52 PM FALSEWORK BUILDER): Blood pressure is in a low normal range. He is not currently on any blood pressure medications according to the most recent information in his chart. He did not bring in a list of medications from home. We will have the PCP staff check on all of this. Otherwise follow up here in six months. Assessment & Plan (06/08/2018 11:33 AM FALSEWORK BUILDER): Blood pressure is in a good range on current therapy. Labs are Continue same. Assessment & Plan (06/23/2017 12:06 PM FALSEWORK BUILDER): Blood pressure is in a good range. Continue current therapy. Osteoarthritis 06/27/2014 01/31/2020 Overview (10/10/2016): Osteoarthritis Diabetic neuropathy 04/05/2014 04/08/20 19 Overview (10/10/2016): Diabetic neuropathy Left shoulder pain 07/21/2013 9 Overview (10/10/2016): Shoulder pain Immunizations Immunization Administration Dates Next Due Influenza, [...] 06/25/2023 TD Preservative Free 10/03/1999 Tdap 06/19/2015 Social History Tobacco Use Types Packs/Day Years [...] on file Legal Sex Male 2:19 PM FALSEWORK BUILDER Gender Identity Male 10/26/2019 9:50 AM CDT Sexual Orientation Not on file Occupation Industry Job Start Date Job End Date retired Not on file Not on file Not on file Last Filed Vital Signs Vital Sign Reading Time Taken Comments Blood Pressure 134/64 06/10/2024 1:28 PM FALSEWORK BUILDER Pulse 50 06/10/2024 1:28 PM FALSEWORK BUILDER Temperature 36.6 C (97.9 F) 05/12/2023 4:05 PM FALSEWORK BUILDER Respiratory Rate 18 05/12/2023 4:05 PM FALSEWORK BUILDER Oxygen Saturation 98% 05/12/2023 4:0 5 PM FALSEWORK BUILDER Inhaled Oxygen Concentration - - Weight 72.6 kg (160 lb) 04/21/2024 4:07 PM CDT patient is physically unable to stand on scale at home Height 177.8 cm (5' 10 ) 05/06/2021 11: 54 AM CDT Body Mass Index 22.96 05/06/2021 11:54 AM CDT Plan of Treatment Not on file Medical Devices Implanted Type Area Geriatric Nurse Assistant Device Identifier Shelf Expiration Date Model / Serial / Lot Pin Right: Hand Explanted Type Area Geriatric Nurse Assistant Device Identifier Shelf Expiration Date Model / Serial / Lot [employer] [id number] Yasargil 5mm Straight Permanent Cerebral Mini 4mm Opening Clip Latex Free - [id number] - [id number] Explanted:Qty: 1 on 09/16/2019 by Dileep Connolly MD at [facility] Right: Carotid [employer] 05/24/2029 [id number] / [id number] / [employer] [id number] Yasargil 6.4mm Curved Permanent Cerebral Standard 6.1mm Opening Latex Free - [id number] - [id number] Explanted:Qty: 1 on 09/16/2019 by Dileep Connolly MD at [facility] Right: Carotid [employer] 01/19/2029 [id number] / [id number] / [employer] [id number] Yasargil 10.3mm Permanent Mri Safe Nonferromagnetic Spring Latex Free - [id number] - [id number] Explanted:Qty: 1 on 09/16/2019 by Dileep Connolly MD at [facility] Right: Carotid [employer] 01/17/2029 [id number] / [id number] / Procedures Procedure Name Priority [...] AM CDT) RPR NON-REACTIV E NON-REACTI VE [facility] Blood 04/26/2024 11:4 3 AM CDT 04/26/2024 11:45 AM CDT Narrative [facility] - 04/27/2024 8:21 PM CDT FASTING:YES PATIENT UNABLE TO VOID; ADVISED TO RETURN FOR COLLECTION. FASTING: YES Pee Gimenez MD LAB MICROBIOLOGY - GENERAL OR DERABLES Final Result CAROLIN [facility] [address] [address] [facility] [place] [phone] * (ABNORMAL) Lipid panel (04/26/2024 11:43 AM CDT) Cholesterol 187 <200 mg/dL Carolin [facility] Melgar HDL 50 > OR = 40 mg/dL [facility] Triglycerides 87 <150 mg/dL Carolin [facility] hetal Melgar LDL 118(H) mg/dL (calc) Carolin [facility] Comment: Reference range: <100 Desirable range <100 mg/dL for primary prevention; <70 mg/dL for patients with CHD or diabetic patients with > or = 2 CHD risk factors. LDL-C is now calculated using the Sruthi calculation, which is a validated novel method providing better accuracy than the Friedewald equation in the estimation of LDL-C. Ludin COLLINS et al. JEREMIAS. 2013;310(19): 2385-7782 (http://education.[employer]/faq/NNH992) Chol/HDL ratio 3.7 <5.0 (calc) Carolin tuta.coViviana Melgar Non-HDL, (LDL+VLDL) 137(H) <130 mg/dL (calc) Carolin [facility]co[facility]iviana Melgar Comment: For patients with diabetes plus 1 major ASCVD risk factor, treating to a non-HDL-C goal of <100 mg/dL (LDL-C of <70 mg/dL) is considered a therapeutic option. Blood 04/26/2024 11:4 3 AM CDT 04/26/2024 11:45 AM CDT [facility] - 04/27/2024 8:21 PM CDT FASTING:YES PATIENT UNABLE TO VOID; ADVISED TO RETURN FOR COLLECTION. FASTING: YES us Pee Gimenez MD LAB BLOOD ORDERABLES Final Re sult [facility] [address] [place] [phone] * (ABNORMAL) Comprehensive metabolic panel (04/26/2024 11:43 AM CDT) Glucose 86 65 - 99 mg/dL [employer]Viviana hetal Melgar Comment: Fasting reference interval BUN 16 7 - 25 mg/dL [facility]al Melgar Creatinine 1.36(H) 0.70 - 1.28 mg/dL [facility]iviana Melgar eGFR 54(L) > OR = 60 mL/min/1.7 3m2 [facility] MoriahViviana Melgar BUN/creat ratio 12 6 - 22 (calc) [facility] Melgar Sodium 138 135 - 146 mmol/L [facility] hetal Melgar Potassium, pl 4.3 3.5 - 5.3 mmol/L [facility] Chloride 101 98 - 110 mmol/L [facility] [place] hetal Melgar CO2 29 20 - 32 mmol/L [facility] hetal Melgar Calcium 9.6 8.6 - 10.3 mg/dL [facility] Melgar Protein, sr 7.5 6.1 - 8.1 g/dL [facility] hetal Melgar Albumin 4.2 3.6 - 5.1 g/dL [facility] Melgar GLOBULIN 3.3 1.9 - 3.7 g/dL (calc) [facility] Melgar Alb/glob ratio 1.3 1.0 - 2.5 (calc) [facility] Melgar Bilirubin, total 0.5 0.2 - 1.2 mg/dL [facility]al Melgar Alk phos 110 35 - 144 U/L [facility] Melgar AST 11 10 - 35 U/L [facility] hetal Melgar ALT (SGPT) 4(L) 9 - 46 U/L [facility] Melgar Blood 04/26/2024 11:4 3 AM CDT 04/26/2024 11:45 AM CDT [facility] - 04/27/2024 8:21 PM CDT FASTING:YES PATIENT UNABLE TO VOID; ADVISED TO RETURN FOR COLLECTION. FASTING: YES us Pee Gimenez MD LAB BLOOD ORDERABLES Final Re sult [facility] [address] [place] [address] * (ABNORMAL) PSA, total and free (04/26/2024 11:41 AM CDT) PSA 59.6(H) < OR = 4.0 ng/mL [facility] PSA, free 4.0 ng/mL [facility] PSA, free NOT CALCULATED >25 % (calc) [facility] Comment: PSA(ng/mL) Free PSA(%) Estimated(x) Probability of Cancer(as%) 0-2.5 (*) Approx. 1 2.6-4.0(1) 0-27(2) 24(3) 4.1-10(4) 0-10 56 11-15 28 16-20 20 21-25 16 >or =26 8 >10(+) N/A >50 References:(1)Tiffany et al.:Urology 60: 469-474 (2001) (2)Tiffany et al.:J.Urol 168: 922-925 (2001) Free PSA(%) Sensitivity(%) Specificity(%) < or = 25 85 19 < or = 30 93 9 (3)Catalona et al.:JEREMIAS 277: 2109-5239 (1996) (4)Catalona et al.:JEREMIAS 279: 0647-7130 (1997) (x)These estimates vary with age, ethnicity, [...] Gimenez MD LAB BLOOD ORDERABLES Final Result Performing Organization Address City/[facility]/ZIP Co de Phone Number [facility] [address] [place] [address] * (ABNORMAL) Hemoglobin A1c (04/26/2024 11:41 AM CDT) Hgb A1C 6.0(H) <5.7 % of total Hgb [facility] Comment: For someone without known diabetes, [...] 1 AM CDT 04/26/2024 11:42 AM CDT [facility] - 04/30/2024 4:42 AM CDT FASTING:YES PATIENT UNABLE TO VOID; ADVISED TO RETURN FOR COLLECTION. FASTING: YES Melinda Gimenez MD LAB BLOOD ORDERABLES Final Result Performing Organization Address [facility]/ZIP Co de Phone Number [facility] [address] [place] [address] * HLA-B*5701 TYPING (10/22/2021 4:02 PM CDT) Pathologist [facility] HLA B*5701 TYPING Negative Qu [employer] Comment: The allele HLA-B*5701 is associated with Abacavir hypersensitivity reaction (HSR). A negative result for HLA-B*5701 does not rule out the possibility of Abacavir HSR. Genetic counseling as needed. RESULTS REVIEWED BY: Mely Hebert M.D. # Ph.D., [facility] [employer], Cytogenetics and Genomics References: eric Finch al. Lancet. 2002 2:359(7805): 031-32 Sharonda Michelle et al. N Engl J Med. 2008 3586): 568-87 Typing performed by using -PCR with reflex to the FDA-cleared LABType(R) SSO Kit. The -PCR portion of this test was developed and its analytical performance characteristics have been determined by [facility] [place], [place]. It has not been cleared or [...] ADVISED TO RETURN FOR CO FASTING: YES us Pee Gimenez MD LAB BLOOD ORDERABLES Final Re sult [facility] [address] [place] [address] * CT Abdomen Pelvis WO Contrast (08/07/2021) [...] lobe 11.) Borderline hear size Narrative 08/07/2021 [facility] (see scanned report) us Historical Provider MD GOYAL CT PROCEDURES Final R esult * (ABNORMAL) Urinalysis reflex to microscopic and culture Urine, clean voided (05/03/2020 3:48 PM CDT) Color, ur YELLOW YELLOW [facility] Appearance, ur CLOUDY(A) CLEAR [facility] Specific gravity 1.014 1.001 - 1.035 [facility] pH, ur 7.0 5.0 - 8.0 [facility] Glucose, ur NEGATIVE NEGATIVE [facility] Bilirubin, ur NEGATIVE NEGATIVE [facility] Ketones, ur NEGATIVE NEGATIVE [facility] Blood, ur 3+(A) NEGATIVE [facility] Protein, ur, quant 2+(A) NEGATIVE [facility] Nitrites, ur POSITIVE(A) NEGATIVE [facility] Leukocyte esterase, ur 2+(A) NEGATIVE [facility] WBC, ur 20-40(A) < OR = 5 /HPF [facility] RBC, ur 40-60(A) < OR = 2 /HPF [facility] Epithelial cells, squamous, ur 0-5 < OR = 5 /HPF [facility] Bacteria, ur, quant FEW(A) NONE SEEN /HPF [facility] Amorphous crystals, ur FEW NONE OR FEW /HPF [facility] Hyaline cast NONE SEEN NONE SEEN /LPF [facility] Comments FEW MUCOUS THREADS [facility] Urine culture [facility] Comment:CULTURE INDICATED - RESULTS TO FOLLOW Urine culture [facility] Comment: CULTURE, URINE, ROUTINE Micro Number: [id number] Test Status: Final Specimen Source: URINE Specimen [...] 05/05/2020 7:32 AM CDT SPLIT 04/17/2020 FROM [id number] FASTING:NO FASTING: NO us Pee Gimenez MD LAB MICROBIOLOGY - GENERAL OR DERABLES Final Result Performing Organization Address [facility] Co de Phone Number [facility] [address] [place] [address] * (ABNORMAL) Albumin Creatinine Ratio, Urine (04/20/2020 [...] URINE ORDERABLES Final Result Performing Organization Address [facility] de Phone Number [facility] [address] [place] [address] * Dexa Axial Skeleton Bone Density 1 or 2 Site (04/17/2020) SCRIBED DXA T-SCORE -0.1 >=-1.0 Comment:AP Spine SCRIBED DXA Z-SCORE 0.9 Comment:AP spine SCRIBED DXA BMD 1.085 Comment:AP spine Anatomical Region Laterality Modality Body N/A Radiographic Paz ging Impressions 04/17/2020 Normal BMD. Narrative 04/17/2020 Dexa scan dated [facility], see scanned report. Historical Provider MD GOYAL DXA PROCEDURES Final Result * Hepatitis C antibody (04/06/2018 2:42 PM CDT) Hep C Ab NON-REACTI VE NON-REACTI VE [facility] [place] SIGNAL TO CUT-OFF 0.24 <1.00 [facility] [place] 04/06/2018 2:42 PM CDT 04/06/2018 2:43 PM CDT Narrative [facility] - 04/09/2018 2:02 PM CDT FASTING:YES FASTING: YES Resulting Agency Comment Performing Organization Information: Site ID: [id number] Name: Carolin Hardin Address: [address] [place] [address] Director: Jossue Kuo D.O., MPH Pee Gimenez MD LAB MICROBIOLOGY - GENERAL OR DERABLES Final Result Performing Organization Address City/State/[facility] Co de Phone Number [facility] [place] from Last 3 Months or Most Recently Relevant to Health Maintenance Insurance [place] [address] MEDICARE SOLUTIONS [place] [id number] [place] [id number] MEDICARE SOLUTIONS [place] [address] Advance Directives For more information, please contact: [phone] Documents on File Type Date Recorded Patient Head Of Design Expl anation ADVANCE DIRECTIVE 2019 LIVING SHANT L ADVANCE DIRECTIVE 2019 DNR ADVANCE DIRECTIVE 09/05/2013 POWER OF A [employer] * Full Code (Latest Code Status on File) Date Activated Date Inactivated Comments 09/17/2019 6:16 AM 09/17/2019 11:14 PM * Full Code Date Activated Date Inactivated Comments 06/04/2019 7:08 AM 06/17/2019 8:49 PM Care Teams Turbine Room Attendant Relationship Specialty Start Date End Date Melinda Gimenez MD PCP - General 09/05/13 Pee Gimenez MD [address] [address] Consulting Physician Infectious Diseases 01/14/17 Alan Donnelly MD [address] [place] [address] Referring Physician Ophthalmology 03/31/18 Jamison Malave MD [address] [address] Referring Physician Neurology 07/27/19 Dileep Connolly MD [address] [address] Referring Physician Neurosurgery 08/30/19 Ehsan Sosa III, MD [address] [place] [address] Consulting Physician Radiation Oncology 10/24/19 Popeye Dukes MD [address] [facility] [address] [place] [address] Consulting Physician Nephrology 08/02/21 Randy Morris MD [address] [facility] [address] [place] [address] Consulting Physician Urology 04/28/22
--- OUTSIDE RECORDS SUMMARY | 2024-08-30 13:45 | XMS_ITS | Clinical Summary ---
Author Organization [facility] Address [address] [place] [address] Phone Care Team Providers Care Roofing Sales Representative Name Role Phone Melinda Gimenez MD Primary Care Provider Ehsan Sosa MD Unavailable [phone] Dileep Connolly MD Unavailable [phone] Pee Gimenez MD Unavailable [phone] Allergies No known active allergies Medications montelukast (SINGULAIR) 10 MG Tablet Take by mouth daily. 8 Active ASPIRIN PO Take 325 mg by mouth. Active rosuvastatin (CRESTOR) 40 MG Tablet Take 40 mg by mouth. 9 Active ipratropium-alb uterol (DUO-NEB) 0.5-2.5 (3) MG/3ML Solution by Nebulization route 4 times daily as needed. Active albuterol 108 (90 Base) MCG/ACT Aerosol Solution take 2 Puffs by inhalation every 6 hours as needed for Wheezing (shortness of breath). Active Mirtazapine (REMERON) 7.5 MG Tablet Take 7.5 mg by mouth. 0 Active bictegravir-emt ricitab-tenofov (Biktarvy) 50-200-25 MG Tablet Take 1 Tablet by mouth. 0 Active Active Problems Problem Noted Date Diagnosed Date History of therapeutic radiation 05/11/2020 Overview (05/11/2020): Prostate radiotherapy, 70 Gy in 28 fractions, from 04/02/2020 thru 05/11/2020. Asymptomatic HIV infection 08/01/2019 Prostate cancer 08/01/2019 Cancer Staging:Clinical stage from 08/02/2019:Stage IIIA(cT1c, cN0, cM0, PSA: 62.5, Grade Group: 3) - Signed by Ehsan Sosa MD on 05/11/2020 Overview (05/11/2020): High risk group by NCCN criteria prostate cancer, clinical stage IIIA (cT1c, cNo, cM0, PSA: 62.5, Grade Group 3). His initial diagnosis was made on prostate biopsies 03/16/2017 at which time 6 cores were involved with Francheska 4 + 3 adenocarcinoma, 1 core with [place] 3 + 3 adenocarcinoma, and 5 cores were non-malignant. PSA at the time of initial diagnosis was unknown. He met the NCCN criteria for high risk group prostate cancer on the basis of PSA elevated greater than 20 when he was staged at the time of radiation oncology consultation 08/02/2019. However, in his case the markedly elevated PSA very well may have been related to prostatic hypertrophy as it appeared his PSA had a very gradual rise and decreased to 36.90 on 04/02/2020 following TURP 12/13/2019 for obstructive symptoms. He was initially seen in Radiation Oncology consultation 08/02/2019. Previously there had been concern that he might have osseous metastatic disease, but this was felt on the basis of serial imaging studies to instead be Paget's disease of the right hemipelvis. At the time of initial radiation oncology consultation addressing his right carotid artery disease was felt to be more pressing than his prostate cancer so he was referred for surgical management and had a right-sided carotid endarterectomy 09/16/2019 at [facility]. While he has basically been incontinent of urine ever since his CVA May 2019 he developed bladder outlet obstructive symptoms and underwent a TURP 12/13/2019. In the TURP surgical specimen [place] grade 3 + 4, Grade Group 2, prostate cancer involved 10% of the submitted c hips . As per discussion with urology the start of prostate radiotherapy was delayed until 3 months after his TURP. After a discussion with him and his daughter he declined ADT. He began prostate radiotherapy 04/02/2020 and completed 05/11/2020 receiving 70 Gy in 28 fractions to the prostate alone. 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 COPD with asthma Hypertension complicating diabetes Type 2 diabetes mellitus wit h kidney complication, without long-term current use of insulin Absence of bladder continence Cystitis Dysuria Resolved Problems Problem Noted Date Diagnosed Date Resolved Date Elevated PSA, greater than o r equal to 20 ng/ml 11/11/2019 10/03/2020 Right-sided carotid artery disease 11/11/2019 10/03/2020 Overview (11/11/2019): Had right-sided carotid endarterectomy 09/16/2019 at [facility]. 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 HIV (human immunodeficiency virus infection) 10/03/2020 Encounter for radiotherapy 0 10/03/2020 S/P TURP (status post transu rethral resection of prostate) 10/03/2020 Encounters Date Type Department Care Team Description 07/15/2024 Documentation Only [facility] [address] [place] [address] Ehsan Sosa MD 07/12/2024 Telephone [facility] [address] [place] [address] Ehsan Sosa MD 05/31/2024 [facility]-Scheduled [facility] [address] [place] [address] Ehsan Sosa MD Rising PSA following treatment for malignant neoplasm of prostate (Primary Dx); Prostate cancer (HCC); History of therapeutic radiation; Asymptomatic HIV infection (HCC); Paget's disease of bone; History of lateralizing motor deficit following cerebrovascular accident (CVA) from Last 3 Months Immunizations Immunization Administration Dates Next Due Covid-19, Mrna, Lnp-s, PF, 1 00 mcg/0.5 mL Dose (Moderna) 11/28/2020,10/24/2020 Family History Medical History Relation Name Comments No Known Problems Brother Cancer Father unknown type Congestive Heart Failure Mother No Known Problems Sister 1 No Known Problems Sister 2 No Known Problems Sister 3 No Known Problems Sister 4 No Known Problems Sister 5 No Known Problems Sister 6 Relation Name Status Comments Brother Alive Father Mother Sister 1 Alive Sister 2 Alive Sister 3 Alive Sister 4 Alive Sister 5 Alive Sister 6 Alive Social History Tobacco Use Types Packs/Day Years Used Date Smoking Tobacco: Former Cigarettes 0.5 20 0 08/10/1974 - 08/10/1994 Smokeless Tobacco: Never Tobacco Cessation:Counseling Given: No Alcohol Use Standard Drinks/Week Comments Not Currently 0 (1 standard drink = 0.6 oz pur e alcohol) Sexually Active Control Partners Comments Not Currently Female Sex and Gender Information Value Date Recorded Sex Assigned at Not on file Legal Sex Male 2:48 PM SUPERVISOR ADVICE Gender Identity Not on file Sexual Orientation Not on file 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 Not on file Not on file Not on f ile Last Filed Vital Signs Vital Sign Reading Time Taken Comments Blood Pressure 118/70 09/26/2020 1:09 PM CDT Pulse 65 09/26/2020 1:09 PM CDT Temperature 36.2 C (97.2 F) 09/26/2020 1:09 PM CDT Respiratory Rate 16 05/14/2020 3:32 PM SUPERVISOR ADVICE Oxygen Saturation 96% 09/26/2020 1:0 9 PM CDT Inhaled Oxygen Concentration - - Weight 92.1 kg (203 lb) 09/26/2020 1:09 PM CDT patient reported Height 177.8 cm (5' 10 ) 09/26/2020 1:0 9 PM CDT Body Mass Index 29.13 09/26/2020 1:09 PM CDT Plan of Treatment Health Maintenance Due Date Last Done Comments Diabetes: Eye Exam 1950 Diabetes: Foot Exam 1950 Hepatitis C Virus (HCV) Screening 1950 Meningococcal Immunization (ACWY) (1 - Risk 2-dose series) 1950 Zoster Immunization (1 of 2) 1967 Hepatitis B Immunization (1 of 3 - Risk 3-dose series) 2008 Diabetes: Nephropathy Screening 06/09/2019 06/09/2018 Influenza Immunization (#1) 03/06/202406/06, 04/28/2022, 04/26/2021, Additional history exists SARS-COV-2 Immunization ( season) 2024 06/25/2023, 07/10/2022, 10/31/2021, Additional history exists Diabetes: Hemoglobin A1c 10/25/2024 024, 04/24/2022, 04/17/2021, Additional history exists Pneumococcal Immunization (50+ years) Completed 09/12/2014, 09/05/2013 Pneumococcal Immunization Combined Discontinued 09/12/2014, 09/05/2013 DTaP/Tdap/Td Immunization Discontinued 06/19/2015, TdaP Immunization Completed 06/19/2015 Respiratory Syncytial Virus (RSV) Immunization (Adult) Completed 06/25/2023 Rotavirus Immunization Aged Out No lo nger eligible based on patient's age to complete this topic Procedures Procedure Name Priority Date/Time Associated Diagnosis Comments INTERNAL MEDICINE CONSULT 07/04/2024 12:00 AM SUPERVISOR ADVICE CREATININE BLOOD W/ GFR STAT 06/09/2018 11:16 AM SUPERVISOR ADVICE from Last 3 Months or Most Recently Relevant to Health Maintenance Results * INTERNAL MEDICINE CONSULT (07/04/2024 12:00 AM SUPERVISOR ADVICE) 07/04/2024 us Provider Scan GENERIC SCAN ORDERS CONSULT Autumn rutherford Result SCAN * Creatinine Blood w/ GFR (06/09/2018 11:16 AM SUPERVISOR ADVICE) CREATININE, BLOOD 1.11 0.80 - 1.30 mg/dL 06/09/2018 11:46 AM SUPERVISOR ADVICE [facility] GFR, EST. NONAFRICAN >60 >=60 06/09/2018 11:46 AM SUPERVISOR ADVICE [facility] GFR, EST. >60 >=60 06/09/2018 11:46 AM SUPERVISOR ADVICE [facility] Comment: Creatinine Clearance is the preferred criteria for selecting drug dose adjustments in renally impaired patients. The GFR is provided as addtional pertinent clinical information. GFR is reported in mL/min/1.73 sq m Blood specimen (specimen) Venous Catheter (IV) / Unknown 06/09/2018 11:16 AM SUPERVISOR ADVICE 06/09/2018 11:19 AM SUPERVISOR ADVICE Lul Palafox MD CHEMISTRY ORDERABLES Final Result Performing Organization Address City/[facility] Co de Phone Number [facility] [address] [place] [address] from Last 3 Months or Most Recently Relevant to Health Maintenance Insurance MEDICARE C [employer] [facility] Care Teams Roofing Sales Representative Relationship Specialty Start Date End Date Melinda Gimenez MD [address] [place] [address] PCP - General Internal Medicine 07/16/17 Ehsan Sosa MD [address] [place] [address] Consulting Physician Radiation Oncology 08/01/19 Dileep Connolly MD [id number] [place] [address] Consulting Physician Neurological Surgery 08/29/19 Pee Gimenez MD [address] [facility], [address] [place] [address] Consulting Physician Infectious Disease 03/09/20
== END 2024-08-30 11:37 | disposition home or self-care (01) ==
PROVIDERS: PCP Internal Medicine Infectious Disease; Visit Provider Internal Medicine Geriatric Medicine
DX: C61 Malignant neoplasm of prostate (principal); C79.51 Secondary malignant neoplasm of bone
CPT/HCPCS: 78815; A9596